=== PATIENT | female | born 1955 | race Caucasian/White ===

== ENCOUNTER 2016-09-26 11:19 | Emergency (ER) | payer OTHER ==
[~2016-09-26] VITALS: Ht 171.4 cm; Wt 61.4 kg
[2016-09-26 11:30] VITALS: BP 126/75; PULSE 86; RESP 16; O2SAT 99
--- NOTE | 2016-09-26 12:30 | ED.REPORT ---
HPI-Extremity Problem Lower Date of Service Sep 26, 2016 ED Provider: Doc,Ed MD History of Present Illness: 60yo female with L thigh swelling and bruising x 1 week. She recently took a long bus trip in [place] and flew home from [place] on 09/18/16. Her L thigh feels tight. She denies any known trauma. She reports a similar incident in Summer, 2015 while traveling abroad. [place] for DVT reportedly negative then. Nursing Notes Stated Complaint: INFLAMED LEFT LEG Chief Complaint: Extremity Trauma Nursing Notes Reviewed: Yes Allergies: Coded Allergies: No Known Allergies (Verified Allergy, Unknown, 09/26/16) General Time Seen by MD: 12:25 Chief Complaint Thigh injury left Hx Obtained From: Patient Onset Occurred: 1 week ago Symptom Duration: Since onset Quality: Aching, Pressure Severity: Current: Moderate Severity: Maximum: Moderate Associated with: Denies: Chest pain, Dyspnea, Unable to walk Pertinent Negative: Pt denies other symptoms Pertinent Negative: Exacerbated by nothing, Relieved by nothing Recent Healthcare: No recent doctor visit Similar Sx Previous: Yes Risk-Extremity Prob Lower Well's Criteria for DVT Local tend d-vein sys (1) Well's DVT Score: 1-2 pts (mod risk 33%) Past Medical History Past Medical History hx. of "slight anemia" Reports: Hypertension Smoking History Former Smoker Social History Alcohol Use: "Social" Drug Use: Denies drug use Ambulatory Status Independent Review of Systems Constitutional: Denies: Chills, Fever, Recent wt loss Skin: Reports Bruising, Reports Swelling, Reports Unexplained bruises Cardiovascular: Denies: Chest pain, Dyspnea on exertion GI: Denies: Abdominal pain, Bloody/tarry stool, Hematochezia, Rectal pain Physical Exam Physical Exam Notes: Orthostatics: Lying= 141/79, pulse 87 sitting= 145/82, pulse 91 standing= 142/94, pulse 95 Initial Vital Signs Vital Signs (First) Date Time Temp Pulse Resp B/P Pulse Ox O2 Delivery O2 Flow Rate FiO2 09/26/16 11:30 37.0 86 16 126/75 99 Room Air Initial VS: Vital signs normal General/Constitutional: Awake, Alert, No acute distress, Not toxic appearing Respiratory / Chest: Atraumatic, Breath sounds NL, Breath sounds = bilat Cardiovascular: Heart rate NL, Regular rhythm, Heart sounds NL Rash / Lesion Notes: L thigh with thigh length medial ecchymosis, no abscess/hematoma Rash / Lesion Location: Positive: Thigh L Abdomen: Soft, Non-tender, No guarding Rectum / Perineum: Atraumatic, Blood - occult heme -, No gross blood, No fissures, No hemorrhoids, Sphincter tone VANESSA Garcia RN chaperoned Interpretation & Diagnostics Interpretation & Diagnostics: marked anemia noted Lab Results Interpretation Result Diagram: 09/26/16 1255 09/26/16 1255 Test 09/26/16 12:55 White Blood Count 3.4th/mm3 (3.8-10.1) Red Blood Count 2.96mil/mm3 (3.90-5.20) Hemoglobin 7.7g/dL (12.0-15.6) Hematocrit 25.1% (35.0-46.0) Mean Corpuscular Volume 84.8fL (81-100) Mean Corpuscular Hemoglobin 26.0pg (27.0-35.0) Mean Corpuscular Hemoglobin Concent 30.7% (32.0-37.0) Red Cell Distribution Width 24.8% (12.3-15.4) Platelet Count 142bil/L (150-400) Neutrophils (%) (Auto) 47.4% (40-74) Lymphocytes (%) (Auto) 25.6% (14-46) Monocytes (%) (Auto) 22.7% (4-12) Eosinophils (%) (Auto) 1.7% (0-5) Basophils (%) (Auto) 2.3% (0-3) Prothrombin Time 13.2sec (8.1-12.5) Prothromb Time International Ratio 1.23ratio Sodium Level 141mEq/L (134-144) Potassium Level 4.1mEq/L (3.5-5.2) Chloride Level 101mEq/L (97-108) Carbon Dioxide Level 24mmol/L (18-29) Blood Urea Nitrogen 10mg/dL (6-24) Creatinine < 0.30mg/dL (0.57-1.00) Estimat Glomerular Filtration Rate 326mL/min (>59) Glucose Level 94mg/dL (60-99) Calcium Level 8.9mg/dL (8.5-10.1) Total Bilirubin 3.6mg/dL (0.0-1.2) Aspartate Amino Transf (AST/SGOT) 97U/L (0-50) Alanine Aminotransferase (ALT/SGPT) 30U/L (0-32) Alkaline Phosphatase 83U/L (25-165) Total Protein 8.0g/dL (6.4-8.4) Albumin 4.2g/dL (3.4-5.0) Hold Muhammad Top Tube Received (Received) US Soft Tissue/Musculoskeletal PROCEDURE: US VEINOUS LEG DUPLEX UNILATERAL, LEFT INDICATIONS: R/o DVT TECHNIQUE: Real-time imaging, as well as color and pulse Doppler interrogation, were performed of the lower extremity deep veins from the inguinal ligament to the popliteal fossa. COMPARISON: None. FINDINGS: The deep veins are normally compressible, and free of intraluminal thrombus. Color and pulse Doppler demonstrate normal phasic intraluminal flow. There is normal augmentation response to distal compression maneuver. IMPRESSION: No deep vein thrombosis of the left lower extremity. Dictated by: Malinda Delaney M.D. on 09/26/2016 at 14:08 Approved by: Malinda Delaney M.D. on 09/26/2016 at 14:08 Re-Eval/Medical Decision Med Decision/Clinical Course Pt. examined and labs reviewed with Dr. James whop advises f/u with PCP for possible hemotology work-up/referral. Discharge & Departure Impression: Primary Impression: Anemia Anemia type: unspecified type Qualified Code: D64.9 - Anemia, unspecified Additional Impression: Traumatic ecchymosis of left thigh Encounter type: initial encounter Qualified Code: S70.12XA - Contusion of left thigh, initial encounter Disposition: Home Patient Instructions: Iron Deficiency Anemia (DC) Additional Instructions: Sensible diet, take a multivitamin daily. You need to see your doctor tomorrow for further work-up. Return to ER if anything worsens. Referrals: Kae Hicks MD (PCP) 1 Day eval anemia EDSupervising Provider for APC: Lyle James MD Attending Statement I was personally available for consultation in the Emergency Department. I have reviewed the chart and agree with the documentation as recorded by the Midlevel Provider, including the assessment, treatment plan, and the disposition. copies to: Anna Smalls Christopher R PAC Sep 26, 2016 12:30 Lyle James MD Sep 29, 2016 18:14
[2016-09-26 13:34] LABS: INR 1.23 ratio
[2016-09-26 13:40] LABS: BASOPHILS % (AUTO) 2.3 % (0-3); EOSINOPHILS % (AUTO) 1.7 % (0-5); MONOCYTES % (AUTO) 22.7 % (4-12); Mean Corpuscular Volume 84.8 fL (81-100); NEUTROPHILS % (AUTO) 47.4 % (40-74); Platelet Count 142 bil/L (150-400)
--- NOTE | 2016-09-26 14:10 | DRSVH ---
PROCEDURE: US VEINOUS LEG DUPLEX UNILATERAL, LEFT INDICATIONS: R/o DVT TECHNIQUE: Real-time imaging, as well as color and pulse Doppler interrogation, were performed of the lower extr emity deep veins from the inguinal ligament to the popliteal fossa. COMPARISON: None. FINDINGS: The deep veins are normally compressible, and free of intraluminal thrombus. Color and pu lse Doppler demonstrate normal phasic intraluminal flow. There is normal augmentation response to di stal compression maneuver. IMPRESSION: No deep vein thrombosis of the left lower extremity. Dictated by: Malinda Delaney M.D. on 09/26/2016 at 14:08 Approved by: Malinda Delaney M.D. on 09/26/2016 at 14:08
[2016-09-26 15:06] VITALS: BP 141/77; PULSE 83
[2016-09-26 15:08] VITALS: BP 145/82; PULSE 91
[2016-09-26 15:10] VITALS: BP 142/75; PULSE 94
[2017-01-18] MEDS ORDERED: SPIR25TA3 PO (15:23)
[2017-01-18] MEDS ORDERED: FUR20 PO (15:23)
== END 2016-09-26 15:44 | disposition home or self-care (01) ==
LOC: SED 11:19
DX: D64.9 Anemia, unspecified (principal); S70.12XA Contusion of left thigh, initial encounter; X50.1XXA Overexertion from prolonged static or awkward postures, initial encounter; Y92.9 Unspecified place or not applicable; Y93.9 Activity, unspecified; Y99.9 Unspecified external cause status; I10 Essential (primary) hypertension; Z87.891 Personal history of nicotine dependence

== ENCOUNTER 2017-01-19 01:31 | Day surgery (SDC) | payer OTHER ==
[~2017-01-19 01:31] MED LIST: FUR20 PO; SPIR25TA3 PO
[2017-01-19] MEDS ORDERED: Propofol 10,000 mCg/mL 20 mL Inj ONE (01:32)
[2017-01-19] MEDS ORDERED: Lactated Ringer's 1,000 ML IV ONE (06:00)
== END 2017-01-19 23:59 | disposition home or self-care (01) ==
LOC: END 01:31
PROVIDERS: ATTEND Internal Medicine Gastroenterology
DX: I85.00 Esophageal varices without bleeding (principal); Z53.8 Procedure and treatment not carried out for other reasons

== ENCOUNTER 2017-01-21 00:22 | Day surgery (SDC) | payer OTHER ==
[~2017-01-21] VITALS: Ht 170.2 cm; Wt 61.2 kg
[2017-01-21] MEDS ORDERED: Lactated Ringer's 1,000 ML IV SCH ×2 (05:00→12:34)
[2017-01-21] MEDS ORDERED: Lactated Ringer's 1,000 ML IV ONE (06:00)
[2017-01-21 12:18] VITALS: BP 125/71; PULSE 76; RESP 14; O2SAT 96
[2017-01-21] MEDS ORDERED: Ondansetron 2 mg/mL 2 mL Inj IVPUSH PRN (12:35)
[2017-01-21] MEDS ORDERED: MetoCLOpramide 5 mg/mL 2 mL Inj IVPUSH PRN (12:35)
[2017-01-21 13:25] VITALS: BP 106/65; PULSE 84; RESP 16; O2SAT 97
[2017-01-21 13:35] VITALS: BP 121/70; PULSE 82; RESP 16; O2SAT 98
[2017-01-21 13:45] VITALS: BP 134/77; PULSE 79; RESP 16; O2SAT 96
--- NOTE | 2017-01-21 17:08 | PCM.ANEP1 ---
Post Anesthesia PACU Phase 1 Assessment Vital Signs Vital Signs Date Time Temp Pulse Resp B/P Pulse Ox O2 Delivery O2 Flow Rate FiO2 01/21/17 13:45 79 16 134/77 96 Room Air 01/21/17 13:35 82 16 121/70 98 Room Air 01/21/17 13:25 84 16 106/65 97 Room Air 01/21/17 12:18 36.6 76 14 125/71 96 Room Air Anesthetic Administered: GA Level of Alertness: Awake, talking HULL's with Equal Strength: Yes Pain: No Nausea or Vomiting: No CV Function and Hydration: Yes Airway Device: Oxygen Delivery: Room Air Lungs: Normal Air Movement Dermatome Level: Full Sensation PACU Phase 2 Assessment Complications: No Follow up Care: N/A Patient Instructions Provided: N/A Aly Flynn MD January 21, 2017 17:08
--- NOTE | 2017-01-21 17:08 | PCM.HPANE ---
Patient Data Surgeon Admitting Provider: Attending Provider:Pawel Cat MD Primary Care Physician:Kimberlyn Crabtree MD Other Provider:Kerline Church Anesthesia Reason for Visit Esophageal Varices Without Bleeding Ht/WT & BMI Height (Feet): 5 Height (Inches): 7 Weight (Kilograms): 61.24 Body Mass Index 21.00 Allergies Coded Allergies: No Known Allergies (Verified Allergy, Unknown, 09/26/16) Past Anesthesia History Anesthesia History: Denies:: Abnormal Airway, Anesthesia Reactions, Difficult Intubation, Fam Anesthesia Reaction, Fam Malignant Hypertherm, Malignant Hyperthermia Diabetes History Hx Diabetes?: No MRSA MRSA: No Medications Reported Medications Spironolactone 25 Mg [id number] Mg PO DAILY #30 TABLET Ref 0 01/18/17 Furosemide 20 Mg Tab10 Mg PO DAILY 30 Days Ref 0 01/18/17 History History of ENT Problems?: No HEENT History: Denies:: Abnormal Airway Cataracts Difficult Intubation Dysphagia Glaucoma Hearing Problem Sinus Problem TMJ Denture Type: None Teeth Condition: Within Normal Limits Hx of Heart Problems?: Yes Cardiovascular History: Positive for:: Hypertension Denies:: AICD Abdominal Aortic Aneurism Atrial Fibrillation Cardiac Surgery Chest Pain Congestive Heart Failure Coronary Artery Disease Edema Heart Murmur Irregular Heartbeat Pacemaker Peripheral Vascular Rheumatic Fever Thrombophlebitis Valvular Heart Disease Hx of Respiratory Problem?: No Respiratory History: Denies:: Asthma COPD Chest Surgery Cough Dyspnea Emphysema Hemoptysis Oxygen Administration Pneumonia Pulmonary Embolism Tuberculosis Use of C-PAP Machine Use of Inhalers / NEBS Hx Neurologic Problems?: No Neurological History: Denies:: Alzheimer's Disease CVA Dementia Dizziness Headaches Multiple Sclerosis Parkinson's Disease Peripheral Neuropathy Seizures TIA Hx of GI Problems?: Yes Gastrointestinal History: Denies:: Cirrhosis Diverticulitis Gall Bladder Disease Gastroesphageal Reflux Gastrointestinal Bleeding Heartburn Hepatitis Hiatal Hernia Liver Disease Rectal Bleeding Other GI Pertinent History: rectal bleeding at times due to hemorrhoids Hx of Problems?: No Genitourinary History: Denies:: HX of Hemodialysis Kidney Stones Urinary Tract Infection HX of Peritoneal Dialysis: No Female Hx: Denies:: Currently Endometriosis Pelvic Inflammatory Problems with Breasts? Skin History: Denies:: History Skin Disorders? Pressure Ulcers Hx Musculoskeletal Problems?: No Musculoskeletal History: Denies:: Back Injury Degenerative Joint Fibromyalgia Joint Replacement Musculoskeletal Trauma Myasthenia Gravis Osteoarthritis Rheumatoid Arthritis Systemic Lupus Hx of Psycho/Social Problems?: Yes Psycho Social History: Positive for:: Anxiety Hx Depression Denies:: Bipolar Disorder Suicide Attempt Hx Surgeries?: Yes (knee x2, hernia repair) Hx Any Other Health Problems?: Yes Hx Diabetes: No Hx Alcohol Use: Yes (quit 2 years) Smoking Status: Former Smoker Stop/Bang Treated for Sleep Apnea?: No Do You Have a CPAP Machine?: No S-Snoring: Do You Snore Loudly: Yes T-Tired: feel tired, fatigued: No O-Obsered: Observed not breath: No B- Body Mass Index > 35 kg/m2: No A- Age over 50: Yes N- Neck Large Circumference: No G- Gender Male: No Risk Assessment Category Category 1A: Patient has history of documented sleep apnea, and HAS NOT received any narcotic, sedative or anesthesia administration during this stay. Category 1B: Patient has history of documented sleep apnea, and HAS received any narcotic , sedative or anesthesia administration during this stay Category 2: Patient has SUSPECTED Obstructive Sleep Apnea, and HAS received any narcotic , sedative or anesthesia administration during this stay. Category 3: Patient has SUSPECTED Obstructive Sleep Apnea and HAS NOT received narcotic, sedative or anesthesia administration during this stay. Category 4: Outpatient in Procedural Areas with known sleep apnea or who screen positive for High Risk via the STOP/BANG questionnaire. Exam Exam Vital Signs Vital Signs Date Time Temp Pulse Resp B/P Pulse Ox O2 Delivery O2 Flow Rate FiO2 01/21/17 12:18 36.6 76 14 125/71 96 Room Air General Appearance: Alert, Oriented X3, Cooperative, No Acute Distress HEENT/AIRWAY: MP 2, Neck Movement (FROM), Mouth Opening (3 FBMO) Lungs: Normal Air Movement Heart: Regular Rate/Rhythm Plan Impression Patient chart reviewed, patient interviewed and anesthestic plan with risks, benefits, and alternatives discussed, and informed consent obtained. NPO per Anesth. Guidelines: Yes ASA Physical Status: ASA2 Mod Systemic Disease Anesthetic Plan: GA Bene/Risks/Altern/Consents: Yes HP Complete Prior to Induction: Yes Aly Flynn MD January 21, 2017 12:34
--- NOTE | 2017-01-22 07:28 | ENDO ---
[address] [address] ENDOSCOPY PROCEDURE PATIENT: AIRAM HUGHSE : 1955 MR#: [id number] ADMIT: 01/21/2017 JOB ID: [id number] DATE: 01/21/2017 PROCEDURE PERFORMED: Esophagogastroduodenoscopy. INDICATION: Variceal screening. The patient's ASA classification, Mallampati score and medications as per Dr. Aly Flynn's anesthesia report. INSTRUMENT USED: GIF H 180 J. PROCEDURE DETAILS: After informed consent was obtained, the patient was brought into the GI suite, where she was placed on oxygen via nasal cannula and monitored with continuous pulse oximeter, telemetry and blood pressure monitoring. A time-out was performed. Then, she was placed in the left lateral decubitus position and medications were administered for sedation. A bite block was placed. The standard EGD scope was then inserted through the bite block and advanced under direct visualization to the second portion of the duodenum without difficulty. FINDINGS: 1. Normal-appearing duodenal bulb, first and second portion. 2. Normal appearing pylorus. The mucosa of the antrum and body of the stomach had a mosaic appearance consistent with portal gastropathy. 3. Retroflexed views in the gastric body revealed a normal-appearing cardia and fundus. 4. Normal-appearing GE junction at 39 cm. Just above the GE junction, there were three small columns of varices that flattened out with insufflation. These extended to 20 cm proximally. There was no stigmata of recent bleeding or evidence that these were at high risk for bleeding. IMPRESSION: 1. Portal gastropathy. 2. Small esophageal varices. RECOMMENDATIONS: 1. Followup in GI clinic. 2. Repeat EGD in one year. COMPLICATIONS: None. ESTIMATED BLOOD LOSS: 0.
== END 2017-01-21 23:59 | disposition home or self-care (01) ==
LOC: END 00:22
PROVIDERS: ATTEND Internal Medicine Gastroenterology
DX: I85.00 Esophageal varices without bleeding (principal); K76.6 Portal hypertension; K31.89 Other diseases of stomach and duodenum; I10 Essential (primary) hypertension; F41.8 Other specified anxiety disorders; Z87.891 Personal history of nicotine dependence
CPT/HCPCS: 43235; J7120

== ENCOUNTER 2017-03-18 14:45 | Inpatient (IN) | payer OTHER ==
[2017-03-18] VITALS (12 sets, daily range): BP systolic 101–124; BP diastolic 63–79; PULSE 79–123; RESP 12–22; O2SAT 93–99
[~2017-03-18] VITALS: Ht 170.2 cm; Wt 61.2 kg
--- NOTE | 2017-03-18 15:49 | ED.REPORT ---
HPI-General Illness Date of Service Mar 18, 2017 ED Provider: Milagro Blancas History of Present Illness: was told to come in by doctor. Told she is low. 6.5 was number 2 weeks ago. ETOH noted, when asked, patient denies drinking. Unable to obtain hx because of etoh. Does report occasional nose bleed Nursing Notes Stated Complaint: GENERAL Chief Complaint: General Complaint Nursing Notes Reviewed: Yes Allergies: Coded Allergies: latex (Verified Allergy, Intermediate, rash, 03/18/17) Scheduled Furosemide (Furosemide) 20 Mg Tab 10 MG PO DAILY Spironolactone (Spironolactone) 25 Mg Tablet 25 MG PO DAILY General Time Seen by MD: 15:30 Chief Complaint Weakness (low h and h), Other Hx Obtained From: Patient Sudden in Onset?: No Past Medical History Past Medical History hx. of "slight anemia" Reports: Hypertension Smoking History Former Smoker Social History Alcohol Use: "Social" Drug Use: Denies drug use Ambulatory Status Independent Review of Systems Full Review of Systems Constitutional: Reports: Fatigue, Denies: Chills Ears / Nose / Throat: Denies: Ear drainage left, Ear drainage right Respiratory: Reports: Dyspnea on exertion GI: Denies: Bloody/tarry stool, Melena, Rectal pain, Vomiting Endocrine: Denies: Cold intolerance, Heat intolerance Allergy / Immune: Denies: Allergic reaction Psychiatric: Denies: Agitation, Anxiety Physical Exam Vital Signs Vital Signs Date Time Temp Pulse Resp B/P Pulse Ox O2 Delivery O2 Flow Rate FiO2 03/18/17 21:21 36.9 87 12 101/67 03/18/17 21:05 36.9 86 13 116/67 03/18/17 20:53 36.9 88 16 111/68 03/18/17 19:37 85 20 113/68 96 Room Air 03/18/17 17:47 88 21 105/63 93 Room Air 03/18/17 15:46 90 22 122/69 95 Room Air 03/18/17 15:13 36.5 92 14 123/79 97 Room Air Initial VS: Reviewed, Vital signs normal General/Constitutional: Well-developed, Well-nourished Head / Eyes: Atraumatic, Normocephalic, PERRL ENT: Mucous membranes moist, Conjunctiva normal, No scleral icterus Neck: Supple, Non-tender, Full range of motion Respiratory: Breath sounds normal, Clear to auscultation, No respiratory distress Cardiovascular: Regular rate & rhythm, Heart sounds normal, Intact distal pulses Abdomen / GI: Soft, Non-tender, No guarding, No rebound, No distention Back: No CVA tenderness Lymphatic: No lymphadenopathy Extremities: Vascular intact, Neuro intact, No swelling, No tenderness Skin: Warm, Dry, No cyanosis Neurologic: Alert, Oriented, Nonfocal Psychiatric: Mood/affect normal, Behavior normal, Normal thought content General/Constitutional: Awake, Alert, No acute distress drunk Head / Eyes: Atraumatic, Normocephalic, PERRL Neck: Atraumatic, Supple, No meningismus Respiratory / Chest: Atraumatic, Breath sounds NL, Breath sounds = bilat, No respiratory distress Cardiovascular: Heart rate NL, Regular rhythm, Heart sounds NL Abdomen: Atraumatic, Soft, Non-tender guiac negative Interpretation & Diagnostics Lab Results Interpretation Result Diagram: 03/18/17 1600 03/18/17 1600 Test 03/18/17 16:00 03/18/17 20:15 White Blood Count 2.9th/mm3 (3.8-10.1) Red Blood Count 2.76mil/mm3 (3.90-5.20) Hemoglobin 6.0g/dL (12.0-15.6) Hematocrit 21.5% (35.0-46.0) Mean Corpuscular Volume 77.9fL (81-100) Mean Corpuscular Hemoglobin 21.7pg (27.0-35.0) Mean Corpuscular Hemoglobin Concent 27.9% (32.0-37.0) Red Cell Distribution Width 23.4% (12.3-15.4) Platelet Count 42bil/L (150-400) Neutrophils (%) (Auto) 47.7% (40-74) Lymphocytes (%) (Auto) 27.4% (14-46) Monocytes (%) (Auto) 18.9% (4-12) Eosinophils (%) (Auto) 1.4% (0-5) Basophils (%) (Auto) 3.5% (0-3) Hold Purple Top Tube Received (Received) Hold Blue Top Tube Received (Received) Sodium Level 141mEq/L (134-144) Potassium Level 4.2mEq/L (3.5-5.2) Chloride Level 103mEq/L (97-108) Carbon Dioxide Level 20mmol/L (18-29) Blood Urea Nitrogen 8mg/dL (8-27) Creatinine 0.43mg/dL (0.57-1.00) Estimat Glomerular Filtration Rate 215mL/min (>59) Glucose Level 229mg/dL (60-99) Calcium Level 8.1mg/dL (8.5-10.1) Magnesium Level 1.7mg/dL (1.6-2.6) Total Bilirubin 2.4mg/dL (0.0-1.2) Aspartate Amino Transf (AST/SGOT) 132U/L (0-50) Alanine Aminotransferase (ALT/SGPT) 27U/L (0-32) Alkaline Phosphatase 106U/L (25-165) Troponin T < 0.010ug/L (0.0-0.011) Total Protein 7.3g/dL (6.4-8.4) Albumin 3.6g/dL (3.4-5.0) Hold [place] Top Tube Received (Received) Hold Muhammad Top Tube Received (Received) Alcohols 374mg/dL (0-10) Lactic Acid Level 2.8mmol/L (0.4-2.0) Re-Eval/Medical Decision Med Decision/Clinical Course 61 year old female presents after being told to come to the ER for low blood levels. Patient states she maybe was weak after shopping at [employer] yesterday. Patient is poor historian because of her alcohol on board. denies drinking. No sign of appendicitis Discharge & Departure Primary Impression: Anemia Anemia type: unspecified type Qualified Code: D64.9 - Anemia, unspecified Additional Impression: ETOH abuse Disposition: ADMITTED TO HOSPITAL Referrals: Rick Heredia DO (PCP) EDSupervising Provider for APC: Rory Mancilla DO copies to: Rick Heredia Sue ARNP Mar 18, 2017 15:49
[2017-03-18 16:44] LABS: BASOPHILS % (AUTO) 3.5 % (0-3); EOSINOPHILS % (AUTO) 1.4 % (0-5); MONOCYTES % (AUTO) 18.9 % (4-12); Mean Corpuscular Hemoglobin 21.7 pg (27.0-35.0); Mean Corpuscular Volume 77.9 fL (81-100); NEUTROPHILS % (AUTO) 47.7 % (40-74); Platelet Count 42 bil/L (150-400)
[2017-03-18 16:57] LABS: TROPONIN T < 0.010 ug/L (0.0-0.011)
[2017-03-18] MEDS ORDERED: 0.9% Sodium Chloride 1,000 ML IV ONE (17:55)
[2017-03-18] MEDS ORDERED: Ondansetron 2 mg/mL 2 mL Inj IVPUSH PRN (20:35)
[2017-03-18] MEDS ORDERED: Polyethylene Glycol (PEG) 17 Gm Powder PO PRN (20:35)
[2017-03-18] MEDS ORDERED: Alum-Mag Hydrox-Simeth 30 mL Suspension PO PRN (20:35)
--- NOTE | 2017-03-18 22:09 | PCM.HPMED ---
Subjective Date of Service Mar 18, 2017 Primary Provider: Admitting Physician: Primary Care Physician: Rick Heredia DO Attending Physician: Chief Complaint: Fatigue History of Present Illness: Jorge A Wooten is a 61 year old woman with past medical history significant for alcoholic cirrhosis with esophageal varices, recurrent epistaxis , recurrent anemia, anxiety who presented to the [facility] emergency department today at the advice of her primary care doctor due to severe anemia. The patient is a difficult historian and much of the information is obtained from chart review. Patient is supposed to be on numerous medications for her cirrhosis including spironolactone and furosemide which she has self discontinued. The patient has had multiple ER visits due to recurrent epistaxis. The patient states that she believes that her nosebleeds occur due to stressful events. She states that she has at least one significant nosebleed per month but has to sleep with tissues in her nose to prevent blood from "getting everywhere." The patient states that she was previously an alcoholic but has not been drinking since the of her children. Of note, today the patient's alcohol level is 374. The patient has been referred to hematology to evaluate her recurrent pancytopenia. Per Dr. Heredia's note from the outpatient clinic the patient smelled of alcohol during his interview with her on 03/02/2017 however the patient stated that this was due to recent use of mouthwash. Patient notes frequent and easy bruising especially of her mathis. She denies any chest pain, chest pressure, shortness of breath or palpitations. She does however state that she is sleeping all the time because she is so tired. Recent lab workup at her primary care physician's on 03/02/2017 reveals an iron saturation of 7% with a normal iron binding capacity, B12 level of 1200 , folate of 0.6 and a ferritin of 19. A blood ethanol level obtained at this visit was 180. She most recently underwent an upper endoscopy on 01/22/17 which revealed small esophageal varices and portal gastropathy. In the emergency department her vital signs were stable. Her laboratory evaluation was notable for hemoglobin of 6.0. 3 units of blood were typed and cross and began transfusing. Review of Systems: A comprehensive of the review of systems was performed and negative except as noted above in history present illness. Allergies Coded Allergies: latex (Verified Allergy, Intermediate, rash, 03/18/17) Home Medications Patient denies taking any medications. PMH Alcoholic cirrhosis with portal gastropathy and esophageal varices. Hypertension Mitral valve regurgitation Microcytic anemia Medication noncompliance Recurrent epistaxis Surgical History Hernia repair Knee arthroscopy Family History Grandmother has diabetes mellitus. Maternal grandfather had colon cancer. Mother had colon polyps. Social History Hx Alcohol Use: No (previous ETOH) Hx Substance Use: No Hx Tobacco Use: Yes (QUIT IN ) Smoking Status: Former Smoker Exam Vital Signs Vital Sign - Last Date Time Temp Pulse Resp B/P Pulse Ox O2 Delivery O2 Flow Rate FiO2 03/18/17 21:21 36.9 87 12 101/67 03/18/17 19:37 96 Room Air Exam General: No acute distress, thin woman who appears older than stated age, appropriately interactive HEENT: Normocephalic, atraumatic. External ears without defect. Pupils equal, round, and reactive to light and accommodation. Icteric sclerae, pale conjunctivae, and no lid lag. Jaundice noted under the tongue. Oropharynx free of erythema and cobble stoning with moist mucosa. No petechiae noted Neck: Supple with full range of motion. No jugular venous distension. No bruits. No lymphadenopathy or thyromegaly. Cardiovascular: Regular rate and rhythm with holosystolic murmur appreciated. Pulmonary: Clear to auscultation bilaterally with no crackles, wheezes, or rhonchi. Normal respiratory effort with no use of accessory muscles. Abdomen: Bowel tones present. Soft, nontender, nondistended. Spleen palpable. Extremities: No clubbing, cyanosis, edema, or lymphadenopathy appreciated. Skin: Normal temperature, turgor. Purpura of bilateral shins noted. Neurological: Cranial nerves grossly intact. Normal muscle strength, tone, and bulk. Reflexes, coordination, and sensory function within normal limits. No known gait impairment. Generally tremulous appearing Psychiatric: Normal mood and affect. Alert and oriented to person, place, and time. Lab and Diagnostics Result Diagram: 03/18/17 1600 03/18/17 1600 Assessment & Plan Jorge A Wooten is a 61 year old woman with past medical history significant for alcoholic cirrhosis with esophageal varices, recurrent epistaxis , recurrent anemia, anxiety who presented to the [facility] emergency department today at the advice of her primary care doctor due to severe anemia. Pancytopenia, acute on chronic, present on admission, active -Most likely etiology secondary to bone marrow suppression from alcohol ingestion. 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 -Is likely secondary to cirrhosis and a reduction thrombopoetin production. A recent abdominal ultrasound from 3 months ago reveals a normal-sized spleen. -We will rule out hemolytic anemia. LDH, haptoglobin, total and direct bilirubin will be obtained. Smear eval. -Transfuse 3 units of PRBC -Monitor H&H -Obtain stool guaiac Lactic acidosis, present on admission, improving -Likely due to tissue hypoxia from severe anemia as well as poor hepatic clearance due to cirrhosis -Improved on recheck Alcoholic hepatitis, present on admission, active -Likely patient's LFTs do not reflect a classic picture of alcoholic hepatitis with a normal ALT however given the patient's cirrhosis it is likely that much of her liver is scarred down and able to release any enzymes. -We will obtain INR Alcohol intoxication, present on admission, active -Patient denies using any alcohol despite alcohol level being 374 -Years that she has also been in denial with her primary care doctor. -Anticipate that the patient will undergo withdrawal soon. -Will hold off on initiating CIWA protocol as the patient is denying alcohol use Alcoholic cirrhosis, present on admission, active -We will obtain an INR to calculate the patient's meld score -Restart patient's spironolactone and furosemide CODE STATUS: Full code Patient is admitted under inpatient status with expected length of stay greater than 2 midnights due to severity of presenting symptoms, risk of adverse event, and complexity of treatment plan. VTE Mechanical Devices: Intermittant Pneumatic CD Resuscitation Status: CPR: Attempt Resuscitation Attending Statement Pt seen and examined by myself and agree with above plan. Xi Blankenship DO Mar 18, 2017 21:29 Petrona Salinas MD Mar 19, 2017 05:55
[2017-03-18] MEDS ORDERED: diphenhydrAMINE 25 mg Capsule PO ONE (22:40)
[2017-03-18 23:01] LABS: INR 1.47 ratio
[2017-03-18] MEDS: 0.9% Sodium Chloride 1,000 ML IV SCH (23:15)
[2017-03-19] VITALS (14 sets, daily range): BP systolic 117–140; BP diastolic 69–85; PULSE 77–92; RESP 14–20; O2SAT 93–97
[2017-03-19] MEDS ORDERED: 0.9% Sodium Chloride 250 ML IV ONE (01:00)
--- NOTE | 2017-03-19 07:43 | NUR ---
Admit/Blood Pt admitted to room 2006 around 2300, vitals stable and pt in no distress. 1st unit of blood started in ED and finished on floor. Pt denied symptoms after slight fever reported in ED and pt had no further fevers while in unit, although is observed to have some shakiness which pt says has been her norm for months now, she states it "makes eating hard." MD ordered 2 more units of PRBCs to be given on floor for a total of 3 units. Pt tolerated well, 3rd unit currently infusing, day RN aware. Pt A&Ox3, vitals stable overnight.
--- NOTE | 2017-03-19 09:30 | NUR ---
CIWA and Ativan CIWA score this am was 10. Offered IV Ativan and pt refused. Explained why it was ordered and went over reasons why she didn't want it. Pt still refused but agreed to call if her symptoms got worse. At this time she states she has a mild headache, slightly anxious, and severe tremor. MD aware and will continue to check in on her frequently.
[2017-03-19] MEDS: 0.9% Sodium Chloride 1,000 ML IV SCH ×2 (10:35→20:48)
--- NOTE | 2017-03-19 14:11 | PCM.PNMED ---
Subjective Date of Service Mar 19, 2017 Subjective pt denied alcohol drinking, but noticed severe resting tremors on arms, mildly anxious, nauseated, denied VH,AH, no formication. denied blurry vision, AAOx3, running third unit of pRBC, tolerating well, reportedly refused ativan per director of medical staff services Exam Vital Signs Vital Sign - Last Date Time Temp Pulse Resp B/P Pulse Ox O2 Delivery O2 Flow Rate FiO2 03/19/17 12:30 37.0 78 18 126/69 93 Room Air Intake and Output 03/18/17 03/18/17 03/19/17 Cumulative From/Thru 15:00 23:00 07:00 03/18/17 15:13 - 03/19/17 06:27 Intake Total 999 ml 2579 ml 3578 ml Output Total 300 ml 300 ml Balance 999 ml 2279 ml 3278 ml Intake Oral 300 ml 300 ml IV Total 999 ml 1679 ml 2678 ml Packed Cells 600 ml 600 ml Output Urine Total 300 ml 300 ml Exam tremors on extended arms, tongue fasciculation no JVD, MMM, no LAD RRR, nl s1, s2 no mrg CTAB, no w,c S,ND,NT,normoactive BS+ warm, no edema, pulses 2/2 IVs and Medications Medications Reviewed: Medications were reviewed in detail Lab and Diagnostics Result Diagram: 03/19/17 1104 03/18/17 1600 Assessment & Plan Jorge A Wooten is a 61 year old woman with past medical history significant for alcoholic cirrhosis with esophageal varices, recurrent epistaxis , recurrent anemia, anxiety who presented to the [facility] emergency department today at the advice of her primary care doctor due to severe anemia. acute, active Alcohol intoxication, present on admission, active, Patient denies using any alcohol despite alcohol level being 374. Years that she has also been in denial with her primary care doctor. -CIWA protocol initiated, close observation, neurocheck q1h -replete lytes daily, mg,K Pancytopenia likely BM suppression from chronic etoh abuse, cirrhosis, SANAZ, POA , acute on chronic, given stable vitals, relative mild sx, more suggestive of chronic process. A recent abdominal ultrasound from 3 months ago reveals a normal-sized spleen. hgb6 on admission, pt received 3units of pRBC -Monitor H&H daily -Obtain stool guaiac chronic, stable resolved Lactic acidosis, present on admission,Likely due to tissue hypoxia from severe anemia as well as poor hepatic clearance due to cirrhosis, resolved Alcoholic hepatitis, present on admission, active, mild transaminitis, mild bilirubinemia. stable Alcoholic cirrhosis, present on admission, active, mild coagulopathy. EGD showed Portal gastropathy,Small esophageal varices. Currently no signs of portal hypertension, no active bleeding. -consider restarting spironolactone and furosemide prior to d/c CODE STATUS: Full code dispo: likely 2-3more days VTE Mechanical Devices: Intermittant Pneumatic CD Resuscitation Status: CPR: Attempt Resuscitation Time spent 35min Krista Newby MD Mar 19, 2017 14:11 35min Krista Newby MD Mar 19, 2017 14:11
--- NOTE | 2017-03-19 16:44 | NUR ---
Social Work: Screen/Multidisciplinary Rounds Pt discussed in am rounds. Pt is on CIWA protocol but adamantly denying ETOH use. Pt's BAL was 374 upon admission. Pt has been refusing IV Ativan. CD order placed. BRICK CHIMNEY BUILDER acknowledges CD order however pt will likely not be seen today due to high census. ED BRICK CHIMNEY BUILDER is aware and will try to assess the patient ROSA Rowley
[2017-03-20] VITALS (11 sets, daily range): BP systolic 115–145; BP diastolic 60–78; PULSE 76–87; RESP 16–20; O2SAT 93–97
[2017-03-20] MEDS: 0.9% Sodium Chloride 1,000 ML IV SCH ×3 (02:31→22:17)
[2017-03-20 03:34] LABS: MONOCYTES % (AUTO) 18 % (4-12); Mean Corpuscular Hemoglobin 24.7 pg (27.0-35.0); Mean Corpuscular Volume 78 fL (81-100); NEUTROPHILS % (AUTO) 63 % (40-74); Platelet Count 23 bil/L (150-400)
[2017-03-20 03:35] LABS: BASOPHILS % (AUTO) 0 % (0-3); EOSINOPHILS % (AUTO) 2 % (0-5)
[2017-03-20 04:01] LABS: Magnesium 1.3 mg/dL (1.6-2.6); Phosphorus 2.7 mg/dL (2.5-4.9)
[2017-03-20] MEDS ORDERED: KCl 40 mEq/500 mL D5W(K 3 - 3.7 & Creat < 2) IV ONE (05:40)
[2017-03-20] MEDS ORDERED: Mag Sulf 4 Gm/100 mL IV Premix (Mag < 1.6 & Creat < 2) IV ONE (05:40)
--- NOTE | 2017-03-20 06:28 | NUR ---
Critical/abnormal labs/GI/CIWA Platelet count critical this morning at 23, notified. H&H trending down, ordered 1 unit of PRBCs to transfuse, pending blood bank to call when this is ready, day RN aware. K/Mag also low, ordered replacement protocol, currently infusing replacement. Labs to be rechecked when complete. Pt had 3 small watery brown BMs, guaiac sent. Pt continues w/ tremors, slept intermittently and states occasional mild headache, denies nausea. Pt A&Ox3, HULL. States "I'm just tired."
[2017-03-20] MEDS ORDERED: Potassium Chloride 20 mEq SR Tablet PO ONE (07:50)
[2017-03-20] MEDS ORDERED: Magnesium Sulf 2 Gm/50mL Water 2 GM in IV Premix 1 EACH IV ONE (07:50)
[2017-03-20] MEDS: 0.9% Sodium Chloride 250 ML IV SCH (08:48)
[2017-03-20] MEDS ORDERED: Potassium Chloride 20 mEq/15 mL 15mL Oral Soln PO ONE (09:30)
[2017-03-20 10:26] LABS: Bilirubin, Direct 2.7 mg/dL (0.0-0.3)
[2017-03-20] MEDS: FERROUS SULFATE 44 MG/ML PO SCH ×3 (10:48→22:14)
--- NOTE | 2017-03-20 12:00 | NUR ---
Valium Gave the pt 5mg IV Valium, pt a little hesitant because when she had previously taken valium it had made her so groggy she fell out of the bed. Pt has a headache, moderate tremor, nausea and diarrhea, and now starting to hear someone talk about puppy dogs. Scored a 10 on CIWA. Will continue to monitor.
--- NOTE | 2017-03-20 12:19 | PCM.PNMED ---
Subjective Date of Service Mar 20, 2017 Subjective pt was still withdrawaling from etoh, tremulous, yesterday, pt refused Valium, "making me fall out of the bed" agreed on Valium today, reportedly pt also hallucinating, talking to iv pump hgb still dropped 7.1 after 3units, one more pRBC ordered. pt had nausea, Nonbloody small emesis, nonbloody watery diarrhea, sent stool sample, guiac is negative. Exam Vital Signs Vital Sign - Last Date Time Temp Pulse Resp B/P Pulse Ox O2 Delivery O2 Flow Rate FiO2 03/20/17 11:17 36.8 78 16 145/76 03/20/17 08:48 97 Room Air Intake and Output 03/19/17 03/19/17 03/20/17 Cumulative From/Thru 15:00 23:00 07:00 03/18/17 15:13 - 03/20/17 05:20 Intake Total 740 ml 1761 ml 320 ml 6399 ml Output Total 1525 ml 750 ml 2575 ml Balance 740 ml 236 ml -430 ml 3824 ml Intake Oral 620 ml 320 ml 1240 ml IV Total 440 ml 1141 ml 4259 ml Packed Cells 300 ml 900 ml Output Urine Total 1025 ml 750 ml 2075 ml Emesis 500 ml 500 ml # Bowel Movements 2 3 5 Exam AAOx2 tremors on extended arms, tongue fasciculation no JVD, MMM, no LAD RRR, nl s1, s2 no mrg CTAB, no w,c S,ND,NT,normoactive BS+ warm, no edema, pulses 2/2 IVs and Medications Medications Reviewed: Medications were reviewed in detail Lab and Diagnostics Result Diagram: 03/20/17 0255 03/20/17 0255 Assessment & Plan Jorge A HoytQuintenSagrario is a 61 year old woman with past medical history significant for alcoholic cirrhosis with esophageal varices, recurrent epistaxis , recurrent anemia, anxiety who presented to the [facility] emergency department today at the advice of her primary care doctor due to severe anemia. acute, active Alcohol intoxication, present on admission, active, Patient denies using any alcohol despite alcohol level being 374. Years that she has also been in denial with her primary care doctor. -continue CIWA protocol, close observation, neurocheck q1h Pancytopenia, multifactorial:Labs suggestive of hemolytic process, +/- BM suppression from chronic etoh abuse, cirrhosis, SANAZ, POA, acute on chronic, given stable vitals, relative mild sx, more suggestive of chronic process. A recent abdominal ultrasound from 3 months ago reveals a normal-sized spleen. hgb6 on admission, pt received 3units of pRBC. hgb was not increased appropriately, ordered one more unit. there was no signs of GIB, FOBT negative. -Monitor H&H q12h, -target hgb>7, transfuse as needed -will get CT abd pelvis to rule out splenic sequestration, -will consider hematology consult, if h/h continues to drop -start iron sulfate 325mg tid electrolytes imbalance, POA, etoh withdrawal, GI fluid loss given vomiting, diarrhea -replete lytes daily, mg,K chronic, stable resolved Lactic acidosis, present on admission,Likely due to tissue hypoxia from severe anemia as well as poor hepatic clearance due to cirrhosis, resolved Alcoholic hepatitis, present on admission, active, mild transaminitis, mild bilirubinemia. stable Alcoholic cirrhosis, present on admission, active, mild coagulopathy. EGD showed Portal gastropathy,Small esophageal varices. Currently no signs of portal hypertension, no active bleeding. -consider restarting spironolactone and furosemide prior to d/c CODE STATUS: Full code dispo: likely 2-3more days VTE Mechanical Devices: Intermittant Pneumatic CD Resuscitation Status: CPR: Attempt Resuscitation Time spent 35min Krista Newby MD Mar 20, 2017 12:19
[2017-03-20] MEDS ORDERED: Vancomycin 125 mg Oral Capsule PO ONE (13:35)
--- NOTE | 2017-03-20 16:42 | DRSVH ---
PROCEDURE: CT ABDOMEN AND PELVIS WITH CONTRAST ([id number]) INDICATIONS: cirrhosis possible splenic sequstration TECHNIQUE: After the administration of oral and intravenous contrast, 5 mm thick sections acquired from the diap hragms to the symphysis. 5 mm thick coronal and sagittal reformats were performed. For radiation do se reduction, the following was used: automated exposure control, adjustment of mA and/or kV accordi ng to patient size. COMPARISON: [facility], CT, ABDOMEN W CONTRAST, 07/24/2013, 8:11. FINDINGS: Image quality: Excellent. ABDOMEN: Lung bases: Lung bases are clear. Heart size is normal. Solid organs: Liver is nodular with steatosis. The spleen is enlarged. Gallbladder demonstrates gall stones without wall thickening. Biliary system is non-dilated. Pancreas enhances normally. No adre nal nodules. Kidneys are normal in size and enhancement, without hydronephrosis. Peritoneum and bowel: Stomach, small bowel, and colon loops are nonobstructed. There is a mild appea queta of edema at the pancreatic head as well as adjacent duodenal C-loop with minimal surrounding fl uid. Mild fluid is noted in the presacral region. Nodes and vessels: No retroperitoneal or mesenteric adenopathy. Aorta and inferior vena cava are no rmal in caliber. Splenic varices are present. Miscellaneous: No ventral hernias. PELVIS: Genitourinary: Bladder wall thickness is normal. Miscellaneous: No inguinal hernias or adenopathy. Bones: No suspicious bony lesions. No vertebral body compression fractures. IMPRESSION: 1. Mild edema of the pancreatic head/uncinate process as well as adjacent duodenal C-loop with scatte red mild fluid. Findings could be related to pancreatitis with secondary duodenitis or vice versa. Re commend correlation to enzyme levels. 2. Cholelithiasis without imaging evidence of cholecystitis. 3. Cirrhotic appearing liver with splenomegaly and appearance of varices suggestive of portal venous hypertension. 4. Mild dependent pelvic fluid. Dictated by: Breonna Augustin M.D. on 03/20/2017 at 16:32 Approved by: Breonna Augustin M.D. on 03/20/2017 at 16:40
--- NOTE | 2017-03-20 17:16 | NUR ---
Social Work: Multidisciplinary Rounds Pt discussed in am rounds. Pt is not medically stable for discharge at this time. Sw status remains unchanged; anticipate discharge home OFFICER CAPTAIN to continue to follow to assess for needs. Pt requires CD and OFFICER CAPTAIN assessment however due to high census has not yet been seen. OFFICER CAPTAIN will attempt to see the patient tomorrow. ROSA Rowley
[2017-03-20] MEDS: Vancomycin 125 mg Oral Capsule PO SCH (22:14)
[2017-03-20] MEDS: LORazepam 1 mg Tablet PO PRN (23:22)
[2017-03-21] VITALS (11 sets, daily range): BP systolic 101–137; BP diastolic 31–86; PULSE 81–95; RESP 16–20; O2SAT 94–96
--- NOTE | 2017-03-21 00:56 | NUR ---
CIWA/Dark Stool Pt's CIWA score steadily increasing, ranging from 15-18. Pt continues to be shaky, still oriented to self/time/place, but will often say very "off" things, start speaking Albanian, and when left alone is observed to hallucinate, speaking to someone not there. Pt also increasingly restless and attempting to leave bed multiple times. PRN Valium given and increased from 5 to 10mg dose but effect was minimal to none. MD notified of symptoms, aware that nursing to try PO Ativan next and to update if symptoms worsen. Pt given Ativan PO x1 and has been sleeping for a couple hours now. Vitals stable, continuing to monitor. Personal and bed alarm on for safety. Seizure precautions in place. Pt was started on ferrous sulfate during day but as she is having very large amounts (1000mL urine/stool mix so far) of dark liquid stool, another guaiac was sent to lab. aware and put order in for guaiac.
[2017-03-21] MEDS: Vancomycin 125 mg Oral Capsule PO SCH ×4 (03:26→20:25)
[2017-03-21] MEDS: 0.9% Sodium Chloride 250 ML IV SCH (03:40)
[2017-03-21 04:32] LABS: Mean Corpuscular Hemoglobin 25.5 pg (27.0-35.0); Mean Corpuscular Volume 80 fL (81-100)
[2017-03-21 04:34] LABS: EOSINOPHILS % (AUTO) 2 % (0-5); MONOCYTES % (AUTO) 17 % (4-12); NEUTROPHILS % (AUTO) 66 % (40-74); Platelet Count 32 bil/L (150-400)
[2017-03-21 04:35] LABS: BASOPHILS % (AUTO) 1 % (0-3)
[2017-03-21 04:53] LABS: Magnesium 1.8 mg/dL (1.6-2.6); Phosphorus 2.2 mg/dL (2.5-4.9)
[2017-03-21] MEDS ORDERED: 0.9% Sodium Chloride 250 ML IV ONE (04:55)
[2017-03-21] MEDS ORDERED: KCl 40 mEq/500 mL D5W(K 3 - 3.7 & Creat < 2) IV ONE (06:25)
--- NOTE | 2017-03-21 07:55 | NUR ---
Labs Platelet lab and H&H reported to , order for one unit PRBC to infuse, blood bank to call when ready. Potassium replaced per protocol. Day RN aware.
[2017-03-21] MEDS: FERROUS SULFATE 44 MG/ML PO SCH ×3 (09:18→20:25)
[2017-03-21] MEDS ORDERED: PrednisoLONE 1 mg/mL 118 mL Solution PO SCH (10:20)
[2017-03-21] MEDS ORDERED: Pantoprazole 40 mg ER24 Tablet PO SCH (10:20)
--- NOTE | 2017-03-21 10:31 | PCM.PNMED ---
Subjective Date of Service Mar 21, 2017 Subjective pt was still in withdrawal, received 1unit pRBC well, denied SOB, h/h still low, found to have c.diff, vancomycin started, enteric precaution. reported dark stools, after iron started.no blood stools. guiac sent denied abdominal pain, Exam Vital Signs Vital Sign - Last Date Time Temp Pulse Resp B/P Pulse Ox O2 Delivery O2 Flow Rate FiO2 03/21/17 09:29 36.6 85 16 115/71 03/21/17 09:14 96 Room Air Intake and Output 03/20/17 03/20/17 03/21/17 Cumulative From/Thru 15:00 23:00 07:00 03/18/17 15:13 - 03/21/17 06:32 Intake Total 2161 ml 2650 ml 1513 ml 83897 ml Output Total 1350 ml 1700 ml 5625 ml Balance 2161 ml 1300 ml -187 ml 7098 ml Intake Oral 1440 ml 200 ml 2880 ml IV Total 1861 ml 1210 ml 1313 ml 8643 ml Packed Cells 300 ml 1200 ml Output Urine Total 750 ml 2825 ml Stool Total 600 ml 600 ml Urine/Stool Mix 1700 ml 1700 ml Emesis 500 ml # Bowel Movements 5 Exam AAOx2 tremors on extended arms, tongue fasciculation no JVD, MMM, no LAD RRR, nl s1, s2 no mrg CTAB, no w,c S,mildly distended,NT,normoactive BS+ warm, no edema, pulses 2/2 IVs and Medications Medications Reviewed: Medications were reviewed in detail Lab and Diagnostics Result Diagram: 03/21/17 03403/21/17 034 Assessment & Plan Jorge A HoytQuintenDiamond is a 61 year old woman with past medical history significant for alcoholic cirrhosis with esophageal varices, recurrent epistaxis , recurrent anemia, anxiety who presented to the [facility] emergency department today at the advice of her primary care doctor due to severe anemia. acute, active Severe alcoholic hepatitis and alcoholic cirrhosis, present on admission, active , MF40, MELD17 today, EGD showed Portal gastropathy,Small esophageal varices. CT abd showed mild pelvic fluid. -start prednisolone 40mg today for 28days course, -consulted GI appreciate further input -will consider lactulose if any signs of HE -consider restarting spironolactone and furosemide prior to d/c Alcohol intoxication, present on admission, active, Patient denies using any alcohol despite alcohol level being 374. Years that she has also been in denial with her primary care doctor. -pt remained in withdrawal from etoh, continue CIWA protocol, close observation , neurocheck q1h Pancytopenia, multifactorial:Labs suggestive of hemolytic process, +/- BM suppression from chronic etoh abuse, cirrhosis, SANAZ, POA, acute on chronic, given stable vitals, relative mild sx, more suggestive of chronic process. A recent abdominal ultrasound from 3 months ago reveals a normal-sized spleen. hgb6 on admission, pt received total 4units of pRBC so far,FOBT negative. h/h still not responding well. CT abd pelvis 03/20 showed possible pancreatitis, splenomegaly which seems new. Reportedly pt had dark stools 03/20 -Monitor H&H q12h, -target hgb>7, transfuse as needed -will consider hematology consult, if h/h continues to drop -started iron sulfate 325mg tid on 03/20 electrolytes imbalance, POA, etoh withdrawal, GI fluid loss from c.diff colitis -replete lytes daily, mg,K C.diff colitis, found 03/20, -started vancomycin 125mg q6h, -enteric precaution. chronic, stable resolved Lactic acidosis, present on admission,Likely due to tissue hypoxia from severe anemia as well as poor hepatic clearance due to cirrhosis, resolved CODE STATUS: Full code dispo:prolonged VTE Mechanical Devices: Intermittant Pneumatic CD Resuscitation Status: CPR: Attempt Resuscitation Time spent 35min Krista Newby MD Mar 21, 2017 10:31
[2017-03-21] MEDS ORDERED: PrednisoLONE 3 mg/mL 237 mL Oral Liquid PO SCH (10:52)
[2017-03-21 12:35] LABS: INR 1.71 ratio
[2017-03-21] MEDS: 0.9% Sodium Chloride 1,000 ML IV SCH ×2 (12:42→23:18)
--- NOTE | 2017-03-21 12:54 | NUR ---
Restlessness Pt stated feeling more anxiety than this morning. Moving around in bed and can't seem to get any rest. 1mg Ativan given at 1245. Will continue to monitor.
--- NOTE | 2017-03-21 14:24 | PCM.CHPMED ---
Subjective Date of Service: Mar 21, 2017 Provider requesting consult: Krista Newby MD Primary Physician: Admitting Physician: Petrona Salinas MD Primary Care Physician: Rick Heredia DO Attending Physician: Krista Newby MD Admit Status: From the Emergency Department Chief Complaint: Chief Complaint: Severe anemia, sent from primary care provider's office History of Present Illness: Gastroenterology consultation Patient is a 61-year-old female with alcoholic cirrhosis, portal gastropathy, small esophageal varices, and anemia presents upon urging from her primary care provider's office due to severe anemia. She had a hemoglobin of 6.7 on March 02 the provider's office had been attempting to contact patient to urge her to come into the emergency department since the results came in. Upon reviewing telephone records patient seems to be confused at many points in time and unwilling to come into the emergency department. Upon arrival 03/18/2017 she was found to have a blood alcohol level greater than 300, she was also found to be C. difficile positive in her stool. She is shaky but has no abdominal pain, she denies nausea, fever, and has received 5 units of packed RBCs since arrival. She had one episode of diarrhea today. Patient's impression of why her blood cell counts are so low it is because she has nutrient deficient and does not take her vitamins or eat well. She eventually reluctantly admitted to drinking vodka based on the amount of stress she is having and was not willing to quantify a specific amount. She then continued to say that she has been under a lot of stress lately. Review of Systems: A comprehensive review of systems was conducted with the patient and found to be negative except as above in the History of Present Illness. PMH Past Medical History Alcoholic cirrhosis, portal gastropathy, small esophageal varices, hypertension , mitral valve regurgitation, microcytic anemia, medication noncompliance, recurrent epistaxis Surgical History Right inguinal hernia repair Knee arthroscopy Last EGD January 2017 showing portal gastropathy and small esophageal varices Colonoscopy in February 2016 shows sigmoid colon diverticulosis, otherwise normal examination to cecum and recommends repeat colonoscopy in 10 years Home Medications Patient sporadically takes vitamin and mineral supplements Allergies: Coded Allergies: latex (Verified Allergy, Intermediate, rash, 03/18/17) Family History Family History Patient reports maternal grandfather and other relatives on mother's side with colon cancer No inflammatory bowel disease or celiac disease is known in first or second- degree relatives. 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: Yes (etoh in ed was 374)Hx Substance Use: NoHx Tobacco Use: Yes (QUIT IN 76) Smoking Status: Former Smoker Living Arrangement: with Family Exam Vital Signs Vital Sign - Last Date Time Temp Pulse Resp B/P Pulse Ox O2 Delivery O2 Flow Rate FiO2 03/21/17 12:43 36.7 83 16 120/31 95 Room Air Intake and Output 03/20/17 03/20/17 03/21/17 Cumulative From/Thru 15:00 23:00 07:00 03/18/17 15:13 - 03/21/17 06:32 Intake Total 2161 ml 2650 ml 1513 ml 96898 ml Output Total 1350 ml 1700 ml 5625 ml Balance 2161 ml 1300 ml -187 ml 7098 ml Intake Oral 1440 ml 200 ml 2880 ml IV Total 1861 ml 1210 ml 1313 ml 8643 ml Packed Cells 300 ml 1200 ml Output Urine Total 750 ml 2825 ml Stool Total 600 ml 600 ml Urine/Stool Mix 1700 ml 1700 ml Emesis 500 ml # Bowel Movements 5 General: Alert, Oriented X3, Cooperative, No Acute Distress Head: Normal Eyes: PERRLA Mouth: Mucous Membr Moist/[place]: Supple Chest & Lungs: Auscultation (clear bilaterally) Cardiovascular: Regular Rate/Rhythm, Murmur (holosystolic) Abdomen: Non-tender, Non-distended, Normoactive bowel tones, Soft, Obese Extremities: No cyanosis/clubbing/edma bilat Skin: Other (bruises present on shins bilaterally right greater than left, right arm ecchymoses on the medial elbow) Lab and Diagnostics Labs Total bilirubin 5.4, AST 73, ALT normal 18, alkaline phosphatase normal 70, lipase normal at 42 Result Diagram: 03/21/1733903/21/17339 X-Rays, CTs and MRIs CT ABDOMEN AND PELVIS WITH CONTRAST IMPRESSION: 1. Mild edema of the pancreatic head/uncinate process as well as adjacent duodenal C-loop with scattered mild fluid. Findings could be related to pancreatitis with secondary duodenitis or vice versa. Recommend correlation to enzyme levels. 2. Cholelithiasis without imaging evidence of cholecystitis. 3. Cirrhotic appearing liver with splenomegaly and appearance of varices suggestive of portal venous hypertension. 4. Mild dependent pelvic fluid. Dictated by: Breonna Augustin M.D. on 03/20/2017 at 16:32 Assessment & Plan Assessment Patient is a 61-year-old female with alcoholic cirrhosis, portal gastropathy, small esophageal varices, and anemia presents upon urging from her primary care provider's office due to severe anemia. Upon presentation she was found to have pancytopenia with a hemoglobin of 6, white blood cells of 2.9, and a platelet count of 42. Since that time she has received 5 units of packed red blood cells. Hemoglobin this morning was 7.0. Alcoholic hepatitis Patient was started on prednisolone due to a discriminative function of 40, in light of C. difficile infection we recommend discontinuation of prednisolone and using pentoxifylline 400 mg 3 times a day. Thiamine injection followed by by mouth thiamine and multivitamin ordered Social work consultation for intensive outpatient therapy substance abuse discussion, and resources Cirrhosis, portal gastropathy, esophageal varices meld score 17/discriminative function greater than 43 Monitor patient for signs of bleeding. Diet as tolerated Trend INR daily By mouth Protonix 40 mg twice a day Chronic microcytic anemia Likely due to bone marrow suppression from severe alcoholism Recommend hematology consultation Thank you for this very interesting consult, we will continue to follow Problems: Pain Evaluation: Adequate Pain Control GI Prophylaxis: Proton Pump Inhibitor VTE Mechanical Devices: Intermittant Pneumatic CD Resuscitation Status: CPR: Attempt Resuscitation Attending Statement Patient seen and examined. Agree with assessment and plan as described by Dr Rocha. Alcoholic cirrhosis. Alcoholic hepatitis with high DF. Severe pancytopenia. 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 I would recommend hematology consultation. No sign of active GI bleeding. No ab pain. Being treated for C diff based on PCR results. Based on predicted compliance with etoh abstinence and the current "infection" being treated, i would recommend we swap out the prednisolone for pentoxifylline. Continue to monitor for etoh w/ d. Needs thiamine supplementation. Will continue to follow. Needs daily CBC, CMP, PT/INR. Patient's dark stool was almost certainly a consequence of iron supplementation. Historically, patient has been followed by Dr Cat. Will touch base with him and continue to follow while inpatient. copies to: Pawel Cat MD; Rick Heredia DO; Toño Stevens MD, Erika R DO Jul 17, 2017 14:24 Toño Stevens MD Mar 21, 2017 21:37
[2017-03-21] MEDS: Pantoprazole 40 mg ER24 Tablet PO SCH (16:30)
[2017-03-21] MEDS ORDERED: Thiamine Inj 100 MG in 0.9% Sodium Chloride 100 ML IV SCH (19:00)
[2017-03-21] MEDS: Pentoxifylline 400 mg ER12 Tablet PO SCH (20:25)
[2017-03-21] MEDS: Multivit-Miner-Folic Acid-Iron Tablet PO SCH (20:26)
[2017-03-21] MEDS: LORazepam 1 mg Tablet PO PRN (23:16)
[2017-03-22] VITALS (13 sets, daily range): BP systolic 111–146; BP diastolic 64–92; PULSE 71–92; RESP 2–24; O2SAT 93–97
[2017-03-22] MEDS: Vancomycin 125 mg Oral Capsule PO SCH ×4 (01:27→20:30)
[2017-03-22 02:48] LABS: BASOPHILS % (AUTO) 0.2 % (0-3); EOSINOPHILS % (AUTO) 0 % (0-5); MONOCYTES % (AUTO) 16.7 % (4-12); Mean Corpuscular Hemoglobin 26.4 pg (27.0-35.0); Mean Corpuscular Volume 79.1 fL (81-100); NEUTROPHILS % (AUTO) 71.5 % (40-74); Platelet Count 50 bil/L (150-400)
[2017-03-22] MEDS ORDERED: 0.9% Sodium Chloride 250 ML IV ONE (03:00)
[2017-03-22 03:06] LABS: INR 1.8 ratio
[2017-03-22 03:40] LABS: Magnesium 1.6 mg/dL (1.6-2.6)
[2017-03-22] MEDS: 0.9% Sodium Chloride 250 ML IV SCH (03:40)
--- NOTE | 2017-03-22 07:06 | NUR ---
CIWA/Bruising/GI/IV/Hgb Pt started the night with a CIWA of 11 and given Valium per protocol. Pt had increased restlessness though remained A&Ox3, denying ALMAGUER/nausea. Pt given Ativan PO as this appeared more effective for pt in previous night. This was effective at helping pt rest about a couple hours but soon pt's restlessness increased and pt began to hallucinate sounds. Was medicated w/ Valium per protocol, MD notified of increased Valium needs. As night progressed pt more restless and agitated, attempting to leave bed and picking at IVs, and saying things that made no sense. Pt soon was intermittently disoriented to place, stating she was in [place] but later oriented x3 again, though still making no sense when she was speaking. notified, ordered one time Librium dose but pt was disoriented then and refused any pills. aware, stated to stick w/ Valium per protocol for the time being. Sitter here for day shift. Pt noted to have increased bruising around right medial elbow area, also felt somewhat hard. Left buttock/sacral area also with increased bruising/swelling. Messer assessed this bruising previous shift with this nurse and came back to assess this shift as well, agreed the bruising/swelling had worsened and ordered a CT of pelvis. This was not able to be done yet d/t pt restlessness. MD aware. also ordered US of right arm. Per VP [employer]ODUCT pt had only one small episode of diarrhea overnight. Right forearm IV DC'd as it became very tender. 2nd line started in left arm for blood admin. Hgb critical this am, reported to who ordered one unit PRBC.
[2017-03-22] MEDS ORDERED: Potassium Chloride 20 mEq SR Tablet PO ONE (07:30)
[2017-03-22] MEDS ORDERED: Magnesium Sulf 2 Gm/50mL Water 2 GM in IV Premix 1 EACH IV ONE (07:30)
[2017-03-22] MEDS: Pentoxifylline 400 mg ER12 Tablet PO SCH ×3 (08:46→20:30)
[2017-03-22] MEDS: Pantoprazole 40 mg ER24 Tablet PO SCH ×2 (08:46→16:30)
[2017-03-22] MEDS: Multivit-Miner-Folic Acid-Iron Tablet PO SCH (08:46)
[2017-03-22] MEDS: FERROUS SULFATE 44 MG/ML PO SCH ×3 (08:46→16:35)
[2017-03-22] MEDS: 0.9% Sodium Chloride 1,000 ML IV SCH ×3 (09:07→21:10)
[2017-03-22] MEDS: LORazepam 1 mg Tablet PO PRN ×2 (09:57→17:36)
--- NOTE | 2017-03-22 12:17 | DRSVH ---
PROCEDURE: US EXTREMITY SONOGRAM LIMITED ([id number]) INDICATIONS: right elbow AC pain, bruising, swelling TECHNIQUE: Real-time scanning was performed of the medial right elbow, with image documentation. COMPARISON: None. FINDINGS: There is a heterogeneous subcutaneous collection in the medial right elbow in the area of palpable ab normality. This measures approximately 3.9 x 2.3 x 1.8 cm. There is no internal vascularity on colo r Doppler interrogation. IMPRESSION: 1. Heterogeneous subcutaneous collection demonstrated in the area of palpable abnormality suggestive of a hematoma. The differential is a soft tissue mass. Recommend correlation with clinical history and clinical followup. If there is persistent clinical concern, further evaluation may be obtained with MRI. Dictated by: Kaden Wheeler M.D. on 03/22/2017 at 12:11 Approved by: Kaden Wheeler M.D. on 03/22/2017 at 12:15
--- NOTE | 2017-03-22 12:21 | PCM.PNMED ---
Subjective Date of Service Mar 22, 2017 Subjective pt denied abd pain, HD stable, now with sitter, still tremulus, pt is more confused today, still conversive noted further trending down h/h, was consulted this AM ordered 2unit pRBC steroid switched to Pentoxifylline per GI pt developed marked ecchymosis on left posterior thigh, reported today, ordered CT pelvis with contrast Exam Vital Signs Vital Sign - Last Date Time Temp Pulse Resp B/P Pulse Ox O2 Delivery O2 Flow Rate FiO2 03/22/17 11:51 36.4 92 20 125/72 96 Room Air Intake and Output 03/21/17 03/21/17 03/22/17 Cumulative From/Thru 15:00 23:00 07:00 03/18/17 15:13 - 03/22/17 06:52 Intake Total 689 ml 1237 ml 2117 ml 25650 ml Output Total 2350 ml 7975 ml Balance 689 ml 1237 ml -233 ml 8791 ml Intake Oral 800 ml 3680 ml IV Total 389 ml 1237 ml 1317 ml 44152 ml Packed Cells 300 ml 1500 ml Output Urine Total 2200 ml 5025 ml Stool Total 150 ml 750 ml Urine/Stool Mix 1700 ml Emesis 500 ml # Voids 8 8 # Bowel Movements 5 Exam AAOx1 tremors on extended arms, tongue fasciculation no JVD, MMM, no LAD RRR, nl s1, s2 no mrg CTAB, no w,c S,mildly distended,NT,normoactive BS+ nontender, swelling, diffuse ecchymosis on left posterior thigh and right elbow IVs and Medications Medications Reviewed: Medications were reviewed in detail Lab and Diagnostics Result Diagram: 03/22/1720903/22/17 0210 Assessment & Plan Jorge A HoytQuintenSagrario is a 61 year old woman with past medical history significant for alcoholic cirrhosis with esophageal varices, recurrent epistaxis , recurrent anemia, anxiety who presented to the [facility] emergency department today at the advice of her primary care doctor due to severe anemia. acute, active Severe alcoholic hepatitis and alcoholic cirrhosis, present on admission, active , MF40, MELD17 today, EGD showed Portal gastropathy,Small esophageal varices. CT abd showed mild pelvic fluid. -pt received one dose prednisolone 40mg 03/21, switched to Pentoxifylline per GI 03/22- -consulted GI appreciate further input, no plan for GI intervention at the moment -will consider lactulose if any signs of HE -consider restarting spironolactone and furosemide prior to d/c Alcohol intoxication, present on admission, active, Patient denies using any alcohol despite alcohol level being 374. Years that she has also been in denial with her primary care doctor. -pt remained in withdrawal from etoh, continue CIWA protocol, close observation , neurocheck q1h Pancytopenia, multifactorial:Labs suggestive of extravascular hemolytic process , +/- BM suppression from chronic etoh abuse, cirrhosis, SANAZ, POA, acute on chronic, given stable vitals, relative mild sx, more suggestive of chronic process. A recent abdominal ultrasound from 3 months ago reveals a normal-sized spleen. hgb6 on admission, pt received total 4units of pRBC. FOBT negative. CT abd pelvis 03/20 showed possible pancreatitis, splenomegaly which seems new. Reportedly pt had dark stools 03/20. pt was found possible hematoma on extremities on Rt arm and Left thigh, possible source of bleeding. -h/h still not responding appropriately, ordered 2more units of pRBC today. -Monitor H&H q12h, -target hgb>7, transfuse as needed -appreciate input today -started iron sulfate 325mg tid on 03/20 -awaits CT result electrolytes imbalance, POA, etoh withdrawal, GI fluid loss from c.diff colitis -replete lytes daily, mg,K C.diff colitis, found 03/20, -started vancomycin 125mg q6h, -enteric precaution. chronic, stable resolved Lactic acidosis, present on admission,Likely due to tissue hypoxia from severe anemia as well as poor hepatic clearance due to cirrhosis, resolved CODE STATUS: Full code dispo:I had lengthy discussion with about etoh cessation, seemed to be surprised at advanced status of her liver disease. Patient likely needs more support upon d/c. currently not ready for d/c. GI Prophylaxis: Proton Pump Inhibitor VTE Mechanical Devices: Intermittant Pneumatic CD Resuscitation Status: CPR: Attempt Resuscitation Time spent 35min Krista Newby MD Mar 22, 2017 12:21
--- NOTE | 2017-03-22 13:24 | NUR ---
NUTRITION ASSESSMENT: ASSESS: Pt is a 61yo F admitted for severe anemia, weakness and etoh withdrawal. Pt is on CIWA protocol and has been experiencing hallucinations. She is on a soft diet with fair PO intake at 25-100% of meals. PMHX: alcoholic cirrhosis, portal gastropathy, esophageal varices, HTN, anemia LABS: Reviewed. Bun 3, pet sitting <.3, glu 142, ca 7.5, phos 2.0, t. bili 5.7, AST 66, Alb 2.9 MEDS: Reviewed. Thiamine, Zofran, ferrous sulfate. GI: diarrhea overnight- C.Diff SKIN: no major issues, mild jaundice CURRENT WTS: 69.1kg, BMI 23.9kg/m2 DIET: soft EST. NEEDS: liver disease Kcals: 1730-2075kcal/day (25-30kcal/kg) Pro: 80-105g/day (1.2-1.5g/kg) NUTRITION DIAGNOSIS: 1.) Inadequate oral intake related to chronic alcohol abuse as evidence by PO variable from 25-100%, AMS and altered nutrition related lab values NUTRITION INTERVENTION: 1.) Will add Ensure on L tray. MONITOR / EVAL: PO, wt, GI, labs, POC, nutrition status. Will continue to monitor per moderate nutrition risk guidelines.
[2017-03-22] MEDS ORDERED: chlordiazePOXIDE 25 mg Capsule PO ONE (15:25)
[2017-03-22] MEDS ORDERED: chlordiazePOXIDE 25 mg Capsule PO PRN (15:25)
--- NOTE | 2017-03-22 16:09 | PCM.PNMED ---
Subjective Date of Service Mar 22, 2017 Subjective Patient awake and confused. She is not complaining of any pain. She states that she is tired, she is not having any nausea or vomiting. Patient with sitter. Exam Vital Signs Vital Sign - Last Date Time Temp Pulse Resp B/P Pulse Ox O2 Delivery O2 Flow Rate FiO2 03/22/17 02:44 36.7 91 20 128/88 93 Room Air Intake and Output 03/21/17 03/21/17 03/22/17 Cumulative From/Thru 15:00 23:00 07:00 03/18/17 15:13 - 03/22/17 02:44 Intake Total 689 ml 1237 ml 76045 ml Output Total 5625 ml Balance 689 ml 1237 ml 9024 ml Intake Oral 2880 ml IV Total 389 ml 1237 ml 05293 ml Packed Cells 300 ml 1500 ml Output Urine Total 2825 ml Stool Total 600 ml Urine/Stool Mix 1700 ml Emesis 500 ml # Bowel Movements 5 Exam General: Alert, confused, No Acute Distress Head: Normal Eyes: PERRLA Mouth: Mucous Membr Moist/[place] Neck: Supple Chest & Lungs: Auscultation (clear bilaterally) Cardiovascular: Regular Rate/Rhythm, Murmur (holosystolic) Abdomen: Non-tender, Non-distended, Normoactive bowel tones, Soft, Obese Extremities: No cyanosis/clubbing/edma bilat Neurologic: tremulous Skin: Other (bruises present on shins bilaterally right greater than left, large area of eccymosis on buttocks and thighs left greater than right. Right arm ecchymoses on the medial elbow) Lab and Diagnostics Result Diagram: 03/22/17 02103/22/17 0210 Additional Diagnostics US shows hematoma or soft tissue mass on right medial elbow Assessment & Plan Patient is a 61-year-old female with alcoholic cirrhosis, portal gastropathy, small esophageal varices, and anemia presents upon urging from her primary care provider's office due to severe anemia. Upon presentation she was found to have pancytopenia with a hemoglobin of 6, white blood cells of 2.9, and a platelet count of 42. Since that time she has received 5 units of packed red blood cells. Hemoglobin this morning was 6.8, she has received 2 additional units of PRBC today (7 total). She has become significantly more confused than yesterday. She is receiving benzodiazapines. Alcoholic hepatitis Patient was started on prednisolone due to a discriminative function of 40, in light of C. difficile infection we recommend discontinuation of prednisolone and using pentoxifylline 400 mg 3 times a day. Thiamine injection followed by PO thiamine and multivitamin ordered Social work consultation for intensive outpatient therapy substance abuse discussion, and resources Recommend decreasing RN NEW GRAD altering medications as she is likely to have a varried response from the typical treatment with CIWA protocol due to her liver disease. Cirrhosis, portal gastropathy, esophageal varices meld score 17 on admission, discriminant function 49.4 today Monitor patient for signs of bleeding. Diet as tolerated Trend INR daily By mouth Protonix 40 mg twice a day Chronic microcytic anemia Likely due to bone marrow suppression from severe alcoholism Recommend hematology consultation Patient likely bleeding into large left thigh hematoma at present GI Prophylaxis: Proton Pump Inhibitor VTE Mechanical Devices: Intermittant Pneumatic CD Resuscitation Status: CPR: Attempt Resuscitation Attending Statement Patient seen and examined. Increased somnalence is almost certainly a consequence of treatment of the etoh w/d. That said, with thrombocytopenia and incr'd INR, have low threshold to CT head. Agree with continued supportive care. Definitely has an impressive hematoma and echymosis in the left upper posterior thigh and buttocks region. I suspect the anemia is multifactorial, but again rec hematology consultation to consider the other possibilities such as hemolysis, etc. Agree with continued C diff therapy and pentoxifylline. Will continue to follow copies to: Toño Stevens MD, Erika R DO Mar 22, 2017 06:38 Toño Stevens MD Mar 23, 2017 12:14
--- NOTE | 2017-03-22 16:14 | NUR ---
Social Work Note: Multidisciplinary Rounds Pt was discussed in AM rounds, per MD pt is actively hallucinating and withdrawing. Pt transferred to CCU. SW to follow up regarding assessment and substance use resources when appropriate. ROSA Rees
--- NOTE | 2017-03-22 16:50 | NUR ---
Transfer to CCU, Transfusion, Withdrawals 819 - Spoke to Pharmacist Nomi Kay, about her Vitamin B1 and needing her IV bag. He said he could change that over to by mouth tablets since she was taking PO medication well. He did and it was administered. 944 - Discussed her care with Dr. Newby and the rest of the multidisciplinary care team during morning rounds. Notified them that due to her restless ness, despite having received a dose or two of Valium, she was unable to have her urgent CT of her pelvis completed. Dr. Newby acknowledged this information. Clarified if he wanted one or two units of Packed Red Blood Cells and he said two. Two units of blood were administered, vitals remained steady, and no adverse reactions were noted. 1219 - Her had called a couple of times requesting on update on her care. Called him back, but he did not answer. A message was left. 1223 - The CT department had called again about getting her CT completed. Informed them that she was still too restless to complete the CT and that Dr. Newby was aware of the situation. 1231 - Her called and was given an update. He said he would come by to visit her later today. 1338 - Spoke to Dr. Newby and informed him of her left hip bruising, that the CT had still not been able to be completed, that she was still very restless despite multiple doses of Valium (even when given in 5-10 minute intervals), and was having confusion. He said to keep administering the Valium frequently. 1545 - Her Valium had to be administered so frequently that she needed to be transferred to CCU. She was still very restless and was trying to climb out of bed even with a 1:1 sitter constantly reminding and assisting her back to bed. Dr. Newby and the Charge Nurse were updated and she was transferred to CCU 2011 at this time. Report given to Joyce Martin RN. Her belongings, hard chart, medications, and supplies were transferred with her as well. Her was present during the transfer. Care continues.
[2017-03-22 17:49] LABS: EOSINOPHILS % (AUTO) 0.8 % (0-5)
[2017-03-22 17:52] LABS: BASOPHILS % (AUTO) 0.6 % (0-3); Mean Corpuscular Hemoglobin 26.6 pg (27.0-35.0); Mean Corpuscular Volume 80.3 fL (81-100); NEUTROPHILS % (AUTO) 71.2 % (40-74); Platelet Count 59 bil/L (150-400)
--- NOTE | 2017-03-22 18:28 | NUR ---
admit KAUSHAL/Dr Luna pt transfered to CCU, initial CIWA 31, Repeated doses of Valium given this shift. Pt continues to have elevated CIWA greater than 20. Asked Dr Newby for precedex. No orders received. Addendum: 03/22/17 at 1830 by CARLOS A LOZA RN Dr Luna sees pt, orders received
[2017-03-22] MEDS: HYDROmorphone 1 mg/mL Inj IVPUSH PRN (18:34)
--- NOTE | 2017-03-22 19:21 | CCS CONS ---
[facility] [address], [address] [address] MEDICAL ONCOLOGY NEW PATIENT REPORT PATIENT: AIRAM HUGHES : 1955 MR#: [id number] DATE: 03/18/2017 JOB ID: [id number] DATE: 03/22/2017 REQUESTING PHYSICIAN: Dr. Newby, with the hospitalist team. REASON FOR CONSULT: Evaluation of cytopenia, particularly anemia. Rule out hemolysis. HISTORY OF PRESENT ILLNESS: This patient is a 61-year-old, unfortunate lady with severe alcoholism, admitted with weakness and alcohol intoxication and likely alcoholic hepatitis and severe pancytopenia. She has had several ED visits in the past with recurrent epistaxis. She has been somewhat confused and not a good historian. She has not been febrile, but laboratory studies have shown a number of abnormalities including significant hyperbilirubinemia with a bilirubin of 5.5, and severe anemia with a hemoglobin of 6 on presentation on March 18, microcytosis, thrombocytopenia with a platelet count of 42. There is an older platelet count available from September 2016 in [facility] which was 142. White count was also suppressed with 2.9, but absolute neutrophil count was around 1400. She has had a CT of the abdomen and pelvis with contrast on March 20, showing features of hepatic cirrhosis with a nodular surface as well as splenomegaly and some degree of esophageal varices. There was some edema in the pancreatic head, question of pancreatitis, but her lipase was negative. Her serum alcohol level was very high with 347. She is being treated for alcoholic hepatitis with Trental and thiamine. In addition, stool culture has been positive for C. diff. She has been transfused so far with 4 units of packed red cells. After the first two, the hemoglobin increased from 6 to 8.6, but then dropped within 24 hours back to 6.8, and she has been transfused earlier today again with 2 units responding coming up to 8.5. Also with the 1st transfusion she responded coming up to 8.6, but the hemoglobin dropped within 24 hours. She has had a relatively recent EGD on January [address] Cat showing small esophageal varices and portal hypertension gastropathy. Her platelet count had dropped to 23 but has spontaneously improved to now 59 without platelet transfusion in my review of the records and discussion with her nurse. She is coagulopathic with an INR of 1.8, as expected from a cirrhotic liver function and her total bilirubin of 5.5, consists of a indirect bilirubin of at least 3 g, as the direct bilirubin was around 2.7. Haptoglobin of March 18 upon presentation was reduced with 18, although still detectable. LDH slightly elevated with 237, AST and ALT slightly elevated. Albumin 2.9. She has had a blood smear showing no evidence of schistocytes on presentation. PAST MEDICAL HISTORY: Hypertension, chronic microcytic anemia, mitral valve regurgitation, and alcoholic liver cirrhosis. SOCIAL HISTORY: Patient lives in [place]. Has history of alcoholism. Former smoker. PHYSICAL EXAMINATION: She is jaundiced, confused. Is fidgety with her hands and has received quite a bit of Valium to control her agitation. She has several bruises. Abdomen is soft. Increased bowel sounds. Heart regular, no significant edema. No vasculitic rash. Oral cavity, no lesions. ASSESSMENT AND PLAN: A 61-year-old lady admitted with acute alcoholic hepatitis and high level of serum alcohol and elevated bilirubin with radiographic features of cirrhosis, including nodularity of the liver surface, splenomegaly, and known history of small esophageal varices. She also is found to have C. difficile positive stool. She has an exaggerated anemia with hemoglobin of 6. Response to blood transfusions raising the hemoglobin to 8.5 after 2 units, appropriately, but then has dropped again to 6.8, within 24 hours and another 22 units were given today. Her haptoglobin was somewhat low at presentation with 18, but still detectable. I think it is unlikely that she has a autoimmune hemolytic process, but this remains in differential diagnosis. I am ordering a thyroid Cassius test. If the direct Cassius test is positive, then empiric treatment with steroids can be considered. I do not believe that she has a meaningful hemolysis, given the fact that her LDH is only slightly elevated in the setting of liver disease and her haptoglobin was still detectable rather than being less than 10. Her thrombocytopenia was quite severe and subacute, but it seems to be improving. I suspect that there might be a DIC component and this needs to be ruled out, and for this reason, I am ordering a fibrinogen and PTT. If her fibrinogen is suppressed, then she should receive cryoprecipitate for empiric management of potential DIC associated with hepatitis and infection. TTP is unlikely given the lack of schistocytes on the smear and presence of coagulopathy with INR of 1.8 and alternative explanation. Lastly, a component of GI blood loss cannot be excluded, but at this point, we will await the above-mentioned workup. I would consider also vitamin K administration to correct her INR.
[2017-03-22 20:04] LABS: Magnesium 1.6 mg/dL (1.6-2.6); Phosphorus 2.3 mg/dL (2.5-4.9)
[2017-03-22] MEDS ORDERED: 0.9% Sodium Chloride 250 ML IV PRN (20:45)
[2017-03-22] MEDS: metroNIDAZOLE Inj 500 MG in IV Premix 1 EACH IV SCH (21:13)
[2017-03-22] MEDS ORDERED: KCl 40 mEq/500 mL D5W (Peripheral Line) IV ONE ×2 (21:15)
[2017-03-22] MEDS ORDERED: KCl 20 mEq/250 mL D5W (Peripheral Line) IV ONE ×2 (21:20)
[2017-03-22] MEDS ORDERED: Potassium Phos (mEq) Inj 20 MEQ in Dextrose 5% 250 ML IV ONE (23:30)
[2017-03-23] VITALS (13 sets, daily range): BP systolic 109–144; BP diastolic 60–90; PULSE 73–86; RESP 12–23; O2SAT 93–99
[2017-03-23] MEDS: Vancomycin 125 mg Oral Capsule PO SCH ×2 (02:30→12:10)
[2017-03-23] MEDS: metroNIDAZOLE Inj 500 MG in IV Premix 1 EACH IV SCH (04:26)
[2017-03-23 04:58] LABS: BASOPHILS % (AUTO) 0.8 % (0-3)
[2017-03-23 05:09] LABS: EOSINOPHILS % (AUTO) 2.5 % (0-5); MONOCYTES % (AUTO) 15.5 % (4-12); Mean Corpuscular Hemoglobin 26.5 pg (27.0-35.0); Mean Corpuscular Volume 81.5 fL (81-100); NEUTROPHILS % (AUTO) 68.2 % (40-74); Platelet Count 54 bil/L (150-400)
[2017-03-23] MEDS: HYDROmorphone 1 mg/mL Inj IVPUSH PRN (05:13)
[2017-03-23 05:18] LABS: INR 1.74 ratio
[2017-03-23 05:21] LABS: Magnesium 1.5 mg/dL (1.6-2.6); Phosphorus 3.5 mg/dL (2.5-4.9)
--- NOTE | 2017-03-23 06:39 | NUR ---
P) CIWA/electrolytes Pt. sedated at beginning of shift, CIWA's 8-9, however as soon as she woke she had full body tremors, moderate headache oriented x2 only, CIKOBE was 28, given another dose of valium and dilaudid and she fell asleep again but prior to sleeping she was very agitated and trying to climb out of bed. After she fell asleep this time her SPO2 dropped to mid 80's, and she was mouth breathing. Pt. given a unit of cryo last night for a fibrinogen of 58, and a [employer] rider for K of 3.1 and phos of 2.3. I) Meds per 's orders, cont. close monitoring, changed N/C to oxymask O2 increased to 7L. K and Mg. ordered per protocol. E) SPO2 92-93%, phos 3.5 but K is only 3.7 and Mg. dropped to 1.5.
[2017-03-23] MEDS ORDERED: Magnesium Sulf 4 Gm/100 mL H2O 4 GM in IV Premix 1 EACH IV ONE (06:55)
[2017-03-23] MEDS: 0.9% Sodium Chloride 1,000 ML IV SCH ×2 (07:40→18:33)
[2017-03-23] MEDS: FERROUS SULFATE 44 MG/ML PO SCH ×3 (12:10→20:08)
[2017-03-23] MEDS: Lactulose 20 Gm/30 mL 30 mL Syrup PO SCH ×4 (12:10→23:30)
[2017-03-23] MEDS: Multivit-Miner-Folic Acid-Iron Tablet PO SCH (12:11)
[2017-03-23] MEDS: cefTRIAXone Inj 1,000 MG in Dextrose 5% Minibag Plus 50 ML IV SCH (12:11)
[2017-03-23] MEDS: Pentoxifylline 400 mg ER12 Tablet PO SCH ×3 (12:12→20:08)
--- NOTE | 2017-03-23 13:36 | ABG ---
DateTimeAnalyzed 13:24:36 -_ pH ____7.429 - 7.350 7.450 pCO2 ___33.5__ -mmHg 35.0 45.0 pO2 ___56.2__ -mmHg 70.0 100 HCO3- ___22.1__ -mmol/L 22.0 26.0 ABE ___-2.0__ -mmol/L -2.0 2.0 tHb ____8.8__ -g/dL 12.0 18.0 O2Hb ___88.3__ -% 95.0 COHb ____2.3__ -% 1.5 MetHb ____0.0__ -% 0.4 1.5 sO2 ___90.3__ -% FIO2 ___21.0__ -% Drawn By RC - Date/Time Notified____ 13:36:00 -_ Spontaneous_RR 24 -b/min Liter_Flow ___14.00_ -L/min Oxygen Device 1 __oxymask - Notified By RC - Notified Whom _odonnell - K+ ____3.2__ -mmol/L tO2 ___10.9__ -Vol% David test _Positive -
--- NOTE | 2017-03-23 13:38 | CONS ---
[address] [address] CONSULTATION REPORT PATIENT: AIRAM HUGHES : 1955 MR#: [id number] ADMIT: 03/18/2017 JOB ID: [id number] DATE OF SERVICE: 03/23/2017 PULMONARY CRITICAL CARE CONSULTATION NOTE: The patient is a 61-year-old woman seen in consultation at the request of Dr. David Tran for severe anemia, encephalopathy, and alcohol withdrawal. HISTORY OF PRESENT ILLNESS: The patient was seen and evaluated with resident physician, Sachin Gruber DO. Please refer to his separate detailed note for additional information. The patient is currently encephalopathic and unable to provide history so all of the history is obtained from review of medical records. She has a longstanding history of alcohol abuse and alcoholic cirrhosis with evidence of portal hypertension and chronic anemia/pancytopenia. She presented to the hospital with severe anemia, hemoglobin of 6 on the . There did not appear to be any obvious evidence or history suggestive of a GI bleed and she was transfused a total of 7 units over the last five days. She had a hematology evaluation and they began a workup for DIC/hemolysis. Fibrinogen was low and so plan was to transfuse cryoprecipitate. In the meantime, however, she began to have symptoms of alcohol withdrawal and received numerous doses of Valium which resulted in alteration in mental status and obtundation. She was transferred to the ICU predominantly for mental status issues and withdrawal related concerns. Past medical history, social history, family history, and review of systems could not be obtained directly from the patient because of her mentation. Please refer to Dr. Gruber's note for a summary of this information from the medical record. Physical exam also per Dr. Gruber's and pertinent positives are noted below. PHYSICAL EXAMINATION: Vital signs were reviewed. She is afebrile. She is currently on 7 L OxyMask satting 93%. General: She is lying in bed, unresponsive to voice. Chest: Clear to auscultation. Skin: She has extensive bruising on one side of her body. LABORATORIES: Reviewed. Notable for hemoglobin 8.6, platelets of 54. Chemistry also reviewed. Procalcitonin is negative. INR is 1.7 today, with PT of 18.8. Fibrinogen of 58 yesterday cultures. Positive for C. difficile toxin on the stool culture. ASSESSMENT: 1. Alcohol withdrawal. 2. Acute encephalopathy-due to combination of hepatic encephalopathy and medications for alcohol withdrawal. 3. Severe anemia-? hemolysis versus bone marrow suppression versus acute blood loss. 4. Alcoholic cirrhosis with portal hypertension and small esophageal varices, as well as portal gastropathy. 5. Clostridium difficile colitis. RECOMMENDATIONS: This is a 61-year-old woman with ongoing heavy alcohol use and alcoholic cirrhosis with evidence of portal hypertension, who was admitted with severe anemia initially, now complicated by alcohol withdrawal and encephalopathy. With regards to her alcohol withdrawal, she is quite obtunded at the moment. We are going to switch her diazepam to lorazepam, which will be shorter acting. I am also considering a dose of phenobarbital if necessary if she wakes up and starts showing symptoms of alcohol withdrawal again. With regards to the anemia, although we do not have any specific history with regards to a GI bleed, I would feel more comfortable if we rule this out with an NG lavage. We will place an NG tube and lavage today with a liter of saline. I would also like to add ceftriaxone for SBP prophylaxis and bacteremia prophylaxis for the possibility of a GI bleed. We can always stop this if her lavage turns out to be negative. She is getting cryoprecipitate transfused for the fibrinogen of 58. At this point her hemoglobin is stable and we will simply watch this. She was complaining of a headache earlier before her mental status changes so we will plan on doing a head CT to make sure she did not have a head bleed with the thrombocytopenia. She is getting oral vancomycin through a feeding tube for Clostridium difficile colitis. We are also going to give her lactulose for the encephalopathy until she starts stooling and then continue for at least three soft stools or 2 L of stool a day. DVT prophylaxis would probably not be indicated with her thrombocytopenia and coagulopathy. She is on PPI IV b.i.d. for the possibility that this might be a GI bleed. She is a FULL CODE. CRITICAL CARE TIME: 60 minutes.
--- NOTE | 2017-03-23 13:45 | DRSVH ---
PROCEDURE: X-RAY CHEST ONE VIEW, PORTABLE ([id number]) INDICATIONS: Hypoxia TECHNIQUE: One view of the chest was acquired. COMPARISON: [facility], , CHEST 2VW, 08/14/2013, 12:23. FINDINGS: Surgical changes and devices: None. Lungs and pleura: The left diaphragm is obscured by left basilar density. Slight interstitial promin ence within the right infrahilar region is present. The aeration at the right lung base has improved . Mediastinum: Mediastinal contours appear normal. The heart appears to be enlarged. Bones and chest wall: No suspicious bony lesions. Overlying soft tissues appear unremarkable. IMPRESSION: 1. Left basilar density is suspicious for pneumonia versus atelectasis. Superimposed small pleural e ffusion cannot be excluded. 2. Probable cardiomegaly without overt heart failure. Dictated by: Toi Multani M.D. on 03/23/2017 at 12:41 Approved by: Toi Multani M.D. on 03/23/2017 at 12:43
[2017-03-23] MEDS ORDERED: PHYTONADIONE IV ONE (14:00)
[2017-03-23] MEDS ORDERED: SODIUM CHLORIDE 0.9% IV ONE (14:00)
--- NOTE | 2017-03-23 14:19 | PCM.HPMED ---
Subjective Date of Service Mar 23, 2017 Primary Provider: Admitting Physician: Petrona Salinas MD Primary Care Physician: Rick Heredia DO Attending Physician: David Tran MD Chief Complaint: Severe anemia, sent from primary care provider's office History of Present Illness: 61-year-old woman with alcoholic cirrhosis, esophageal varices, portal gastropathy, chronic anemia and recurrent epistaxis, presented to [facility] emergency department on 03/18/2017 under the instruction of her primary care doctor for "low blood level." She was found to have a hemoglobin of 6.0, and blood alcohol level of 374, she was admitted for severe anemia and alcohol withdrawal, she received thiamine, multivitamins, and to date 7 units of packed red blood cells. Her hemoglobin was only transiently responsive to first several transfusions, consistently dropping back to the low 7.0. Source of bleeding ultimately has not been identified, there is concern that there is a GI bleed given the history of varices, she has also developed ecchymosis over her thorax/torso, which is also suspected for blood loss. Concern for hemolytic process prompted further evaluation showing a haptoglobin 18, fibrinogen of 58. She additionally has a pancytopenia with platelets ranging from 23-59 during this hospitalization. As such, hematology consult was placed and she was seen by Dr. Luna on 03/22/17. Yesterday afternoon CIWA scores became substantially elevated and was requiring large doses of Valium and was transferred to the ICU. Her hemoglobin remained stable overnight with a.m. labs reflecting a hemoglobin of 8.6. She was complaining of a headache yesterday and received hydromorphone for pain relief, in conjunction with her Valium. This morning she states she is not in any pain, but she is hungry, mentation is decreased and aside from person place time and pain she is somnolent and is unable to answer. Review of Systems: A comprehensive review of systems was conducted with the patient and found to be negative except as above in the history of presenting illness. Allergies Coded Allergies: latex (Verified Allergy, Intermediate, rash, 03/18/17) Home Medications Denies any home medications per documentation. PMH Alcoholic cirrhosis with portal gastropathy and esophageal varices. Hypertension Mitral valve regurgitation Microcytic anemia Medication noncompliance Recurrent epistaxis Surgical History Hernia repair Knee arthroscopy Family History Grandmother has diabetes mellitus. Maternal grandfather had colon cancer. Mother had colon polyps. 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 Hx Alcohol Use: Yes (etoh in ed was 374) Hx Substance Use: No Hx Tobacco Use: Yes (QUIT IN 76) Smoking Status: Former Smoker Living Arrangement: with Family Exam Vital Signs Vital Sign - Last Date Time Temp Pulse Resp B/P Pulse Ox O2 Delivery O2 Flow Rate FiO2 03/23/17 14:12 36.4 83 21 113/90 03/23/17 12:00 Supplement Oxygen 03/23/17 12:00 93 7.00 Intake and Output 03/22/17 03/22/17 03/23/17 Cumulative From/Thru 15:00 23:00 07:00 03/18/17 15:13 - 03/23/17 06:27 Intake Total 415 ml 2403 ml 2955 ml 60876 ml Output Total 1450 ml 9425 ml Balance 415 ml 953 ml 2955 ml 16095 ml Intake Oral 700 ml 0 ml 4380 ml IV Total 115 ml 1328 ml 2955 ml 41530 ml Packed Cells 300 ml 300 ml 2100 ml Cryoprecipitate 75 ml 75 ml Output Urine Total 1450 ml 6475 ml Stool Total 750 ml Urine/Stool Mix 1700 ml Emesis 500 ml # Voids 3 11 # Bowel Movements 5 Exam General: Laying in bed, oxygen mask on face, sleeping, arouses to verbal stimuli. HEENT: Normocephalic, atraumatic, EOMI grossly, no JVD, sclera mildly icteric, mucous membranes moist, neck supple without lymphadenopathy Cardiovascular: Tachycardic with regular rhythm, 3/6 harsh systolic murmur heard best at Left sternal border. Pulmonary: Clear to auscultation bilaterally, no W/R/R. Abdominal: Abdomen is round, tympanic, liver edge less than 2 fingerbreadths below ribs, bowel sounds present 4. Nontender to palpation Extremities: No edema appreciated. No tenderness, asymmetry. Neuro: Neurologically grossly intact, strength is equal bilaterally upper and lower extremities. MSK: Decreased muscle mass Psych: Oriented to person and year, believes she is at home., Somnolent. Lab and Diagnostics Result Diagram: 03/23/17 0445 03/23/17444 Additional Diagnostics: US shows hematoma or soft tissue mass on right medial elbow Assessment & Plan 61-year-old woman with chronic alcohol abuse, alcoholic cirrhosis, small esophageal varices, portal gastropathy, chronic anemia requiring 7 units packed red blood cells to date, actively going through alcohol withdrawal requiring large amounts of benzodiazepines, and evidence of possible DIC and hemolytic anemia. Acute on chronic pancytopenia, POA, active -7 units packed red blood cells administered, hemoglobin stable this morning at 8.6. -Etiology includes myelosuppression secondary to chronic alcohol abuse, GI bleed given history of variceal bleed and low platelets with elevated INR, intracorporeal loss evidenced by ecchymosis on arms and torso. -Peripheral smear negative for schistocytes -Hematology-oncology consulted, based on recommendations patient received dose of cryoprecipitate yesterday evening after she was found to have decreased fibrinogen level. -INR 1.74 this morning, hematology oncology recommended dose of vitamin K, ordered dose per pharmacy. -Gastric lavage to be performed to evaluate for signs of bleeding the upper GI tract, NG tube to be placed. -Monitor hemoglobin and hematocrit every 12 hours, and she is with hemoglobin less than 7 -Awaiting occult fecal blood. -Gastric lavage unremarkable Acute hypoxic respiratory failure, not present on admission, active Patient has had increasing oxygen demands, now on 14 L oxygen mask to maintain saturation in the mid 90s which drops to the low 80s with any movement. Respiratory depression secondary to narcotics, brain bleed, developing pneumonia , heart failure are on the differential Stat ABG Stat chest x-ray 0.4mg Naltrexone NOW. Acute encephalopathy, present on Admission, Active. Differential includes acute intoxication with alcohol, hepatic encephalopathy, and now with complaint of headache in the preceding day with low platelets and elevated INR intracranial bleed. Patient is receiving lactulose Managing withdrawal CIWA protocol please see below. Head CT noncontrast now Avoid necrotic medications, Naloxone as above. Lactulose per NG tube Chronic alcohol abuse, active withdrawal Patient admitted to drinking copious amounts of vodka due to stress, blood alcohol level 374 on admission Continue CIWA protocol treatment with diazepam and lorazepam. Start ceftriaxone for concern of development of SBP secondary to liver cirrhosis Clostridium difficile Colitis, POA, Active. Vancomycin per NG tube Enteric Contact Precautions Based on recurrent anemia, elevated CIWA scores requiring large amounts of benzodiazepine, and now developing acute hypoxic respiratory failure, patient remains in ICU anticipate stay 3-5 days. DVT prophylaxis contraindicated secondary to elevated INR, low platelets recurrent anemia GI prophylaxis pantoprazole 40 mg IV push twice a day before meals Pain management -avoid narcotics secondary to respiratory depression and decreased mentation, NSAIDs contraindicated secondary to concern for bleed, acetaminophen contraindicated secondary to liver cirrhosis. Patient remains full code Pain Evaluation: Adequate Pain Control GI Prophylaxis: Proton Pump Inhibitor VTE Prophylaxis Indicated: Contraindicated VTE Mechanical Devices: Intermittant Pneumatic CD Resuscitation Status: CPR: Attempt Resuscitation Attending Statement I have seen and examined this patient with the resident physician. Vital signs , labs, imaging have been reviewed. I agree with the assessment and plan above. Please refer to my separately dictated progress note for any modifications to above. Sania Stanton M.D. Pulmonary and Critical Care medicine Pager [phone] Sachin Gruber DO Mar 23, 2017 14:19 Sania Stanton MD Mar 23, 2017 16:23
[2017-03-23] MEDS ORDERED: Vancomycin 100 mg/mL Oral Solution TUBE SCH (14:30)
--- NOTE | 2017-03-23 14:42 | NUR ---
NUTRITION FOLLOW-UP: ASSESS: Pt is a 61yo F admitted for severe anemia, weakness and etoh withdrawal. Pt is on CIWA protocol and has been experiencing hallucinations. She was on a soft diet with fair PO intake at 25-100% of meals. Overnight, Pt was transferred to CCU due to increased CIWA scores. Pt had to have NG placed this am for meds. Received consult for TF via NGT as pt is minimally responsive. PMHX: alcoholic cirrhosis, portal gastropathy, esophageal varices, HTN, anemia LABS: Reviewed. Bun 3, belt cutter <.3, Glu 108, Ca 7.6, Mg 1.5, T.bili 7.6, AST 65, alb 2.7 MEDS: Reviewed. Thiamine, Zofran, ferrous sulfate. GI: diarrhea overnight- C.Diff SKIN: no major issues, mild jaundice, visible fat loss in face, arms and legs CURRENT WTS: 72.1kg, BMI 24.9kg/m2, admit wt 62.5kg, no major wt changes per chart review DIET: soft, PO 25-100% EST. NEEDS: liver disease Kcals: 1730-2075kcal/day (25-30kcal/kg) Pro: 80-105g/day (1.2-1.5g/kg) Fluids: ~1800ml/day (25ml/kg) NUTRITION DIAGNOSIS: 1.) Inadequate oral intake related to chronic alcohol abuse as evidence by PO variable from 25-100%, AMS and altered nutrition related lab values 2.) Moderate pro/kcal malnutrition in the context of chronic illness related to alcoholism as evidence by mild fat loss, altered electrolytes, PO intake of <75% estimated energy requirements for >1month due to chronic alcohol use NUTRITION INTERVENTION: 1.) Recommend start TF of Vital 1.5 @ 10ml/hr. If tolerated, advance by 10ml q 12 hrs until reach goal rate of 60ml/hr to provide 1980kcal and 90g pro (100% estimated needs). Pt has history of alcoholism and likely had poor PO intake prior to admit. Will monitor labs closely for signs of re-feeding. MONITOR / EVAL: TF start, wt, GI, labs, POC, nutrition status. Will continue to monitor per high nutrition risk guidelines.
--- NOTE | 2017-03-23 15:00 | NUR ---
O2 Patient O 2 needs increasing throughout morning. Currently SPo2 in low 90s on 15L oxymask. aware. ABGs and chest xray ordered. Will continue to monitor resp status frequently. Addendum: 03/23/17 at 1712 by ORTIZ WORKMAN RN Patient oxygenation improving SpO2 mid 90s on 5L oxymask.
--- NOTE | 2017-03-23 15:33 | PCM.PNMED ---
Subjective Date of Service Mar 23, 2017 Subjective Overnight, patient showed worsening signs and symptoms of alcohol withdrawal with CIWA of 28 and possible DIC, and thus was transferred to CCU for close monitoring. Today, patient opens eyes upon commands, but remains lethargic, tremulous, and nonverbal. She is getting cryoprecipitate transfused for the fibrinogen of 58. Exam Vital Signs Vital Sign - Last Date Time Temp Pulse Resp B/P Pulse Ox O2 Delivery O2 Flow Rate FiO2 03/23/17 09:48 Supplement Oxygen 03/23/17 09:44 36.7 74 12 116/74 96 4.00 Intake and Output 03/22/17 03/22/17 03/23/17 Cumulative From/Thru 15:00 23:00 07:00 03/18/17 15:13 - 03/23/17 06:27 Intake Total 415 ml 2403 ml 2955 ml 79027 ml Output Total 1450 ml 9425 ml Balance 415 ml 953 ml 2955 ml 13088 ml Intake Oral 700 ml 0 ml 4380 ml IV Total 115 ml 1328 ml 2955 ml 57638 ml Packed Cells 300 ml 300 ml 2100 ml Cryoprecipitate 75 ml 75 ml Output Urine Total 1450 ml 6475 ml Stool Total 750 ml Urine/Stool Mix 1700 ml Emesis 500 ml # Voids 3 11 # Bowel Movements 5 Exam General: lethargic, generalized tremors while lying on the hospital bed. HEENT: Normocephalic, atraumatic, EOMI grossly, no JVD, sclera icteric, mucous membranes dry, Neck: supple with no lymphadenopathy. No JVD noted. Lungs: Clear to auscultation bilaterally, no W/R/R. Cardiovascular: Regular Rate and Rhythm, holosystolic murmur noted best at left sternal border. Abdominal: Abdomen is round, soft, bowel sounds present 4. Nontender to palpation Extremities: No edema appreciated. No tenderness, asymmetry. Bruises present on shins bilaterally right greater than left, large area of eccymosis on buttocks and thighs left greater than right. Right arm ecchymoses on the medial elbow. Neuro: generalized tremors noted. Obtunded and unable to assess neurological status. MSK: Decreased muscle mass IVs and Medications Medications Reviewed: Medications were reviewed in detail Lab and Diagnostics Result Diagram: 03/23/175 7/19/17 0445 Additional Diagnostics US shows hematoma or soft tissue mass on right medial elbow Assessment & Plan Jorge A Berryham is a 61 year old woman with past medical history significant for alcoholic cirrhosis with esophageal varices, recurrent epistaxis , recurrent anemia, anxiety who presented to the [facility] emergency department and was initially admitted for severe anemia that required 7 units PRBCs to date. There is also evidence of possible DIC and hemolytic anemia based on her labs. In addition, patient is having severe signs and symptoms of alcohol withdrawal requiring large dose of benzodizepines and ICU care. Severe alcoholic hepatitis and alcoholic cirrhosis, present on admission, active -Maddrey's discriminant function score of 40, MELD17 today, EGD showed Portal gastropathy,Small esophageal varices. CT abd showed mild pelvic fluid. -pt received one dose prednisolone 40mg 03/21, switched to Pentoxifylline per GI 03/22. -consulted GI appreciate further input, no plan for GI intervention at the moment -will consider lactulose if any signs of HE -consider restarting spironolactone and furosemide prior to d/c. - Start ceftriaxone for concern of development of SBP secondary to liver cirrhosis Alcohol intoxication, present on admission, now turns into alcohol withdrawal, active. Patient denies using any alcohol despite alcohol level being 374. Years that she has also been in denial with her primary care doctor. -pt remained in withdrawal from etoh, continue CIWA protocol, close observation , neurocheck q1h -Per ICU team, will switch her diazepam to lorazepam, which will be shorter acting. Will consider a dose of phenobarbital if necessary -Lactulose via NG tube. Monitor ammonia level. Pancytopenia, multifactorial, active. - Labs suggestive of extravascular hemolytic process and there might be a DIC component. Cryoprecipitate given for fibrinogen of 58. Will consider repeat the fibrinogen. - Likely secondary to bone marrow suppression from chronic etoh abuse, cirrhosis , GI bleed given history of variceal bleed and low platelets with elevated INR, or intracorporeal loss evidenced by ecchymosis on arms and torso. - A recent abdominal ultrasound from 3 months ago reveals a normal-sized spleen - hgb6 on admission, pt received total 7units of pRBC. FOBT negative. CT abd pelvis 03/20 showed possible pancreatitis, splenomegaly which seems new. NR 1.74 this morning, hematology oncology recommended dose of vitamin K, ordered dose per pharmacy. - Gastric lavage to be performed to evaluate for signs of bleeding the upper GI tract, NG tube to be placed. - Monitor H&H q12h, target hgb>7, transfuse as needed - appreciate input - started iron sulfate 325mg tid on 03/20 Acute hypoxic respiratory failure, not present on admission, active - Patient has had increasing oxygen demands, now on 14 L oxygen mask to maintain saturation in the mid 90s which drops to the low 80s with any movement. - Respiratory depression secondary to narcotics, brain bleed, developing pneumonia, heart failure are on the differential - Appreciate ICU team's input. Electrolytes imbalance, POA, active. - secondary to etoh withdrawal, GI fluid loss from c.diff colitis - replete lytes daily, mg, K C.diff colitis, found 03/20, active. -Continue vancomycin 125mg q6h via NG tube. -enteric precaution. Lactic acidosis, present on admission, resolved. -Likely due to tissue hypoxia from severe anemia as well as poor hepatic clearance due to cirrhosis. CODE STATUS: Full code dispo: Patient likely needs more support upon d/c. currently not ready for d/c. Pain Evaluation: Adequate Pain Control GI Prophylaxis: Proton Pump Inhibitor VTE Mechanical Devices: Intermittant Pneumatic CD Resuscitation Status: CPR: Attempt Resuscitation Fish Mazariegos DO Mar 23, 2017 10:10 prophylaxis for the possibility of a GI bleed. We can always stop this if her lavage turns out to be negative. She is getting cryoprecipitate transfused for the fibrinogen of 58. At this point her hemoglobin is stable and we will simply watch this. She was complaining of a headache earlier before her mental status changes so we will plan on doing a head CT to make sure she did not have a head bleed with the thrombocytopenia. She is getting oral vancomycin through a feeding tube for Clostridium difficile colitis. We are also going to give her lactulose for the encephalopathy until she starts stooling and then continue for at least three soft stools or 2 L of stool a day. Acute on chronic pancytopenia, POA, active -7 units packed red blood cells administered, hemoglobin stable this morning at 8.6. -Etiology includes myelosuppression secondary to chronic alcohol abuse, -Peripheral smear negative for schistocytes -Hematology-oncology consulted, based on recommendations patient received dose of cryoprecipitate yesterday evening after she was found to have decreased fibrinogen level. -I -Monitor hemoglobin and hematocrit every 12 hours, and she is with hemoglobin less than 7 -Awaiting occult fecal blood. -Gastric lavage unremarkable Acute hypoxic respiratory failure, not present on admission, active Patient has had increasing oxygen demands, now on 14 L oxygen mask to maintain saturation in the mid 90s which drops to the low 80s with any movement. Respiratory depression secondary to narcotics, brain bleed, developing pneumonia , heart failure are on the differential Stat ABG Stat chest x-ray 0.4mg Naltrexone NOW. Acute encephalopathy, present on Admission, Active. Differential includes acute intoxication with alcohol, hepatic encephalopathy, and now with complaint of headache in the preceding day with low platelets and elevated INR intracranial bleed. Patient is receiving lactulose Managing withdrawal CIWA protocol please see below. Head CT noncontrast now Avoid necrotic medications, Naloxone as above. Lactulose per NG tube Chronic alcohol abuse, active withdrawal Patient admitted to drinking copious amounts of vodka due to stress, blood alcohol level 374 on admission Continue CIWA protocol treatment with diazepam and lorazepam. Start ceftriaxone for concern of development of SBP secondary to liver cirrhosis Clostridium difficile Colitis, POA, Active. Vancomycin per NG tube Enteric Contact Precautions Pain Evaluation: Adequate Pain Control GI Prophylaxis: Proton Pump Inhibitor VTE Mechanical Devices: Intermittant Pneumatic CD Resuscitation Status: CPR: Attempt Resuscitation Fish Mazariegos DO Mar 23, 2017 10:10 VTE Mechanical Devices: Intermittant Pneumatic CD Resuscitation Status: CPR: Attempt Resuscitation Fish Mazariegos DO Mar 23, 2017 10:10
--- NOTE | 2017-03-23 15:58 | DRSVH ---
PROCEDURE: CT BRAIN WITHOUT CONTRAST ([id number]) INDICATIONS: Encephalopathy, ALMAGUER, eval bleed, INR up, Plt low. TECHNIQUE: Noncontrast 4.5 mm thick angled axial sections acquired from the foramen magnum to the vertex, with c oronal reformats. COMPARISON: None. FINDINGS: Image quality: Excellent. CSF spaces: Basal cisterns are patent. No extra-axial fluid collections. The ventricles are symmet nicolette in size and shape. Brain: No intracranial bleeds or masses. There is cerebral volume loss for age, with resultant vent ricular and sulcal prominence. There are periventricular and deep white matter chronic small vessel ischemic changes. There is intracranial internal carotid artery atherosclerosis. Skull and face: Calvarium and visualized facial bones appear intact, without suspicious lesions. Sinuses: Visualized sinuses and mastoids are clear. IMPRESSION: No acute intracranial abnormality. Dictated by: Sally Kapoor M.D. on 03/23/2017 at 15:54 Approved by: Sally Kapoor M.D. on 03/23/2017 at 15:56
--- NOTE | 2017-03-23 16:08 | DRSVH ---
PROCEDURE: CT PELVIS WITH CONTRAST ([id number]) INDICATIONS: fall, large sacral bruise, ?bleeding TECHNIQUE: After the administration of intravenous contrast, 5 mm thick sections acquired from the iliac crests to the symphysis. 5 mm coronal and sagittal reformats were acquired. For radiation dose reduction, the following was used: automated exposure control, adjustment of mA and/or kV according to patient size. COMPARISON: [facility], CT, CT ABD PELVIS W CON, 03/20/2017, 14:40. FINDINGS: Image quality: Excellent. Peritoneum and bowel: Bowel loops demonstrate normal wall thickness and caliber. No pneumoperitoneum . Increased, small amount of water density ascites. Genitourinary: Bladder wall thickness is normal. Nodes and vessels: No iliac, pelvic, or inguinal adenopathy by size criteria. Iliac vessels demonst rate normal size and enhancement. Bones: No suspicious bony lesions. Miscellaneous: No inguinal hernias. The there is an amorphous region of intermediate soft tissue de nsity within the inferior aspect of the left gluteus natasha muscle, suggestive of hematoma, given th e history of recent fall. There is moderate diffuse subcutaneous fat stranding and fluid within the p roximal left thigh, predominantly posteriorly. Within the anterior compartment of the left proximal t high, deep to the adductor longus muscle, there is a fat-and soft tissue-containing mass measuring 43 mm transverse by 27 mm anteroposterior by 68 mm craniocaudal, with prominent internal vascularity, w hich appears to drain to the profundofemoral vein. IMPRESSION: 1. No significant change in presumed intramuscular hematoma within the left gluteus natasha. No blackman e in subcutaneous edema versus cellulitis versus soft tissue injury within the proximal left thigh. N o fracture. 3. Fat containing mass within the anterior compartment of the left thigh, indicating either liposarco ma or a fat-containing arteriovenous malformation. This could be further assessed using MR angiograph y, as well as MRI with and without intravenous contrast. 3. Increased, small amount of low-density ascites. Dictated by: Sally Kapoor M.D. on 03/23/2017 at 15:57 Approved by: Sally Kapoor M.D. on 03/23/2017 at 16:06
[2017-03-23] MEDS: Pantoprazole 4 mg/mL 10 mL Inj IVPUSH SCH (16:55)
[2017-03-23] MEDS ORDERED: Phytonadione (Vitamin K) per Pharmacy XX SCH (17:00)
--- NOTE | 2017-03-23 17:10 | NUR ---
Social Work Note: Multidisciplinary Rounds Pt was discussed in AM rounds, per MD pt is still not alert and oriented due to withdrawal. Pt transferred to CCU. SW to follow up regarding assessment and substance use resources when appropriate. ROSA Rees
[2017-03-23] MEDS: Vancomycin 100 mg/mL Oral Solution PO SCH ×2 (17:26→20:09)
--- NOTE | 2017-03-23 18:24 | NUR ---
NG/Tube Feed NG tube placed in L nostril. Patient tolerated procedure well. Confirmed placement via auscultation. Vital 1.5 tube feed started at 10ml/hour with a 40 mL flush Q 4 hours per order.
--- NOTE | 2017-03-23 19:22 | CCS NOTE ---
[facility] [address] [place] [address], [address] [address] MEDICAL ONCOLOGY OFFICE NOTE PATIENT: AIRAM HUGHES : 1955 MR#: [id number] DATE: 03/18/2017 JOB ID: [id number] DATE: 03/23/2017 SUBJECTIVE: The patient seen at bedside. She is considering to being overall relatively poorly with confusion and requiring sedation for agitation. Her lab studies however seems to have stabilized after the transfusion on the night of March 21-. Her hemoglobin came up from 6.8 to 8.5, and she has been holding that so far. Also, her platelet count that was in the 20s has improved to mid 50s. From the lab studies that I ordered yesterday, it turned out that she does have some features of DIC reflected in the severely suppressed fibrinogen at 58 and she had a coagulopathy on top of that with her liver cirrhosis, with INR of 1.8. The hospitalist team had started giving her cryoprecipitate yesterday evening as I had suggested. She received 6 units. Direct Cassius test was negative. IMAGING: Additional imaging with a brain CT without contrast showed no evidence of hemorrhage. CT pelvis was done to rule out pelvic bleed due to the large hematoma and it confirmed large left gluteus hematoma and incidentally finding also a fat containing mass in the anterior left side that might need further evaluation down the road. Her chemistry shows stable creatinine and electrolytes, bilirubin 7.6 increased from 5.7. Transaminase is somewhat improved. OBJECTIVE: On exam, she remains afebrile. She has developed some low oxygen levels and is currently on 5 L with Oxymask satting 96%. The patient is jaundiced. The posterior left thigh area shows a large bruise. I was not able to palpate any mass in the anterior thigh. ASSESSMENT AND PLAN: A 61-year-old lady with liver cirrhosis and acute alcoholic hepatitis, and acute on chronic cytopenia aggravated by liver dysfunction related coagulopathy as well as disseminated intravascular coagulation. Low fibrinogen level confirms the disseminated intravascular coagulation component and the lack of positive Cassius test speaks against an autoimmune hemolytic process. I suggested to treat her with cryoprecipitate which she has received 6 units of last night and I added an additional 12 units given the low dose of the last night's level and the severity of her hypofibrinogenemia. Also vitamin K should be given which was ordered by the hospitalist team and given at 10 mg to correct her coagulopathy. She has a large hematoma in the left gluteus area. No evidence of brain hemorrhage or intra-abdominal hemorrhage. In addition, she has some left basilar lung density suggestive for early pneumonia. At this point, her hemoglobin has stabilized as well as thrombocytopenia, and fibrinogen with PT/INR should be repeated tomorrow. No indication for steroids at this point.
--- NOTE | 2017-03-23 19:37 | PROG NOTE ---
[address] [address] PROGRESS NOTE PATIENT: AIRAM HUGHES : 1955 MR#: [id number] ADMIT: 03/18/2017 JOB ID: [id number] DATE: 03/23/2017 SUBJECTIVE: The patient remains in the ICU and is battling alcohol withdrawal, creating considerable problems with hepatic encephalopathy. She remains on treatment for C. diff but has not really had a significant stool since the . There is no sign of any active GI bleeding. Her blood count is stable today. She continues to demonstrate considerable hematoma in the left upper posterior thigh and buttock region. She was having headache today and CAT scan was accomplished to exclude any intracranial bleed which was fortunately negative. She had a Dobbhoff placed so that she could receive lactulose and nutrition. She has been receiving some cryoprecipitate in that her fibrinogen level was quite low at the discretion of Dr. Luna. His note was reviewed. She was empirically started today on Rocephin. Her CAT scan at least at admission showed only mild dependent pelvic fluid. OBJECTIVE: The patient remains somnolent. She knew that she was in [place]. She knows that she is in the hospital. She is oriented to self. She is receiving CIWA protocol treatment still. Abdomen is soft. I did not appreciate any tenderness. No significant change in the severe ecchymosis in the left upper posterior thigh. LABORATORY DATA: Hemoglobin 8.4, white count 3.9, platelets 54. Fibrinogen level was low. INR is 1.74. Creatinine is 0.30. Bilirubin is 7.6. ASSESSMENT AND RECOMMENDATIONS: This is a 61-year-old female with alcohol induced cirrhosis and alcoholic hepatitis with high discriminant function. She was switched from prednisolone x1 day over to pentoxifylline. Nursing staff are battling the hepatic encephalopathy induced by the treatment of her alcohol withdrawal. She has a severe anemia that appears to be multifactorial, including DIC, hemorrhage into her left upper thigh. There is no sign of any active GI bleeding at present. I would certainly defer treatment of her DIC to Dr. Luna in the primary service. I am not convinced that the patient has a need for Rocephin at present. Certainly, if increasing ascites is present this could be identified with ultrasound and a diagnostic tap could be pursued. Additionally the Rocephin will certainly counter our efforts with respect to the C. diff (that said she is not experiencing significant diarrhea at present to say the least). I would therefore recommend she indeed receive some lactulose per NG tube. I think at least temporarily it would be quite reasonable to add in rifaximin 550 mg twice daily as well. Hopefully, as she requires less and less of the benzodiazepines, she will recover enough cognitive function to take all of her medications and nutrition by mouth. She should continue with thiamine supplementation and I agree with temporary Dobhoff tube feeding supplementation as well. Will continue to follow.
[2017-03-24] VITALS (8 sets, daily range): BP systolic 109–148; BP diastolic 58–90; PULSE 83–101; RESP 24–35; O2SAT 89–99
[2017-03-24] MEDS: Lactulose 20 Gm/30 mL 30 mL Syrup PO SCH ×12 (01:37→23:00)
[2017-03-24 02:45] LABS: BASOPHILS % (AUTO) 0.1 % (0-3); EOSINOPHILS % (AUTO) 0.8 % (0-5); MONOCYTES % (AUTO) 15.1 % (4-12); Mean Corpuscular Volume 82.1 fL (81-100); NEUTROPHILS % (AUTO) 74.6 % (40-74); Platelet Count 75 bil/L (150-400)
[2017-03-24 03:00] LABS: INR 1.48 ratio
[2017-03-24 03:28] LABS: Magnesium 1.6 mg/dL (1.6-2.6)
[2017-03-24] MEDS: Vancomycin 100 mg/mL Oral Solution PO SCH ×4 (03:58→22:12)
[2017-03-24] MEDS ORDERED: KCl 40 mEq/500 mL D5W(K 3 - 3.7 & Creat < 2) IV ONE (06:05)
[2017-03-24] MEDS: 0.9% Sodium Chloride 1,000 ML IV SCH (06:31)
--- NOTE | 2017-03-24 06:31 | NUR ---
CIWA/respiratory/Lactulose Pt CIWA 12-20 all shift, administered 20mg Ativan as well as 130mg phenobarbital and pt CIWA still 15-20 and awake and restless requiring a sitter, MD aware. Pt also required an increase in oxygen from 8L to 10 to 12L oxymask, lung sounds with a few crackles in the bases, fluids stopped, MD aware. Pt received Lactulose Q2 until BM and pt has had 3 BM's this shift. VSS and Tele SR.
[2017-03-24] MEDS: cefTRIAXone Inj 1,000 MG in Dextrose 5% Minibag Plus 50 ML IV SCH (08:30)
[2017-03-24] MEDS: FERROUS SULFATE 44 MG/ML PO SCH ×3 (09:40→22:11)
[2017-03-24] MEDS: Pentoxifylline 400 mg ER12 Tablet PO SCH ×3 (09:40→22:11)
[2017-03-24] MEDS: Pantoprazole 4 mg/mL 10 mL Inj IVPUSH SCH ×2 (09:42→17:40)
[2017-03-24] MEDS: Multivit-Miner-Folic Acid-Iron Tablet PO SCH (09:43)
--- NOTE | 2017-03-24 10:03 | NUR ---
NUTRITION FOLLOW-UP: ASSESS: Pt is a 61yo F admitted for severe anemia, weakness and etoh withdrawal. Pt is on CIWA protocol and has been experiencing hallucinations. She was on a soft diet with fair PO intake at 25-100% of meals. Pt was transferred to CCU on 03/23 due to increased CIWA scores. Pt had to have NG placed this am for meds and trophic TF was started 03/23. Per CCU rounds 03/24, MD requesting to keep pt on trophic rate due to high aspiration risk. RN aware. Pt has history of alcoholism and likely had poor PO intake prior to admit. Will monitor labs closely for signs of re-feeding. PMHX: alcoholic cirrhosis, portal gastropathy, esophageal varices, HTN, anemia LABS: Reviewed. 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 Thiamine, Zofran, ferrous sulfate, lactulose GI: C.Diff +, BMx8 03/24 r/t lactulose SKIN: no major issues, mild jaundice, visible fat loss in face, arms and legs NUTRITION SUPPORT: Vital 1.5 @ 10ml/hr CURRENT WTS: 72.1kg, BMI 24.9kg/m2, admit wt 62.5kg, no major wt changes per chart review DIET: NPO EST. NEEDS: liver disease Kcals: 1730-2075kcal/day (25-30kcal/kg) Pro: 80-105g/day (1.2-1.5g/kg) Fluids: ~1800ml/day (25ml/kg) NUTRITION DIAGNOSIS: 1.) Inadequate oral intake related to chronic alcohol abuse as evidence by PO variable from 25-100%, AMS and altered nutrition related lab values--PERSISTS 2.) Moderate pro/kcal malnutrition in the context of chronic illness related to alcoholism as evidence by mild fat loss, altered electrolytes, PO intake of <75% estimated energy requirements for >1month due to chronic alcohol use--PERSISTS NUTRITION INTERVENTION: 1.) Recommend continue TF of Vital 1.5 @ 10ml/hr per CCU rounds due to high aspiration risk. 2.) If tolerated and ok per MD, advance TF by 10ml q 12 hrs until reach goal rate of 60ml/hr to provide 1980kcal and 90g pro (100% estimated needs). MONITOR / EVAL: TF bigg, advance?, wt, GI, labs, POC, nutrition status. Will continue to monitor per high nutrition risk guidelines.
--- NOTE | 2017-03-24 10:28 | DRSVH ---
PROCEDURE: X-RAY CHEST ONE VIEW, PORTABLE ([id number]) INDICATIONS: dyspnea TECHNIQUE: One view of the chest was acquired. COMPARISON: [facility], CR, XR CHEST 1VW (PORTABLE), 03/23/2017, 13:20. FINDINGS: Surgical changes and devices: ET tube with tip below the diaphragm. Lungs and pleura: Bilateral pleural effusions left greater than right with associated bibasilar atele ctasis or infiltrates. Lesser perihilar and left apical pulmonary opacities. Mediastinum: Enlarged cardiac mediastinal silhouette. Bones and chest wall: No suspicious bony lesions. Overlying soft tissues appear unremarkable. IMPRESSION: 1. Interval progression of pleural effusions with associated atelectasis or infiltrate left greater t cardona right. 2. Recommend PA and lateral chest radiograph when the patient is able. Dictated by: Eduar Corbett M.D. on 03/24/2017 at 10:22 Approved by: Eduar Corbett M.D. on 03/24/2017 at 10:26
[2017-03-24] MEDS ORDERED: Magnesium Sulf 4 Gm/100 mL H2O 4 GM in IV Premix 1 EACH IV ONE (10:45)
[2017-03-24] MEDS ORDERED: Furosemide 10 mg/mL 2 mL Inj IVPUSH ONE (11:20)
--- NOTE | 2017-03-24 11:33 | PCM.PNMED ---
Subjective Date of Service Mar 24, 2017 Subjective Overnight continued withdrawal, CIWA scores between 12 and 20, 20 mg of Ativan with an additional 130 mg phenobarbital given in total. She required a sitter through most of the night for attempting to get out of bed, episodes of tachypnea up to 40 breaths per minute with associated decrease in oxygen saturation, remained on oxygen mask with titration up to 12 L per minute. Numerous bowel movements overnight, concern for pulmonary edema and patient's fluids were discontinued by the night team. Exam Vital Signs Vital Sign - Last Date Time Temp Pulse Resp B/P Pulse Ox O2 Delivery O2 Flow Rate FiO2 03/24/17 10:00 100 28 109/58 97 OxyMask 11.00 03/24/17 07:00 36.7 Intake and Output 03/23/17 03/23/17 03/24/17 Cumulative From/Thru 15:00 23:00 07:00 03/18/17 15:13 - 03/23/17 20:34 Intake Total 140 ml 1900 ml 36861 ml Output Total 250 ml 9675 ml Balance 140 ml 1650 ml 25240 ml Intake Oral 4380 ml IV Total 0 ml 1300 ml 09661 ml Packed Cells 2100 ml Cryoprecipitate 140 ml 215 ml Tube Irrigant 600 ml 600 ml Output Urine Total 250 ml 6725 ml Stool Total 750 ml Urine/Stool Mix 1700 ml Emesis 500 ml # Voids 3 14 # Bowel Movements 5 Exam General: Laying in bed, oxygen mask on face, sleeping, arouses to verbal stimuli. HEENT: Normocephalic, atraumatic, EOMI grossly, no JVD, sclera mildly icteric, mucous membranes moist, neck supple without lymphadenopathy Cardiovascular: Tachycardic with regular rhythm, 3/6 harsh systolic murmur heard best at Left sternal border. Pulmonary: Breaths shallow and briefunable to appreciate any rales, tachypneic Abdominal: Abdomen is round, tympanic, liver edge less than 2 fingerbreadths below ribs, bowel sounds present 4. Nontender to palpation Extremities: No edema appreciated. No tenderness, asymmetry. Neuro: Neurologically grossly intact, strength is equal bilaterally upper and lower extremities. MSK: Decreased muscle mass Derm: Ecchymosis torso, thorax, left extremities, buttocks Psych: Oriented to person and year, believes she is at home., Somnolent. IVs and Medications IV Fluids Discontinued Medications Reviewed: Medications were reviewed in detail Lab and Diagnostics Arterial blood gas DateTimeAnalyzed 13:24:36 -_ pH ____7.429 - 7.350 7.450 pCO2 ___33.5__ -mmHg 35.0 45.0 pO2 ___56.2__ -mmHg 70.0 100 HCO3- ___22.1__ -mmol/L 22.0 26.0 Result Diagram: 03/24/17 0230 03/24/17 0230 X-Rays, CTs and MRIs CT abdomen pelvis with contrast performed 03/20/2017 IMPRESSION: 1. Mild edema of the pancreatic head/uncinate process as well as adjacent duodenal C-loop with scattered mild fluid. Findings could be related to pancreatitis with secondary duodenitis or vice versa. Recommend correlation to enzyme levels. 2. Cholelithiasis without imaging evidence of cholecystitis. 3. Cirrhotic appearing liver with splenomegaly and appearance of varices suggestive of portal venous hypertension. 4. Mild dependent pelvic fluid. Dictated by: Breonna Augustin M.D. on 03/20/2017 at 16:32 CT pelvis with contrast performed 03/22/2017 IMPRESSION: 1. No significant change in presumed intramuscular hematoma within the left gluteus natasha. No change in subcutaneous edema versus cellulitis versus soft tissue injury within the proximal left thigh. No fracture. 3. 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 This could be further assessed using MR angiography, as well as MRI with and without intravenous contrast. 3. Increased, small amount of low-density ascites. Dictated by: aSlly Kapoor M.D. on 03/23/2017 at 15:57 Right upper extremity sonogram performed 03/22/2017 IMPRESSION: 1. Heterogeneous subcutaneous collection demonstrated in the area of palpable abnormality suggestive of a hematoma. The differential is a soft tissue mass. Recommend correlation with clinical history and clinical followup. If there is persistent clinical concern, further evaluation may be obtained with MRI. Dictated by: Kaden Wheeler M.D. on 03/22/2017 at 12:11 CT brain without contrast performed 03/23/2017 IMPRESSION: No acute intracranial abnormality. Dictated by: Sally Kapoor M.D. on 03/23/2017 at 15:54 Chest x-ray performed 03/23/2017 IMPRESSION: 1. Left basilar density is suspicious for pneumonia versus atelectasis. Superimposed small pleural effusion cannot be excluded. 2. Probable cardiomegaly without overt heart failure. Dictated by: Toi Multani M.D. on 03/23/2017 at 12:41 Chest x-ray performed 03/24/2017 IMPRESSION: 1. Interval progression of pleural effusions with associated atelectasis or infiltrate left greater than right. 2. Recommend PA and lateral chest radiograph when the patient is able. Dictated by: Eduar Corbett M.D. on 03/24/2017 at 10:22 Additional Diagnostics US shows hematoma or soft tissue mass on right medial elbow Assessment & Plan 61-year-old woman with chronic alcohol abuse, alcoholic cirrhosis, small esophageal varices, portal gastropathy, chronic anemia requiring 7 units packed red blood cells to date, actively going through alcohol withdrawal requiring large amounts of benzodiazepines, and evidence of DIC. Hospital Day 7 ICU Day 3 Acute on chronic cytopenia, anemia and thrombocytopenia, POA, active -7 units packed red blood cells administered, hemoglobin stable last 24hrs -Etiology includes myelosuppression secondary to chronic alcohol abuse, GI bleed given history of variceal bleed and low platelets with elevated INR, intracorporeal loss evidenced by ecchymosis on arms and torso. -Peripheral smear negative for schistocytes -Hematology-oncology consulted, Decreased Fibrinogen level has prompted total 18 units cryoprecipitate to be transfused. -INR 1.48 this morning, Vitamin K given yesterday. -Gastric lavage performed by nursing staff reported as negative. -Monitor hemoglobin and hematocrit every 12 hours, and she is with hemoglobin less than 7 -Occult fecal blood negative. Acute hypoxemic respiratory failure, not present on admission, active Patient has had increasing oxygen demands, up to 14 L oxygen mask to maintain saturation in the mid 90s which drops to the low 80s with any movement. Chest x-ray 03/23/17 showed atelectasis versus effusion left lung field, repeat x -ray 03/24/17 showed increase in interstitial fluid suggesting pulmonary edema and atelectasis ABG showed hypoxemia with hypocarbia. Naloxone administered 03/23/2017, patient mental status and alertness improved , was able to decrease oxymask to 5L/min. Overnight again had tachypnea with decrease in O2 saturation, x-ray as above. 20 mg Lasix IV now. Thorax physiotherapy Pulmonary toilet Acute encephalopathy, present on Admission, Active. Differential includes acute intoxication with alcohol, hepatic encephalopathy, and now with complaint of headache in the preceding day with low platelets and elevated INR intracranial bleed. Patient is receiving lactulose per NG tube Managing withdrawal CIWA protocol please see below. Head CT noncontrast negative for acute intracranial pathology, no bleed Avoid necrotic medications, Naloxone as above. Chronic alcohol abuse, active withdrawal Patient admitted to drinking copious amounts of vodka due to stress, blood alcohol level 374 on admission Continue CIWA protocol treatment with lorazepam, avoiding diazepam secondary to decreased hepatic clearance and presence of liver failure. Supplement with phenobarbital as needed. Gastric lavage showed only clear return, ceftriaxone discontinued. request to speak with SUBSTATION TECHNICIAN regarding treatment facilities for chronic alcoholism. said he would attempt to be here between 2-3 PM today, I have informed SUBSTATION TECHNICIAN. Severe alcoholic hepatitis and alcoholic cirrhosis, POA, active Discriminate score 38 today, no score 20 Patient receiving pentoxifylline per GI recommendations Rifaximin 550 mg twice a day has been added by gastroenterology, we appreciate the recommendations and expertise Clostridium difficile Colitis, POA, Active. Vancomycin per NG tube Enteric Contact Precautions Acute hypokalemia, not present on admission, active Supplement via peripheral IV, nurseing punishment protocol Recheck this afternoon following IV Lasix administration. Acute hypomagnesemia, not present on admission, active Supplement via peripheral IV, nursing replenishment protocol Based on recurrent anemia, elevated CIWA scores requiring large amounts of benzodiazepine, and now developing acute hypoxic respiratory failure, patient remains in ICU anticipate stay 3-5 days. DVT prophylaxis contraindicated secondary to elevated INR, low platelets recurrent anemia GI prophylaxis pantoprazole 40 mg IV push twice a day before meals Pain management -avoid narcotics secondary to respiratory depression and decreased mentation, NSAIDs contraindicated secondary to concern for bleed, acetaminophen contraindicated secondary to liver cirrhosis. Patient remains full code GI Prophylaxis: Proton Pump Inhibitor VTE Mechanical Devices: Intermittant Pneumatic CD Resuscitation Status: CPR: Attempt Resuscitation Attending Statement I have seen and examined this patient with the resident physician. Vital signs , labs, imaging have been reviewed. I agree with the assessment and plan above. Please refer to my separately dictated progress note for any modifications to above. Sania Stanton M.D. Pulmonary and Critical Care medicine Pager [phone] Sachin Gruber DO Mar 24, 2017 11:33 Sania Stanton MD Mar 25, 2017 16:09
--- NOTE | 2017-03-24 12:13 | PROG NOTE ---
[address] [address] PROGRESS NOTE PATIENT: AIRAM HUGHES : 1955 MR#: [id number] ADMIT: 03/18/2017 JOB ID: [id number] DATE: 03/24/2017 PULMONARY CRITICAL CARE PROGRESS NOTE: The patient is a 61-year-old woman with alcoholic cirrhosis and ongoing alcohol use. Admitted to the hospital with severe anemia, encephalopathy and alcohol withdrawal. The patient was seen and evaluated with resident physician, Sachin Gruber DO. Please refer to his separate detailed note for additional information. INTERVAL HISTORY: Mental status continues to be a problem and she varies between agitated with high fever scores and obtunded. Also, hypoxemia is becoming a problem now, and she is on anywhere from 8-12 L Oxymizer, although this is well improved when she is more alert. REVIEW OF SYSTEMS: Unable to obtain. PHYSICAL EXAMINATION: Vital signs reviewed. She is afebrile. She is on 12 L OxyMask currently. Does not open eyes or follow commands for me. Chest is clear anteriorly. Abdomen nontender. LABORATORIES: Reviewed. Chest x-ray reviewed and shows dense retrocardiac atelectasis, as well as bilateral pulmonary edema. ASSESSMENT AND RECOMMENDATIONS: 1. Alcohol withdrawal. 2. Acute encephalopathy due to hepatic encephalopathy and medications for alcohol withdrawal. 3. Severe anemia -- being evaluated by Hematology. No evidence of ongoing bleeding. 4. Alcoholic cirrhosis with portal hypertension and small esophageal varices. 5. Clostridium difficile colitis. She is once again more encephalopathic this morning after receiving multiple doses of IV lorazepam overnight. She has also finally gotten a dose of IV phenobarbital, which eventually calmed her down. With regards to the anemia, she is currently stable, and Dr. Luna with hematology is following her. She has received multiple units of blood transfusion, as well as cryoprecipitate, for a low fibrinogen. We did an nasogastric lavage yesterday which did not have any bloody output. She also has no evidence of melena or hematemesis, etc. I stopped the ceftriaxone today because she is not having any bleeding. She is on p.o. vancomycin through the feeding tube for Clostridium difficile. She is getting scheduled lactulose, as well as rifaximin, for hepatic encephalopathy. Thrombocytopenia continues to improve, and she is getting no pharmaceutical deep venous thrombosis prophylaxis at this time. She is getting a proton pump inhibitor b.i.d. She is also on pentoxifylline t.i.d. She is a FULL CODE. CRITICAL CARE TIME: 45 minutes.
--- NOTE | 2017-03-24 14:52 | PCM.PNMED ---
Subjective Date of Service Mar 24, 2017 Subjective Patient is more awake today, but mumbling. Not able to answer any questions. She does appear comfortable. She appears chronically ill. Overnight events reviewed. Exam Vital Signs Vital Sign - Last Date Time Temp Pulse Resp B/P Pulse Ox O2 Delivery O2 Flow Rate FiO2 03/24/17 12:30 Supplement Oxygen 03/24/17 10:00 100 28 109/58 97 11.00 03/24/17 07:00 36.7 Intake and Output 03/23/17 03/23/17 03/24/17 Cumulative From/Thru 15:00 23:00 07:00 03/18/17 15:13 - 03/23/17 20:34 Intake Total 140 ml 1900 ml 97640 ml Output Total 250 ml 9675 ml Balance 140 ml 1650 ml 26628 ml Intake Oral 4380 ml IV Total 0 ml 1300 ml 52880 ml Packed Cells 2100 ml Cryoprecipitate 140 ml 215 ml Tube Irrigant 600 ml 600 ml Output Urine Total 250 ml 6725 ml Stool Total 750 ml Urine/Stool Mix 1700 ml Emesis 500 ml # Voids 3 14 # Bowel Movements 5 Exam Awake, lethargic and in no distress. Monitoring Icteric sclera. Lungs are clear with normal rate and effort Heart is regular without murmur gallop or rub Abdomen soft nontender, flat Extremities are free of edema. Skin is free of rash or lesions. She is jaundiced. She has multiple areas of ecchymosis including large area of ecchymosis of the left aspect of her torso. She is moving all extremities spontaneously. She really cannot follow commands. NG tube IVs and Medications Medications Reviewed: Medications were reviewed in detail Lab and Diagnostics Result Diagram: 03/24/17 0230 03/24/17 0230 X-Rays, CTs and MRIs CT abdomen pelvis with contrast performed 03/20/2017 IMPRESSION: 1. Mild edema of the pancreatic head/uncinate process as well as adjacent duodenal C-loop with scattered mild fluid. Findings could be related to pancreatitis with secondary duodenitis or vice versa. Recommend correlation to enzyme levels. 2. Cholelithiasis without imaging evidence of cholecystitis. 3. Cirrhotic appearing liver with splenomegaly and appearance of varices suggestive of portal venous hypertension. 4. Mild dependent pelvic fluid. Dictated by: Breonna Augustin M.D. on 03/20/2017 at 16:32 CT pelvis with contrast performed 03/22/2017 IMPRESSION: 1. No significant change in presumed intramuscular hematoma within the left gluteus natasha. No change in subcutaneous edema versus cellulitis versus soft tissue injury within the proximal left thigh. No fracture. 3. 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 This could be further assessed using MR angiography, as well as MRI with and without intravenous contrast. 3. Increased, small amount of low-density ascites. Dictated by: Sally Kapoor M.D. on 03/23/2017 at 15:57 Right upper extremity sonogram performed 03/22/2017 IMPRESSION: 1. Heterogeneous subcutaneous collection demonstrated in the area of palpable abnormality suggestive of a hematoma. The differential is a soft tissue mass. Recommend correlation with clinical history and clinical followup. If there is persistent clinical concern, further evaluation may be obtained with MRI. Dictated by: Kaden Wheeler M.D. on 03/22/2017 at 12:11 CT brain without contrast performed 03/23/2017 IMPRESSION: No acute intracranial abnormality. Dictated by: Sally Kapoor M.D. on 03/23/2017 at 15:54 Chest x-ray performed 03/23/2017 IMPRESSION: 1. Left basilar density is suspicious for pneumonia versus atelectasis. Superimposed small pleural effusion cannot be excluded. 2. Probable cardiomegaly without overt heart failure. Dictated by: Toi Multani M.D. on 03/23/2017 at 12:41 Chest x-ray performed 03/24/2017 IMPRESSION: 1. Interval progression of pleural effusions with associated atelectasis or infiltrate left greater than right. 2. Recommend PA and lateral chest radiograph when the patient is able. Dictated by: Eduar Corbett M.D. on 03/24/2017 at 10:22 Additional Diagnostics US shows hematoma or soft tissue mass on right medial elbow Assessment & Plan 61-year-old woman with chronic alcohol abuse, alcoholic cirrhosis, small esophageal varices, portal gastropathy, chronic anemia requiring 7 units packed red blood cells to date, actively going through alcohol withdrawal requiring large amounts of benzodiazepines, and evidence of DIC. Hospital Day 7 ICU Day 3 Acute on chronic anemia and thrombocytopenia, POA, active and stable -7 units packed red blood cells administered, hemoglobin stable last 24hrs -Etiology includes myelosuppression secondary to chronic alcohol abuse, GI bleed given history of variceal bleed and low platelets with elevated INR, intracorporeal loss evidenced by ecchymosis on arms and torso. -Peripheral smear negative for schistocytes -Hematology-oncology consulted, Decreased Fibrinogen level has prompted total 18 units cryoprecipitate to be transfused. -INR 1.48 this morning, Vitamin K given yesterday. -Gastric lavage performed by nursing staff reported as negative. -Monitor hemoglobin and hematocrit every 12 hours, and she is with hemoglobin less than 7 -Occult fecal blood negative. Acute hypoxemic respiratory failure, not present on admission, active and stable. Patient has had increasing oxygen demands, up to 14 L oxygen mask to maintain saturation in the mid 90s which drops to the low 80s with any movement. Chest x-ray 03/23/17 showed atelectasis versus effusion left lung field, repeat x -ray 03/24/17 showed increase in interstitial fluid suggesting pulmonary edema and atelectasis ABG showed hypoxemia with hypocarbia. Naloxone administered 03/23/2017, patient mental status and alertness improved , was able to decrease oxymask to 5L/min. Overnight again had tachypnea with decrease in O2 saturation, x-ray as above. 20 mg Lasix IV now. Thorax physiotherapy Pulmonary toilet Acute hepatic encephalopathy, present on Admission, Active and stable.. Differential includes acute intoxication with alcohol, hepatic encephalopathy, and now with complaint of headache in the preceding day with low platelets and elevated INR intracranial bleed. Patient is receiving lactulose per NG tube Managing withdrawal CIWA protocol please see below. Head CT noncontrast negative for acute intracranial pathology, no bleed We will continue current lactulose scheduled via NG tube. Chronic alcohol abuse, active withdrawal, continues to be a significant problem. Patient admitted to drinking copious amounts of vodka due to stress, blood alcohol level 374 on admission Continue CIWA protocol treatment with lorazepam, avoiding diazepam secondary to decreased hepatic clearance and presence of liver failure. Supplement with phenobarbital as needed. Gastric lavage showed only clear return, ceftriaxone discontinued. request to speak with IMPLANT POLISHER regarding treatment facilities for chronic alcoholism. said he would attempt to be here between 2-3 PM today, I have informed IMPLANT POLISHER. Continue CIWA protocol with Ativan. Severe alcoholic hepatitis and alcoholic cirrhosis, POA, active and stable. No change in current management plan. Clostridium difficile Colitis, POA, Active and stable.. Vancomycin per NG tube Enteric Contact Precautions No change to medical plan. Acute hypokalemia, not present on admission, remains active. Supplement via peripheral IV, nurseing punishment protocol We will replete. Follow daily. Acute hypomagnesemia, not present on admission, resolved Supplement via peripheral IV, nursing replenishment protocol Inpatient status, over 2 night stay. DVT prophylaxis contraindicated secondary to elevated INR, low platelets recurrent anemia GI prophylaxis pantoprazole 40 mg IV push twice a day before meals Pain management -avoid narcotics secondary to respiratory depression and decreased mentation, NSAIDs contraindicated secondary to concern for bleed, acetaminophen contraindicated secondary to liver cirrhosis. Patient remains full code GI Prophylaxis: Proton Pump Inhibitor VTE Mechanical Devices: Intermittant Pneumatic CD Resuscitation Status: CPR: Attempt Resuscitation David Tran MD Mar 24, 2017 14:52
--- NOTE | 2017-03-24 16:25 | NUR ---
Shift: VSS, afebrile, tele SR/ST 80s-100s, O2 sats 88-99% on 11L, O2 decreased to 5L by MD and sats consistenty down to 89%, O2 at 9L with sats 93%. IV lasix given, [place] cath placed, 1600mL UOP so far this shift. Lactulose held all shift, pt has had multiple incontinent liquid stools, FMS placed with good output, MD aware. CIWA scores 15-20, pt in restraints to protect NG tube and lines, pt is very mobile in bed, pt manager research development at bedside. Care ongoing.
--- NOTE | 2017-03-24 16:32 | PCM.PNMED ---
Subjective Date of Service Mar 23, 2017 Subjective Patient is very confused and minimally arousable. She is not able to communicate in any meaningful way. No overnight events noted other than her continued high CIWA scores. Exam Vital Signs Vital Sign - Last Date Time Temp Pulse Resp B/P Pulse Ox O2 Delivery O2 Flow Rate FiO2 03/24/17 16:16 36.6 96 31 123/75 93 OxyMask 9.00 Intake and Output 03/23/17 03/23/17 03/24/17 Cumulative From/Thru 15:00 23:00 07:00 03/18/17 15:13 - 03/23/17 20:34 Intake Total 140 ml 1900 ml 91574 ml Output Total 250 ml 9675 ml Balance 140 ml 1650 ml 71007 ml Intake Oral 4380 ml IV Total 0 ml 1300 ml 30954 ml Packed Cells 2100 ml Cryoprecipitate 140 ml 215 ml Tube Irrigant 600 ml 600 ml Output Urine Total 250 ml 6725 ml Stool Total 750 ml Urine/Stool Mix 1700 ml Emesis 500 ml # Voids 3 14 # Bowel Movements 5 Exam Only arousable but in no distress. Not speaking. Icteric sclera. Lungs are clear with normal rate and effort Heart is regular without murmur gallop or rub Abdomen soft nontender, distended. Extremities are free of edema. Skin notable for multiple areas of ecchymosis with large ecchymosis over the left aspect of the torso. IVs and Medications Medications Reviewed: Medications were reviewed in detail Lab and Diagnostics Result Diagram: 03/24/17 0230 03/24/17 0230 X-Rays, CTs and MRIs CT abdomen pelvis with contrast performed 03/20/2017 IMPRESSION: 1. Mild edema of the pancreatic head/uncinate process as well as adjacent duodenal C-loop with scattered mild fluid. Findings could be related to pancreatitis with secondary duodenitis or vice versa. Recommend correlation to enzyme levels. 2. Cholelithiasis without imaging evidence of cholecystitis. 3. Cirrhotic appearing liver with splenomegaly and appearance of varices suggestive of portal venous hypertension. 4. Mild dependent pelvic fluid. Dictated by: Breonna Augustin M.D. on 03/20/2017 at 16:32 CT pelvis with contrast performed 03/22/2017 IMPRESSION: 1. No significant change in presumed intramuscular hematoma within the left gluteus natasha. No change in subcutaneous edema versus cellulitis versus soft tissue injury within the proximal left thigh. No fracture. 3. 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 This could be further assessed using MR angiography, as well as MRI with and without intravenous contrast. 3. Increased, small amount of low-density ascites. Dictated by: Sally Kapoor M.D. on 03/23/2017 at 15:57 Right upper extremity sonogram performed 03/22/2017 IMPRESSION: 1. Heterogeneous subcutaneous collection demonstrated in the area of palpable abnormality suggestive of a hematoma. The differential is a soft tissue mass. Recommend correlation with clinical history and clinical followup. If there is persistent clinical concern, further evaluation may be obtained with MRI. Dictated by: Kaden Wheeler M.D. on 03/22/2017 at 12:11 CT brain without contrast performed 03/23/2017 IMPRESSION: No acute intracranial abnormality. Dictated by: Sally Kapoor M.D. on 03/23/2017 at 15:54 Chest x-ray performed 03/23/2017 IMPRESSION: 1. Left basilar density is suspicious for pneumonia versus atelectasis. Superimposed small pleural effusion cannot be excluded. 2. Probable cardiomegaly without overt heart failure. Dictated by: Toi Multani M.D. on 03/23/2017 at 12:41 Chest x-ray performed 03/24/2017 IMPRESSION: 1. Interval progression of pleural effusions with associated atelectasis or infiltrate left greater than right. 2. Recommend PA and lateral chest radiograph when the patient is able. Dictated by: Eduar Corbett M.D. on 03/24/2017 at 10:22 Additional Diagnostics US shows hematoma or soft tissue mass on right medial elbow Assessment & Plan Acute blood loss anemia, POA. This is improved. The patient has multiple hematomas that may contribute to her anemia. She also does have a chronic anemia. She did receive multiple units of blood. At this point we will be following her closely. Pathology is really not hemolyzed this at this point and is checking a direct Cassius test as well. There is a concern about a component DIC and she was given cryo-precipitated today based on a relatively low fibrinogen. She also likely has a degree of chronic bone marrow suppression secondary to her alcohol dependence. Acute hypoxemic respiratory failure, not present on admission, active and stable. Patient has had increasing oxygen demands, up to 14 L oxygen mask to maintain saturation in the mid 90s which drops to the low 80s with any movement. Chest x-ray 03/23/17 showed atelectasis versus effusion left lung field, repeat x -ray 03/24/17 showed increase in interstitial fluid suggesting pulmonary edema and atelectasis ABG showed hypoxemia with hypocarbia. Naloxone administered 03/23/2017, patient mental status and alertness improved , was able to decrease oxymask to 5L/min. Overnight again had tachypnea with decrease in O2 saturation, x-ray as above. 20 mg Lasix IV now. Thorax physiotherapy Pulmonary toilet We will titrate oxygen as needed. The patient remains somewhat precarious. Acute hepatic encephalopathy, present on Admission, Active . Differential includes acute intoxication with alcohol, hepatic encephalopathy, and now with complaint of headache in the preceding day with low platelets and elevated INR intracranial bleed. Patient is receiving lactulose per NG tube Managing withdrawal CIWA protocol please see below. Head CT noncontrast negative for acute intracranial pathology, no bleed We will continue current lactulose scheduled via NG tube. Chronic alcohol abuse, active withdrawal, continues to be a significant problem. Patient admitted to drinking copious amounts of vodka due to stress, blood alcohol level 374 on admission Continue CIWA protocol treatment with lorazepam, avoiding diazepam secondary to decreased hepatic clearance and presence of liver failure. Supplement with phenobarbital as needed. Gastric lavage showed only clear return, ceftriaxone discontinued. request to speak with MANAGER GALLERY regarding treatment facilities for chronic alcoholism. said he would attempt to be here between 2-3 PM today, I have informed MANAGER GALLERY. Continue CIWA protocol with Ativan. This patient is oriented significant load of diazepam. Severe alcoholic hepatitis and alcoholic cirrhosis, POA, active and stable. No change in current management plan. Clostridium difficile Colitis, POA, Active and stable.. Vancomycin per NG tube Enteric Contact Precautions No change to medical plan. Acute hypokalemia, not present on admission, remains active. Supplement via peripheral IV, nurseing punishment protocol We will replete. Follow daily. Replete as needed. Acute hypomagnesemia, not present on admission, resolved Supplement via peripheral IV, nursing replenishment protocol Inpatient status, over 2 night stay. DVT prophylaxis contraindicated secondary to elevated INR, low platelets recurrent anemia GI prophylaxis pantoprazole 40 mg IV push twice a day before meals Pain management -avoid narcotics secondary to respiratory depression and decreased mentation, NSAIDs contraindicated secondary to concern for bleed, acetaminophen contraindicated secondary to liver cirrhosis. Patient remains full code GI Prophylaxis: Proton Pump Inhibitor VTE Mechanical Devices: Intermittant Pneumatic CD Resuscitation Status: CPR: Attempt Resuscitation David Tran MD Mar 24, 2017 16:32
--- NOTE | 2017-03-24 18:16 | CCS NOTE ---
[facility] [address] [place] [address], [address] [address] MEDICAL ONCOLOGY OFFICE NOTE PATIENT: AIRAM HUGHES : 1955 MR#: [id number] DATE: 03/18/2017 JOB ID: [id number] DATE: 03/24/2017 HISTORY OF PRESENT ILLNESS: The patient is a 61-year-old lady admitted with alcoholic hepatitis. She was seen today at bedside. Her and son were present. She appeared slightly less confused and restless compared to yesterday. She still remains afebrile and has two-point restraints. LABORATORY: Lab studies show a further rise of bilirubin to 10. Renal function remains normal. Her platelets have been steadily improving without transfusion, now to 75. Hemoglobin has remained stable at 8.5 without further drop. Fibrinogen has improved from very low levels of 58 to now 114 after a total dose of 18 units of cryoprecipitate administered over the previous 24 hours. Her INR is still elevated but improved to 1.48 after the 10 mg of vitamin K. The patient remains severely jaundiced. ASSESSMENT AND PLAN: A 61-year-old lady with alcoholic hepatitis and liver cirrhosis presenting with confusion and worsening liver function tests and pancytopenia. Lab evaluation of two days ago supported a component of DIC along with this multifactorial situation and she has been given per my suggestion a total of 18 units of cryoprecipitate improving the low fibrinogen from 58 to now 114 which is still not normal but at least above 100. Also her coagulopathy from liver disease has partially improved with the vitamin K. This has resulted in a gradual improvement of platelet count and stabilization of hemoglobin without further transfusions. I would consider an additional 6 units of cryoprecipitate today with the rechecking of fibrinogen level tomorrow, trying to maintain the level above 100. Her bilirubin is, however, deteriorating, which have probably has hepatic etiology.
--- NOTE | 2017-03-24 19:44 | PCM.PNMED ---
Subjective Date of Service Mar 24, 2017 Subjective Patient continues to have some agitation, she is currently in restraints. She is having frequent loose bowel movements. She is difficult to understand, she reports no pain. She knows she is in [place] and that it is March 2017. Exam Vital Signs Vital Sign - Last Date Time Temp Pulse Resp B/P Pulse Ox O2 Delivery O2 Flow Rate FiO2 03/24/17 16:16 36.6 96 31 123/75 93 OxyMask 9.00 Intake and Output 03/23/17 03/23/17 03/24/17 Cumulative From/Thru 15:00 23:00 07:00 03/18/17 15:13 - 03/23/17 20:34 Intake Total 140 ml 1900 ml 75309 ml Output Total 250 ml 9675 ml Balance 140 ml 1650 ml 12233 ml Intake Oral 4380 ml IV Total 0 ml 1300 ml 89307 ml Packed Cells 2100 ml Cryoprecipitate 140 ml 215 ml Tube Irrigant 600 ml 600 ml Output Urine Total 250 ml 6725 ml Stool Total 750 ml Urine/Stool Mix 1700 ml Emesis 500 ml # Voids 3 14 # Bowel Movements 5 Exam General: Alert, confused, oriented 3 Head: Normal Eyes: Jaundiced sclera Mouth: Mucous Membr Moist/Nina Neck: Supple Chest & Lungs: Auscultation (clear bilaterally) Cardiovascular: Regular Rate/Rhythm, Murmur (holosystolic) Abdomen: Non-tender, Non-distended, Normoactive bowel tones, Soft, Obese Extremities: No cyanosis/clubbing/edema bilaterally, in restraints Neurologic: tremulous Skin: Other (bruises present on shins bilaterally right greater than left, large area of eccymosis on buttocks and thighs left greater than right, expanding to anterior her anterior thigh hip area. Right arm ecchymoses on the medial elbow) Lab and Diagnostics Result Diagram: 03/24/17 1800 03/24/17 1800 X-Rays, CTs and MRIs CT abdomen pelvis with contrast performed 03/20/2017 IMPRESSION: 1. Mild edema of the pancreatic head/uncinate process as well as adjacent duodenal C-loop with scattered mild fluid. Findings could be related to pancreatitis with secondary duodenitis or vice versa. Recommend correlation to enzyme levels. 2. Cholelithiasis without imaging evidence of cholecystitis. 3. Cirrhotic appearing liver with splenomegaly and appearance of varices suggestive of portal venous hypertension. 4. Mild dependent pelvic fluid. Dictated by: Breonna Augustin M.D. on 03/20/2017 at 16:32 CT pelvis with contrast performed 03/22/2017 IMPRESSION: 1. No significant change in presumed intramuscular hematoma within the left gluteus natasha. No change in subcutaneous edema versus cellulitis versus soft tissue injury within the proximal left thigh. No fracture. 3. 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 This could be further assessed using MR angiography, as well as MRI with and without intravenous contrast. 3. Increased, small amount of low-density ascites. Dictated by: Sally Kapoor M.D. on 03/23/2017 at 15:57 Right upper extremity sonogram performed 03/22/2017 IMPRESSION: 1. Heterogeneous subcutaneous collection demonstrated in the area of palpable abnormality suggestive of a hematoma. The differential is a soft tissue mass. Recommend correlation with clinical history and clinical followup. If there is persistent clinical concern, further evaluation may be obtained with MRI. Dictated by: Kaden Wheeler M.D. on 03/22/2017 at 12:11 CT brain without contrast performed 03/23/2017 IMPRESSION: No acute intracranial abnormality. Dictated by: Sally Kapoor M.D. on 03/23/2017 at 15:54 Chest x-ray performed 03/23/2017 IMPRESSION: 1. Left basilar density is suspicious for pneumonia versus atelectasis. Superimposed small pleural effusion cannot be excluded. 2. Probable cardiomegaly without overt heart failure. Dictated by: Toi Multani M.D. on 03/23/2017 at 12:41 Chest x-ray performed 03/24/2017 IMPRESSION: 1. Interval progression of pleural effusions with associated atelectasis or infiltrate left greater than right. 2. Recommend PA and lateral chest radiograph when the patient is able. Dictated by: Eduar Corbett M.D. on 03/24/2017 at 10:22 Additional Diagnostics US shows hematoma or soft tissue mass on right medial elbow Assessment & Plan Patient is a 61-year-old female with alcoholic cirrhosis, portal gastropathy, small esophageal varices, and anemia presents upon urging from her primary care provider's office due to severe anemia. Upon presentation she was found to have pancytopenia with a hemoglobin of 6, white blood cells of 2.9, and a platelet count of 42. Since that time she has received 7 units of packed red blood cells. Hemoglobin this morning was 8.6. She continued to seem confused this morning. However this afternoon which was more calm, could answer questions with limitations, and was oriented 3. Dobbhoff nasogastric tube has been placed, and patient is receiving nutrition and medication through this. Alcoholic hepatitis Patient on pentoxifylline 400 mg 3 times a day since she has an active C. difficile infection. Thiamine and multivitamin ordered Social work consultation for intensive outpatient therapy substance abuse discussion, and resources Recommend decreasing REFRIGERATION OPERATOR altering medications as she is likely to have a varied response from the typical treatment with CIWA protocol due to her liver disease. Cirrhosis, portal gastropathy, esophageal varices meld score 17 on admission, discriminant function 49.4 today Monitor patient for signs of bleeding. Diet as tolerated Trend INR daily By mouth Protonix 40 mg twice a day Lactulose and rifaximin Chronic microcytic anemia Likely multifactorial, including DIC, hemorrhage into her left upper thigh, and bone marrow suppression from severe alcoholism There is no sign of any active GI bleeding at present Hematology consulting with recommendation of cryoprecipitate treatment Pain Evaluation: Adequate Pain Control GI Prophylaxis: Proton Pump Inhibitor VTE Mechanical Devices: Intermittant Pneumatic CD Resuscitation Status: CPR: Attempt Resuscitation Attending Statement Patient seen and examined. Agree with assessment and plan as described by Dr Rocha. Hopefully, the etoh w/d sx's will elizabeth so that all benzo administration can cease. I suspect that she'll then be more responsive to the lactulose and rifaximin. No sign of any active GI hemorrhage at present. Will continue to follow. copies to: Toño Stevens MD, Erika R DO Mar 24, 2017 19:44 Toño Stevens MD Mar 24, 2017 21:13
[2017-03-24] MEDS ORDERED: Potassium Chloride 20 mEq/15 mL 15mL Oral Soln PO ONE (21:40)
[2017-03-25] MEDS: Lactulose 20 Gm/30 mL 30 mL Syrup PO SCH ×6 (01:00→20:50)
[2017-03-25] MEDS: Vancomycin 100 mg/mL Oral Solution PO SCH ×4 (02:57→20:51)
[2017-03-25 03:04] LABS: BASOPHILS % (AUTO) 0.4 % (0-3); EOSINOPHILS % (AUTO) 0.7 % (0-5); MONOCYTES % (AUTO) 22.1 % (4-12); Mean Corpuscular Hemoglobin 27.1 pg (27.0-35.0); Mean Corpuscular Volume 82.6 fL (81-100); NEUTROPHILS % (AUTO) 66.3 % (40-74); Platelet Count 79 bil/L (150-400)
[2017-03-25 03:17] VITALS: BP 129/77; PULSE 90; RESP 23; O2SAT 99
[2017-03-25 03:24] LABS: Magnesium 1.6 mg/dL (1.6-2.6)
[2017-03-25 03:28] LABS: INR 1.57 ratio
[2017-03-25] MEDS ORDERED: Potassium Chloride 20 mEq/15 mL Oral Soln(K 3 - 3.7 & Creat < 2) TUBE ONE (04:55)
--- NOTE | 2017-03-25 06:29 | NUR ---
CIWA Pt extremely restless at points during shift. Is only oriented to self and reports seeing "white boxes on the wall". Not cooperative with most commands. Industrial Twisting Machine Operator at bedside as well as restraints to protect NG tube and other lines. PRN Ativan worked well for restlessness. Care ongoing
[2017-03-25 08:00] VITALS: BP 136/77; PULSE 90; RESP 33; O2SAT 92
--- NOTE | 2017-03-25 08:15 | DRSVH ---
PROCEDURE: X-RAY CHEST ONE VIEW, PORTABLE ([id number]) INDICATIONS: Hypoxia TECHNIQUE: One view of the chest was acquired. COMPARISON: 03/24/2017 FINDINGS: Surgical changes and devices: None. Lungs and pleura: No pleural effusions or pneumothorax. Considerable improvement in pulmonary edema from prior day. Bibasilar consolidation left greater than right is persistent, compatible with pneumo lenard. Mediastinum: Mediastinal contours appear normal. Heart size is normal. Bones and chest wall: No suspicious bony lesions. Overlying soft tissues appear unremarkable. IMPRESSION: Interval improvement but persistent bibasilar consolidations, left greater than right, wi th air bronchograms, consistent with pneumonia/aspiration. Dictated by: En Gibbs M.D. on 03/25/2017 at 8:11 Approved by: En Gibbs M.D. on 03/25/2017 at 8:13
[2017-03-25] MEDS: Pantoprazole 4 mg/mL 10 mL Inj IVPUSH SCH ×2 (09:32→17:13)
[2017-03-25] MEDS: Multivit-Miner-Folic Acid-Iron Tablet PO SCH (09:32)
[2017-03-25] MEDS: Furosemide 10 mg/mL 2 mL Inj IVPUSH SCH ×2 (09:32→20:51)
[2017-03-25] MEDS: FERROUS SULFATE 44 MG/ML PO SCH ×3 (09:33→20:51)
[2017-03-25] MEDS: Pentoxifylline 400 mg ER12 Tablet PO SCH ×3 (09:33→20:51)
--- NOTE | 2017-03-25 10:24 | PCM.PNMED ---
Subjective Date of Service Mar 25, 2017 Subjective Overnight, nursing staff reports extreme restlessness at times but improved with Ativan. Patient also reported hallucinations. CIWA score continues to be in the 20s. Today, patient is somnolent and minimally arousable. She is mumbling a little bit, but difficult to understand. No tremors noted. Exam Vital Signs Vital Sign - Last Date Time Temp Pulse Resp B/P Pulse Ox O2 Delivery O2 Flow Rate FiO2 03/25/17 08:00 Supplement Oxygen 03/25/17 08:00 90 03/25/17 08:00 37.0 33 136/77 92 9.00 Intake and Output 03/24/17 03/24/17 03/25/17 Cumulative From/Thru 15:00 23:00 07:00 03/18/17 15:13 - 03/25/17 06:19 Intake Total 700 ml 777 ml 853 ml 14178 ml Output Total 350 ml 2300 ml 1100 ml 34174 ml Balance 350 ml -1523 ml -247 ml 77911 ml Intake Oral 0 ml 60 ml 4440 ml IV Total 700 ml 647 ml 119 ml 43915 ml Tube Feeding 130 ml 353 ml 483 ml Packed Cells 2100 ml Cryoprecipitate 215 ml Tube Irrigant 321 ml 921 ml Output Urine Total 350 ml 2300 ml 1000 ml 17498 ml Stool Total 100 ml 850 ml Urine/Stool Mix 1700 ml Emesis 500 ml # Voids 3 17 # Bowel Movements 3 8 Exam General: Somnolent, minimally interactive, no meaningful communication, no acute distress or agitation noted. Jaundice. HEENT: Normocephalic, atraumatic, EOMI grossly, no JVD, sclera icteric, mucous membranes dry, Neck: supple with no lymphadenopathy. No JVD noted. Lungs: Clear to auscultation bilaterally, no W/R/R. Cardiovascular: Regular Rate and Rhythm, holosystolic murmur noted best at left sternal border. Abdominal: Abdomen is round, soft, bowel sounds present 4. Nontender to palpation. No ascites noted. Extremities: No edema appreciated. No tenderness. Left thigh larger than the right due to hematoma. Skin: multiple areas of ecchymosis with large ecchymosis over the left torso and thigh. Right arm ecchymoses on the medial elbow. Neuro: unable to assess due to altered mental status. MSK: Decreased muscle mass IVs and Medications Medications Reviewed: Medications were reviewed in detail Lab and Diagnostics Result Diagram: 03/25/17 0245 03/25/17 0245 X-Rays, CTs and MRIs CT abdomen pelvis with contrast performed 03/20/2017 IMPRESSION: 1. Mild edema of the pancreatic head/uncinate process as well as adjacent duodenal C-loop with scattered mild fluid. Findings could be related to pancreatitis with secondary duodenitis or vice versa. Recommend correlation to enzyme levels. 2. Cholelithiasis without imaging evidence of cholecystitis. 3. Cirrhotic appearing liver with splenomegaly and appearance of varices suggestive of portal venous hypertension. 4. Mild dependent pelvic fluid. Dictated by: Breonna Augsutin M.D. on 03/20/2017 at 16:32 CT pelvis with contrast performed 03/22/2017 IMPRESSION: 1. No significant change in presumed intramuscular hematoma within the left gluteus natasha. No change in subcutaneous edema versus cellulitis versus soft tissue injury within the proximal left thigh. No fracture. 3. 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 This could be further assessed using MR angiography, as well as MRI with and without intravenous contrast. 3. Increased, small amount of low-density ascites. Dictated by: Sally Kapoor M.D. on 03/23/2017 at 15:57 Right upper extremity sonogram performed 03/22/2017 IMPRESSION: 1. Heterogeneous subcutaneous collection demonstrated in the area of palpable abnormality suggestive of a hematoma. The differential is a soft tissue mass. Recommend correlation with clinical history and clinical followup. If there is persistent clinical concern, further evaluation may be obtained with MRI. Dictated by: Kaden Wheeler M.D. on 03/22/2017 at 12:11 CT brain without contrast performed 03/23/2017 IMPRESSION: No acute intracranial abnormality. Dictated by: Sally Kapoor M.D. on 03/23/2017 at 15:54 Chest x-ray performed 03/23/2017 IMPRESSION: 1. Left basilar density is suspicious for pneumonia versus atelectasis. Superimposed small pleural effusion cannot be excluded. 2. Probable cardiomegaly without overt heart failure. Dictated by: Toi Multani M.D. on 03/23/2017 at 12:41 Chest x-ray performed 03/24/2017 IMPRESSION: 1. Interval progression of pleural effusions with associated atelectasis or infiltrate left greater than right. 2. Recommend PA and lateral chest radiograph when the patient is able. Dictated by: Eduar Corbett M.D. on 03/24/2017 at 10:22 Additional Diagnostics US shows hematoma or soft tissue mass on right medial elbow Assessment & Plan Jorge A Wooten is a 61 year old woman with past medical history significant for alcoholic cirrhosis with esophageal varices, recurrent epistaxis , recurrent anemia, anxiety who presented to the [facility] emergency department and was initially admitted for severe anemia that required 7 units PRBCs to date. There is also evidence of possible DIC and hemolytic anemia based on her labs. In addition, patient is having severe signs and symptoms of alcohol withdrawal requiring large dose of benzodizepines and ICU care. # Acute hepatic encephalopathy, present on Admission, Active . - Differential includes acute intoxication with alcohol, hepatic encephalopathy , and now with complaint of headache in the preceding day with low platelets and elevated INR intracranial bleed. - Managing withdrawal CIWA protocol please see below. - Head CT noncontrast negative for acute intracranial pathology, no bleed - We will continue current lactulose scheduled via NG tube, as well as rifaximin. # Chronic alcohol abuse, active withdrawal, continues to be a significant problem. -Patient admitted to drinking copious amounts of vodka due to stress, blood alcohol level 374 on admission -Continue CIWA protocol treatment with lorazepam, avoiding diazepam secondary to decreased hepatic clearance and presence of liver failure. Supplement with phenobarbital as needed. -Gastric lavage showed only clear return, ceftriaxone discontinued. # Severe alcoholic hepatitis and alcoholic cirrhosis, present on admission, stable. -Maddrey's discriminant function score of 40, MELD17 today, EGD showed Portal gastropathy,Small esophageal varices. CT abd showed mild pelvic fluid. -pt received one dose prednisolone 40mg 03/21, switched to Pentoxifylline per GI 03/22. -consulted GI appreciate further input, no plan for GI intervention at the moment # Acute blood loss anemia, POA, stable. - The patient has multiple hematomas that may contribute to her anemia. She also does have a chronic anemia. She did receive multiple units of blood. At this point we will be following her closely. - Pathology is really not hemolyzed this at this point and direct Cassius test is negative. Schistocytes negative on blood smear. - There is a concern about a component DIC and she has been given several units of cryo-precipitates based on relatively low fibrinogen, which is slowly improving. - Patient also likely has a degree of chronic bone marrow suppression secondary to her alcohol dependence. # Pancytopenia, multifactorial, active. - Likely secondary to bone marrow suppression from chronic etoh abuse, cirrhosis , GI bleed given history of variceal bleed and low platelets with elevated INR, or intracorporeal loss evidenced by ecchymosis on arms and torso. - There might be a DIC component. Several units of Cryoprecipitate has been given for low fibrinogen. Continue to trend Fibrinogen. - A recent abdominal ultrasound from 3 months ago reveals a normal-sized spleen - hgb6 on admission, pt received several units of pRBC. FOBT negative. CT abd pelvis 03/20 showed possible pancreatitis, splenomegaly which seems new. - INR 1.57 this morning, will consider additional doses of vitamin K if ok with hematology. - Monitor H&H q12h, target hgb>7, transfuse as needed - appreciate input - started iron sulfate 325mg tid on 03/20 # Acute hypoxic respiratory failure, not present on admission, active and stable. - Patient now on 9 L oxygen mask to maintain saturation in the mid 90s which drops to the low 80s with any movement. - Respiratory depression secondary to narcotics, brain bleed, developing pneumonia, heart failure are on the differential - Appreciate ICU team's input. - Chest x-ray 03/23/17 showed atelectasis versus effusion left lung field, repeat x-ray 03/24/17 showed increase in interstitial fluid suggesting pulmonary edema and atelectasis - ABG showed hypoxemia with hypocarbia. - Naloxone administered 03/23/2017, patient mental status and alertness improved, was able to decrease oxymask to 5L/min. - Schedule 20 mg Lasix IV BID - Thorax physiotherapy and Pulmonary toilet - We will titrate oxygen as needed. The patient remains somewhat precarious. # Electrolytes imbalance, POA, active. - secondary to etoh withdrawal, GI fluid loss from c.diff colitis - replete lytes daily, mg, K # C.diff colitis, found 03/20, active. -Continue vancomycin 125mg q6h via NG tube. -enteric precaution. # Lactic acidosis, present on admission, resolved. -Likely due to tissue hypoxia from severe anemia as well as poor hepatic clearance due to cirrhosis. CODE STATUS: Full code dispo: Patient likely needs more support upon d/c. currently not ready for d/c. Pain Evaluation: Adequate Pain Control GI Prophylaxis: Proton Pump Inhibitor VTE Mechanical Devices: Intermittant Pneumatic CD Resuscitation Status: CPR: Attempt Resuscitation Attending Statement Patient seen and examined with house staff. Agree with all attached documentation. Fish Mazariegos DO Mar 25, 2017 09:59 David Tran MD Mar 25, 2017 14:09
--- NOTE | 2017-03-25 11:09 | NUR ---
Social Work: Initial Assessment/Multidisciplinary Rounds D: Per EMR review, pt is a 61 year old female admitted for Severe anemia, weakness. Pt is [facility]; per spouse pt has no LTC or VA benefits. PCP is Rick Heredia MD. NOK is Breezy Zabala, , . Spouse states pt has not completed AD. Readmit score is low, 0/8. Pt discussed in am rounds. Pt remains in CCU, non responsive with 10L 02. Pt showing very minimal signs of improvement. DEEP FRYER ASSEMBLER met with the patient's spouse and son at bedside to complete IA. Sw role explained, contact information and dcp checklist provided. Pt lives at home with her and son. Pt uses no DME at baseline, has never had HH or skilled rehab. Pt's family reports that the patient is very secretive about her drinking. They state that up until 6 months ago, they believed that the patient was sober. They began to notice increased weakness, secretive behaviors and finding hidden stashes of alcohol. They still do not know how much alcohol the patient consumes on a daily basis. They state that the patient has never engaged in any form of treatment but was able to quit ETOH three years ago after learning about the impact her drinking was having on her health. Family states that they do not know exactly when the patient began drinking again. They report that the patient has been drinking heavily for 20+ years. They would like for her to engage in CD treatment for her alcohol. DEEP FRYER ASSEMBLER explained the bedside assessment process to them along with the need for the patient to be a/o and able to sign PRIYANKA before this process can start. DEEP FRYER ASSEMBLER also informed them that due to pt's extended length of stay with the majority of it pt being limitedly responsive and bedridden, the pt has a high possibility of require skilled rehab for continued strengthening and mobility training before she could begin ETOH therapy. SNF CHOICE LIST PROVIDED- family is reviewing this and DEEP FRYER ASSEMBLER will follow up with them about preference when the pt's discharge needs and condition improves. A: Pt who lives at home with her spouse and son. P: Evolving; DEEP FRYER ASSEMBLER to follow up with discharge planning and CD assessment when the pt is a/ox4. ROSA Rowley Addendum: 03/25/17 at 1120 by HELEN GARCIA SS Amended: Links added.
[2017-03-25 12:30] VITALS: BP 96/55; PULSE 88; RESP 28; O2SAT 99
--- NOTE | 2017-03-25 12:56 | PROG NOTE ---
[address] [address] PROGRESS NOTE PATIENT: AIRAM HUGHES : 1955 MR#: [id number] ADMIT: 03/18/2017 JOB ID: [id number] DATE: 03/25/2017 PULMONARY CRITICAL CARE PROGRESS NOTE: The patient is a 61-year-old woman with alcoholic cirrhosis and alcohol abuse presenting with severe anemia and alcohol withdrawal. INTERVAL HISTORY: She continues to get lorazepam 2 mg every 4 hours for CIWA protocol. She continues to have issues with hypoxia and is currently on 11 L OxyMask. REVIEW OF SYSTEMS: Could not be obtained since patient is too somnolent to respond. PHYSICAL EXAMINATION: Vital signs reviewed. Afebrile. Pulse 90, respirations 23, BP 136/77, sats 95% on 11 L Oxy Mask. General: Thin woman lying in bed. Opens eyes to voice but is not really able to verbalize anything. She does try to follow commands. Chest clear anteriorly. LABORATORY: Labs reviewed. Hemoglobin remains stable. IMAGING: Reviewed. Still notable for retrocardiac atelectasis and pulmonary edema bilaterally. ASSESSMENT: 1. Alcohol withdrawal. 2. Acute encephalopathy due to hepatic encephalopathy and medications for alcohol withdrawal. 3. Severe anemia with no evidence of ongoing bleeding-stable post transfusion. 4. Alcoholic cirrhosis with portal hypertension. 5. Clostridium difficile colitis. RECOMMENDATIONS: Her lorazepam requirement has decreased significantly and she is getting about 2 mg every 4 hours around the clock. Hopefully this will continue to go down. She is also getting lactulose q.6 hours scheduled for hepatic encephalopathy. With her respiratory status I think her hypoxia is due to a combination of atelectasis of the left lower lobe with pulmonary edema. I am going to continue Lasix 20 mg IV b.i.d. today to see if this helps. Anemia has been stable for a couple of days with no evidence of ongoing bleed or drop. Will simply monitor this at this point, although I still feel like we do not have a good explanation for the etiology. Certainly she has extensive bruising on her side and it could be all hematoma related. She is getting pentoxifylline for alcoholic hepatitis. She is getting lactulose and rifaximin for hepatic encephalopathy. Vancomycin p.o. is going through her feeding tube for Clostridium difficile colitis and she is on no other antibiotics. She is not getting any subcu heparin at this point. for DVT prophylaxis and since her hemoglobin has been stable, platelets stable at 79 today, I wonder if we can start this. She is still getting PPI b.i.d. She is a FULL CODE. TIME: Critical care time is 45 minutes.
[2017-03-25 16:00] VITALS: BP 122/68; PULSE 88; RESP 31; O2SAT 95
--- NOTE | 2017-03-25 18:07 | PCM.PNMED ---
Subjective Date of Service Mar 25, 2017 Subjective Patient is sleepy today, likely secondary to morning ativan. She is out of restraints for the time being with NG tube in place. She is afebrile and currently has an O2 sat of 100% on 6 L. Exam Vital Signs Vital Sign - Last Date Time Temp Pulse Resp B/P Pulse Ox O2 Delivery O2 Flow Rate FiO2 03/25/17 03:17 36.5 90 23 129/77 99 OxyMask 9.00 Intake and Output 03/24/17 03/24/17 03/25/17 Cumulative From/Thru 15:00 23:00 07:00 03/18/17 15:13 - 03/25/17 06:19 Intake Total 700 ml 777 ml 853 ml 70486 ml Output Total 350 ml 2300 ml 1100 ml 02113 ml Balance 350 ml -1523 ml -247 ml 95248 ml Intake Oral 0 ml 60 ml 4440 ml IV Total 700 ml 647 ml 119 ml 95951 ml Tube Feeding 130 ml 353 ml 483 ml Packed Cells 2100 ml Cryoprecipitate 215 ml Tube Irrigant 321 ml 921 ml Output Urine Total 350 ml 2300 ml 1000 ml 69776 ml Stool Total 100 ml 850 ml Urine/Stool Mix 1700 ml Emesis 500 ml # Voids 3 17 # Bowel Movements 3 8 Exam General: Alert, confused, oriented 3 Head: Normal Eyes: Jaundiced sclera Neck: Supple Chest & Lungs: decreased air movement with tachypnea Cardiovascular: Regular Rate/Rhythm, Murmur (holosystolic) Abdomen: Non-tender, Non-distended, Normoactive bowel tones, Soft, Obese Rectum: Fecal management system in place Extremities: No cyanosis/clubbing/edema bilaterally, in restraints Neurologic: tremulous Skin: Other (bruises present on shins bilaterally right greater than left, large area of eccymosis on buttocks and thighs left greater than right, expanding to anterior her anterior thigh hip area. Right arm ecchymoses on the medial elbow) Lab and Diagnostics Result Diagram: 03/25/17 0245 03/25/17 0245 X-Rays, CTs and MRIs CT abdomen pelvis with contrast performed 03/20/2017 IMPRESSION: 1. Mild edema of the pancreatic head/uncinate process as well as adjacent duodenal C-loop with scattered mild fluid. Findings could be related to pancreatitis with secondary duodenitis or vice versa. Recommend correlation to enzyme levels. 2. Cholelithiasis without imaging evidence of cholecystitis. 3. Cirrhotic appearing liver with splenomegaly and appearance of varices suggestive of portal venous hypertension. 4. Mild dependent pelvic fluid. Dictated by: Breonna Augustin M.D. on 03/20/2017 at 16:32 CT pelvis with contrast performed 03/22/2017 IMPRESSION: 1. No significant change in presumed intramuscular hematoma within the left gluteus natasha. No change in subcutaneous edema versus cellulitis versus soft tissue injury within the proximal left thigh. No fracture. 3. 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 This could be further assessed using MR angiography, as well as MRI with and without intravenous contrast. 3. Increased, small amount of low-density ascites. Dictated by: Sally Kapoor M.D. on 03/23/2017 at 15:57 Right upper extremity sonogram performed 03/22/2017 IMPRESSION: 1. Heterogeneous subcutaneous collection demonstrated in the area of palpable abnormality suggestive of a hematoma. The differential is a soft tissue mass. Recommend correlation with clinical history and clinical followup. If there is persistent clinical concern, further evaluation may be obtained with MRI. Dictated by: Kaden Wheeler M.D. on 03/22/2017 at 12:11 CT brain without contrast performed 03/23/2017 IMPRESSION: No acute intracranial abnormality. Dictated by: Sally Kapoor M.D. on 03/23/2017 at 15:54 Chest x-ray performed 03/23/2017 IMPRESSION: 1. Left basilar density is suspicious for pneumonia versus atelectasis. Superimposed small pleural effusion cannot be excluded. 2. Probable cardiomegaly without overt heart failure. Dictated by: Toi Multani M.D. on 03/23/2017 at 12:41 Chest x-ray performed 03/24/2017 IMPRESSION: 1. Interval progression of pleural effusions with associated atelectasis or infiltrate left greater than right. 2. Recommend PA and lateral chest radiograph when the patient is able. Dictated by: Eduar Corbett M.D. on 03/24/2017 at 10:22 Additional Diagnostics US shows hematoma or soft tissue mass on right medial elbow Assessment & Plan Patient is a 61-year-old female with alcoholic cirrhosis, portal gastropathy, small esophageal varices, and anemia presents upon urging from her primary care provider's office due to severe anemia. Upon presentation she was found to have pancytopenia with a hemoglobin of 6, white blood cells of 2.9, and a platelet count of 42. Since that time she has received 7 units of packed red blood cells. Hemoglobin this morning was 8.6. She continued to seem confused this morning. However this afternoon which was more calm, could answer questions with limitations, and was oriented 3. Dobbhoff nasogastric tube is in place, and patient is receiving nutrition and medication through this. Alcoholic hepatitis Patient on pentoxifylline 400 mg 3 times a day since she has an active C. difficile infection. Thiamine and multivitamin ordered Social work consultation for intensive outpatient therapy substance abuse discussion, and resources Recommend decreasing PASSENGER SERVICE MANAGER altering medications as she is likely to have a varied response from the typical treatment with CIWA protocol due to her liver disease. Cirrhosis, portal gastropathy, esophageal varices meld score 17 on admission, discriminant function 49.4 today Monitor patient for signs of bleeding. Diet as tolerated Trend INR daily By mouth Protonix 40 mg twice a day Lactulose and rifaximin Chronic microcytic anemia Likely multifactorial, including DIC, hemorrhage into her left upper thigh, and bone marrow suppression from severe alcoholism There is no sign of any active GI bleeding at present Hematology consulting with recommendation of cryoprecipitate treatment Active signs of GI hemorrhage at this time. GI Prophylaxis: Proton Pump Inhibitor VTE Mechanical Devices: Intermittant Pneumatic CD Resuscitation Status: CPR: Attempt Resuscitation Attending Statement Patient seen and examined. Agree with assessment and plan as described by Dr Rocha. Continues to have loose stool. Difficult to determine if this is related to the C diff or the lactulose per dobhoff. Will continue follow. Tiffany Rocha DO Mar 25, 2017 06:34 Toño Stevens MD Mar 25, 2017 19:35
--- NOTE | 2017-03-25 18:25 | NUR ---
Mentation/CIWA/Tele/Resp/Output/Activity Patient continues with confusion, not answering questions, mumbles. Sleeping mostly this shift. Gave 1 dose of Ativan for CIWA of 19. Patient very restless when awake. Sitter at bedside today to keep safe and keep from pulling out NGT. Tele has tam SR except when agitated and then up to the 140, sinus tach. Once settled, HR in the 80s, SR. Titrated O2 down to 2 L oxymask. Sats on that, 95%. Patient in moving independently in bed, but prefers to lie on left side. Skin as noted, significant bruising on lower body. FMS in place for diarrhea. 400 ml liquid stool out today. UOP, 2500 mls. Continuing with POC.
--- NOTE | 2017-03-25 19:06 | CCS NOTE ---
[facility] [address], [address] [address] MEDICAL ONCOLOGY OFFICE NOTE PATIENT: AIRAM HUGHES : 1955 MR#: [id number] DATE: 03/18/2017 JOB ID: [id number] DATE: 03/25/2017 SUBJECTIVE: Patient more sedated again today, possibly due to medication. She has a Dobhoff tube as well as a rectal tube and is severely jaundiced. She has not had any fevers. The nursing staff is trying to wean her down from the Oxymask and her O2 sat was holding. Lab studies show further deterioration of bilirubin to 11. Her CBC however showed stability with further slight improvement of platelets and hemoglobin stable around 8.5. Fibrinogen came back 140 this morning. INR around 1.4-1.5. OBJECTIVE: On exam, her abdomen is soft. Extremities shows hematoma in the left posterior thigh. No new bruises. 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 After the administration of the two doses of cryoprecipitate, her levels have improved. Fibrinogen is now up to 140 and therefore, I do not believe that further administration of cryoprecipitate is necessary. Her INR coagulopathy has improved partially from the vitamin K administration. The residual abnormality is due to liver cirrhosis and will likely not improve with further vitamin K administration. Her prognosis remains guarded. I would consider obtaining another imaging in form of liver ultrasound given the continuous rise in trend of bilirubin.
[2017-03-25] MEDS: Heparin 5,000 Unit/mL Inj SUBQ SCH (20:51)
[2017-03-25 20:59] VITALS: BP 116/62; PULSE 83; RESP 25; O2SAT 97
[2017-03-26] VITALS (9 sets, daily range): BP systolic 99–144; BP diastolic 55–77; PULSE 77–99; RESP 20–29; O2SAT 92–97
[2017-03-26] MEDS: Lactulose 20 Gm/30 mL 30 mL Syrup PO SCH ×4 (01:54→21:36)
[2017-03-26] MEDS: Vancomycin 100 mg/mL Oral Solution PO SCH ×4 (01:59→21:38)
[2017-03-26 02:59] LABS: BASOPHILS % (AUTO) 0.6 % (0-3); EOSINOPHILS % (AUTO) 2.5 % (0-5); Mean Corpuscular Hemoglobin 27.1 pg (27.0-35.0); Mean Corpuscular Volume 86.1 fL (81-100); NEUTROPHILS % (AUTO) 57.5 % (40-74); Platelet Count 95 bil/L (150-400)
[2017-03-26 03:12] LABS: INR 1.57 ratio
[2017-03-26 03:19] LABS: Magnesium 1.5 mg/dL (1.6-2.6)
--- NOTE | 2017-03-26 04:58 | NUR ---
CIWA/Somnolence Pt CIWA when awake 15-21. Rested throughout most of night without stirring much. Sitter at bedside because pt out of restraints and picks at NG tube and Oxymask when awake. Will continue ot monitor. Care ongoing
[2017-03-26] MEDS ORDERED: Potassium Chloride 20 mEq/15 mL Oral Soln(K 3 - 3.7 & Creat < 2) TUBE ONE ×2 (05:50→11:15)
[2017-03-26] MEDS ORDERED: Mag Sulf 4 Gm/100 mL IV Premix (Mag < 1.6 & Creat < 2) IV ONE (05:50)
[2017-03-26] MEDS: Pantoprazole 4 mg/mL 10 mL Inj IVPUSH SCH ×2 (07:34→17:24)
--- NOTE | 2017-03-26 07:53 | PCM.PNMED ---
Subjective Date of Service Mar 26, 2017 Subjective Patient is somnolent, sleeping comfortably. No overnight events. She is still stooling a fair amount. Her lactulose as a every 6 hours. She was able to talk a little bit with the nurses snoring which is an improvement. Otherwise review of systems and subjective are not obtainable No overnight events Exam Vital Signs Vital Sign - Last Date Time Temp Pulse Resp B/P Pulse Ox O2 Delivery O2 Flow Rate FiO2 03/26/17 06:15 77 03/26/17 03:20 36.4 22 127/70 97 Nasal Cannula 2.00 Intake and Output 03/25/17 03/25/17 03/26/17 Cumulative From/Thru 15:00 23:00 07:00 03/18/17 15:13 - 03/26/17 06:14 Intake Total 356 ml 375 ml 98473 ml Output Total 2500 ml 2000 ml 09119 ml Balance -2144 ml -1625 ml 9715 ml Intake Oral 4440 ml IV Total 118 ml 127 ml 03030 ml Tube Feeding 118 ml 128 ml 729 ml Packed Cells 2100 ml Cryoprecipitate 215 ml Tube Irrigant 120 ml 120 ml 1161 ml Output Urine Total 2500 ml 1500 ml 15050 ml Stool Total 500 ml 1350 ml Urine/Stool Mix 1700 ml Emesis 500 ml # Voids 17 # Bowel Movements 8 Exam Sleeping, minimally interactive. Appears comfortable. Jaundice Lungs are clear with normal rate and effort Heart is regular without murmur gallop or rub Abdomen soft and distended. Extremities are with 1+ edema. Skin is free of rash or lesions. Multiple ecchymosis including a large area of ecchymosis over the left torso flank. IVs and Medications Medications Reviewed: Medications were reviewed in detail Lab and Diagnostics Result Diagram: 03/26/17 0240 03/26/17 0240 X-Rays, CTs and MRIs CT abdomen pelvis with contrast performed 03/20/2017 IMPRESSION: 1. Mild edema of the pancreatic head/uncinate process as well as adjacent duodenal C-loop with scattered mild fluid. Findings could be related to pancreatitis with secondary duodenitis or vice versa. Recommend correlation to enzyme levels. 2. Cholelithiasis without imaging evidence of cholecystitis. 3. Cirrhotic appearing liver with splenomegaly and appearance of varices suggestive of portal venous hypertension. 4. Mild dependent pelvic fluid. Dictated by: Breonna Augustin M.D. on 03/20/2017 at 16:32 CT pelvis with contrast performed 03/22/2017 IMPRESSION: 1. No significant change in presumed intramuscular hematoma within the left gluteus natasha. No change in subcutaneous edema versus cellulitis versus soft tissue injury within the proximal left thigh. No fracture. 3. 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 This could be further assessed using MR angiography, as well as MRI with and without intravenous contrast. 3. Increased, small amount of low-density ascites. Dictated by: Sally Kapoor M.D. on 03/23/2017 at 15:57 Right upper extremity sonogram performed 03/22/2017 IMPRESSION: 1. Heterogeneous subcutaneous collection demonstrated in the area of palpable abnormality suggestive of a hematoma. The differential is a soft tissue mass. Recommend correlation with clinical history and clinical followup. If there is persistent clinical concern, further evaluation may be obtained with MRI. Dictated by: Kaden Wheeler M.D. on 03/22/2017 at 12:11 CT brain without contrast performed 03/23/2017 IMPRESSION: No acute intracranial abnormality. Dictated by: Sally Kapoor M.D. on 03/23/2017 at 15:54 Chest x-ray performed 03/23/2017 IMPRESSION: 1. Left basilar density is suspicious for pneumonia versus atelectasis. Superimposed small pleural effusion cannot be excluded. 2. Probable cardiomegaly without overt heart failure. Dictated by: Toi Multani M.D. on 03/23/2017 at 12:41 Chest x-ray performed 03/24/2017 IMPRESSION: 1. Interval progression of pleural effusions with associated atelectasis or infiltrate left greater than right. 2. Recommend PA and lateral chest radiograph when the patient is able. Dictated by: Eduar Corbett M.D. on 03/24/2017 at 10:22 Additional Diagnostics US shows hematoma or soft tissue mass on right medial elbow Assessment & Plan Jorge A Wooten is a 61 year old woman with past medical history significant for alcoholic cirrhosis with esophageal varices, recurrent epistaxis , recurrent anemia, anxiety who presented to the [facility] emergency department and was initially admitted for severe anemia that required 7 units PRBCs to date. There is also evidence of possible DIC and hemolytic anemia based on her labs. In addition, patient is having severe signs and symptoms of alcohol withdrawal requiring large dose of benzodizepines and ICU care. # Acute hepatic encephalopathy, present on Admission, Active and slowly improving. . - Continue lactulose at every 6 hours and rifaximin. # Acute alcohol withdrawal, improving. -Continue CIWA protocol treatment with lorazepam, avoiding diazepam secondary to decreased hepatic clearance and presence of liver failure. Supplement with phenobarbital as needed. # Severe alcoholic hepatitis and alcoholic cirrhosis, present on admission, stable. -Maddrey's discriminant function score of 40, MELD17 today, EGD showed Portal gastropathy,Small esophageal varices. CT abd showed mild pelvic fluid. -pt received one dose prednisolone 40mg 03/21, switched to Pentoxifylline per GI 03/22. -consulted GI appreciate further input, no plan for GI intervention at the moment # Acute blood loss anemia, POA, stable and improving.. - The patient has multiple hematomas that may contribute to her anemia. She also does have a chronic anemia. She did receive multiple units of blood. At this point we will be following her closely. - Pathology is really not hemolyzed this at this point and direct Cassius test is negative. Schistocytes negative on blood smear. - There is a concern about a component DIC and she has been given several units of cryo-precipitates based on relatively low fibrinogen, which is slowly improving. - Patient also likely has a degree of chronic bone marrow suppression secondary to her alcohol dependence. # Pancytopenia, multifactorial, active and stable. - Likely secondary to bone marrow suppression from chronic etoh abuse, cirrhosis , GI bleed given history of variceal bleed and low platelets with elevated INR, or intracorporeal loss evidenced by ecchymosis on arms and torso. - There might be a DIC component. Several units of Cryoprecipitate has been given for low fibrinogen. Continue to trend Fibrinogen. - A recent abdominal ultrasound from 3 months ago reveals a normal-sized spleen - hgb6 on admission, pt received several units of pRBC. FOBT negative. CT abd pelvis 03/20 showed possible pancreatitis, splenomegaly which seems new. - INR 1.57 this morning, will consider additional doses of vitamin K if ok with hematology. - Monitor H&H q12h, target hgb>7, transfuse as needed - appreciate input - started iron sulfate 325mg tid on 03/20 # Acute hypoxic respiratory failure, not present on admission, active and improving.. - Patient now on 9 L oxygen mask to maintain saturation in the mid 90s which drops to the low 80s with any movement. - Respiratory depression secondary to narcotics, brain bleed, developing pneumonia, heart failure are on the differential - Appreciate ICU team's input. - Chest x-ray 03/23/17 showed atelectasis versus effusion left lung field, repeat x-ray 03/24/17 showed increase in interstitial fluid suggesting pulmonary edema and atelectasis - ABG showed hypoxemia with hypocarbia. - Naloxone administered 03/23/2017, patient mental status and alertness improved, was able to decrease oxymask to 5L/min. - Schedule 20 mg Lasix IV BID - Thorax physiotherapy and Pulmonary toilet - We will titrate oxygen as needed. The patient remains somewhat precarious. # Electrolytes imbalance, including hypokalemia and hypomagnesemia today POA, active. - secondary to etoh withdrawal, GI fluid loss from c.diff colitis - Replete potassium and magnesium. This will continue to be an issue while on lactulose. # C.diff colitis, found 03/20, active and improving. -Continue vancomycin 125mg q6h via NG tube. -enteric precaution. # Lactic acidosis, present on admission, resolved. -Likely due to tissue hypoxia from severe anemia as well as poor hepatic clearance due to cirrhosis. CODE STATUS: Full code dispo: Patient likely needs more support upon d/c. currently not ready for d/c. Pain Evaluation: Adequate Pain Control GI Prophylaxis: Proton Pump Inhibitor VTE Mechanical Devices: Intermittant Pneumatic CD Resuscitation Status: CPR: Attempt Resuscitation GI Prophylaxis: Proton Pump Inhibitor VTE Mechanical Devices: Intermittant Pneumatic CD Resuscitation Status: CPR: Attempt Resuscitation David Tran MD Mar 26, 2017 07:53
[2017-03-26] MEDS: Pentoxifylline 400 mg ER12 Tablet PO SCH ×3 (07:59→21:36)
[2017-03-26] MEDS: Furosemide 10 mg/mL 2 mL Inj IVPUSH SCH ×2 (07:59→21:35)
[2017-03-26] MEDS: Heparin 5,000 Unit/mL Inj SUBQ SCH ×2 (07:59→21:35)
[2017-03-26] MEDS: FERROUS SULFATE 44 MG/ML PO SCH ×3 (07:59→21:36)
[2017-03-26] MEDS: Multivit-Miner-Folic Acid-Iron Tablet PO SCH (07:59)
[2017-03-26 10:04] LABS: Magnesium 2.5 mg/dL (1.6-2.6)
--- NOTE | 2017-03-26 10:13 | PROG NOTE ---
[address] [address] PROGRESS NOTE PATIENT: AIRAM HUGHES : 1955 MR#: [id number] ADMIT: 03/18/2017 JOB ID: [id number] DATE: 03/26/2017 PULMONARY PROGRESS NOTE: The patient is a 61-year-old woman with alcoholic cirrhosis and alcohol abuse presenting with severe anemia and alcohol withdrawal. INTERVAL HISTORY: Overnight she has only received a couple of doses of IV lorazepam, the last dose was at 10 p.m. She is still somewhat sleepy and opens her eyes and tries to follow commands, however, but is not verbal for me. REVIEW OF SYSTEMS: Could not be obtained because of mentation. PHYSICAL EXAMINATION: Vital signs reviewed. Afebrile. Pulse 81, respirations 22, BP 102/55, sats 92% on 2 L nasal cannula. General: Thin woman lying in bed, somnolent, opens her eyes to voice and tries to follow commands but is nonverbal at the moment. Chest clear to auscultation. LABORATORIES: Reviewed. Hemoglobin stable 8.6. Chemistries reviewed. Potassium is low at 3.1. Mag is also low at 1.5. ASSESSMENT AND RECOMMENDATIONS: 1. Acute alcohol withdrawal/delirium tremens. 2. Hepatic encephalopathy. 3. Severe anemia-stable, no evidence of bleeding. 4. Clostridium difficile colitis. 5. Alcoholic cirrhosis with portal hypertension. With regards to her withdrawal, she seems to be stabilizing and has required less and less lorazepam over the last 24 hours. Last dose was almost 12 hours ago and she is still somewhat sleepy and comfortable. Hemoglobin has been stable now for many days with no signs of ongoing bleeding or any drop. I still do not have a good explanation for this at the moment. She is on pentoxifylline for her alcoholic hepatitis as well as lactulose and rifaximin for hepatic encephalopathy. Vancomycin p.o. is being given for Clostridium difficile colitis. She is on appropriate DVT prophylaxis with heparin and she is getting a PPI b.i.d. She is a FULL CODE. From a respiratory standpoint, her oxygenation has significantly improved and she is down to 2 L nasal cannula with diuresis and with some pulmonary toilet. The pulmonary service will probably sign off at this point since she is moving out of the ICU and does not have any acute pulmonary issues.
--- NOTE | 2017-03-26 11:55 | NUR ---
Patient PCC now and patient passed on to Gila Arias RN, report given. Phoned Dr Tran about bradycardia. No call received back. New RN aware.
--- NOTE | 2017-03-26 12:39 | PROG NOTE ---
[address] [address] PROGRESS NOTE PATIENT: AIRAM HUGHES : 1955 MR#: [id number] ADMIT: 03/18/2017 JOB ID: [id number] DATE: 03/26/2017 SUBJECTIVE: No acute events overnight. The patient did receive another dose of Ativan per [facility] protocol around 10:00 last night. She remains moderately somnolent but does follow commands. She continues to stool. She is on tube feeds, in essence at trickle rate. She is receiving rifaximin and lactulose. OBJECTIVE: The patient opens eyes on command, She attempts to follow my finger appropriately. She was somnolent but oriented to location and time. Abdomen is soft. No guarding. No tenderness perceived. LABORATORY: H and H stable. Platelets dropped to 95. White count 6.4. INR 1.57. Bilirubin is 11.6. Creatinine 0.30. ASSESSMENT AND RECOMMENDATIONS: This is a 61-year-old female with alcohol withdrawal, alcohol induced cirrhosis, alcoholic hepatitis with high discriminant function, C. difficile infection. She demonstrated disseminated intravascular coagulation but has improved quite considerably on that front. I would recommend we continue with the vancomycin, pentoxifylline, rifaximin, lactulose, thiamine. Her last drink of alcohol was more than one week ago so she really should be starting to be outside the window with which we are concerned about the development of delirium tremens. I would be a little more hesitant to continue to dose with benzodiazepines to allow her to regain an appropriate degree of alertness so that she can take oral nutrition in normal fashion. It is difficult to determine whether her loose stools are a product of the ongoing C. diff or the lactulose, but at present I would recommend we continue both the lactulose and the vancomycin. Her bilirubin is up quite a bit higher than I think will ultimately be her baseline as a consequence of the resorption of the left upper thigh and buttocks hematoma. COMMENT: This is a no-charge physician visit. Today is the Sabbath. Please do not submit a physician charge for this particular note.
--- NOTE | 2017-03-26 13:43 | NUR ---
NUTRITION FOLLOW-UP: ASSESS: Pt is a 61 YO female admitted with severe anemia, weakness and ETOH withdrawal. Pt is on CIWA protocol and has been experiencing hallucinations. She was on a soft diet with fair PO intake at 25-100% of meals. Pt was transferred to CCU on 03/23 due to increased CIWA scores. Pt had to have NG placed this am for meds and trophic TF was started 03/23. Per CCU rounds 03/24 and per Case Management rounds today, requesting to keep pt on trophic rate due to high aspiration risk. Pt has history of alcoholism and likely had poor PO intake prior to admit. Will monitor labs closely for signs of refeeding. She was transferred out of CCU today, somnolent, stooling well d/t lactulose vs. C. diff. PMHX: Alcoholic cirrhosis, portal gastropathy, esophageal varices, HTN, anemia. LABS: Reviewed. K+ 3.1, Cr 0.30, Glu 112, Total Bili 11.6, AST 51, Alb 2.9. MEDS:Reviewed. Thiamine, MVI, ferrous sulfate, lactulose, rifaximin, ativan. GI: Stool output 500 mL today. SKIN: No major issues, mild jaundice, visible fat loss in face, arms and legs. NUTRITION SUPPORT: Vital 1.5 @ 10ml/hr WT: 63.1 kg, BMI 21.0 kg/m2, admit wt 62.5kg, no major wt changes per chart review. DIET: NPO EST. NEEDS: liver disease Kcals: 1730-2075kcal/day (25-30kcal/kg) Pro: 80-105g/day (1.2-1.5g/kg) Fluids: ~1800ml/day (25ml/kg) NUTRITION DIAGNOSIS: 1) Inadequate oral intake related to chronic alcohol abuse as evidenced by NPO status, enteral feeding remaining at trophic rate 10 mL/hr x 3 D - PERSISTS. 2) Moderate pro/kcal malnutrition in the context of chronic illness related to alcoholism as evidence by mild fat loss, altered electrolytes, PO intake of <75% estimated energy requirements for >1month due to chronic alcohol use - PERSISTS. NUTRITION INTERVENTION: 1) Recommend continue TF of Vital 1.5 @ 10ml/hr per CCU rounds due to high aspiration risk. 2) Once aspiration risk resolved, recommend advance enteral feeding 10ml q 12 hrs to goal rate of 60ml/hr to provide 1980kcal and 90g pro (100% estimated needs). MONITOR / EVAL: Enteral feeding advance / tolerance, wt, GI, labs, POC, nutrition status. Will continue to monitor per high nutrition risk guidelines.
--- NOTE | 2017-03-26 19:36 | NUR ---
CIWA/Activity Patient a/o to self, turning self in bed attempts to get oob, but remains weak. [place] cath patent cristobal uop and FMS putting out moderate amts liq brown stool. Skin intact with significant bruising. Small amount stool leakage around FMS tube this evening, tubing assessed frequently for kinking. Meds given per Dub Bonilla tube. VSS, tele SR with occassional runs of Md Marylin notified and tele continued. CIWA 7-10, no Ativan given this shift and patient resting comfortably most of the shift.
[2017-03-27] VITALS (7 sets, daily range): BP systolic 98–116; BP diastolic 54–66; PULSE 79–90; RESP 22–24; O2SAT 92–98
[2017-03-27 02:49] LABS: Mean Corpuscular Hemoglobin 27.3 pg (27.0-35.0); Mean Corpuscular Volume 87.4 fL (81-100)
[2017-03-27] MEDS: Lactulose 20 Gm/30 mL 30 mL Syrup PO SCH ×4 (04:24→20:53)
[2017-03-27] MEDS: Vancomycin 100 mg/mL Oral Solution PO SCH ×4 (04:25→20:53)
[2017-03-27] MEDS ORDERED: Potassium Chloride 20 mEq/15 mL Oral Soln(K 3 - 3.7 & Creat < 2) TUBE ONE (06:40)
--- NOTE | 2017-03-27 07:19 | NUR ---
Mentation Pt sleeping all shift. Grimacing during care. CIWA = 0. VSS. No overt complications noted.
[2017-03-27] MEDS: Pantoprazole 4 mg/mL 10 mL Inj IVPUSH SCH ×2 (07:46→17:54)
[2017-03-27] MEDS: Pentoxifylline 400 mg ER12 Tablet PO SCH ×3 (07:46→20:53)
[2017-03-27] MEDS: Multivit-Miner-Folic Acid-Iron Tablet PO SCH (07:47)
[2017-03-27] MEDS: FERROUS SULFATE 44 MG/ML PO SCH ×3 (07:47→20:53)
[2017-03-27] MEDS: Heparin 5,000 Unit/mL Inj SUBQ SCH ×2 (07:48→20:52)
[2017-03-27] MEDS: Furosemide 10 mg/mL 2 mL Inj IVPUSH SCH ×2 (07:48→20:53)
--- NOTE | 2017-03-27 10:13 | PCM.PNMED ---
Subjective Date of Service Mar 27, 2017 Subjective Uneventful night. CIWA = 0. She is still stooling a fair amount. Her lactulose as a every 6 hours. She was able to talk a little bit with the nursing staff, which is an improvement. This morning, patient remains minimally interactive with closed eyes. However, she asks for ice chips and 7-up. She denies any discomfort. Otherwise, review of systems and subjective are not obtainable. Exam Vital Signs Vital Sign - Last Date Time Temp Pulse Resp B/P Pulse Ox O2 Delivery O2 Flow Rate FiO2 03/27/17 05:47 84 03/27/17 03:36 36.7 24 98/54 92 OxyMask 2.00 Intake and Output 03/26/17 03/26/17 03/27/17 Cumulative From/Thru 15:00 23:00 07:00 03/18/17 15:13 - 03/27/17 06:34 Intake Total 441 ml 373 ml 82020 ml Output Total 1600 ml 1400 ml 28389 ml Balance -1159 ml -1027 ml 7529 ml Intake Oral 0 ml 0 ml 4440 ml IV Total 201 ml 107 ml 28805 ml Tube Feeding 120 ml 105 ml 954 ml Packed Cells 2100 ml Cryoprecipitate 215 ml Tube Irrigant 120 ml 161 ml 1442 ml Output Urine Total 1200 ml 1100 ml 84788 ml Stool Total 400 ml 300 ml 2050 ml Urine/Stool Mix 1700 ml Emesis 500 ml # Voids 17 # Bowel Movements 8 Exam General: Somnolent, minimally interactive, no acute distress or agitation noted. Jaundice. HEENT: Normocephalic, atraumatic, EOMI grossly, no JVD, sclera icteric, mucous membranes dry, Neck: supple with no lymphadenopathy. No JVD noted. Lungs: Clear to auscultation bilaterally, no W/R/R. Cardiovascular: Regular Rate and Rhythm, holosystolic murmur noted best at left sternal border. Abdominal: Abdomen is round, soft, bowel sounds present 4. Nontender to palpation. No ascites noted. Extremities: No edema appreciated. No tenderness. Left thigh hematoma decreases in size. Skin: jaundice, multiple areas of ecchymosis with large ecchymosis over the left torso and thigh. Right arm ecchymoses on the medial elbow. Neuro: unable to assess due to altered mental status. MSK: Decreased muscle mass IVs and Medications Medications Reviewed: Medications were reviewed in detail Lab and Diagnostics Result Diagram: 03/27/1722403/27/17224 X-Rays, CTs and MRIs CT abdomen pelvis with contrast performed 03/20/2017 IMPRESSION: 1. Mild edema of the pancreatic head/uncinate process as well as adjacent duodenal C-loop with scattered mild fluid. Findings could be related to pancreatitis with secondary duodenitis or vice versa. Recommend correlation to enzyme levels. 2. Cholelithiasis without imaging evidence of cholecystitis. 3. Cirrhotic appearing liver with splenomegaly and appearance of varices suggestive of portal venous hypertension. 4. Mild dependent pelvic fluid. Dictated by: Breonna Augustin M.D. on 03/20/2017 at 16:32 CT pelvis with contrast performed 03/22/2017 IMPRESSION: 1. No significant change in presumed intramuscular hematoma within the left gluteus natasha. No change in subcutaneous edema versus cellulitis versus soft tissue injury within the proximal left thigh. No fracture. 3. 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 This could be further assessed using MR angiography, as well as MRI with and without intravenous contrast. 3. Increased, small amount of low-density ascites. Dictated by: Sally Kapoor M.D. on 03/23/2017 at 15:57 Right upper extremity sonogram performed 03/22/2017 IMPRESSION: 1. Heterogeneous subcutaneous collection demonstrated in the area of palpable abnormality suggestive of a hematoma. The differential is a soft tissue mass. Recommend correlation with clinical history and clinical followup. If there is persistent clinical concern, further evaluation may be obtained with MRI. Dictated by: Kaden Wheeler M.D. on 03/22/2017 at 12:11 CT brain without contrast performed 03/23/2017 IMPRESSION: No acute intracranial abnormality. Dictated by: Sally Kapoor M.D. on 03/23/2017 at 15:54 Chest x-ray performed 03/23/2017 IMPRESSION: 1. Left basilar density is suspicious for pneumonia versus atelectasis. Superimposed small pleural effusion cannot be excluded. 2. Probable cardiomegaly without overt heart failure. Dictated by: Toi Multani M.D. on 03/23/2017 at 12:41 Chest x-ray performed 03/24/2017 IMPRESSION: 1. Interval progression of pleural effusions with associated atelectasis or infiltrate left greater than right. 2. Recommend PA and lateral chest radiograph when the patient is able. Dictated by: Eduar Corbett M.D. on 03/24/2017 at 10:22 Additional Diagnostics US shows hematoma or soft tissue mass on right medial elbow Assessment & Plan Jorge A Wooten is a 61 year old woman with past medical history significant for alcoholic cirrhosis with esophageal varices, recurrent epistaxis , recurrent anemia, anxiety who presented to the [facility] emergency department and was initially admitted for severe anemia that required 7 units PRBCs to date. There is also evidence of possible DIC and hemolytic anemia based on her labs. In addition, patient is having severe signs and symptoms of alcohol withdrawal requiring large dose of benzodizepines and ICU care. # Acute hepatic encephalopathy, present on Admission, Active and slowly improving. . - Continue lactulose at every 6 hours and rifaximin. # Acute alcohol withdrawal, improving. -Continue CIWA protocol treatment with lorazepam, avoiding diazepam secondary to decreased hepatic clearance and presence of liver failure. -Patient is out of the time window of delirium tremens. # Severe alcoholic hepatitis and alcoholic cirrhosis, present on admission, stable. -Maddrey's discriminant function score of 40, MELD17 today, EGD showed Portal gastropathy,Small esophageal varices. CT abd showed mild pelvic fluid. -pt received one dose prednisolone 40mg 03/21, switched to Pentoxifylline per GI 03/22. -consulted GI , appreciate further input, no plan for GI intervention at the moment. -Bilirubin continues to trend up, 12.0 today, but this could be consequence of the resorption of the left upper thigh and buttocks hematoma. -Follow clinically and consider abdominal U/S if bilirubin level is not improved in the next couple days. # Acute blood loss anemia, POA, stable and improving.. - The patient has multiple hematomas that may contribute to her anemia. She also does have a chronic anemia. She did receive multiple units of blood. At this point we will be following her closely. - Pathology is really not hemolyzed this at this point and direct Cassius test is negative. Schistocytes negative on blood smear. - There is a concern about a component DIC. - Patient also likely has a degree of chronic bone marrow suppression secondary to her alcohol dependence. # Pancytopenia, multifactorial, active and stable. - Likely secondary to bone marrow suppression from chronic etoh abuse, cirrhosis , GI bleed given history of variceal bleed and low platelets with elevated INR, or intracorporeal loss evidenced by ecchymosis on arms and torso. - There might be a DIC component. Several units of Cryoprecipitate has been given for low fibrinogen. Last Fibrinogen level is 140 and thus no further indication for Cryoprecipitate transfusion. - A recent abdominal ultrasound from 3 months ago reveals a normal-sized spleen - hgb6 on admission, pt received several units of pRBC. FOBT negative. - Monitor H&H q12h, target hgb>7, transfuse as needed - appreciate input - started iron sulfate 325mg tid on 03/20 # Acute hypoxic respiratory failure, not present on admission, active and improving. - Patient now on 9 L oxygen mask to maintain saturation in the mid 90s which drops to the low 80s with any movement. - Respiratory depression secondary to narcotics, brain bleed, developing pneumonia, heart failure are on the differential - ABG showed hypoxemia with hypocarbia. - Naloxone administered 03/23/2017, patient mental status and alertness improved, was able to decrease oxymask to 2L. - Scheduled 20 mg Lasix IV BID - We will titrate oxygen as needed. # Electrolytes imbalance, including hypokalemia and hypomagnesemia today POA, active. - secondary to etoh withdrawal, GI fluid loss from c.diff colitis - Replete potassium and magnesium. This will continue to be an issue while on lactulose. # C.diff colitis, found 03/20, active and improving. -Continue vancomycin 125mg q6h via NG tube. -enteric precaution. # Lactic acidosis, present on admission, resolved. -Likely due to tissue hypoxia from severe anemia as well as poor hepatic clearance due to cirrhosis. CODE STATUS: Full code dispo: Patient likely needs more support upon d/c. currently not ready for d/c. Pain Evaluation: Adequate Pain Control GI Prophylaxis: Proton Pump Inhibitor VTE Prophylaxis: Sub-Q Heparin (Unfractionated) VTE Mechanical Devices: Intermittant Pneumatic CD Resuscitation Status: CPR: Attempt Resuscitation Attending Statement Mrs Wooten was seen and examined with Dr. Mazariegos on March 27. I participated in all aspects of this service. I agree with her assessment and plan and documentation. Fish Mazariegos DO Mar 27, 2017 07:45 David Tran MD Mar 27, 2017 15:39
--- NOTE | 2017-03-27 13:41 | NUR ---
Evaluation completed. Please go to "Notes" then click on "Assessments and Notes" (bottom left corner of screen). Then select appropriate discipline tab on top of screen.
--- NOTE | 2017-03-27 13:44 | NUR ---
Evaluation completed. Please go to "Notes" then click on "Assessments and Notes" (bottom left corner of screen). Then select appropriate discipline tab on top of screen.
--- NOTE | 2017-03-27 16:43 | NUR ---
Social Work- Multidisciplinary Rounds Pt discussed in rounds. Pt may require SNF at discharge, no SNF orders have been placed at this time. Pt to discharge in 2-3 more days. SW unable to see pt today due to high census. SW will continue to follow pt for CD needs and SNF placement. Georgette Grimaldo MSW
--- NOTE | 2017-03-27 17:41 | PROG NOTE ---
[address] [address] PROGRESS NOTE PATIENT: AIRAM HUGHES : 1955 MR#: [id number] ADMIT: 03/18/2017 JOB ID: [id number] DATE: 03/27/2017 SUBJECTIVE: The patient continues to have stools. She remains on lactulose. No Ativan given in more than 24 hours, and she has had improvement in her mental status. She is still somnolent but able to ask more appropriate questions. OBJECTIVE: Vital signs are stable. Patient opens her eyes on command, She did not follow my command to follow a finger. Abdomen is soft, nontender. She is clearly jaundiced. LABS: Hemoglobin is 8.9, white count 6.0, platelets 110, bilirubin is 12.0, creatinine 0.3. No INR today. Yesterday was 1.57. ASSESSMENT AND PLAN: A 61-year-old female with alcohol-induced cirrhosis, alcoholic hepatitis, alcohol withdrawal, high discriminant function and C. diff infection, all of this complicated by DIC and hepatic encephalopathy. She is slowly improving. Ideally, we can avoid any benzodiazepine and/or narcotic medication. Continue her C. diff. Continue pentoxifylline. Advance diet as causative capacity improves in that scenario. Her Dobbhoff can certainly be removed.
--- NOTE | 2017-03-27 18:23 | NUR ---
Stools/FMS/Mentation Patient sleeping intermittently throughout the shift, but arouses easily and answers questions appropriately. Patient denies pain, nausea or sob. FMS fell out this a.m. patient using bedpan with assist. [place] patent orange-cristobal uop. PT/Speech eval done this a.m. Patient bigg ice chips without problem. Tube feeding cont @ 10 ml/hr. CIWA 0. VSS, tele SR.
[2017-03-28] VITALS (7 sets, daily range): BP systolic 106–136; BP diastolic 65–74; PULSE 81–88; RESP 19–26; O2SAT 95–98
[2017-03-28 02:42] LABS: Mean Corpuscular Hemoglobin 28.1 pg (27.0-35.0)
[2017-03-28 03:02] LABS: Magnesium 1.5 mg/dL (1.6-2.6)
[2017-03-28] MEDS: Lactulose 20 Gm/30 mL 30 mL Syrup PO SCH ×4 (03:54→21:00)
[2017-03-28] MEDS: Vancomycin 100 mg/mL Oral Solution PO SCH ×4 (03:54→21:46)
[2017-03-28] MEDS ORDERED: Potassium Chloride 20 mEq/15 mL Oral Soln(K 3 - 3.7 & Creat < 2) TUBE ONE (04:15)
--- NOTE | 2017-03-28 07:28 | NUR ---
Mentation Pt is more alert. She follows simple commands. She remains confused and attempting to get OOB without assistance. VSS. Sitter at the bedside for safety. No overt complications noted.
[2017-03-28] MEDS ORDERED: Magnesium Sulf 2 Gm/50mL Water 2 GM in IV Premix 1 EACH IV ONE (09:45)
[2017-03-28] MEDS ORDERED: Potassium Chloride 20 mEq SR Tablet PO ONE (09:45)
[2017-03-28] MEDS: Pentoxifylline 400 mg ER12 Tablet PO SCH ×3 (10:42→21:11)
[2017-03-28] MEDS: Pantoprazole 4 mg/mL 10 mL Inj IVPUSH SCH ×2 (10:42→16:00)
[2017-03-28] MEDS: Multivit-Miner-Folic Acid-Iron Tablet PO SCH (10:42)
[2017-03-28] MEDS: FERROUS SULFATE 44 MG/ML PO SCH ×3 (10:43→21:11)
[2017-03-28] MEDS: Heparin 5,000 Unit/mL Inj SUBQ SCH ×2 (10:43→21:11)
[2017-03-28] MEDS: Furosemide 10 mg/mL 2 mL Inj IVPUSH SCH ×2 (10:44→21:11)
--- NOTE | 2017-03-28 10:53 | NUR ---
Social Work Note: Multidisciplinary Rounds Pt was discussed in AM rounds today, per MD pt is not medically ready for discharge at this time. Pt more alert today, but is still very sleepy and not appropriate for Substance use assessment at this time. PT is recommending SNF, but pt has not been able to participate in therapies very much yet. SW to continue to follow for when pt is more appropriate to follow up with pt regarding Substance use assessment and discharge planning. Anticipated discharge to SNF pending MD order, pt agreement, SNF acceptance and insurance authorization. ROSA Rees
--- NOTE | 2017-03-28 14:39 | NUR ---
NUTRITION FOLLOW-UP: ASSESS: 61 YO F admitted with severe anemia, weakness and ETOH withdrawal. Pt on CIWA protocol. Pt receiving trophic tube feeding at 10 ml/hr with no other source of nutrition. Per CCU rounds 03/24 and per Case Management rounds (03/26), requesting to keep pt on trophic rate due to high aspiration risk. Pt has history of alcoholism and likely had poor PO intake prior to admit. Will monitor labs closely for signs of refeeding. Possible diet advance and removal of Dobbhoff per notes. PMHX: Alcoholic cirrhosis, portal gastropathy, esophageal varices, HTN, anemia. LABS: Reviewed. Cr 0.30, Glu 125, Mg 1.5, T.bili 128, AST 52, Alb 3.4 MEDS:Reviewed. Thiamine, MVI, Lactulose, Lasix. GI: 2 BM 03/24. SKIN: No major issues, mild jaundice, visible fat loss in face, arms and legs. NUTRITION SUPPORT: Vital 1.5 @ 10ml/hr WT: 59.5 kg, BMI 20.5 kg/m2, Admit wt 62.5 kg. DIET: NPO ESTIMATED NEEDS: liver disease Calories: 8676-0126 kcal/day (25-30 kcal/kg BW) Protein: 80-105 g/day (1.2-1.5 g/kg BW) Fluids: ~1800 ml/day (25 ml/kg) NUTRITION DIAGNOSIS: 1) Inadequate oral intake related to chronic alcohol abuse as evidenced by NPO status, enteral feeding remaining at trophic rate 10 mL/hr x 6 D - PERSISTS. 2) Moderate pro/kcal malnutrition in the context of chronic illness related to alcoholism as evidence by mild fat loss, altered electrolytes, PO intake of <75% estimated energy requirements for >1month due to chronic alcohol use - PERSISTS. NUTRITION INTERVENTION: 1) Recommend diet advance as tolerated. 2) If diet unable to advance, recommend continuing TF of Vital 1.5 @ 10 ml/hr due to high aspiration risk. 2) Once aspiration risk resolved, recommend advance enteral feeding 10ml q 12 hrs to goal rate of 60 ml/hr to provide 1980 kcal and 90 g protein (100% estimated needs). MONITOR/EVALUATE: TF advance/tolerance, diet advance, wt, labs, POC, GI/nutrition status. Follow per high nutrition risk guidelines.
--- NOTE | 2017-03-28 16:22 | PCM.PNMED ---
Subjective Date of Service Mar 28, 2017 Subjective Patient remains somnolent, alert and oriented x1. No overnight events. She continues to make stools with scheduled lactulose every 6 hours. Otherwise review of systems and subjective are not obtainable. No overnight events. Exam Vital Signs Vital Sign - Last Date Time Temp Pulse Resp B/P Pulse Ox O2 Delivery O2 Flow Rate FiO2 03/28/17 06:26 37.1 85 24 136/74 96 OxyMask 2.00 Intake and Output 03/27/17 03/27/17 03/28/17 Cumulative From/Thru 15:00 23:00 07:00 03/18/17 15:13 - 03/28/17 06:31 Intake Total 436 ml 479 ml 20181 ml Output Total 2050 ml 1300 ml 53192 ml Balance -1614 ml -821 ml 2494 ml Intake Oral 0 ml 4440 ml IV Total 126 ml 119 ml 00587 ml Tube Feeding 124 ml 160 ml 1238 ml Packed Cells 2100 ml Cryoprecipitate 215 ml Tube Irrigant 186 ml 200 ml 1828 ml Output Urine Total 1150 ml 1100 ml 44428 ml Stool Total 900 ml 200 ml 4150 ml Urine/Stool Mix 1700 ml Emesis 500 ml # Voids 17 # Bowel Movements 8 Exam General: Somnolent, minimally interactive, no acute distress or agitation noted. Jaundice. HEENT: Normocephalic, atraumatic, EOMI grossly, no JVD, sclera icteric, mucous membranes dry, Neck: supple with no lymphadenopathy. No JVD noted. Lungs: Clear to auscultation bilaterally, no W/R/R. Cardiovascular: Regular Rate and Rhythm, holosystolic murmur noted best at left sternal border. Abdominal: Abdomen is round, soft, bowel sounds present 4. Nontender to palpation. No ascites noted. Extremities: No edema appreciated. No tenderness. Left thigh hematoma decreases in size. Skin: jaundice, multiple areas of ecchymosis with large ecchymosis over the left torso and thigh. Right arm ecchymoses on the medial elbow. Neuro: unable to assess due to altered mental status. MSK: Decreased muscle mass IVs and Medications Medications Reviewed: Medications were reviewed in detail Lab and Diagnostics Result Diagram: 03/28/17 0220 03/28/17 0220 X-Rays, CTs and MRIs CT abdomen pelvis with contrast performed 03/20/2017 IMPRESSION: 1. Mild edema of the pancreatic head/uncinate process as well as adjacent duodenal C-loop with scattered mild fluid. Findings could be related to pancreatitis with secondary duodenitis or vice versa. Recommend correlation to enzyme levels. 2. Cholelithiasis without imaging evidence of cholecystitis. 3. Cirrhotic appearing liver with splenomegaly and appearance of varices suggestive of portal venous hypertension. 4. Mild dependent pelvic fluid. Dictated by: Breonna Augustin M.D. on 03/20/2017 at 16:32 CT pelvis with contrast performed 03/22/2017 IMPRESSION: 1. No significant change in presumed intramuscular hematoma within the left gluteus natasha. No change in subcutaneous edema versus cellulitis versus soft tissue injury within the proximal left thigh. No fracture. 3. 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 This could be further assessed using MR angiography, as well as MRI with and without intravenous contrast. 3. Increased, small amount of low-density ascites. Dictated by: Sally Kapoor M.D. on 03/23/2017 at 15:57 Right upper extremity sonogram performed 03/22/2017 IMPRESSION: 1. Heterogeneous subcutaneous collection demonstrated in the area of palpable abnormality suggestive of a hematoma. The differential is a soft tissue mass. Recommend correlation with clinical history and clinical followup. If there is persistent clinical concern, further evaluation may be obtained with MRI. Dictated by: Kaden Wheeler M.D. on 03/22/2017 at 12:11 CT brain without contrast performed 03/23/2017 IMPRESSION: No acute intracranial abnormality. Dictated by: Sally Kapoor M.D. on 03/23/2017 at 15:54 Chest x-ray performed 03/23/2017 IMPRESSION: 1. Left basilar density is suspicious for pneumonia versus atelectasis. Superimposed small pleural effusion cannot be excluded. 2. Probable cardiomegaly without overt heart failure. Dictated by: Toi Multani M.D. on 03/23/2017 at 12:41 Chest x-ray performed 03/24/2017 IMPRESSION: 1. Interval progression of pleural effusions with associated atelectasis or infiltrate left greater than right. 2. Recommend PA and lateral chest radiograph when the patient is able. Dictated by: Eduar Corbett M.D. on 03/24/2017 at 10:22 Additional Diagnostics US shows hematoma or soft tissue mass on right medial elbow Assessment & Plan Jorge A Wooten is a 61 year old woman with past medical history significant for alcoholic cirrhosis with esophageal varices, recurrent epistaxis , recurrent anemia, anxiety who presented to the [facility] emergency department and was initially admitted for severe anemia that required 7 units PRBCs to date. There is also evidence of possible DIC and hemolytic anemia based on her labs. In addition, patient is having severe signs and symptoms of alcohol withdrawal requiring large dose of benzodizepines and ICU care. Acute hepatic encephalopathy, present on Admission, Active and slowly improving. - Continue lactulose at every 6 hours and rifaximin. Acute alcohol withdrawal, improving. - Continue CIWA protocol treatment with lorazepam, avoiding diazepam secondary to decreased hepatic clearance and presence of liver failure. - Patient is out of the time window of delirium tremens. Severe alcoholic hepatitis and alcoholic cirrhosis, present on admission, stable. - Maddrey's discriminant function score of 39, MELD 21 today, EGD showed Portal gastropathy,Small esophageal varices. CT abd showed mild pelvic fluid. - Pt received one dose prednisolone 40mg 03/21, switched to Pentoxifylline TID per GI 03/22. - Consulted GI , appreciate further input, no plan for GI intervention at the moment. - Bilirubin continues to trend up - Follow clinically and consider abdominal U/S if bilirubin level is not improved in the next couple days. Acute blood loss anemia, POA, stable and improving.. - The patient has multiple hematomas that may contribute to her anemia. She also does have a chronic anemia. She did receive multiple units of blood. At this point we will be following her closely. - Pathology is really not hemolyzed this at this point and direct Cassius test is negative. Schistocytes negative on blood smear. - There is a concern about a component DIC. - Patient also likely has a degree of chronic bone marrow suppression secondary to her alcohol dependence. Pancytopenia, multifactorial, active and stable. - Likely secondary to bone marrow suppression from chronic etoh abuse, cirrhosis , GI bleed given history of variceal bleed and low platelets with elevated INR, or intracorporeal loss evidenced by ecchymosis on arms and torso. - There might be a DIC component. Several units of Cryoprecipitate has been given for low fibrinogen. Last Fibrinogen level is 140 and thus no further indication for Cryoprecipitate transfusion. - A recent abdominal ultrasound from 3 months ago reveals a normal-sized spleen - Hgb6 on admission, pt received several units of pRBC. FOBT negative. - Monitor H&H q12h, target hgb>7, transfuse as needed - Appreciate input - Started iron sulfate 325mg tid on 03/20 Acute hypoxic respiratory failure, not present on admission, active and improving. - Respiratory depression secondary to narcotics, brain bleed, developing pneumonia, heart failure are on the differential - ABG showed hypoxemia with hypocarbia on admission. - Naloxone administered 03/23/2017, patient mental status and alertness improved, was able to decrease oxymask to 2L. - Scheduled 20 mg Lasix IV BID - We will titrate oxygen as needed. Electrolytes imbalance, including hypokalemia and hypomagnesemia today POA, active. - Secondary to etoh withdrawal, GI fluid loss from c.diff colitis - Replete potassium and magnesium. This will continue to be an issue while on lactulose. C.diff colitis, found 03/20, active and improving. - Continue vancomycin 125mg q6h via NG tube. - Enteric precaution. Lactic acidosis, present on admission, resolved. -Likely due to tissue hypoxia from severe anemia as well as poor hepatic clearance due to cirrhosis. Acetaminophen for mild pain when necessary. Bowel regimen Senna and MiraLAX scheduled and PRN. Zofran when necessary for nausea and vomiting. SubQ heparin for now. SCDs in place. High-risk medications:NONE CODE STATUS: Full code dispo: Patient likely needs more support upon d/c. currently not ready for d/c. The patient was seen and examined together with on 03/28/17 and I agree with the history, exam findings, and plan as outlined in the note above. I did participate in all aspects of the services provided today, including documentation and the plan of care. The patient will continue to be treated for C. difficile toxin colitis with vancomycin via NG tube. I will call call appears to be resolving. Fan Tran M.D. Pain Evaluation: Adequate Pain Control GI Prophylaxis: Proton Pump Inhibitor VTE Prophylaxis: Sub-Q Heparin (Unfractionated) VTE Mechanical Devices: Intermittant Pneumatic CD Resuscitation Status: CPR: Attempt Resuscitation JUANITA HALL DO Mar 28, 2017 08:47 David Tran MD Mar 29, 2017 09:23
--- NOTE | 2017-03-28 18:50 | NUR ---
Output/Mentation Denies chest pain/pressure/discomfort. Tele SR 80s. Distal pulses palpable. Denies SOB, RR within normal limits. SPO2 on 2L Oxymask 97%. Tachypneic with movement. Denies nausea, no emesis, denies abdominal pain. [place] patent draining dark cristobal/brown with pink tinge urine to gravity this AM, lightened to cristobal with pink tinge this afternoon. Receiving lactulose, FMS in place draining dark brown pure liquid. Vital NG tube feed at 10mls per hour per MD orders with Q4 flush. Alert and oriented x2 (self and date), did not know location. Reports full sensation, severe decrease in strength. Intermittent restlessness and trying to get OOB. Very drowsy, falls asleep during conversation. As shift progressed, patient became increasingly confused and agitated, trying to get OOB wanting to [facility] with her .
--- NOTE | 2017-03-28 22:05 | PROG NOTE ---
[address] [address] PROGRESS NOTE PATIENT: AIRAM HUGHES : 1955 MR#: [id number] ADMIT: 03/18/2017 JOB ID: [id number] DATE: 03/28/2017 SUBJECTIVE: The patient has become a little more conversational. She is still quite somnolent. She continues with moderate stool output, but is receiving lactulose. She is additionally on rifaximin plus the Vanco for her underlying C. diff. OBJECTIVE: Vital signs stable. The patient opens her eyes much better to command. She follows my finger. Was a little more appropriate and conversational in her answers to questions. Her is at the bedside. when I asked her if she had any pain, she actually laughed a little at the question and, in essence, was referring to the big bruise on her left leg/left outer thigh area. No abdominal pain. LABORATORY DATA: White count 7.2, hemoglobin 9.4, platelets are up to . INR is 1.57 two days ago. Bilirubin is 12.8, creatinine 0.30, sodium 139, potassium corrected to 3.8. ASSESSMENT AND RECOMMENDATIONS: A 61-year-old female with alcohol-induced cirrhosis, alcoholic hepatitis, alcohol withdrawal, high discriminant function on pentoxifylline and Clostridium difficile infection. This was complicated by DIC and hepatic encephalopathy. She continues to slowly improve. Continue to avoid benzos and narcotics. Hopefully, mental status continues to improve so that the Dobbhoff can be removed and the patient take oral nutrition/hydration.
[2017-03-29] VITALS (7 sets, daily range): BP systolic 110–137; BP diastolic 62–81; PULSE 80–99; RESP 17–24; O2SAT 92–98
[2017-03-29] MEDS: Lactulose 20 Gm/30 mL 30 mL Syrup PO SCH ×4 (03:00→20:07)
[2017-03-29] MEDS: Vancomycin 100 mg/mL Oral Solution PO SCH ×4 (03:06→20:07)
--- NOTE | 2017-03-29 06:19 | NUR ---
Activity/ Orientation 1929 Assumed care. A&O to self and location only. Intermittent restlessness, alternated with inability to stay awake. As shift progressed, noted increase in confusion and climbing out of bed. 2mg Ativan given, with moderate response. Safety alarms in place and encouraged to remain in bed cooperative with redirection. Pt. dislodged FMS tube, no visible injury noted and reinserted without difficulty; draining dark brown liquid. Tube feeding 10mL/hr, meds given fully dissolved via NG tube. VSS. Tele: SR 70s. Report given to on coming RN
[2017-03-29] MEDS: Multivit-Miner-Folic Acid-Iron Tablet PO SCH (09:52)
[2017-03-29] MEDS: Furosemide 10 mg/mL 2 mL Inj IVPUSH SCH ×2 (09:52→20:05)
[2017-03-29] MEDS: Heparin 5,000 Unit/mL Inj SUBQ SCH ×2 (09:53→20:07)
[2017-03-29] MEDS: Pentoxifylline 400 mg ER12 Tablet PO SCH ×3 (09:56→20:07)
[2017-03-29] MEDS: FERROUS SULFATE 44 MG/ML PO SCH ×3 (09:57→20:06)
[2017-03-29] MEDS: Pantoprazole 4 mg/mL 10 mL Inj IVPUSH SCH ×2 (09:57→16:57)
--- NOTE | 2017-03-29 15:27 | NUR ---
NUTRITION FOLLOW-UP: ASSESS: 61 YO F admitted with severe anemia, weakness and ETOH withdrawal. Pt on CIWA protocol. Pt receiving trophic tube feeding at 10 ml/hr with no other source of nutrition. Pt was on trophic rate due to high aspiration risk. Per RN, mentation is slowly improving. Pt has history of alcoholism and likely had poor PO intake prior to admit. Pt is to have ST eval today. Placed unsigned TF orders to advance TF in chart in case pt is not able to pass ST eval. RN is aware. PMHX: Alcoholic cirrhosis, portal gastropathy, esophageal varices, HTN, anemia. LABS: Reviewed. Cr 0.30, Glu 125, Mg 1.5, T.bili 128, AST 52, Alb 3.4 MEDS: Reviewed. Thiamine, MVI, Lactulose, Lasix. GI: 2 BM 03/24. SKIN: No major issues, mild jaundice, visible fat loss in face, arms and legs. NUTRITION SUPPORT: Vital 1.5 @ 10ml/hr WT: 55.8 kg, BMI 19.3 kg/m2, Admit wt 62.5 kg. DIET: NPO ESTIMATED NEEDS: liver disease Calories: 9405-8323 kcal/day (25-30 kcal/kg BW) Protein: 80-105 g/day (1.2-1.5 g/kg BW) Fluids: ~1800 ml/day (25 ml/kg) NUTRITION DIAGNOSIS: 1) Inadequate oral intake related to chronic alcohol abuse as evidenced by NPO status, enteral feeding remaining at trophic rate 10 mL/hr x 6 D - PERSISTS. 2) Moderate pro/kcal malnutrition in the context of chronic illness related to alcoholism as evidence by mild fat loss, altered electrolytes, PO intake of <75% estimated energy requirements for >1month due to chronic alcohol use - PERSISTS. NUTRITION INTERVENTION: 1) Recommend diet advance as tolerated per ST 2) If diet unable to advance, recommend advance enteral feeding 10ml q 6 hrs to goal rate of 60 ml/hr to provide 1980 kcal and 90 g protein (100% estimated needs). MONITOR/EVALUATE: TF advance/tolerance, diet advance, wt, labs, POC, GI/nutrition status. Follow per high nutrition risk guidelines.
--- NOTE | 2017-03-29 17:41 | NUR ---
LOC Pt continues with CIWA of 5 throughout shift. Tremor decreasing as day went on but still present. lethargic but easily arrousable. She was climbing out of bed this AM and attempting to pull NGT out however by afternoon she was more calm. Family visited in the afternoon. Pt kept asking for food. As she was more alert, swallow eval ordered by MD, she is on a stim diet, will start with small amts of pudding/yogurt as alertness allows.
--- NOTE | 2017-03-29 17:50 | NUR ---
Evaluation completed. Please go to "Notes" then click on "Assessments and Notes" (bottom left corner of screen). Then select appropriate discipline tab on top of screen.
--- NOTE | 2017-03-29 19:02 | PCM.PNMED ---
Subjective Date of Service Mar 29, 2017 Subjective Patient remains somnolent yet improved from yesterday, alert and oriented x2. She continues to make stools with scheduled lactulose every 6 hours. She remains without nausea and vomiting. Otherwise review of systems and subjective are not obtainable. No overnight events. Exam Vital Signs Vital Sign - Last Date Time Temp Pulse Resp B/P Pulse Ox O2 Delivery O2 Flow Rate FiO2 03/29/17 16:34 36.5 82 18 116/81 98 Room Air 03/29/17 03:26 1.50 Intake and Output 03/28/17 03/28/17 03/29/17 Cumulative From/Thru 15:00 23:00 07:00 03/18/17 15:13 - 03/29/17 06:55 Intake Total 518 ml 70154 ml Output Total 850 ml 1200 ml 950 ml 93269 ml Balance -850 ml -682 ml -950 ml 12 ml Intake Oral 4440 ml IV Total 141 ml 57429 ml Tube Feeding 105 ml 1343 ml Packed Cells 2100 ml Cryoprecipitate 215 ml Tube Irrigant 272 ml 2100 ml Output Urine Total 850 ml 500 ml 700 ml 86368 ml Stool Total 700 ml 250 ml 5100 ml Urine/Stool Mix 1700 ml Emesis 500 ml # Voids 17 # Bowel Movements 8 Exam General: Somnolent, improved interaction, no acute distress or agitation noted. Jaundice. HEENT: Normocephalic, atraumatic, EOMI grossly, no JVD, sclera icteric, mucous membranes dry, Neck: supple with no lymphadenopathy. No JVD noted. Lungs: Clear to auscultation bilaterally, no W/R/R. Cardiovascular: Regular Rate and Rhythm, holosystolic murmur noted best at left sternal border. Abdominal: Abdomen is round, soft, bowel sounds present 4. Nontender to palpation. No ascites noted. Extremities: No edema appreciated. No tenderness. Left thigh hematoma decreases in size. Skin: jaundice, multiple areas of ecchymosis with large ecchymosis over the left torso and thigh. Right arm ecchymoses on the medial elbow. Neuro: unable to assess due to altered mental status. MSK: Decreased muscle mass IVs and Medications Medications Reviewed: Medications were reviewed in detail Lab and Diagnostics Result Diagram: 03/28/17 0220 03/28/17 0952 X-Rays, CTs and MRIs CT abdomen pelvis with contrast performed 03/20/2017 IMPRESSION: 1. Mild edema of the pancreatic head/uncinate process as well as adjacent duodenal C-loop with scattered mild fluid. Findings could be related to pancreatitis with secondary duodenitis or vice versa. Recommend correlation to enzyme levels. 2. Cholelithiasis without imaging evidence of cholecystitis. 3. Cirrhotic appearing liver with splenomegaly and appearance of varices suggestive of portal venous hypertension. 4. Mild dependent pelvic fluid. Dictated by: Breonna Augustin M.D. on 03/20/2017 at 16:32 CT pelvis with contrast performed 03/22/2017 IMPRESSION: 1. No significant change in presumed intramuscular hematoma within the left gluteus natasha. No change in subcutaneous edema versus cellulitis versus soft tissue injury within the proximal left thigh. No fracture. 3. 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 This could be further assessed using MR angiography, as well as MRI with and without intravenous contrast. 3. Increased, small amount of low-density ascites. Dictated by: Sally Kapoor M.D. on 03/23/2017 at 15:57 Right upper extremity sonogram performed 03/22/2017 IMPRESSION: 1. Heterogeneous subcutaneous collection demonstrated in the area of palpable abnormality suggestive of a hematoma. The differential is a soft tissue mass. Recommend correlation with clinical history and clinical followup. If there is persistent clinical concern, further evaluation may be obtained with MRI. Dictated by: Kaden Wheeler M.D. on 03/22/2017 at 12:11 CT brain without contrast performed 03/23/2017 IMPRESSION: No acute intracranial abnormality. Dictated by: Sally Kapoor M.D. on 03/23/2017 at 15:54 Chest x-ray performed 03/23/2017 IMPRESSION: 1. Left basilar density is suspicious for pneumonia versus atelectasis. Superimposed small pleural effusion cannot be excluded. 2. Probable cardiomegaly without overt heart failure. Dictated by: Toi Multani M.D. on 03/23/2017 at 12:41 Chest x-ray performed 03/24/2017 IMPRESSION: 1. Interval progression of pleural effusions with associated atelectasis or infiltrate left greater than right. 2. Recommend PA and lateral chest radiograph when the patient is able. Dictated by: Eduar Corbett M.D. on 03/24/2017 at 10:22 Additional Diagnostics US shows hematoma or soft tissue mass on right medial elbow Assessment & Plan Jorge A Wooten is a 61 year old woman with past medical history significant for alcoholic cirrhosis with esophageal varices, recurrent epistaxis , recurrent anemia, anxiety who presented to the [facility] emergency department and was initially admitted for severe anemia that required 7 units PRBCs to date. There is also evidence of possible DIC and hemolytic anemia based on her labs. In addition, patient is having severe signs and symptoms of alcohol withdrawal requiring large dose of benzodizepines and ICU care. Acute hepatic encephalopathy, present on Admission, Active and slowly improving. - Continue lactulose at every 6 hours and rifaximin. - Patient's swallow is near baseline according to speech. - Removed Dobhoff tube today. Acute alcohol withdrawal, improving. - Continue CIWA protocol treatment with lorazepam, avoiding diazepam secondary to decreased hepatic clearance and presence of liver failure. - Patient is out of the time window of delirium tremens. Severe alcoholic hepatitis and alcoholic cirrhosis, present on admission, stable. - Maddrey's discriminant function score of 39, MELD 21 today, EGD showed Portal gastropathy,Small esophageal varices. CT abd showed mild pelvic fluid. - Pt received one dose prednisolone 40mg 03/21, switched to Pentoxifylline TID per GI 03/22. - Consulted GI , appreciate further input, no plan for GI intervention at the moment. - Bilirubin continues to trend up - Follow clinically and consider abdominal U/S if bilirubin level is not improved in the next couple days. Acute blood loss anemia, POA, stable. - The patient has multiple hematomas that may contribute to her anemia. She also does have a chronic anemia. She did receive multiple units of blood. At this point we will be following her closely. - Pathology is really not hemolyzed this at this point and direct Cassius test is negative. Schistocytes negative on blood smear. - There is a concern about a component DIC. - Patient also likely has a degree of chronic bone marrow suppression secondary to her alcohol dependence. Pancytopenia, multifactorial, active and stable. - Likely secondary to bone marrow suppression from chronic etoh abuse, cirrhosis , GI bleed given history of variceal bleed and low platelets with elevated INR, or intracorporeal loss evidenced by ecchymosis on arms and torso. - There might be a DIC component. Several units of Cryoprecipitate has been given for low fibrinogen. Last Fibrinogen level is 140 and thus no further indication for Cryoprecipitate transfusion. - A recent abdominal ultrasound from 3 months ago reveals a normal-sized spleen - Hgb6 on admission, pt received several units of pRBC. FOBT negative. - Monitor H&H q12h, target hgb>7, transfuse as needed - Appreciate input - Started iron sulfate 325mg tid on 03/20 Acute hypoxic respiratory failure, not present on admission, active and improving. - Respiratory depression secondary to narcotics, brain bleed, developing pneumonia, heart failure are on the differential - ABG showed hypoxemia with hypocarbia on admission. - Naloxone administered 03/23/2017, patient mental status and alertness improved, was able to decrease oxymask to 2L. - Scheduled 20 mg Lasix IV BID - We will titrate oxygen as needed. Electrolytes imbalance, including hypokalemia and hypomagnesemia today POA, active. - Secondary to etoh withdrawal, GI fluid loss from c.diff colitis - Replete potassium and magnesium. This will continue to be an issue while on lactulose. C.diff colitis, found 03/20, active and improving. - Continue vancomycin 125mg q6h via NG tube. - Enteric precaution. Lactic acidosis, present on admission, resolved. -Likely due to tissue hypoxia from severe anemia as well as poor hepatic clearance due to cirrhosis. Acetaminophen for mild pain when necessary. Bowel regimen Senna and MiraLAX scheduled and PRN. Zofran when necessary for nausea and vomiting. SubQ heparin for now. SCDs in place. High-risk medications:NONE CODE STATUS: Full code dispo: Patient likely needs more support upon d/c. currently not ready for d/c. Pain Evaluation: Adequate Pain Control GI Prophylaxis: Proton Pump Inhibitor VTE Prophylaxis: Sub-Q Heparin (Unfractionated) VTE Mechanical Devices: Intermittant Pneumatic CD Resuscitation Status: CPR: Attempt Resuscitation Attending Statement The patient was seen and examined together with Dr. Hall on 2016 and I agree with the history, exam findings, and plan as outlined in the note above. I did participate in all aspects of the services provided today, including documentation and the plan of care. We will continue lactulose for hepatic encephalopathy. I believe her withdrawal syndrome has resolved. The patient remains very debilitated and continues treatment for C. difficile toxin colitis. Hospital discharge in several days to a [facility] facility for prolonged transition stay. JUANITA HALL DO Mar 29, 2017 19:02 David Tran MD Mar 30, 2017 09:05
--- NOTE | 2017-03-29 20:40 | PROG NOTE ---
[address] [address] PROGRESS NOTE PATIENT: AIRAM HUGHES : 1955 MR#: [id number] ADMIT: 03/18/2017 JOB ID: [id number] DATE: I reviewed the patient's recent days with the family and reviewed the clinical data in the [facility]. She has been followed by Dr. Stanton of critical care, and Dr. Stevens of gastroenterology. Her mental status seemed to have somewhat improved after reduction of the sedation and some degree of improvement from delirium. Labs show stabilization of her hemoglobin after initial recurrent need of blood transfusion with hemoglobin around 6, that was aggravated with DIC. After administration of two doses of fibrinogen, she has been holding her hemoglobin around 8.5. In fact, today it is 9.4. Also, the thrombocytopenia has improved from 20s to now 115. She is still severely jaundiced with a hemoglobin of 12.8. I suspect that she will maintain a certain degree of cytopenias associated with liver disease and splenomegaly. At this point, her blood count seems to have stabilized, and I will be signing off from the hematology standpoint and our colleagues continue managing her hepatic encephalopathy and alcoholic hepatitis.
--- NOTE | 2017-03-29 22:58 | PROG NOTE ---
[address] [address] PROGRESS NOTE PATIENT: AIRAM HUGHES : 1955 MR#: [id number] ADMIT: 03/18/2017 JOB ID: [id number] DATE: 03/29/2017 SUBJECTIVE: Overall, there has been improvement. Stooling continues. Mental status has improved somewhat. OBJECTIVE: Vitals this evening demonstrated a temperature 36.5, pulse 82, breathing 18, blood pressure 116/81, 98% on room air. The patient was jaundiced. Dobbhoff tube was still in place. She was much more responsive to voice commands and conversational. Abdomen: Remains soft with no tenderness. Liquid stool present in the FMS with no obvious blood. LABORATORIES: CBC is stable. Comprehensive metabolic panel is stable. Bilirubin is 12.8. Creatinine 0.3. ASSESSMENT AND RECOMMENDATIONS: 1. A 61-year-old female with: 2. Alcohol-induced cirrhosis. 3. Hepatitis withdrawal. 4. High discriminant function. 5. Clostridium difficile infection. 6. Disseminated intravascular coagulation. 7. Hepatic encephalopathy. 8. Malnutrition. The patient appears to be much more ready to take p.o. As I understand it, we are awaiting Speech Pathology's assessment to clear her for dietary advancement. In the interim, I would recommend we titrate up her tube feeds if there is going to be much more of a delay. Continue lactulose and C. diff therapy. No benzos, no opiates.
[2017-03-30] VITALS (7 sets, daily range): BP systolic 90–107; BP diastolic 54–69; PULSE 81–102; RESP 16–23; O2SAT 90–96
[2017-03-30] MEDS: Lactulose 20 Gm/30 mL 30 mL Syrup PO SCH ×4 (03:00→22:09)
[2017-03-30] MEDS: Vancomycin 100 mg/mL Oral Solution PO SCH ×4 (04:24→22:08)
--- NOTE | 2017-03-30 06:39 | NUR ---
Activity/Orientation/Transfer Pt. less restless this shift, however has intermittent episodes of climbing oob. Alert to self, HULL. Cooperative with redirection and need to remain in bed for her safety. NG d/c per MD order. Taking small amounts of oral fluids well. [place] draining to gravity, with pinkish drainage. FMS draining dark liquid stool, with some visible leakage at site of insertion. VSS. Tele: SR 80-90s occ PVC. 0300 dose of Lactulose not given, per pharmacy ([facility] house shortage and out of stock. Pt. transferred from 2011 to 2006 @ 0500 Isolation precautions. Report given to on coming RN.
[2017-03-30 08:25] LABS: Mean Corpuscular Hemoglobin 28.8 pg (27.0-35.0); Mean Corpuscular Volume 92.4 fL (81-100)
[2017-03-30] MEDS: Multivit-Miner-Folic Acid-Iron Tablet PO SCH (08:49)
[2017-03-30] MEDS: Pentoxifylline 400 mg ER12 Tablet PO SCH ×3 (08:51→22:08)
[2017-03-30] MEDS: FERROUS SULFATE 44 MG/ML PO SCH ×3 (09:02→22:08)
[2017-03-30] MEDS: Heparin 5,000 Unit/mL Inj SUBQ SCH ×2 (09:07→22:09)
[2017-03-30] MEDS: Pantoprazole 4 mg/mL 10 mL Inj IVPUSH SCH ×2 (09:10→17:27)
[2017-03-30] MEDS: Furosemide 10 mg/mL 2 mL Inj IVPUSH SCH ×2 (09:11→22:07)
--- NOTE | 2017-03-30 13:29 | NUR ---
Pt not seen for dysphagia therapy this date. Pt refusing PO trials. However, nursing indicates that pt consumed 8 oz of supplement shake without s/s of aspiration. Pt is lethargic, and requires max cues to follow directions. CITRIX ADMINISTRATOR to f/u and monitor progress.
--- NOTE | 2017-03-30 14:33 | NUR ---
NUTRITION FOLLOW-UP: ASSESS: 61 YO F admitted with severe anemia, weakness and ETOH withdrawal. Pt has history of alcoholism and likely had poor PO intake prior to admit. She is currently on CIWA protocol. Mentation seems to slowly be improving. She passed a ST eval 03/29 for stimulation diet and her NGT was removed. PMHX: Alcoholic cirrhosis, portal gastropathy, esophageal varices, HTN, anemia. LABS: Reviewed. K 3.1, Artificial Snow Making Machine Operator <.3, Glu 113, T.bili 10.4, AST 53 MEDS: Reviewed. Thiamine, MVI, Lactulose, Lasix. GI: FMS, 450ml output 03/29 SKIN: visible fat loss in face, arms and legs. WT: 60 kg, BMI 19.8 kg/m2, Admit wt 62.5 kg. DIET: stimulation ESTIMATED NEEDS: liver disease Calories: 0256-2339 kcal/day (25-30 kcal/kg BW) Protein: 80-105 g/day (1.2-1.5 g/kg BW) Fluids: ~1800 ml/day (25 ml/kg) NUTRITION DIAGNOSIS: 1) Inadequate oral intake related to chronic alcohol abuse as evidenced by NPO status, enteral feeding remaining at trophic rate 10 mL/hr x 6 D - PERSISTS. 2) Moderate pro/kcal malnutrition in the context of chronic illness related to alcoholism as evidence by mild fat loss, altered electrolytes, PO intake of <75% estimated energy requirements for >1month due to chronic alcohol use - PERSISTS. NUTRITION INTERVENTION: 1) Recommend diet advance as tolerated per ST. Will monitor for PO intake/ diet advance. Will add magic cups on trays as one of pureed food items to help increase kcal/pro intake while on stimulation diet. MONITOR/EVALUATE: diet advance, wt, labs, POC, GI/nutrition status. Follow per high nutrition risk guidelines.
[2017-03-30 14:34] LABS: APPEARANCE,URINE CLEAR (CLEAR,HAZY); COLOR,URINE DARK YELLOW (YELLOW); PH,URINE 5.5 (5.0-8.0)
[2017-03-30 14:35] LABS: OCCULT BLOOD,URINE NEGATIVE (NEGATIVE); UROBILINOGEN,URINE NORMAL (NORMAL)
[2017-03-30 14:36] LABS: ICTOTEST,URINE POSITIVE (Negative)
--- NOTE | 2017-03-30 15:35 | DRSVH ---
PROCEDURE: X-RAY CHEST ONE VIEW, PORTABLE ([id number]) INDICATIONS: fevers overnight TECHNIQUE: One view of the chest was acquired. COMPARISON: [facility], CT, CT ABD PELVIS W CON, 03/20/2017, 14:40. [facility], CR, XR CHEST 1VW (PORTABLE), 03/24/2017, 9:43. [facility], CR, XR CHEST 1VW (PORTABLE ), 03/25/2017, 4:58. FINDINGS: Surgical changes and devices: None. Lungs and pleura: No pleural effusions or pneumothorax. Lungs are clear. Mediastinum: Mediastinal contours appear normal. Heart size is normal. Bones and chest wall: No suspicious bony lesions. Overlying soft tissues appear unremarkable. IMPRESSION: Resolved pneumonia. Dictated by: Edilson Moncada [facility] Interpreted: Nomi Stiles MD on 03/30/2017 at 13:26 Approved by: Nomi Stiles M.D. on 03/30/2017 at 15:33
[2017-03-30] MEDS ORDERED: Potassium Chloride 20 mEq SR Tablet PO ONE (16:05)
[2017-03-30] MEDS ORDERED: Potassium Chloride 20 mEq/15 mL 15mL Oral Soln PO SCH ×2 (16:05→20:30)
--- NOTE | 2017-03-30 16:56 | PROG NOTE ---
[address] [address] PROGRESS NOTE PATIENT: AIRAM HUGHES : 1955 MR#: [id number] ADMIT: 03/18/2017 JOB ID: [id number] DATE: 03/30/2017 SUBJECTIVE: The patient has had the Dobbhoff tube removed. She is much more alert. Stooling continues. OBJECTIVE: Much more conversational, in no acute distress. Abdomen is soft. LABORATORY DATA: Creatinine 0.3, sodium 142, bilirubin 10.4, platelets 128, hemoglobin 9.8, white count 10.8. Urinalysis unremarkable 0-5 WBCs. IMAGING: Chest x-ray today showed resolved pneumonia. ASSESSMENT AND RECOMMENDATIONS: A 61-year-old female with alcohol-induced liver disease. She appears to be through the alcohol withdrawal. She has a high discriminant function and pentoxifylline should certainly continue. Disseminated intravascular coagulation has resolved. Hepatic encephalopathy is improving. I would recommend discontinuation of the fecal management system. Continue treatment for the Clostridium difficile, titrating lactulose to 2 or 3 bowel movements per day. I recommended advancement of her diet within the recommendations of Speech. CBC, CMP, and a PT/INR should ideally be followed daily.
--- NOTE | 2017-03-30 17:50 | PCM.PNMED ---
Subjective Date of Service Mar 30, 2017 Subjective Patient remains somnolent yet improved from yesterday, alert and oriented x1. She continues to make stools with scheduled lactulose every 6 hours. She remains without nausea and vomiting and is eating with less complications. Otherwise review of systems and subjective are not obtainable. No overnight events. Exam Vital Signs Vital Sign - Last Date Time Temp Pulse Resp B/P Pulse Ox O2 Delivery O2 Flow Rate FiO2 03/30/17 05:59 90 03/30/17 05:43 Supplement Oxygen 03/30/17 03:28 39.4 23 90/54 90 03/29/17 03:26 1.50 Intake and Output 03/29/17 03/29/17 03/30/17 Cumulative From/Thru 15:00 23:00 07:00 03/18/17 15:13 - 03/30/17 05:55 Intake Total 0 ml 0 ml 15999 ml Output Total 1050 ml 1000 ml 75627 ml Balance -1050 ml -1000 ml -2038 ml Intake Oral 0 ml 0 ml 4440 ml IV Total 16191 ml Tube Feeding 1343 ml Packed Cells 2100 ml Cryoprecipitate 215 ml Tube Irrigant 2100 ml Output Urine Total 850 ml 500 ml 37699 ml Stool Total 200 ml 500 ml 5800 ml Urine/Stool Mix 1700 ml Emesis 500 ml # Voids 17 # Bowel Movements 8 Exam General: Somnolent, improved interaction, no acute distress or agitation noted. Jaundice. HEENT: Normocephalic, atraumatic, EOMI grossly, no JVD, sclera icteric, mucous membranes dry, Neck: supple with no lymphadenopathy. No JVD noted. Lungs: Clear to auscultation bilaterally, no W/R/R. Cardiovascular: Regular Rate and Rhythm, holosystolic murmur noted best at left sternal border. Abdominal: Abdomen is round, soft, bowel sounds present 4. Nontender to palpation. No ascites noted. Extremities: No edema appreciated. No tenderness. Left thigh hematoma decreases in size. Skin: jaundice, multiple areas of ecchymosis with large ecchymosis over the left torso and thigh. Right arm ecchymoses on the medial elbow. Neuro: unable to assess due to altered mental status. MSK: Decreased muscle mass IVs and Medications Medications Reviewed: Medications were reviewed in detail Lab and Diagnostics Result Diagram: 03/28/17 0220 03/28/17 0952 X-Rays, CTs and MRIs CT abdomen pelvis with contrast performed 03/20/2017 IMPRESSION: 1. Mild edema of the pancreatic head/uncinate process as well as adjacent duodenal C-loop with scattered mild fluid. Findings could be related to pancreatitis with secondary duodenitis or vice versa. Recommend correlation to enzyme levels. 2. Cholelithiasis without imaging evidence of cholecystitis. 3. Cirrhotic appearing liver with splenomegaly and appearance of varices suggestive of portal venous hypertension. 4. Mild dependent pelvic fluid. Dictated by: Breonna Augustin M.D. on 03/20/2017 at 16:32 CT pelvis with contrast performed 03/22/2017 IMPRESSION: 1. No significant change in presumed intramuscular hematoma within the left gluteus natasha. No change in subcutaneous edema versus cellulitis versus soft tissue injury within the proximal left thigh. No fracture. 3. 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 This could be further assessed using MR angiography, as well as MRI with and without intravenous contrast. 3. Increased, small amount of low-density ascites. Dictated by: Sally Kapoor M.D. on 03/23/2017 at 15:57 Right upper extremity sonogram performed 03/22/2017 IMPRESSION: 1. Heterogeneous subcutaneous collection demonstrated in the area of palpable abnormality suggestive of a hematoma. The differential is a soft tissue mass. Recommend correlation with clinical history and clinical followup. If there is persistent clinical concern, further evaluation may be obtained with MRI. Dictated by: Kaden Wheeler M.D. on 03/22/2017 at 12:11 CT brain without contrast performed 03/23/2017 IMPRESSION: No acute intracranial abnormality. Dictated by: Sally Kapoor M.D. on 03/23/2017 at 15:54 Chest x-ray performed 03/23/2017 IMPRESSION: 1. Left basilar density is suspicious for pneumonia versus atelectasis. Superimposed small pleural effusion cannot be excluded. 2. Probable cardiomegaly without overt heart failure. Dictated by: Toi Multani M.D. on 03/23/2017 at 12:41 Chest x-ray performed 03/24/2017 IMPRESSION: 1. Interval progression of pleural effusions with associated atelectasis or infiltrate left greater than right. 2. Recommend PA and lateral chest radiograph when the patient is able. Dictated by: Eduar Corbett M.D. on 03/24/2017 at 10:22 Additional Diagnostics US shows hematoma or soft tissue mass on right medial elbow Assessment & Plan Jorge A Wooten is a 61 year old woman with past medical history significant for alcoholic cirrhosis with esophageal varices, recurrent epistaxis , recurrent anemia, anxiety who presented to the [facility] emergency department and was initially admitted for severe anemia that required 7 units PRBCs to date. There is also evidence of possible DIC and hemolytic anemia based on her labs. In addition, patient is having severe signs and symptoms of alcohol withdrawal requiring large dose of benzodizepines and ICU care. Acute hepatic encephalopathy, present on Admission, Active and slowly improving. - Continue lactulose at every 6 hours and rifaximin. - Will d/c Fecal management system. - Patient's swallow is near baseline according to speech. - Will advance diet. Acute alcohol withdrawal, improving. - Continue CIWA protocol treatment with lorazepam, avoiding diazepam secondary to decreased hepatic clearance and presence of liver failure. Severe alcoholic hepatitis and alcoholic cirrhosis, present on admission, stable. - Maddrey's discriminant function score of 39, MELD 21 today, EGD showed Portal gastropathy,Small esophageal varices. CT abd showed mild pelvic fluid. - Pt received one dose prednisolone 40mg 03/21, switched to Pentoxifylline TID per GI 03/22. - Consulted GI , appreciate further input, no plan for GI intervention at the moment. - Follow clinically and consider abdominal U/S if bilirubin level is not improved in the next couple days. Acute blood loss anemia, POA, stable. - The patient has multiple hematomas that may contribute to her anemia. She also does have a chronic anemia. She did receive multiple units of blood. At this point we will be following her closely. - Pathology is really not hemolyzed this at this point and direct Cassius test is negative. Schistocytes negative on blood smear. - Patient also likely has a degree of chronic bone marrow suppression secondary to her alcohol dependence. Pancytopenia, multifactorial, active and stable. - Likely secondary to bone marrow suppression from chronic etoh abuse, cirrhosis , GI bleed given history of variceal bleed and low platelets with elevated INR, or intracorporeal loss evidenced by ecchymosis on arms and torso. - There might be a DIC component. Several units of Cryoprecipitate has been given for low fibrinogen. Last Fibrinogen level is 140 and thus no further indication for Cryoprecipitate transfusion. - A recent abdominal ultrasound from 3 months ago reveals a normal-sized spleen - Hgb6 on admission, pt received several units of pRBC. FOBT negative. - Monitor H&H q12h, target hgb>7, transfuse as needed - Appreciate input - Started iron sulfate 325mg tid on 03/20 Acute hypoxic respiratory failure, not present on admission, Resolved. - Respiratory depression secondary to narcotics, brain bleed, developing pneumonia, heart failure are on the differential - Scheduled 20 mg Lasix IV BID Electrolytes imbalance, including hypokalemia and hypomagnesemia today POA, active. - Secondary to etoh withdrawal, GI fluid loss from c.diff colitis - Replete potassium and magnesium. This will continue to be an issue while on lactulose. C.diff colitis, found 03/20, active and improving. - Continue vancomycin 125mg q6h via NG tube. - Enteric precaution. Lactic acidosis, present on admission, resolved. -Likely due to tissue hypoxia from severe anemia as well as poor hepatic clearance due to cirrhosis. Acetaminophen for mild pain when necessary. Bowel regimen Senna and MiraLAX scheduled and PRN. Zofran when necessary for nausea and vomiting. SubQ heparin for now. SCDs in place. High-risk medications:NONE CODE STATUS: Full code dispo: Patient likely needs more support upon d/c. currently not ready for d/c. Pain Evaluation: Adequate Pain Control GI Prophylaxis: Proton Pump Inhibitor VTE Prophylaxis: Sub-Q Heparin (Unfractionated) VTE Mechanical Devices: Intermittant Pneumatic CD Resuscitation Status: CPR: Attempt Resuscitation Attending Statement I interviewed and examined the patient on rounds today. Gradual improvement in hepatic encephalopathy. I agree with the assessment and plan as stated above. JUANITA HALL DO Mar 30, 2017 06:25 Davi Connor MD Apr 01, 2017 07:10
--- NOTE | 2017-03-30 18:45 | NUR ---
Ambulation/Tele Denies chest pain, SR/tach 80s to 130s with activity. Denies SOB, no cough, bilateral lungs clear to auscultation, O2 sats 92% on RA. Denies N/V or abdominal pain, stim diet tolerating fair -- eats small bites. FMS draining brown pure liquid stool, urinary catheter draining cristobal urine with a pink tinge to gravity. Pt. Drowsy, oriented to self, forgetful, frequently attempting to get out of bed, difficult to redirect, severe generalized weakness, becomes very shaky when standing.
[2017-03-31] VITALS (11 sets, daily range): BP systolic 104–109; BP diastolic 68–82; PULSE 84–94; RESP 14–18; O2SAT 93–96
[2017-03-31] MEDS: Lactulose 20 Gm/30 mL 30 mL Syrup PO SCH ×3 (02:52→16:57)
[2017-03-31] MEDS: Vancomycin 100 mg/mL Oral Solution PO SCH ×4 (02:52→19:42)
[2017-03-31 04:57] LABS: BASOPHILS % (AUTO) 1.2 % (0-3); EOSINOPHILS % (AUTO) 1.3 % (0-5); MONOCYTES % (AUTO) 14.1 % (4-12); Mean Corpuscular Hemoglobin 29.1 pg (27.0-35.0); Mean Corpuscular Volume 92.5 fL (81-100); Platelet Count 150 bil/L (150-400)
[2017-03-31 05:13] LABS: INR 1.3 ratio
--- NOTE | 2017-03-31 06:05 | NUR ---
Mentation/Activity Continues with intermittent confusion. Oriented to self and location, although unable to finish complete thoughts and delays responses. Takes oral medications and soft foods without difficulty, remains to be 1:1 assist. Fixated on being out of bed, frequent redirection required for pt. safety (sitter at bedside). Denies pain, tele SR in 90s, SPO2 95% on RA. FMS continuous drain of liquid brown stool, [place] to gravity cristobal urine with pink tinge. VSS. Report given to oncoming RN.
[2017-03-31] MEDS: FERROUS SULFATE 44 MG/ML PO SCH ×3 (11:38→19:42)
[2017-03-31] MEDS: Furosemide 10 mg/mL 2 mL Inj IVPUSH SCH ×2 (11:38→19:42)
[2017-03-31] MEDS: Heparin 5,000 Unit/mL Inj SUBQ SCH ×2 (11:38→19:42)
[2017-03-31] MEDS: Multivit-Miner-Folic Acid-Iron Tablet PO SCH (11:39)
[2017-03-31] MEDS: Pentoxifylline 400 mg ER12 Tablet PO SCH ×3 (11:39→19:43)
[2017-03-31] MEDS: Pantoprazole 4 mg/mL 10 mL Inj IVPUSH SCH ×2 (11:39→16:56)
--- NOTE | 2017-03-31 11:59 | PCM.PNMED ---
Subjective Date of Service Mar 31, 2017 Subjective Patient remains somnolent yet improved from yesterday, alert and oriented x3 up from x1 yesterday. She continues to make stools with scheduled lactulose every 6 hours. She remains without nausea and vomiting and is eating with less complications. She would like to walk around more. Otherwise review of systems and subjective are not obtainable. No overnight events. Exam Vital Signs Vital Sign - Last Date Time Temp Pulse Resp B/P Pulse Ox O2 Delivery O2 Flow Rate FiO2 03/31/17 11:35 Room Air 03/31/17 10:07 36.7 86 18 109/82 95 03/29/17 03:26 1.50 Intake and Output 03/30/17 03/30/17 03/31/17 Cumulative From/Thru 15:00 23:00 07:00 03/18/17 15:13 - 03/31/17 05:14 Intake Total 636 ml 540 ml 25562 ml Output Total 900 ml 800 ml 72063 ml Balance -264 ml -260 ml -2562 ml Intake Oral 636 ml 540 ml 5616 ml IV Total 37102 ml Tube Feeding 1343 ml Packed Cells 2100 ml Cryoprecipitate 215 ml Tube Irrigant 2100 ml Output Urine Total 700 ml 500 ml 48448 ml Stool Total 200 ml 300 ml 6300 ml Urine/Stool Mix 1700 ml Emesis 500 ml # Voids 17 # Bowel Movements 8 Exam General: Somnolent, improved interaction, no acute distress or agitation noted. Jaundice. HEENT: Normocephalic, atraumatic, EOMI grossly, no JVD, sclera icteric, mucous membranes dry, Neck: supple with no lymphadenopathy. No JVD noted. Lungs: Clear to auscultation bilaterally, no W/R/R. Cardiovascular: Regular Rate and Rhythm, holosystolic murmur noted best at left sternal border. Abdominal: Abdomen is round, soft, bowel sounds present 4. Nontender to palpation. No ascites noted. Extremities: No edema appreciated. No tenderness. Left thigh hematoma decreases in size. Skin: jaundice, multiple areas of ecchymosis with large ecchymosis over the left torso and thigh. Right arm ecchymoses on the medial elbow. Neuro: unable to assess due to altered mental status. MSK: Decreased muscle mass IVs and Medications Medications Reviewed: Medications were reviewed in detail Lab and Diagnostics Result Diagram: 03/31/17 04503/31/17 0450 X-Rays, CTs and MRIs CT abdomen pelvis with contrast performed 03/20/2017 IMPRESSION: 1. Mild edema of the pancreatic head/uncinate process as well as adjacent duodenal C-loop with scattered mild fluid. Findings could be related to pancreatitis with secondary duodenitis or vice versa. Recommend correlation to enzyme levels. 2. Cholelithiasis without imaging evidence of cholecystitis. 3. Cirrhotic appearing liver with splenomegaly and appearance of varices suggestive of portal venous hypertension. 4. Mild dependent pelvic fluid. Dictated by: Breonna Augustin M.D. on 03/20/2017 at 16:32 CT pelvis with contrast performed 03/22/2017 IMPRESSION: 1. No significant change in presumed intramuscular hematoma within the left gluteus natasha. No change in subcutaneous edema versus cellulitis versus soft tissue injury within the proximal left thigh. No fracture. 3. 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 This could be further assessed using MR angiography, as well as MRI with and without intravenous contrast. 3. Increased, small amount of low-density ascites. Dictated by: Sally Kapoor M.D. on 03/23/2017 at 15:57 Right upper extremity sonogram performed 03/22/2017 IMPRESSION: 1. Heterogeneous subcutaneous collection demonstrated in the area of palpable abnormality suggestive of a hematoma. The differential is a soft tissue mass. Recommend correlation with clinical history and clinical followup. If there is persistent clinical concern, further evaluation may be obtained with MRI. Dictated by: Kaden Wheeler M.D. on 03/22/2017 at 12:11 CT brain without contrast performed 03/23/2017 IMPRESSION: No acute intracranial abnormality. Dictated by: Sally Kapoor M.D. on 03/23/2017 at 15:54 Chest x-ray performed 03/23/2017 IMPRESSION: 1. Left basilar density is suspicious for pneumonia versus atelectasis. Superimposed small pleural effusion cannot be excluded. 2. Probable cardiomegaly without overt heart failure. Dictated by: Toi Multani M.D. on 03/23/2017 at 12:41 Chest x-ray performed 03/24/2017 IMPRESSION: 1. Interval progression of pleural effusions with associated atelectasis or infiltrate left greater than right. 2. Recommend PA and lateral chest radiograph when the patient is able. Dictated by: Eduar Corbett M.D. on 03/24/2017 at 10:22 Additional Diagnostics US shows hematoma or soft tissue mass on right medial elbow Assessment & Plan Jorge A Wooten is a 61 year old woman with past medical history significant for alcoholic cirrhosis with esophageal varices, recurrent epistaxis , recurrent anemia, anxiety who presented to the [facility] emergency department and was initially admitted for severe anemia that required 7 units PRBCs to date. There is also evidence of possible DIC and hemolytic anemia based on her labs. In addition, patient is having severe signs and symptoms of alcohol withdrawal requiring large dose of benzodizepines and ICU care. Acute hepatic encephalopathy, present on Admission, Active and slowly improving. - Continue lactulose at every 6 hours and rifaximin. - Patient's swallow is near baseline according to speech. - Will advance diet. - Will consider d/c'ing FMS tube when stool/lactulose titration is around TID Acute alcohol withdrawal, improving. - Continue CIWA protocol treatment with lorazepam, avoiding diazepam secondary to decreased hepatic clearance and presence of liver failure. Severe alcoholic hepatitis and alcoholic cirrhosis, present on admission, stable. - Maddrey's discriminant function score of 39, MELD 21 today, EGD showed Portal gastropathy,Small esophageal varices. CT abd showed mild pelvic fluid. - Pt received one dose prednisolone 40mg 03/21, switched to Pentoxifylline TID per GI 03/22. - Consulted GI , appreciate further input, no plan for GI intervention at the moment. - Follow clinically and consider abdominal U/S if bilirubin level is not improved in the next couple days. Acute blood loss anemia, POA, stable. - The patient has multiple hematomas that may contribute to her anemia. She also does have a chronic anemia. She did receive multiple units of blood. At this point we will be following her closely. - Pathology is really not hemolyzed this at this point and direct Cassius test is negative. Schistocytes negative on blood smear. - Patient also likely has a degree of chronic bone marrow suppression secondary to her alcohol dependence. Pancytopenia, multifactorial, active and stable. - Likely secondary to bone marrow suppression from chronic etoh abuse, cirrhosis , GI bleed given history of variceal bleed and low platelets with elevated INR, or intracorporeal loss evidenced by ecchymosis on arms and torso. - There might be a DIC component. Several units of Cryoprecipitate has been given for low fibrinogen. Last Fibrinogen level is 140 and thus no further indication for Cryoprecipitate transfusion. - A recent abdominal ultrasound from 3 months ago reveals a normal-sized spleen - Hgb6 on admission, pt received several units of pRBC. FOBT negative. - Monitor H&H q12h, target hgb>7, transfuse as needed - Appreciate input - Started iron sulfate 325mg tid on 03/20 Acute hypoxic respiratory failure, not present on admission, Resolved. - Respiratory depression secondary to narcotics, brain bleed, developing pneumonia, heart failure are on the differential - Scheduled 20 mg Lasix IV BID Electrolytes imbalance, including hypokalemia and hypomagnesemia today POA, active. - Secondary to etoh withdrawal, GI fluid loss from c.diff colitis - Replete potassium and magnesium. This will continue to be an issue while on lactulose. C.diff colitis, found 03/20, active and improving. - Continue vancomycin 125mg q6h via NG tube. - Enteric precaution. Lactic acidosis, present on admission, resolved. -Likely due to tissue hypoxia from severe anemia as well as poor hepatic clearance due to cirrhosis. Acetaminophen for mild pain when necessary. Bowel regimen Senna and MiraLAX scheduled and PRN. Zofran when necessary for nausea and vomiting. SubQ heparin for now. SCDs in place. High-risk medications:NONE CODE STATUS: Full code dispo: Patient likely needs more support upon d/c. currently not ready for d/c. GI Prophylaxis: Proton Pump Inhibitor VTE Prophylaxis: Sub-Q Heparin (Unfractionated) VTE Mechanical Devices: Intermittant Pneumatic CD Resuscitation Status: CPR: Attempt Resuscitation Attending Statement I interviewed and examined the patient on rounds today. Significantly more alert today. Family states that she manages most ADLs some shopping and some chores at baseline. I agree with the assessment and plan as stated above. JUANITA HALL DO Mar 31, 2017 11:58 Davi Connor MD Apr 01, 2017 07:14
--- NOTE | 2017-03-31 18:20 | NUR ---
GI//Mentation Denies chest pain, bilateral pedal pulses palpated, no edema -- SR/tach 80s to 120s with activity. Denies SOB, no cough, O2 sats 93% on RA. No reports of n/v or abdominal pain. Patient reports gluteal pain, non specific in area, states "my bottom". No open areas. FMS draining pure liquid brown/yellow stool to gravity. [place] patent, draining cristobal/pink tinged urine to gravity. Small bites of food, improving. Advanced to soft diet.Pt. Drowsy, oriented to self, forgetful, frequently attempting to get out of bed, difficult to redirect, weakness in bilateral lower extremities, sitter at bedside. Increasing moments of clarity and increased strength, improved from Tuesday (03/28). Working with PT. Encouraging mobility with FWW (marching in place at bedside, patient becomes weaker as shift progresses).
--- NOTE | 2017-04-01 00:54 | NUR ---
Pt transported to [facility] at 2330, report given to MATY Nelson.
[2017-04-01] MEDS: Vancomycin 100 mg/mL Oral Solution PO SCH ×2 (02:36→09:28)
[2017-04-01 02:48] VITALS: BP 107/63; PULSE 84; RESP 16; O2SAT 92
--- NOTE | 2017-04-01 05:22 | NUR ---
Mentation Pt received from [facility] at approx. 2330 with report from Poli Zhang RN. All belongings transferred with patient at time of transfer. Pt AOx3 to assessment, though drowsy. Denies pain beyond generalized malaise and buttock discomfort from FMS being in place. Able to rest throughout shift; CIWA scores of 3. VSS. Sitter at bedside. Bandera alarm in place.
[2017-04-01 05:43] LABS: BASOPHILS % (AUTO) 0.7 % (0-3); EOSINOPHILS % (AUTO) 1.8 % (0-5); MONOCYTES % (AUTO) 11.1 % (4-12); Mean Corpuscular Hemoglobin 29.2 pg (27.0-35.0); Mean Corpuscular Volume 93.2 fL (81-100); NEUTROPHILS % (AUTO) 73.9 % (40-74); Platelet Count 142 bil/L (150-400)
[2017-04-01 05:54] LABS: INR 1.3 ratio
[2017-04-01] MEDS ORDERED: Potassium Chloride 20 mEq SR Tab (K < 3 & Creat <2) PO ONE (06:55)
[2017-04-01] MEDS: Pantoprazole 4 mg/mL 10 mL Inj IVPUSH SCH (07:30)
[2017-04-01 08:00] VITALS: PULSE 76
--- NOTE | 2017-04-01 08:26 | PROG NOTE ---
[address] [address] PROGRESS NOTE PATIENT: AIRAM HUGHES : 1955 MR#: [id number] ADMIT: 03/18/2017 JOB ID: [id number] DATE: 04/01/2017 SUBJECTIVE: The patient continues to have suboptimal cognitive capacity but is speaking more forcefully, much more conversational with family today. No GI bleeding. She is eating by mouth. Still having considerable stool output per FMS and still has a [place] catheter in situ. OBJECTIVE: Vital signs demonstrate stability. Blood pressure this afternoon 108/68, pulse 86, breathing 18, temperature 37, 93% on room air. The patient was indeed much more conversational and was alert and oriented to location, time, person. She recognizes the need to eat and is concerned about having the rectal tube attached and [place] catheter in situ. LABORATORIES: White count 11.4, hemoglobin 10.1, platelets of 150. INR 1.30. Bilirubin is down to 9.6. Creatinine 0.3, sodium 135. ASSESSMENT AND RECOMMENDATIONS: This is a 61-year-old female with alcohol abuse and liver disease. She has demonstrated high discriminant function and the need for a pentoxifylline. DIC has resolved. She still has evidence of some moderate hepatic encephalopathy. Recommend continuing the rifaximin, but I think that the lactulose could arguably be tapered back slightly so that she is having three bowel movements per day and perhaps the FMS can be removed. Ideally the [place] catheter could be removed and she could be introduced to more intensive physical therapy. Challenging situation in that she was at the outset diagnosed with C difficile infection and, therefore, at present the therapy for this needs to continue. If the patient does not continue to improve and/or conversely deteriorates clinically, then I would recommend a diagnostic paracentesis to exclude the development of SBP.
[2017-04-01] MEDS: Multivit-Miner-Folic Acid-Iron Tablet PO SCH (09:28)
[2017-04-01] MEDS: FERROUS SULFATE 44 MG/ML PO SCH (09:28)
[2017-04-01] MEDS: Pentoxifylline 400 mg ER12 Tablet PO SCH ×3 (09:28→21:24)
[2017-04-01] MEDS: Furosemide 10 mg/mL 2 mL Inj IVPUSH SCH ×2 (09:28→21:24)
[2017-04-01] MEDS: Lactulose 20 Gm/30 mL 30 mL Syrup PO SCH ×2 (09:28→21:24)
[2017-04-01] MEDS: Heparin 5,000 Unit/mL Inj SUBQ SCH ×2 (09:29→21:24)
[2017-04-01 09:35] VITALS: BP 120/75; PULSE 71; RESP 16; O2SAT 96
[2017-04-01] MEDS ORDERED: LORazepam 1 mg Tablet PO PRN (12:50)
--- NOTE | 2017-04-01 13:11 | NUR ---
Agitation Pt up with PT to sit in chair for lunch. After PT left pt wanted to go to the bathroom. Explained that she had a FMS and a jerome and how they worked. Pt upset and wants them removed and wants to walk into bathroom. MD aware and said the FMS could be taken out to help with agitation. FMS removed, jerome left in place, brief placed, and pt sat on BSC due to unsteadiness and weakness unable to walk into bathroom. 1mg IV Ativan push given. When rechecked in on pt she was resting in bed comfortably.
--- NOTE | 2017-04-01 14:05 | NUR ---
NUTRITION FOLLOW-UP: ASSESS: 61 YO F admitted with severe anemia, weakness and ETOH withdrawal, MD notes moderate hepatic encephalopathy. Pt has history of alcoholism and likely had poor PO intake prior to admit. She is currently on CIWA protocol. Mentation slowly improving, RN notes indicate pt A&O x 3, though drowsy. Pt diet advanced to soft with improvement in po intake, although taking in only bites. Continues to receive supplement. MD alerted to moderate malnutrition. PMHX: Alcoholic cirrhosis, portal gastropathy, esophageal varices, HTN, anemia. LABS: Reviewed. Glu 112, Bili 8.8, Alb 3.2 MEDS: Reviewed. Thiamine, MVI, Lactulose, Lasix. GI: FMS, 450ml output 03/29--- FMS removed per RN notes d/t pt agitation; n/v improved SKIN: visible fat loss in face, arms and legs. WT: 60 kg, BMI 20.7 kg/m2, Admit wt 62.5 kg. DIET: Soft. PO: Bites ESTIMATED NEEDS: liver disease Calories: 3837-1085 kcal/day (25-30 kcal/kg BW) Protein: 80-105 g/day (1.2-1.5 g/kg BW) Fluids: ~1800 ml/day (25 ml/kg) NUTRITION DIAGNOSIS: 1) Inadequate oral intake related to chronic alcohol abuse as evidenced by NPO status, ---IMPROVING. Diet now advanced to soft. 2) Moderate pro/kcal malnutrition in the context of chronic illness related to alcoholism as evidence by mild fat loss, altered electrolytes, PO intake of <75% estimated energy requirements for >1month due to chronic alcohol use - PERSISTS. NUTRITION INTERVENTION: 1) Continue Magic cup supplements, diet per ST. MONITOR/EVALUATE: diet advance, wt, labs, POC, GI/nutrition status. Follow per high nutrition risk guidelines.
--- NOTE | 2017-04-01 14:20 | NUR ---
Social Work: Attempted CD assessment PERSONAL [employer]ES INSURANCE AGENT met with pt at bedside, pt unable to participate in conversation due to falling alseep during conversation. Pt did state before falling back asleep that she did not know which hospital she was at. PERSONAL LINES INSURANCE AGENT will attempt to complete CD assessment when appropriate. ROSA Carcamo
--- NOTE | 2017-04-01 14:27 | PCM.PNMED ---
Subjective Date of Service Apr 01, 2017 Subjective pt was awake, conversive, remarkable oriented X3, but intermittent confused, I was in camp, they didn't let me go to the bathroom looked more wasted since last week. noticed pt refused s/s eval 2days ago, reordered rectal tube in place, noted black loose stools. Exam Vital Signs Vital Sign - Last Date Time Temp Pulse Resp B/P Pulse Ox O2 Delivery O2 Flow Rate FiO2 04/01/17 02:48 37.2 84 16 107/63 92 Room Air 03/29/17 03:26 1.50 Intake and Output 03/31/17 03/31/17 04/01/17 Cumulative From/Thru 14:59 22:59 06:59 03/18/17 15:13 - 04/01/17 05:04 Intake Total 1200 ml 500 ml 89487 ml Output Total 1250 ml 700 ml 72067 ml Balance -50 ml -200 ml -2812 ml Intake Oral 1200 ml 500 ml 7316 ml IV Total 26735 ml Tube Feeding 1343 ml Packed Cells 2100 ml Cryoprecipitate 215 ml Tube Irrigant 2100 ml Output Urine Total 650 ml 700 ml 27181 ml Stool Total 600 ml 6900 ml Urine/Stool Mix 1700 ml Emesis 500 ml # Voids 17 # Bowel Movements 8 Exam looked wasted, weak, comfortably laying down on the bed no resting tremors, no tongue fasciculation mild tremors on extended arms, no flapping tremors no JVD, MMM, no LAD RRR, nl s1, s2 no mrg CTAB, no w,c S,ND,distended,BS+ warm, no edema, pulses 2/2 IVs and Medications Medications Reviewed: Medications were reviewed in detail Lab and Diagnostics Result Diagram: 04/01/17 0510 04/01/17 0510 X-Rays, CTs and MRIs CT abdomen pelvis with contrast performed 03/20/2017 IMPRESSION: 1. Mild edema of the pancreatic head/uncinate process as well as adjacent duodenal C-loop with scattered mild fluid. Findings could be related to pancreatitis with secondary duodenitis or vice versa. Recommend correlation to enzyme levels. 2. Cholelithiasis without imaging evidence of cholecystitis. 3. Cirrhotic appearing liver with splenomegaly and appearance of varices suggestive of portal venous hypertension. 4. Mild dependent pelvic fluid. Dictated by: Breonna Augustin M.D. on 03/20/2017 at 16:32 CT pelvis with contrast performed 03/22/2017 IMPRESSION: 1. No significant change in presumed intramuscular hematoma within the left gluteus natasha. No change in subcutaneous edema versus cellulitis versus soft tissue injury within the proximal left thigh. No fracture. 3. 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 This could be further assessed using MR angiography, as well as MRI with and without intravenous contrast. 3. Increased, small amount of low-density ascites. Dictated by: Sally Kapoor M.D. on 03/23/2017 at 15:57 Right upper extremity sonogram performed 03/22/2017 IMPRESSION: 1. Heterogeneous subcutaneous collection demonstrated in the area of palpable abnormality suggestive of a hematoma. The differential is a soft tissue mass. Recommend correlation with clinical history and clinical followup. If there is persistent clinical concern, further evaluation may be obtained with MRI. Dictated by: Kaden Wheeler M.D. on 03/22/2017 at 12:11 CT brain without contrast performed 03/23/2017 IMPRESSION: No acute intracranial abnormality. Dictated by: Sally Kapoor M.D. on 03/23/2017 at 15:54 Chest x-ray performed 03/23/2017 IMPRESSION: 1. Left basilar density is suspicious for pneumonia versus atelectasis. Superimposed small pleural effusion cannot be excluded. 2. Probable cardiomegaly without overt heart failure. Dictated by: Toi Multani M.D. on 03/23/2017 at 12:41 Chest x-ray performed 03/24/2017 IMPRESSION: 1. Interval progression of pleural effusions with associated atelectasis or infiltrate left greater than right. 2. Recommend PA and lateral chest radiograph when the patient is able. Dictated by: Eduar Corbett M.D. on 03/24/2017 at 10:22 Additional Diagnostics US shows hematoma or soft tissue mass on right medial elbow Assessment & Plan Jorge A HoytQuintenSagrario is a 61 year old woman with past medical history significant for alcoholic cirrhosis with esophageal varices, recurrent epistaxis , recurrent anemia, anxiety who presented to the [facility] emergency department and was initially admitted for severe anemia that required 7 units PRBCs to date. There is also evidence of possible DIC and hemolytic anemia based on her labs. In addition, patient is having severe signs and symptoms of alcohol withdrawal requiring large dose of benzodizepines and ICU care. pt was transferred from ICU to [facility] given stable condition 03/31. acute, active Acute encephalopathy, present on Admission, alcohol induced and hepatic - Currently, pt is hospital stay day 14, persistent confusion likely more driven from HE even considering hepatic function, rather than alcohol WD - stop CIWA protocol, will try ativan 1mg tid prn for agitation. - Continue lactulose at every 6 hours and rifaximin. - s/s eval again to advance diet, should meet nutritional target - rectal tube d/cheri as pt c/o uncomfortableness, Severe alcoholic hepatitis and alcoholic cirrhosis, present on admission, high DF/MELD, EGD showed Portal gastropathy,Small esophageal varices. CT abd showed mild pelvic fluid. Bilirubin peaked at 12.8 at 03/28 then trending down. -overall pt is improving. - Pt received one dose prednisolone 40mg 03/21, switched to Pentoxifylline TID per GI 03/22. - appreciate follow up, recommended abd US guided paracetensis if amount is enough to rule out SBP Acute hypoxic respiratory failure, not present on admission, likely hypervolemic with cirrhosis, iatrogenic with multiple transfusion, IVF. -respiratory status remains stable, good SpO2 on RA -switch 20 mg Lasix IV BID to 40mg po bid today moderate protein malnutrition in the setting of hypercatabolic state with cirrhosis, POA, BMI20.7, appreciate nutrition consult input. advance diet as much as possible chronic, stable, resolved Acute blood loss anemia, POA, stable. The patient has multiple hematomas that may contribute to her anemia. She also does have a chronic anemia. She did receive multiple units of blood. Pathology is really not hemolyzed this at this point and direct Cassius test is negative. Schistocytes negative on blood smear. Patient also likely has a degree of chronic bone marrow suppression secondary to her alcohol dependence, monitor h/h daily for now Pancytopenia, multifactorial, active and stable. - Likely secondary to bone marrow suppression from chronic etoh abuse, cirrhosis , GI bleed given history of variceal bleed and low platelets with elevated INR, or intracorporeal loss evidenced by ecchymosis on arms and torso. - There might be a DIC component. Several units of Cryoprecipitate has been given for low fibrinogen. Last Fibrinogen level is 140 and thus no further indication for Cryoprecipitate transfusion. - A recent abdominal ultrasound from 3 months ago reveals a normal-sized spleen - Hgb6 on admission, pt received several units of pRBC. FOBT negative. - Monitor H&H q12h, target hgb>7, transfuse as needed - Appreciate input - Started iron sulfate 325mg tid on 03/20 Acute alcohol withdrawal, pt was on CIWA protocol treatment with lorazepam, avoiding diazepam secondary to decreased hepatic clearance and presence of liver failure. It seemed resolved Electrolytes imbalance, including hypokalemia and hypomagnesemia today POA, active. - Secondary to etoh withdrawal, GI fluid loss from c.diff colitis - Replete potassium and magnesium. This will continue to be an issue while on lactulose. C.diff colitis, found 03/20, active and improving. - Continue vancomycin 125mg q6h via NG tube. - Enteric precaution. Lactic acidosis, present on admission, resolved. -Likely due to tissue hypoxia from severe anemia as well as poor hepatic clearance due to cirrhosis. Acetaminophen for mild pain when necessary. Bowel regimen Senna and MiraLAX scheduled and PRN. Zofran when necessary for nausea and vomiting. SubQ heparin for now. SCDs in place. High-risk medications:NONE CODE STATUS: Full code dispo: pending 2-3more days, home with EVARISTO, RN, PT/OT, refusing SNF GI Prophylaxis: Proton Pump Inhibitor VTE Prophylaxis: Sub-Q Heparin (Unfractionated) VTE Mechanical Devices: Intermittant Pneumatic CD Resuscitation Status: CPR: Attempt Resuscitation Time spent 35min Krista Newby MD Apr 01, 2017 08:47
[2017-04-01] MEDS: Vancomycin 125 mg Oral Capsule PO SCH ×2 (15:07→21:24)
--- NOTE | 2017-04-01 16:25 | NUR ---
Social Work: Continued d/c planning Data: Pt is on day 14 of hospitalization. EMR reviewed, pt discussed in multidisciplinary rounds. MD states pt not ready for d/c at this time. ordered SNF/HH for [employer]. [employer] spoke with pt at bedside, not capable of conversation at this time. [employer] spoke with pt's spouse regarding SNF choice, he accepted SNF choice list and [employer] will follow up regarding choice at a later time. Pt's spouse really wants pt to get into a treatment program for alcohol use. [employer] explained CD assessment process and that when pt is clear, this option will be made available. Assessment: Pt who is independent at baseline, currently not capable of self care. Plan: [employer] will follow up with pt's spouse regarding SNF choice. [employer] will continue to attempt CD assessment with pt. ROSA Carcamo
--- NOTE | 2017-04-01 16:45 | PROG NOTE ---
[address] [address] PROGRESS NOTE PATIENT: AIRAM HUGHES : 1955 MR#: [id number] ADMIT: 03/18/2017 JOB ID: [id number] DATE: 04/01/2017 SUBJECTIVE: Fecal management system has been removed. Stooling has been a little bit more manageable. She still is rather somnolent in spite of no sedatives. Mild leukocytosis. [place] catheter remains in-situ. She is afebrile. OBJECTIVE: Vital signs are quite stable. The patient is in no distress. She is resting and follows commands. She is oriented x3. LABORATORY DATA: Labs reviewed. Mild leukocytosis. RECOMMENDATIONS: Alcohol-induced cirrhosis complicated by high discriminate function withdrawal (treated). C. difficile infection, on vanco, and hepatic encephalopathy. She is extremely slow to come around. CT of the head has been negative. I agree with continued lactulose with the caveat of titrating it to three bowel movements per day. Continue rifaximin. The patient had a small amount of ascites at presentation and I suspect this has increased. Her abdomen remains soft, but I would recommend she be considered for a diagnostic tap to exclude the development of SBP. Dr. Alberto will be on-call for Gastroenterology through the weekend.
[2017-04-01] MEDS: Pantoprazole 40 mg ER24 Tablet PO SCH (17:06)
[2017-04-01 21:18] VITALS: BP 101/59; PULSE 82; RESP 16; O2SAT 94
[2017-04-02 00:27] VITALS: BP 128/77; PULSE 90; RESP 18; O2SAT 96
[2017-04-02] MEDS: Vancomycin 125 mg Oral Capsule PO SCH ×4 (02:54→20:39)
[2017-04-02 04:31] VITALS: BP 103/65; PULSE 89; RESP 16; O2SAT 93
[2017-04-02 06:04] LABS: BASOPHILS % (AUTO) 0.6 % (0-3); EOSINOPHILS % (AUTO) 1.3 % (0-5); MONOCYTES % (AUTO) 10.1 % (4-12); Mean Corpuscular Hemoglobin 29.6 pg (27.0-35.0); NEUTROPHILS % (AUTO) 77.1 % (40-74); Platelet Count 177 bil/L (150-400)
[2017-04-02 06:09] LABS: INR 1.3 ratio
--- NOTE | 2017-04-02 06:21 | NUR ---
Activity 2PA BSC with unsteady gait and generalized weakness. No attempts to get OOB indep this shift. Using call light for needs. Currently resting without any complaints.
[2017-04-02 09:25] VITALS: BP 111/68; PULSE 82; RESP 16; O2SAT 97
[2017-04-02] MEDS: Pantoprazole 40 mg ER24 Tablet PO SCH ×2 (09:48→15:48)
[2017-04-02] MEDS: Multivit-Miner-Folic Acid-Iron Tablet PO SCH (09:48)
[2017-04-02] MEDS: Furosemide 10 mg/mL 2 mL Inj IVPUSH SCH (09:49)
[2017-04-02] MEDS: Pentoxifylline 400 mg ER12 Tablet PO SCH ×3 (09:49→20:39)
[2017-04-02] MEDS: Lactulose 20 Gm/30 mL 30 mL Syrup PO SCH ×2 (09:49→20:39)
[2017-04-02] MEDS: Heparin 5,000 Unit/mL Inj SUBQ SCH ×2 (09:49→20:40)
--- NOTE | 2017-04-02 12:05 | PCM.PNMED ---
Subjective Date of Service Apr 02, 2017 Subjective pt looked still confused, weak but tolerating general diet with assistance denied abd pain, n, v, having appetite awaits abd US for paracentesis, INR1.3 unchanged today Exam Vital Signs Vital Sign - Last Date Time Temp Pulse Resp B/P Pulse Ox O2 Delivery O2 Flow Rate FiO2 04/02/17 04:31 37.3 89 16 103/65 93 Nasal Cannula 2.00 Intake and Output 04/01/17 04/01/17 04/02/17 Cumulative From/Thru 15:00 23:00 07:00 03/18/17 15:13 - 04/02/17 06:37 Intake Total 517 ml 100 ml 49510 ml Output Total 450 ml 475 ml 14347 ml Balance 67 ml -375 ml -3120 ml Intake Oral 517 ml 100 ml 7933 ml IV Total 54650 ml Tube Feeding 1343 ml Packed Cells 2100 ml Cryoprecipitate 215 ml Tube Irrigant 2100 ml Output Urine Total 450 ml 475 ml 56934 ml Stool Total 6900 ml Urine/Stool Mix 1700 ml Emesis 500 ml # Voids 17 # Bowel Movements 1 1 10 Exam looked wasted, weak, more lively than yesterday, comfortably laying down on the bed no resting tremors, no tongue fasciculation mild tremors on extended arms, no flapping tremors no JVD, MMM, no LAD RRR, nl s1, s2 no mrg CTAB, no w,c S,ND,distended,BS+ warm, no edema, pulses 2/2 IVs and Medications Medications Reviewed: Medications were reviewed in detail Lab and Diagnostics Result Diagram: 04/02/17 0500 04/02/17 0500 X-Rays, CTs and MRIs CT abdomen pelvis with contrast performed 03/20/2017 IMPRESSION: 1. Mild edema of the pancreatic head/uncinate process as well as adjacent duodenal C-loop with scattered mild fluid. Findings could be related to pancreatitis with secondary duodenitis or vice versa. Recommend correlation to enzyme levels. 2. Cholelithiasis without imaging evidence of cholecystitis. 3. Cirrhotic appearing liver with splenomegaly and appearance of varices suggestive of portal venous hypertension. 4. Mild dependent pelvic fluid. Dictated by: Breonna Augustin M.D. on 03/20/2017 at 16:32 CT pelvis with contrast performed 03/22/2017 IMPRESSION: 1. No significant change in presumed intramuscular hematoma within the left gluteus natasha. No change in subcutaneous edema versus cellulitis versus soft tissue injury within the proximal left thigh. No fracture. 3. 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 This could be further assessed using MR angiography, as well as MRI with and without intravenous contrast. 3. Increased, small amount of low-density ascites. Dictated by: Sally Kapoor M.D. on 03/23/2017 at 15:57 Right upper extremity sonogram performed 03/22/2017 IMPRESSION: 1. Heterogeneous subcutaneous collection demonstrated in the area of palpable abnormality suggestive of a hematoma. The differential is a soft tissue mass. Recommend correlation with clinical history and clinical followup. If there is persistent clinical concern, further evaluation may be obtained with MRI. Dictated by: Kaden Wheeler M.D. on 03/22/2017 at 12:11 CT brain without contrast performed 03/23/2017 IMPRESSION: No acute intracranial abnormality. Dictated by: Sally Kapoor M.D. on 03/23/2017 at 15:54 Chest x-ray performed 03/23/2017 IMPRESSION: 1. Left basilar density is suspicious for pneumonia versus atelectasis. Superimposed small pleural effusion cannot be excluded. 2. Probable cardiomegaly without overt heart failure. Dictated by: Toi Multani M.D. on 03/23/2017 at 12:41 Chest x-ray performed 03/24/2017 IMPRESSION: 1. Interval progression of pleural effusions with associated atelectasis or infiltrate left greater than right. 2. Recommend PA and lateral chest radiograph when the patient is able. Dictated by: Eduar Corbett M.D. on 03/24/2017 at 10:22 Additional Diagnostics US shows hematoma or soft tissue mass on right medial elbow Assessment & Plan Jorge A Wooten is a 61 year old woman with past medical history significant for alcoholic cirrhosis with esophageal varices, recurrent epistaxis , recurrent anemia, anxiety who presented to the [facility] emergency department and was initially admitted for severe anemia that required 7 units PRBCs to date. There is also evidence of possible DIC and hemolytic anemia based on her labs. In addition, patient is having severe signs and symptoms of alcohol withdrawal requiring large dose of benzodizepines and ICU care. pt was transferred from ICU to [facility] given stable condition 03/31. acute, active Acute encephalopathy, present on Admission, alcohol induced and hepatic - Currently, pt is hospital stay day 15, persistent confusion likely more driven from HE even considering hepatic function, rather than alcohol WD - stopped CIWA protocol 04/01, continue ativan 1mg tid prn for agitation. - Continue lactulose at every 6 hours and rifaximin, target BM>3/d - advanced diet, pt tolerated well - rectal tube d/cheri 04/01 as pt c/o uncomfortableness, Severe alcoholic hepatitis and alcoholic cirrhosis, present on admission, high DF/MELD, EGD showed Portal gastropathy,Small esophageal varices. CT abd showed mild pelvic fluid. Bilirubin peaked at 12.8 at 03/28 then trending down. -overall pt is stable clinically - Pt received one dose prednisolone 40mg 03/21, switched to Pentoxifylline TID per GI 03/22. - appreciate follow up, recommended abd US guided paracetensis if amount is enough to rule out SBP - will attempt parecentesis in 1-2days based on availability of staffs Acute hypoxic respiratory failure, not present on admission, likely hypervolemic with cirrhosis, iatrogenic with multiple transfusion, IVF. -respiratory status remains stable, good SpO2 on RA -switch 20 mg Lasix IV BID to 40mg po daily today moderate protein malnutrition in the setting of hypercatabolic state with cirrhosis, POA, BMI20.7, appreciate nutrition consult input. advance diet as much as possible chronic, stable, resolved Acute blood loss anemia, POA, stable. The patient has multiple hematomas that may contribute to her anemia. She also does have a chronic anemia. She did receive multiple units of blood. Pathology is really not hemolyzed this at this point and direct Cassius test is negative. Schistocytes negative on blood smear. Patient also likely has a degree of chronic bone marrow suppression secondary to her alcohol dependence, monitor h/h daily for now Pancytopenia, multifactorial, active and stable. - Likely secondary to bone marrow suppression from chronic etoh abuse, cirrhosis , GI bleed given history of variceal bleed and low platelets with elevated INR, or intracorporeal loss evidenced by ecchymosis on arms and torso. - There might be a DIC component. Several units of Cryoprecipitate has been given for low fibrinogen. Last Fibrinogen level is 140 and thus no further indication for Cryoprecipitate transfusion. - A recent abdominal ultrasound from 3 months ago reveals a normal-sized spleen - Hgb6 on admission, pt received several units of pRBC. FOBT negative. - Monitor H&H q12h, target hgb>7, transfuse as needed - Appreciate input - Started iron sulfate 325mg tid on 03/20 Acute alcohol withdrawal, pt was on CIWA protocol treatment with lorazepam, avoiding diazepam secondary to decreased hepatic clearance and presence of liver failure. It seemed resolved Electrolytes imbalance, including hypokalemia and hypomagnesemia today POA, active. - Secondary to etoh withdrawal, GI fluid loss from c.diff colitis - Replete potassium and magnesium. This will continue to be an issue while on lactulose. C.diff colitis, found 03/20, active and improving. - Continue vancomycin 125mg q6h oral - Enteric precaution. Lactic acidosis, present on admission, resolved. -Likely due to tissue hypoxia from severe anemia as well as poor hepatic clearance due to cirrhosis. Acetaminophen for mild pain when necessary. Bowel regimen Senna and MiraLAX scheduled and PRN. Zofran when necessary for nausea and vomiting. SubQ heparin for now. SCDs in place. High-risk medications:NONE CODE STATUS: Full code dispo: pending 2-3more days, SNF appropriate GI Prophylaxis: Proton Pump Inhibitor VTE Prophylaxis: Sub-Q Heparin (Unfractionated) VTE Mechanical Devices: Intermittant Pneumatic CD Resuscitation Status: CPR: Attempt Resuscitation Time spent 35min Krista Newby MD Apr 02, 2017 09:13
--- NOTE | 2017-04-02 13:55 | PCM.PNSURG ---
Subjective Date of Service: Apr 02, 2017 Date of Service: Apr 02, 2017 Visit Information: Subjective: no acute events overnight. bm x2 overnight. await u/s guided diagnostic paracentesis. No complaints. on lactulose/xifaxan for HE. Vanco for c.diff, pentoxyfilline for acute etoh hepatitis. Postop General: No Complaints Objective Vital Sign- Last 8 Hours Date Time Temp Pulse Resp B/P Pulse Ox O2 Delivery O2 Flow Rate FiO2 04/02/17 11:21 Room Air 04/02/17 09:45 Supplement Oxygen 04/02/17 09:25 36.8 82 16 111/68 97 Nasal Cannula 2.00 Intake and Output- Last 8 Hour 04/02/17 Cumulative From/Thru 07:00 03/18/17 15:13 - 04/02/17 06:37 Intake Total 100 ml 18040 ml Output Total 475 ml 61164 ml Balance -375 ml -3120 ml Intake Oral 100 ml 7933 ml IV Total 24289 ml Tube Feeding 1343 ml Packed Cells 2100 ml Cryoprecipitate 215 ml Tube Irrigant 2100 ml Output Urine Total 475 ml 23644 ml Stool Total 6900 ml Urine/Stool Mix 1700 ml Emesis 500 ml # Voids 17 # Bowel Movements 1 10 General: Oriented X3 Neck: Supple Lungs: Clear to Auscultation Heart: Exam Unremarkable Abdomen: Benign, Soft, Non-tender, Non-distended, Normoactive bowel tones Extremities: Distal Pulses Palpable Result Diagram: 04/02/17 0500 04/02/17 0500 Assessment & Plan Impression 61-year-old female with alcoholic cirrhosis MELD 14 on labs 03/18/2017, now MELD 17 on labs 04/02/2017, portal gastropathy, small esophageal varices, and anemia admitted 03/18/2017 for severe anemia. Pt MDR 33.2 on labs 03/21. She had a hemoglobin of 6.7 on March 02. s/p egd 01/21/2017- small esoph varices, portal htn gastropathy. Pt received one dose prednisolone 40mg 03/21 for acute etoh hepatitis, switched to Pentoxifylline TID 03/[address] infection. [address] abdomen pelvis contrast 03/20/2017- 1. Mild edema of the pancreatic head/uncinate process as well as adjacent duodenal C-loop with scattered mild fluid. Findings could be related to pancreatitis with secondary duodenitis or vice versa. Recommend correlation to enzyme levels. 2. Cholelithiasis without imaging evidence of cholecystitis. 3. Cirrhotic appearing liver with splenomegaly and appearance of varices suggestive of portal venous hypertension. 4. Mild dependent pelvic fluid Labs 04/02- pt 14, inr 1.3, tbili 8.1, ast 71, alt 39 alk phosph 86, creat 0.3, albumin 3.4 Recs: - await u/s guided diagnostic paracentesis - cont lactulose, xifaxan- titrate 3bm/day - cont vancomycin for c.diff - cont Pentoxifylline 400mg po tid for etoh hepatitis- Maddrey score 33.2 on labs 03/21. Pt currently with c.diff - cont lasix 40mg po qday - cont mvi, thiamine - etoh cessation will continue to follow Problems: VTE Prophylaxis: Sub-Q Heparin (Unfractionated) Resuscitation Status: CPR: Attempt Resuscitation Thomas Alberto MD Apr 02, 2017 13:55
[2017-04-02 15:44] VITALS: BP 99/57; PULSE 85; RESP 16; O2SAT 93
--- NOTE | 2017-04-02 18:33 | NUR ---
Ambulation/Mentation Pt. got up with PT and used FWW to ambulate around the room, per PT Pt. ambulated about 60ft. See PT notes for more. Pt. sat in the chair for about an hour before requesting to go back in bed. Pt. used BSC for BM and was a 1pa using FWW. Pt. still appears to be confused at times but can be alert and orientated to self and place as well as day. Will continue to monitor.
[2017-04-02 21:08] VITALS: BP 133/78; PULSE 97; RESP 16; O2SAT 97
[2017-04-03] MEDS: Vancomycin 125 mg Oral Capsule PO SCH ×4 (01:52→20:18)
[2017-04-03 05:40] VITALS: BP 101/46; PULSE 85; RESP 16; O2SAT 91
[2017-04-03 05:42] LABS: BASOPHILS % (AUTO) 0.6 % (0-3); EOSINOPHILS % (AUTO) 1.4 % (0-5); MONOCYTES % (AUTO) 10.3 % (4-12); Mean Corpuscular Hemoglobin 29.8 pg (27.0-35.0); Mean Corpuscular Volume 94.3 fL (81-100); NEUTROPHILS % (AUTO) 77.2 % (40-74); Platelet Count 175 bil/L (150-400)
[2017-04-03 05:57] LABS: INR 1.27 ratio
[2017-04-03] MEDS: Heparin 5,000 Unit/mL Inj SUBQ SCH ×2 (08:22→20:32)
[2017-04-03] MEDS: Pentoxifylline 400 mg ER12 Tablet PO SCH ×3 (08:22→20:17)
[2017-04-03] MEDS: Pantoprazole 40 mg ER24 Tablet PO SCH ×2 (08:22→17:22)
[2017-04-03] MEDS: Multivit-Miner-Folic Acid-Iron Tablet PO SCH (08:22)
[2017-04-03] MEDS: Lactulose 20 Gm/30 mL 30 mL Syrup PO SCH ×2 (08:23→20:14)
--- NOTE | 2017-04-03 09:26 | PCM.PNSURG ---
Subjective Date of Service: Apr 03, 2017 Date of Service: Apr 03, 2017 Visit Information: Subjective: no acute events overnight. bm x3 overnight. await u/s guided diagnostic paracentesis. No complaints. on lactulose/xifaxan for HE. Vanco for c.diff, pentoxyfilline for acute etoh hepatitis. Postop General: No Complaints Objective Vital Sign- Last 8 Hours Date Time Temp Pulse Resp B/P Pulse Ox O2 Delivery O2 Flow Rate FiO2 04/03/17 05:40 36.9 85 16 101/46 91 Room Air Intake and Output- Last 8 Hour 04/03/17 Cumulative From/Thru 07:00 03/18/17 15:13 - 04/03/17 05:40 Intake Total 0 ml 58323 ml Output Total 325 ml 17847 ml Balance -325 ml -3209 ml Intake Oral 0 ml 8669 ml IV Total 24794 ml Tube Feeding 1343 ml Packed Cells 2100 ml Cryoprecipitate 215 ml Tube Irrigant 2100 ml Output Urine Total 325 ml 04831 ml Stool Total 6900 ml Urine/Stool Mix 1700 ml Emesis 500 ml # Voids 17 # Bowel Movements 1 12 General: Oriented X3 Neck: Supple Lungs: Clear to Auscultation Heart: Exam Unremarkable Abdomen: Benign, Soft, Non-tender, Non-distended, Normoactive bowel tones Extremities: Distal Pulses Palpable Result Diagram: 04/03/17 0500 04/03/17 0500 Assessment & Plan Impression 61-year-old female with alcoholic cirrhosis MELD 14 on labs 03/18/2017, now MELD 17 on labs 04/02/2017, portal gastropathy, small esophageal varices, and anemia admitted 03/18/2017 for severe anemia. Pt MDR 33.2 on labs 03/21. She had a hemoglobin of 6.7 on March 02. s/p egd 01/21/2017- small esoph varices, portal htn gastropathy. Pt received one dose prednisolone 40mg 03/21 for acute etoh hepatitis, switched to Pentoxifylline TID 03/[address] due to c[address]diff infection. Ct abdomen pelvis contrast 03/20/2017- 1. Mild edema of the pancreatic head/uncinate process as well as adjacent duodenal C-loop with scattered mild fluid. Findings could be related to pancreatitis with secondary duodenitis or vice versa. Recommend correlation to enzyme levels. 2. Cholelithiasis without imaging evidence of cholecystitis. 3. Cirrhotic appearing liver with splenomegaly and appearance of varices suggestive of portal venous hypertension. 4. Mild dependent pelvic fluid Labs 04/02- pt 14, inr 1.3, tbili 8.1, ast 71, alt 39 alk phosph 86, creat 0.3, albumin 3.4 Recs: - await u/s guided diagnostic paracentesis - cont lactulose, xifaxan- titrate 3bm/day - cont vancomycin for c.diff - cont Pentoxifylline 400mg po tid for etoh hepatitis- Maddrey score 33.2 on labs 03/21. Pt currently with c.diff - cont lasix 40mg po qday - cont mvi, thiamine - etoh cessation Dr. Toño Stevens returns on Wednesday 04/04. Problems: VTE Prophylaxis: Sub-Q Heparin (Unfractionated) Resuscitation Status: CPR: Attempt Resuscitation Thomas Alberto MD Apr 03, 2017 09:26
--- NOTE | 2017-04-03 10:29 | PCM.PNMED ---
Subjective Date of Service Apr 03, 2017 Subjective pt looked more lucid, admitted that she was hospitalized with etoh drinking AAOx3, but intermittent confused, eating well with good appetite Exam Vital Signs Vital Sign - Last Date Time Temp Pulse Resp B/P Pulse Ox O2 Delivery O2 Flow Rate FiO2 04/03/17 05:40 36.9 85 16 101/46 91 Room Air 04/02/17 21:08 2.00 Intake and Output 04/02/17 04/02/17 04/03/17 Cumulative From/Thru 15:00 23:00 07:00 03/18/17 15:13 - 04/03/17 05:40 Intake Total 736 ml 0 ml 28063 ml Output Total 500 ml 325 ml 95901 ml Balance 236 ml -325 ml -3209 ml Intake Oral 736 ml 0 ml 8669 ml IV Total 50628 ml Tube Feeding 1343 ml Packed Cells 2100 ml Cryoprecipitate 215 ml Tube Irrigant 2100 ml Output Urine Total 500 ml 325 ml 21317 ml Stool Total 6900 ml Urine/Stool Mix 1700 ml Emesis 500 ml # Voids 17 # Bowel Movements 1 1 12 Exam comfortably laying down on the bed mild resting tremors, no tongue fasciculation mild tremors on extended arms, no flapping tremors no JVD, MMM, no LAD, icteric sclerae RRR, nl s1, s2 no mrg CTAB, no w,c S,ND,distended,BS+ warm, no edema, pulses 2/2 IVs and Medications Medications Reviewed: Medications were reviewed in detail Lab and Diagnostics Result Diagram: 04/03/17 0500 04/03/17 0500 X-Rays, CTs and MRIs CT abdomen pelvis with contrast performed 03/20/2017 IMPRESSION: 1. Mild edema of the pancreatic head/uncinate process as well as adjacent duodenal C-loop with scattered mild fluid. Findings could be related to pancreatitis with secondary duodenitis or vice versa. Recommend correlation to enzyme levels. 2. Cholelithiasis without imaging evidence of cholecystitis. 3. Cirrhotic appearing liver with splenomegaly and appearance of varices suggestive of portal venous hypertension. 4. Mild dependent pelvic fluid. Dictated by: Breonna Augustin M.D. on 03/20/2017 at 16:32 CT pelvis with contrast performed 03/22/2017 IMPRESSION: 1. No significant change in presumed intramuscular hematoma within the left gluteus natasha. No change in subcutaneous edema versus cellulitis versus soft tissue injury within the proximal left thigh. No fracture. 3. 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 This could be further assessed using MR angiography, as well as MRI with and without intravenous contrast. 3. Increased, small amount of low-density ascites. Dictated by: Sally Kapoor M.D. on 03/23/2017 at 15:57 Right upper extremity sonogram performed 03/22/2017 IMPRESSION: 1. Heterogeneous subcutaneous collection demonstrated in the area of palpable abnormality suggestive of a hematoma. The differential is a soft tissue mass. Recommend correlation with clinical history and clinical followup. If there is persistent clinical concern, further evaluation may be obtained with MRI. Dictated by: Kaden Wheeler M.D. on 03/22/2017 at 12:11 CT brain without contrast performed 03/23/2017 IMPRESSION: No acute intracranial abnormality. Dictated by: Sally Kapoor M.D. on 03/23/2017 at 15:54 Chest x-ray performed 03/23/2017 IMPRESSION: 1. Left basilar density is suspicious for pneumonia versus atelectasis. Superimposed small pleural effusion cannot be excluded. 2. Probable cardiomegaly without overt heart failure. Dictated by: Toi Multani M.D. on 03/23/2017 at 12:41 Chest x-ray performed 03/24/2017 IMPRESSION: 1. Interval progression of pleural effusions with associated atelectasis or infiltrate left greater than right. 2. Recommend PA and lateral chest radiograph when the patient is able. Dictated by: Eduar Corbett M.D. on 03/24/2017 at 10:22 Additional Diagnostics US shows hematoma or soft tissue mass on right medial elbow Assessment & Plan Jorge A Wooten is a 61 year old woman with past medical history significant for alcoholic cirrhosis with esophageal varices, recurrent epistaxis , recurrent anemia, anxiety who presented to the [facility] emergency department and was initially admitted for severe anemia that required 7 units PRBCs to date. There is also evidence of possible DIC and hemolytic anemia based on her labs. In addition, patient is having severe signs and symptoms of alcohol withdrawal requiring large dose of benzodizepines and ICU care. pt was transferred from ICU to [facility] [place] given stable condition 03/31. acute, active Acute encephalopathy, present on Admission, alcohol induced and hepatic. pt underwent alchol WD, on CIWA, stopped CIWA protocol 04/01 as withdrawals seemed resolved. ptwas stated on lactulose for HE, required NGT and Rectal tube which d/cheri 04/01 as pt c/o uncomfortableness, - Currently, pt is hospital stay day 16, persistent confusion likely more driven from HE even considering hepatic function, rather than alcohol WD - continue ativan 1mg tid prn for agitation. - Continue lactulose at every 6 hours and rifaximin, target BM>3/d - continue advanced diet, pt tolerated well Severe alcoholic hepatitis and alcoholic cirrhosis, present on admission, high DF/MELD, EGD showed Portal gastropathy,Small esophageal varices. CT abd showed mild pelvic fluid. Bilirubin peaked at 12.8 at 03/28 then trending down. Pt received one dose prednisolone 40mg 03/21, switched to Pentoxifylline TID per GI 03/22. -overall pt is stable clinically - continue Pentoxifylline TID - appreciate follow up, recommended abd US guided paracetensis if amount is enough to rule out SBP - will attempt parecentesis likely tomorrow based on availability of staffs Acute hypoxic respiratory failure, not present on admission, likely hypervolemic with cirrhosis, iatrogenic with multiple transfusion, IVF. -respiratory status remains stable, good SpO2 on RA -switch 20 mg Lasix IV BID to 40mg po daily 04/03 moderate protein malnutrition in the setting of hypercatabolic state with cirrhosis, POA, BMI20.7, appreciate nutrition consult input. advance diet as much as possible chronic, stable, resolved Acute blood loss anemia, POA, stable. The patient has multiple hematomas that may contribute to her anemia. She also does have a chronic anemia. She did receive multiple units of blood. Pathology is really not hemolyzed this at this point and direct Cassius test is negative. Schistocytes negative on blood smear. Patient also likely has a degree of chronic bone marrow suppression secondary to her alcohol dependence, monitor h/h daily for now Pancytopenia, multifactorial, active and stable. - Likely secondary to bone marrow suppression from chronic etoh abuse, cirrhosis , GI bleed given history of variceal bleed and low platelets with elevated INR, or intracorporeal loss evidenced by ecchymosis on arms and torso. - There might be a DIC component. Several units of Cryoprecipitate has been given for low fibrinogen. Last Fibrinogen level is 140 and thus no further indication for Cryoprecipitate transfusion. - A recent abdominal ultrasound from 3 months ago reveals a normal-sized spleen - Hgb6 on admission, pt received several units of pRBC. FOBT negative. - Monitor H&H q12h, target hgb>7, transfuse as needed - Appreciate input - Started iron sulfate 325mg tid on 03/20 Acute alcohol withdrawal, pt was on CIWA protocol treatment with lorazepam, avoiding diazepam secondary to decreased hepatic clearance and presence of liver failure. It seemed resolved Electrolytes imbalance, including hypokalemia and hypomagnesemia today POA, active. - Secondary to etoh withdrawal, GI fluid loss from c.diff colitis - Replete potassium and magnesium. This will continue to be an issue while on lactulose. C.diff colitis, found 03/20, active and improving. - Continue vancomycin 125mg q6h oral - Enteric precaution. Lactic acidosis, present on admission, resolved. -Likely due to tissue hypoxia from severe anemia as well as poor hepatic clearance due to cirrhosis. Acetaminophen for mild pain when necessary. Bowel regimen Senna and MiraLAX scheduled and PRN. Zofran when necessary for nausea and vomiting. SubQ heparin for now. SCDs in place. High-risk medications:NONE CODE STATUS: Full code dispo: pending 2-3more days, SNF appropriate GI Prophylaxis: Proton Pump Inhibitor VTE Prophylaxis: Sub-Q Heparin (Unfractionated) VTE Mechanical Devices: Intermittant Pneumatic CD Resuscitation Status: CPR: Attempt Resuscitation Time spent 35min Krista Newby MD Apr 03, 2017 10:14
--- NOTE | 2017-04-03 12:00 | DRSVH ---
PROCEDURE: US ABDOMEN, LIMITED ([id number]) INDICATIONS: 61 year-old female with possible ascites. TECHNIQUE: Real-time focused scanning was performed of the abdomen, with image documentation. COMPARISON: [facility], CT, CT PELVIS W CON, 03/23/2017, 15:24. FINDINGS: No free fluid identified within the right and left upper and lower quadrants of the abdomen . Visualized portions of the liver demonstrate normal background echotexture. IMPRESSION: No abdominal ascites identified. Dictated by: Zohaib Rendon M.D. on 04/03/2017 at 11:57 Approved by: Zohaib Rendon M.D. on 04/03/2017 at 11:58
[2017-04-03 14:02] VITALS: BP 104/61; PULSE 83; RESP 16; O2SAT 93
--- NOTE | 2017-04-03 17:36 | NUR ---
Paracentesis cancelled US showing no fluid collections and recommending paracentesis be cancelled. Provider notified.
[2017-04-03 20:37] VITALS: BP 131/64; PULSE 82; RESP 18; O2SAT 96
[2017-04-04] MEDS: Vancomycin 125 mg Oral Capsule PO SCH ×2 (02:18→08:50)
[2017-04-04 04:05] VITALS: BP 110/68; PULSE 83; RESP 18; O2SAT 93
--- NOTE | 2017-04-04 06:20 | NUR ---
activity Pt alert but confused, cooperative with medication pass and cares. Pt up to bedside commode with FWW x 4 this shift, unsteady on feet, weakness. Some noted anxiety to meet with dr throughout shift, not able to remember time of day.
[2017-04-04 06:59] LABS: BASOPHILS % (AUTO) 0.8 % (0-3); EOSINOPHILS % (AUTO) 1.3 % (0-5); MONOCYTES % (AUTO) 8.1 % (4-12); Mean Corpuscular Hemoglobin 31.2 pg (27.0-35.0); Mean Corpuscular Volume 94.2 fL (81-100); NEUTROPHILS % (AUTO) 82.8 % (40-74); Platelet Count 181 bil/L (150-400)
[2017-04-04 07:31] LABS: INR 1.32 ratio
--- NOTE | 2017-04-04 08:39 | PCM.PNMED ---
Subjective Date of Service Apr 04, 2017 Subjective pt still looked very frail, having loose stools on lactulose twice yesterday denied any pain, intermittently confused abd US showed no ascites, paracentesis canceled Exam Vital Signs Vital Sign - Last Date Time Temp Pulse Resp B/P Pulse Ox O2 Delivery O2 Flow Rate FiO2 04/04/17 04:50 Supplement Oxygen 04/04/17 04:05 36.9 83 18 110/68 93 04/02/17 21:08 2.00 Intake and Output 04/03/17 04/03/17 04/04/17 Cumulative From/Thru 15:00 23:00 07:00 03/18/17 15:13 - 04/04/17 06:50 Intake Total 475 ml 350 ml 24524 ml Output Total 750 ml 400 ml 24636 ml Balance -275 ml -50 ml -3534 ml Intake Oral 475 ml 350 ml 9494 ml IV Total 13201 ml Tube Feeding 1343 ml Packed Cells 2100 ml Cryoprecipitate 215 ml Tube Irrigant 2100 ml Output Urine Total 750 ml 400 ml 69606 ml Stool Total 6900 ml Urine/Stool Mix 1700 ml Emesis 500 ml # Voids 17 # Bowel Movements 3 2 17 Exam comfortably laying down on the bed mild resting tremors, no tongue fasciculation mild tremors on extended arms, no flapping tremors no JVD, MMM, no LAD, icteric sclerae RRR, nl s1, s2 no mrg CTAB, no w,c S,ND,NT,BS+ warm, no edema, pulses 2/2 IVs and Medications Medications Reviewed: Medications were reviewed in detail Lab and Diagnostics Result Diagram: 04/04/17 0635 04/04/17 0635 X-Rays, CTs and MRIs CT abdomen pelvis with contrast performed 03/20/2017 IMPRESSION: 1. Mild edema of the pancreatic head/uncinate process as well as adjacent duodenal C-loop with scattered mild fluid. Findings could be related to pancreatitis with secondary duodenitis or vice versa. Recommend correlation to enzyme levels. 2. Cholelithiasis without imaging evidence of cholecystitis. 3. Cirrhotic appearing liver with splenomegaly and appearance of varices suggestive of portal venous hypertension. 4. Mild dependent pelvic fluid. Dictated by: Breonna Augustin M.D. on 03/20/2017 at 16:32 CT pelvis with contrast performed 03/22/2017 IMPRESSION: 1. No significant change in presumed intramuscular hematoma within the left gluteus natasha. No change in subcutaneous edema versus cellulitis versus soft tissue injury within the proximal left thigh. No fracture. 3. 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 This could be further assessed using MR angiography, as well as MRI with and without intravenous contrast. 3. Increased, small amount of low-density ascites. Dictated by: Sally Kapoor M.D. on 03/23/2017 at 15:57 Right upper extremity sonogram performed 03/22/2017 IMPRESSION: 1. Heterogeneous subcutaneous collection demonstrated in the area of palpable abnormality suggestive of a hematoma. The differential is a soft tissue mass. Recommend correlation with clinical history and clinical followup. If there is persistent clinical concern, further evaluation may be obtained with MRI. Dictated by: Kaden Wheeler M.D. on 03/22/2017 at 12:11 CT brain without contrast performed 03/23/2017 IMPRESSION: No acute intracranial abnormality. Dictated by: Sally Kapoor M.D. on 03/23/2017 at 15:54 Chest x-ray performed 03/23/2017 IMPRESSION: 1. Left basilar density is suspicious for pneumonia versus atelectasis. Superimposed small pleural effusion cannot be excluded. 2. Probable cardiomegaly without overt heart failure. Dictated by: Toi Multani M.D. on 03/23/2017 at 12:41 Chest x-ray performed 03/24/2017 IMPRESSION: 1. Interval progression of pleural effusions with associated atelectasis or infiltrate left greater than right. 2. Recommend PA and lateral chest radiograph when the patient is able. Dictated by: Eduar Corbett M.D. on 03/24/2017 at 10:22 Additional Diagnostics US shows hematoma or soft tissue mass on right medial elbow Assessment & Plan Jorge A Wooten is a 61 year old woman with past medical history significant for alcoholic cirrhosis with esophageal varices, recurrent epistaxis , recurrent anemia, anxiety who presented to the [facility] emergency department and was initially admitted for severe anemia that required 7 units PRBCs to date. There is also evidence of possible DIC and hemolytic anemia based on her labs. In addition, patient is having severe signs and symptoms of alcohol withdrawal requiring large dose of benzodizepines and ICU care. pt was transferred [place] [facility] [place] condition 03/31. acute, active Acute encephalopathy, present on Admission, alcohol induced and hepatic. pt underwent alchol WD, on CIWA, stopped CIWA protocol 04/01 as withdrawals seemed resolved. ptwas stated on lactulose for HE, required NGT and Rectal tube which d/cheri 04/01 as pt c/o uncomfortableness, - pt is intermittently confused, likely reached to her baseline - continue ativan 1mg tid prn for agitation. - Continue lactulose at every 6 hours and rifaximin, target BM>3/d - continue advanced diet, pt tolerated well Severe alcoholic hepatitis and alcoholic cirrhosis, present on admission, high DF/MELD, EGD showed Portal gastropathy,Small esophageal varices. CT abd showed mild pelvic fluid. Bilirubin peaked at 12.8 at 03/28 then trending down. Pt received one dose prednisolone 40mg 03/21, switched to Pentoxifylline TID per GI 03/22. recommended abd US guided paracetensis if amount is enough to rule out SBP, however, abd US showed no ascities on 04/03. - Overall pt is stable clinically, bilirubin/LFTs still unchanged. - continue Pentoxifylline TID - appreciate follow up, Acute hypoxic respiratory failure, not present on admission, likely hypervolemic with cirrhosis, iatrogenic with multiple transfusion, IVF. pt was started on 20 mg Lasix IV BID, switched to 40mg po daily 04/03 -respiratory status remains stable, good SpO2 on RA -continue lasix 40mg po daily moderate protein malnutrition in the setting of hypercatabolic state with cirrhosis, POA, BMI20.7, appreciate nutrition consult input. advance diet as much as possible chronic, stable, resolved Acute blood loss anemia, POA, stable. The patient has multiple hematomas that may contribute to her anemia. She also does have a chronic anemia. She did receive multiple units of blood. Pathology is really not hemolyzed this at this point and direct Cassius test is negative. Schistocytes negative on blood smear. Patient also likely has a degree of chronic bone marrow suppression secondary to her alcohol dependence, monitor h/h daily for now Pancytopenia, multifactorial, active and stable. - Likely secondary to bone marrow suppression from chronic etoh abuse, cirrhosis , GI bleed given history of variceal bleed and low platelets with elevated INR, or intracorporeal loss evidenced by ecchymosis on arms and torso. - There might be a DIC component. Several units of Cryoprecipitate has been given for low fibrinogen. Last Fibrinogen level is 140 and thus no further indication for Cryoprecipitate transfusion. - A recent abdominal ultrasound from 3 months ago reveals a normal-sized spleen - Hgb6 on admission, pt received several units of pRBC. FOBT negative. - Monitor H&H q12h, target hgb>7, transfuse as needed - Appreciate input - Started iron sulfate 325mg tid on 03/20 Acute alcohol withdrawal, pt was on CIWA protocol treatment with lorazepam, avoiding diazepam secondary to decreased hepatic clearance and presence of liver failure. It seemed resolved Electrolytes imbalance, including hypokalemia and hypomagnesemia today POA, active. - Secondary to etoh withdrawal, GI fluid loss from c.diff colitis - Replete potassium and magnesium. This will continue to be an issue while on lactulose. C.diff colitis, found 03/20, active and improving. - Continue vancomycin 125mg q6h oral - Enteric precaution. Lactic acidosis, present on admission, resolved. -Likely due to tissue hypoxia from severe anemia as well as poor hepatic clearance due to cirrhosis. Acetaminophen for mild pain when necessary. Bowel regimen Senna and MiraLAX scheduled and PRN. Zofran when necessary for nausea and vomiting. SubQ heparin for now. SCDs in place. High-risk medications:NONE CODE STATUS: Full code dispo: pending 1-2more days, SNF appropriate GI Prophylaxis: Proton Pump Inhibitor VTE Prophylaxis: Sub-Q Heparin (Unfractionated) VTE Mechanical Devices: Intermittant Pneumatic CD Resuscitation Status: CPR: Attempt Resuscitation Time spent 35min Krista Newby MD Apr 04, 2017 08:39
[2017-04-04] MEDS: Multivit-Miner-Folic Acid-Iron Tablet PO SCH (08:49)
[2017-04-04] MEDS: Pantoprazole 40 mg ER24 Tablet PO SCH ×2 (08:50→16:26)
[2017-04-04] MEDS: Pentoxifylline 400 mg ER12 Tablet PO SCH ×2 (08:50→14:37)
[2017-04-04] MEDS: Lactulose 20 Gm/30 mL 30 mL Syrup PO SCH ×2 (08:51→14:37)
[2017-04-04] MEDS: Heparin 5,000 Unit/mL Inj SUBQ SCH (08:51)
[2017-04-04 12:38] VITALS: BP 108/62; PULSE 83; RESP 18; O2SAT 95
--- NOTE | 2017-04-04 14:40 | NUR ---
NUTRITION FOLLOW-UP: ASSESS: 61 YO F admitted with severe anemia, weakness and ETOH withdrawal, MD notes moderate hepatic encephalopathy. Pt has history of alcoholism and likely had poor PO intake prior to admit. Pt remains alert but confused per RN notes. Pt po intake has improved with diet advancement as pt is eating 25-100% of meals x 3 days. PMHX: Alcoholic cirrhosis, portal gastropathy, esophageal varices, HTN, anemia. LABS: Reviewed. Na 133, Glu 170, AST 107, ALT 51, ALB 3.5. MEDS: Reviewed. GI: BM x 2 (04/04) SKIN: visible fat loss in face, arms and legs. WT: 60 kg, BMI 20.7 kg/m2, Admit wt 62.5 kg. DIET: Soft. PO: 25-100% of meals. ESTIMATED NEEDS: liver disease Calories: 2399-6228 kcal/day (30-35 kcal/kg BW) Protein: 75-95 g/day (1.2-1.5 g/kg BW) NUTRITION DIAGNOSIS: 1) Inadequate oral intake related to chronic alcohol abuse as evidenced by NPO status, ---IMPROVING. 2) Moderate pro/kcal malnutrition in the context of chronic illness related to alcoholism as evidence by mild fat loss, altered electrolytes, PO intake of <75% estimated energy requirements for >1month due to chronic alcohol use - PERSISTS. NUTRITION INTERVENTION: 1) Recommend ensure or magic cup TID with meals. MONITOR/EVALUATE: PO intake, labs, weights, nutritional status. Follow per moderate nutrition risk guidelines.
--- NOTE | 2017-04-04 16:13 | NUR ---
Social Work-continued d/c planning: Data:EMR Reviewed. Pt is on day 17 of hospitalization for severe anemia per H&P. Pt is not medically stable for discharge.PT continues to recommend SNF placement. SW placed a call to at home and not home, message left. SW to follow up with again tomorrow. SW will continue to follow. Assessment:Pt who would benefit from SNF. Plan:SW to follow up with again tomorrow regarding SNF. SW will continue to follow. ROSA Kelsey
--- NOTE | 2017-04-04 17:50 | PCM.PNSURG ---
Subjective Date of Service: Apr 04, 2017 Date of Service: Apr 04, 2017 Visit Information: Reason for Visit Severe Anemia, Weakness, Increase Lactic Acid Surgery/Surgery Date Post-Op Day # Date of Admission: Mar 18, 2017 at 22:02 Hospital Day # Subjective: GASTROENTEROLOGY PROGRESS NOTE No acute events overnight. Patient continues to have 3-4 bowel movements per day. Abdominal ultrasound over the weekend showed no ascites and therefore paracentesis was canceled. Patient has no specific complaints. She continues to remain somewhat confused and has some degree of cognitive impairment although it is difficult to assess her baseline. Postop General: No Complaints Objective Vital Sign- Last 8 Hours Date Time Temp Pulse Resp B/P Pulse Ox O2 Delivery O2 Flow Rate FiO2 04/04/17 12:38 36.9 83 18 108/62 95 Room Air 04/04/17 10:45 Room Air Intake and Output- Last 8 Hour 04/04/17 Cumulative From/Thru 07:00 03/18/17 15:13 - 04/04/17 06:50 Intake Total 350 ml 32713 ml Output Total 400 ml 36082 ml Balance -50 ml -3534 ml Intake Oral 350 ml 9494 ml IV Total 68894 ml Tube Feeding 1343 ml Packed Cells 2100 ml Cryoprecipitate 215 ml Tube Irrigant 2100 ml Output Urine Total 400 ml 73334 ml Stool Total 6900 ml Urine/Stool Mix 1700 ml Emesis 500 ml # Voids 17 # Bowel Movements 2 17 General: Alert, Other (scleral icterus, oriented to person and place but not year) Neck: Supple Lungs: Clear to Auscultation Heart: Exam Unremarkable Abdomen: Soft, Non-tender, Normoactive bowel tones Extremities: Warm Neuro: Grossly Neurologically Intact Catheters: None Result Diagram: 04/04/17 0635 04/04/17 0635 Assessment & Plan Impression 61-year-old female with alcoholic cirrhosis MELD 14 on labs 03/18/2017, now MELD 17 on labs 04/02/2017, portal gastropathy, small esophageal varices, and anemia admitted 03/18/2017 for severe anemia. Pt MDR 33.2 on labs 03/21. She had a hemoglobin of 6.7 on March 02. s/p egd 01/21/2017- small esoph varices, portal htn gastropathy. Pt received one dose prednisolone 40mg 03/21 for acute etoh hepatitis, switched to Pentoxifylline TID 03/[address] c[address]diff infection. CT abdomen pelvis contrast 03/20/2017 1. Mild edema of the pancreatic head/uncinate process as well as adjacent duodenal C-loop with scattered mild fluid. Findings could be related to pancreatitis with secondary duodenitis or vice versa. Recommend correlation to enzyme levels. 2. Cholelithiasis without imaging evidence of cholecystitis. 3. Cirrhotic appearing liver with splenomegaly and appearance of varices suggestive of portal venous hypertension. 4. Mild dependent pelvic fluid Labs 04/02- pt 14, inr 1.3, tbili 8.1, ast 71, alt 39 alk phosph 86, creat 0.3, albumin 3.4 GI recommendations: - Continue lactulose, xifaxan - titrate 3bm/day - Vancomycin course completed today for Clostridium difficile. - We will discontinue Pentoxifylline 400 mg po tid despite Maddrey score 33.2 on labs 03/21. This is due to concern for patient's confusion. Although rare pentoxifylline can cause increased confusion. - Continue lasix 40 mg po QD. - Continue multivitamin and thiamine. - Continue to encourage alcohol cessation. - Encourage oral intake. Thank you for involving us in this patient's care. We will continue to follow. Problems: VTE Prophylaxis: Sub-Q Heparin (Unfractionated) Resuscitation Status: CPR: Attempt Resuscitation Attending Statement: Patient seen and examined. Agree with assessment and plan as described by Dr Fall. To my examined there has been some improvement when compared to my last evaluation on Tuesday. However, very slow to come around after completing the treatment for her etoh w/d. There was no sign of significant ascites and therefore nothing to tap. Her bili has been slowly coming down. I'd like to see if there is any noticeable improvement in cognition after the pentoxifylline in held. SAEED FALL DO Apr 04, 2017 17:50 Toño Stevens MD Apr 04, 2017 21:31
[2017-04-04 19:40] VITALS: BP 104/47; PULSE 84; RESP 16; O2SAT 95
[2017-04-05 05:13] VITALS: BP 110/70; PULSE 78; RESP 16; O2SAT 92
[2017-04-05 06:03] LABS: Mean Corpuscular Hemoglobin 30.4 pg (27.0-35.0)
[2017-04-05 06:12] LABS: INR 1.34 ratio
[2017-04-05 06:24] LABS: BASOPHILS % (AUTO) 0.8 % (0-3); EOSINOPHILS % (AUTO) 2.1 % (0-5); MONOCYTES % (AUTO) 9.1 % (4-12); Mean Corpuscular Volume 95.2 fL (81-100); NEUTROPHILS % (AUTO) 77.9 % (40-74)
[2017-04-05 08:14] LABS: Platelet Count 190 bil/L (150-400)
--- NOTE | 2017-04-05 09:01 | PCM.PNMED ---
Subjective Date of Service Apr 05, 2017 Subjective pt feels good, seemed more lucid and responsive, pentoxifylline stopped yesterday given concern for confusion per GI pt denied abd pain, n, v Exam Vital Signs Vital Sign - Last Date Time Temp Pulse Resp B/P Pulse Ox O2 Delivery O2 Flow Rate FiO2 04/05/17 05:13 37.4 78 16 110/70 92 Room Air 04/02/17 21:08 2.00 Intake and Output 04/04/17 04/04/17 04/05/17 Cumulative From/Thru 15:00 23:00 07:00 03/18/17 15:13 - 04/05/17 06:14 Intake Total 625 ml 336 ml 89499 ml Output Total 250 ml 600 ml 26698 ml Balance 375 ml -264 ml -3423 ml Intake Oral 625 ml 336 ml 54627 ml IV Total 47838 ml Tube Feeding 1343 ml Packed Cells 2100 ml Cryoprecipitate 215 ml Tube Irrigant 2100 ml Output Urine Total 250 ml 250 ml 84658 ml Stool Total 350 ml 7250 ml Urine/Stool Mix 1700 ml Emesis 500 ml # Voids 17 # Bowel Movements 2 19 Exam comfortably laying down on the bed mild resting tremors, no tongue fasciculation mild tremors on extended arms, no flapping tremors no JVD, MMM, no LAD, icteric sclerae RRR, nl s1, s2 no mrg CTAB, no w,c S,ND,NT,BS+ warm, no edema, pulses 2/2 IVs and Medications Medications Reviewed: Medications were reviewed in detail Lab and Diagnostics Result Diagram: 04/05/17 0525 04/05/17 0525 X-Rays, CTs and MRIs CT abdomen pelvis with contrast performed 03/20/2017 IMPRESSION: 1. Mild edema of the pancreatic head/uncinate process as well as adjacent duodenal C-loop with scattered mild fluid. Findings could be related to pancreatitis with secondary duodenitis or vice versa. Recommend correlation to enzyme levels. 2. Cholelithiasis without imaging evidence of cholecystitis. 3. Cirrhotic appearing liver with splenomegaly and appearance of varices suggestive of portal venous hypertension. 4. Mild dependent pelvic fluid. Dictated by: Breonna Augustin M.D. on 03/20/2017 at 16:32 CT pelvis with contrast performed 03/22/2017 IMPRESSION: 1. No significant change in presumed intramuscular hematoma within the left gluteus natasha. No change in subcutaneous edema versus cellulitis versus soft tissue injury within the proximal left thigh. No fracture. 3. 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 This could be further assessed using MR angiography, as well as MRI with and without intravenous contrast. 3. Increased, small amount of low-density ascites. Dictated by: Sally Kapoor M.D. on 03/23/2017 at 15:57 Right upper extremity sonogram performed 03/22/2017 IMPRESSION: 1. Heterogeneous subcutaneous collection demonstrated in the area of palpable abnormality suggestive of a hematoma. The differential is a soft tissue mass. Recommend correlation with clinical history and clinical followup. If there is persistent clinical concern, further evaluation may be obtained with MRI. Dictated by: Kaden Wheeler M.D. on 03/22/2017 at 12:11 CT brain without contrast performed 03/23/2017 IMPRESSION: No acute intracranial abnormality. Dictated by: Sally Kapoor M.D. on 03/23/2017 at 15:54 Chest x-ray performed 03/23/2017 IMPRESSION: 1. Left basilar density is suspicious for pneumonia versus atelectasis. Superimposed small pleural effusion cannot be excluded. 2. Probable cardiomegaly without overt heart failure. Dictated by: Toi Multani M.D. on 03/23/2017 at 12:41 Chest x-ray performed 03/24/2017 IMPRESSION: 1. Interval progression of pleural effusions with associated atelectasis or infiltrate left greater than right. 2. Recommend PA and lateral chest radiograph when the patient is able. Dictated by: Eduar Corbett M.D. on 03/24/2017 at 10:22 Additional Diagnostics US shows hematoma or soft tissue mass on right medial elbow Assessment & Plan Jorge A Wooten is a 61 year old woman with past medical history significant for alcoholic cirrhosis with esophageal varices, recurrent epistaxis , recurrent anemia, anxiety who presented to the [facility] emergency department and was initially admitted for severe anemia that required 7 units PRBCs to date. There is also evidence of possible DIC and hemolytic anemia based on her labs. In addition, patient is having severe signs and symptoms of alcohol withdrawal requiring large dose of benzodizepines and ICU care. pt was transferred from ICU to [facility] given stable condition 03/31. acute, active Acute encephalopathy, present on Admission, alcohol induced and hepatic. pt underwent alchol WD, on CIWA, stopped CIWA protocol 04/01 as withdrawals seemed resolved. ptwas stated on lactulose for HE, required NGT and Rectal tube which d/cheri 04/01 as pt c/o uncomfortableness, - pt is intermittently confused, further improved after pentoxifylline stopped on 04/04 - continue ativan 1mg tid prn for agitation. - Continue lactulose at every 6 hours and rifaximin, target BM>3/d - continue advanced diet, pt tolerated well Severe alcoholic hepatitis and alcoholic cirrhosis, present on admission, high DF/MELD, EGD showed Portal gastropathy,Small esophageal varices. CT abd showed mild pelvic fluid. Bilirubin peaked at 12.8 at 03/28 then trending down. Pt received one dose prednisolone 40mg 03/21, switched to Pentoxifylline TID per GI 03/22-04/04, which was stopped due to concern for causing more confusion. recommended abd US guided paracetensis if amount is enough to rule out SBP, however, abd US showed no ascities on 04/03. - Overall pt is stable clinically, bilirubin/LFTs mildly improving - appreciate follow up, Acute hypoxic respiratory failure, not present on admission, likely hypervolemic with cirrhosis, iatrogenic with multiple transfusion, IVF. pt was started on 20 mg Lasix IV BID, switched to 40mg po daily 04/03 -respiratory status remains stable, good SpO2 on RA -continue lasix 40mg po daily moderate protein malnutrition in the setting of hypercatabolic state with cirrhosis, POA, BMI20.7, appreciate nutrition consult input. advance diet as much as possible chronic, stable, resolved Acute blood loss anemia, POA, stable. The patient has multiple hematomas that may contribute to her anemia. She also does have a chronic anemia. She did receive multiple units of blood. Pathology is really not hemolyzed this at this point and direct Cassius test is negative. Schistocytes negative on blood smear. Patient also likely has a degree of chronic bone marrow suppression secondary to her alcohol dependence, monitor h/h daily for now Pancytopenia, multifactorial, active and stable. - Likely secondary to bone marrow suppression from chronic etoh abuse, cirrhosis , GI bleed given history of variceal bleed and low platelets with elevated INR, or intracorporeal loss evidenced by ecchymosis on arms and torso. - There might be a DIC component. Several units of Cryoprecipitate has been given for low fibrinogen. Last Fibrinogen level is 140 and thus no further indication for Cryoprecipitate transfusion. - A recent abdominal ultrasound from 3 months ago reveals a normal-sized spleen - Hgb6 on admission, pt received several units of pRBC. FOBT negative. - Monitor H&H q12h, target hgb>7, transfuse as needed - Appreciate input - Started iron sulfate 325mg tid on 03/20 Acute alcohol withdrawal, pt was on CIWA protocol treatment with lorazepam, avoiding diazepam secondary to decreased hepatic clearance and presence of liver failure. It seemed resolved Electrolytes imbalance, including hypokalemia and hypomagnesemia today POA, active. - Secondary to etoh withdrawal, GI fluid loss from c.diff colitis - Replete potassium and magnesium. This will continue to be an issue while on lactulose. C.diff colitis, found 03/20, active and improving. - Continue vancomycin 125mg q6h oral - Enteric precaution. Lactic acidosis, present on admission, resolved. -Likely due to tissue hypoxia from severe anemia as well as poor hepatic clearance due to cirrhosis. Acetaminophen for mild pain when necessary. Bowel regimen Senna and MiraLAX scheduled and PRN. Zofran when necessary for nausea and vomiting. SubQ heparin for now. SCDs in place. High-risk medications:NONE CODE STATUS: Full code dispo:pt is close to discharge, SNF appropriate, coordinate with GI for timing of d/c GI Prophylaxis: Proton Pump Inhibitor VTE Prophylaxis: Sub-Q Heparin (Unfractionated) VTE Mechanical Devices: Intermittant Pneumatic CD Resuscitation Status: CPR: Attempt Resuscitation Time spent 35min Krista Newby MD Apr 05, 2017 09:01
--- NOTE | 2017-04-05 09:04 | NUR ---
Social Work-continued d/c planning: Data:EMR reviewed. Pt is on day 18 of hospitalization for severe anemia per H&P. Pt is not medically stable anticipate 1-2 more days. ALEX placed a call to pt's [place], ALEX spoke with son Kaden who states he cannot local father, took SW phone number and will have him call SW back. SW to discuss SNF options, list has been provided. SW will continue to follow. Assessment:Pt who would benefit from SNF. Plan:SW has left message for to discuss SNF, awaiting a return call. SW will continue to follow. ROSA Kelsey
[2017-04-05] MEDS: Pantoprazole 40 mg ER24 Tablet PO SCH ×2 (09:20→15:47)
[2017-04-05] MEDS: Multivit-Miner-Folic Acid-Iron Tablet PO SCH (09:20)
[2017-04-05] MEDS: Lactulose 20 Gm/30 mL 30 mL Syrup PO SCH ×4 (09:22→20:08)
[2017-04-05] MEDS: Heparin 5,000 Unit/mL Inj SUBQ SCH ×2 (09:22→20:08)
--- NOTE | 2017-04-05 10:29 | PCM.PNSURG ---
Subjective Date of Service: Apr 05, 2017 Date of Service: Apr 05, 2017 Visit Information: Reason for Visit Severe Anemia, Weakness, Increase Lactic Acid Surgery/Surgery Date Post-Op Day # Date of Admission: Mar 18, 2017 at 22:02 Hospital Day # Subjective: Gastroenterology Progress Note No acute events overnight. Patient states she was unable to sleep and requests to go home. She had 4 bowel movements over the last 24 hours. No other complaints. Objective Vital Sign- Last 8 Hours Date Time Temp Pulse Resp B/P Pulse Ox O2 Delivery O2 Flow Rate FiO2 04/05/17 05:13 37.4 78 16 110/70 92 Room Air Intake and Output- Last 8 Hour 04/05/17 Cumulative From/Thru 07:00 03/18/17 15:13 - 04/05/17 06:14 Intake Total 336 ml 03775 ml Output Total 600 ml 36903 ml Balance -264 ml -3423 ml Intake Oral 336 ml 90102 ml IV Total 03577 ml Tube Feeding 1343 ml Packed Cells 2100 ml Cryoprecipitate 215 ml Tube Irrigant 2100 ml Output Urine Total 250 ml 72905 ml Stool Total 350 ml 7250 ml Urine/Stool Mix 1700 ml Emesis 500 ml # Voids 17 # Bowel Movements 19 General: Alert, Other (Oriented to year and person but not place. ) Neck: Supple Lungs: Clear to Auscultation Heart: Regular Rate/Rhythm Abdomen: Benign, Soft, Non-tender Extremities: Distal Pulses Palpable, Warm Neuro: Grossly Neurologically Intact Catheters: None Result Diagram: 04/05/17 0525 04/05/17 0525 Assessment & Plan Impression 61-year-old female with alcoholic cirrhosis MELD 14 on labs 03/18/2017, now MELD 17 on labs 04/02/2017, portal gastropathy, small esophageal varices, and anemia admitted 03/18/2017 for severe anemia. Pt MDR 33.2 on labs 03/21. She had a hemoglobin of 6.7 on March 02. s/p egd 01/21/2017- small esoph varices, portal htn gastropathy. Pt received one dose prednisolone 40mg 03/21 for acute etoh hepatitis, switched to Pentoxifylline TID 03/22 due to c.diff infection. Pnetoxifylline stopped 04/04/17 due to concern that this may be contributing to confusion. This morning the patient shows possibly slight improvement in mentation but difficult to determine. CT abdomen pelvis contrast 03/20/2017 1. Mild edema of the pancreatic head/uncinate process as well as adjacent duodenal C-loop with scattered mild fluid. Findings could be related to pancreatitis with secondary duodenitis or vice versa. Recommend correlation to enzyme levels. 2. Cholelithiasis without imaging evidence of cholecystitis. 3. Cirrhotic appearing liver with splenomegaly and appearance of varices suggestive of portal venous hypertension. 4. Mild dependent pelvic fluid Labs 04/02- pt 14, inr 1.3, tbili 8.1, ast 71, alt 39 alk phosph 86, creat 0.3, albumin 3.4 GI recommendations: - Continue lactulose, xifaxan - titrate 3bm/day - Vancomycin course completed 04/04/17 for Clostridium difficile. - Patient's mentation may be slightly improved today after discontinuing Pentoxifylline. Will continue to monitor. - Continue lasix 40 mg po QD. - Continue multivitamin and thiamine. - Continue to encourage alcohol cessation. - Encourage oral intake. Thank you for involving us in this patient's care. We will continue to follow. Problems: VTE Prophylaxis: Sub-Q Heparin (Unfractionated) Resuscitation Status: CPR: Attempt Resuscitation Attending Statement: Patient seen and examined. Agree with assessment and plan as described by Dr Fall. Bili continues to fall. Overall, mental status seems improved. Will continue to monitor. I'd like to see if stool remains positive for C diff. If PCR neg, can definitely remove isolation status. SAEED FALL DO Apr 05, 2017 10:29 Toño Stevens MD Apr 05, 2017 21:29
--- NOTE | 2017-04-05 12:07 | NUR ---
Social Work-continued d/c planning: Data:EMR reviewed. Pt is on day 18 of hospitalization for severe anemia per H&P. Pt is not medically stable anticipate 1-2 more days. PT continues to recommend SNF. SW spoke with pt's regarding discharge planning, SW role explained. SW explained recommendation of SNF placement, declines. SW went over risk and benefits of this and continues to decline. states he and his son Kaden are home 24/7 with pt and can provide assistance. would like HH, SW to await MD orders. Pt will likely need FWW as well. SW to complete CD assessment with pt when appropriate. SW will continue to follow. Assessment:Pt who will likely return home with HH. Plan:Pt to discharge home when medically stable.Pt and refusing SNF. SW to follow up regarding HH once MD order received. SW will continue to follow. ROSA Kelsey
[2017-04-05 12:49] VITALS: BP 120/74; PULSE 77; RESP 18; O2SAT 96
--- NOTE | 2017-04-05 18:02 | NUR ---
Diet order Pt's called and informed RN that pt "is a vegetarian" but "does not eat red meat or shellfish, but will eat turkey or chicken or salmon". States that pt has called him "complaining that she is getting meat on her tray". Diet order updated to make pt host assist, and allow some decision making with trays, and to exclude these certain types of food. Will continue to monitor trays and encourage nutritious PO intake.
[2017-04-05 23:18] VITALS: BP 104/58; PULSE 90; RESP 16; O2SAT 95
[2017-04-06 04:21] VITALS: BP 115/62; PULSE 81; RESP 16; O2SAT 94
--- NOTE | 2017-04-06 04:45 | NUR ---
Uneventful Night Pt rested intermittently during the night. Pleasantly confused at times. Denies cardiac pain or discomfort. No complaints of SOB or n/v. Bed alarm, SBA and nonslip socks for safety. Bed locked, lowest level. Call light within reach, using appropriately. Frequent rounding in place. Pleasant and cooperative with care.
[2017-04-06 05:28] LABS: BASOPHILS % (AUTO) 0.9 % (0-3); EOSINOPHILS % (AUTO) 2.2 % (0-5); MONOCYTES % (AUTO) 10.8 % (4-12); Mean Corpuscular Hemoglobin 30.6 pg (27.0-35.0); Mean Corpuscular Volume 96.4 fL (81-100); NEUTROPHILS % (AUTO) 74.6 % (40-74); Platelet Count 192 bil/L (150-400)
[2017-04-06 06:15] LABS: INR 1.36 ratio
--- NOTE | 2017-04-06 07:08 | PCM.PNMED ---
Subjective Date of Service Apr 06, 2017 Subjective Patient is still slightly lethargic but does answer some questions quite appropriately. Other times she is not able to answer certain questions for example how many bowel movements she had yesterday. Exam Vital Signs Vital Sign - Last Date Time Temp Pulse Resp B/P Pulse Ox O2 Delivery O2 Flow Rate FiO2 04/06/17 04:21 36.8 81 16 115/62 94 Room Air 04/02/17 21:08 2.00 Intake and Output 04/05/17 04/05/17 04/06/17 Cumulative From/Thru 15:00 23:00 07:00 03/18/17 15:13 - 04/06/17 04:22 Intake Total 354 ml 436 ml 15437 ml Output Total 400 ml 650 ml 06971 ml Balance -46 ml -214 ml -3683 ml Intake Oral 354 ml 436 ml 35833 ml IV Total 37456 ml Tube Feeding 1343 ml Packed Cells 2100 ml Cryoprecipitate 215 ml Tube Irrigant 2100 ml Output Urine Total 400 ml 650 ml 81080 ml Stool Total 7250 ml Urine/Stool Mix 1700 ml Emesis 500 ml # Voids 17 # Bowel Movements 1 2 22 Exam Constitutional: Middle-aged female who is slightly lethargic but answers questions Head: Normocephalic atraumatic Chest: Clear to auscultation Cor: Regular rate and rhythm S1-S2 Abdomen: Soft nontender bowel sounds present Extremities: No pedal edema Skin: Icteric no rashes Psych: Blunted affect Neuro: She is alert and oriented 3, motor strength is intact bilaterally Lab and Diagnostics Laboratory Tests 72 Hours Test 04/04/17 06:35 04/05/17 05:25 04/06/17 05:15 White Blood Count 10.9th/mm3 (3.8-10.1) 10.1th/mm3 (3.8-10.1) 9.9th/mm3 (3.8-10.1) Red Blood Count 3.11mil/mm3 (3.90-5.20) 3.12mil/mm3 (3.90-5.20) 3.07mil/mm3 (3.90-5.20) Hemoglobin 9.7g/dL (12.0-15.6) 9.5g/dL (12.0-15.6) 9.4g/dL (12.0-15.6) Hematocrit 29.3% (35.0-46.0) 29.7% (35.0-46.0) 29.6% (35.0-46.0) Mean Corpuscular Volume 94.2fL (81-100) 95.2fL (81-100) 96.4fL (81-100) Mean Corpuscular Hemoglobin 31.2pg (27.0-35.0) 30.4pg (27.0-35.0) 30.6pg (27.0-35.0) Mean Corpuscular Hemoglobin Concent 33.1% (32.0-37.0) 32.0% (32.0-37.0) 31.8% (32.0-37.0) Red Cell Distribution Width 27.2% (12.3-15.4) % (12.3-15.4) % (12.3-15.4) Platelet Count 181bil/L (150-400) 190bil/L (150-400) 192bil/L (150-400) Neutrophils (%) (Auto) 82.8% (40-74) 77.9% (40-74) 74.6% (40-74) Lymphocytes (%) (Auto) 6.4% (14-46) 9.9% (14-46) 11.3% (14-46) Monocytes (%) (Auto) 8.1% (4-12) 9.1% (4-12) 10.8% (4-12) Eosinophils (%) (Auto) 1.3% (0-5) 2.1% (0-5) 2.2% (0-5) Basophils (%) (Auto) 0.8% (0-3) 0.8% (0-3) 0.9% (0-3) Prothrombin Time 14.2sec (8.1-12.5) 14.4sec (8.1-12.5) 14.6sec (8.1-12.5) Prothromb Time International Ratio 1.32ratio 1.34ratio 1.36ratio Sodium Level 133mEq/L (134-144) 134mEq/L (134-144) 134mEq/L (134-144) Potassium Level 3.7mEq/L (3.5-5.2) 3.7mEq/L (3.5-5.2) 4.0mEq/L (3.5-5.2) Chloride Level 94mEq/L (97-108) 95mEq/L (97-108) 97mEq/L (97-108) Carbon Dioxide Level 21mmol/L (18-29) 22mmol/L (18-29) 23mmol/L (18-29) Blood Urea Nitrogen 13mg/dL (8-27) 12mg/dL (8-27) 14mg/dL (8-27) Creatinine 0.30mg/dL (0.57-1.00) < 0.30mg/dL (0.57-1.00) < 0.30mg/dL (0.57-1.00) Estimat Glomerular Filtration Rate 325mL/min (>59) 325mL/min (>59) mL/min (>59) Glucose Level 170mg/dL (60-99) 98mg/dL (60-99) 106mg/dL (60-99) Calcium Level 8.9mg/dL (8.5-10.1) 8.7mg/dL (8.5-10.1) 8.8mg/dL (8.5-10.1) Total Bilirubin 7.8mg/dL (0.0-1.2) 7.1mg/dL (0.0-1.2) 6.5mg/dL (0.0-1.2) Aspartate Amino Transf (AST/SGOT) 107U/L (0-50) 97U/L (0-50) 101U/L (0-50) Alanine Aminotransferase (ALT/SGPT) 51U/L (0-32) 55U/L (0-32) 58U/L (0-32) Alkaline Phosphatase 83U/L (25-165) 80U/L (25-165) 89U/L (25-165) Total Protein 6.7g/dL (6.4-8.4) 6.4g/dL (6.4-8.4) 6.1g/dL (6.4-8.4) Albumin 3.5g/dL (3.4-5.0) 3.1g/dL (3.4-5.0) 3.0g/dL (3.4-5.0) Procalcitonin 0.19ng/mL (0.00-0.08) Result Diagram: 04/06/17 0515 04/06/17 0515 X-Rays, CTs and MRIs CT abdomen pelvis with contrast performed 03/20/2017 IMPRESSION: 1. Mild edema of the pancreatic head/uncinate process as well as adjacent duodenal C-loop with scattered mild fluid. Findings could be related to pancreatitis with secondary duodenitis or vice versa. Recommend correlation to enzyme levels. 2. Cholelithiasis without imaging evidence of cholecystitis. 3. Cirrhotic appearing liver with splenomegaly and appearance of varices suggestive of portal venous hypertension. 4. Mild dependent pelvic fluid. Dictated by: Breonna Augustin M.D. on 03/20/2017 at 16:32 CT pelvis with contrast performed 03/22/2017 IMPRESSION: 1. No significant change in presumed intramuscular hematoma within the left gluteus natasha. No change in subcutaneous edema versus cellulitis versus soft tissue injury within the proximal left thigh. No fracture. 3. 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 This could be further assessed using MR angiography, as well as MRI with and without intravenous contrast. 3. Increased, small amount of low-density ascites. Dictated by: Sally Kapoor M.D. on 03/23/2017 at 15:57 Right upper extremity sonogram performed 03/22/2017 IMPRESSION: 1. Heterogeneous subcutaneous collection demonstrated in the area of palpable abnormality suggestive of a hematoma. The differential is a soft tissue mass. Recommend correlation with clinical history and clinical followup. If there is persistent clinical concern, further evaluation may be obtained with MRI. Dictated by: Kaden Wheeler M.D. on 03/22/2017 at 12:11 CT brain without contrast performed 03/23/2017 IMPRESSION: No acute intracranial abnormality. Dictated by: Sally Kapoor M.D. on 03/23/2017 at 15:54 Chest x-ray performed 03/23/2017 IMPRESSION: 1. Left basilar density is suspicious for pneumonia versus atelectasis. Superimposed small pleural effusion cannot be excluded. 2. Probable cardiomegaly without overt heart failure. Dictated by: Toi Multani M.D. on 03/23/2017 at 12:41 Chest x-ray performed 03/24/2017 IMPRESSION: 1. Interval progression of pleural effusions with associated atelectasis or infiltrate left greater than right. 2. Recommend PA and lateral chest radiograph when the patient is able. Dictated by: Eduar Corbett M.D. on 03/24/2017 at 10:22 Date of Service: 04/02/17 1115 PROCEDURE: US ABDOMEN, LIMITED ([id number]) INDICATIONS: 61 year-old female with possible ascites. TECHNIQUE: Real-time focused scanning was performed of the abdomen, with image documentation. COMPARISON: [facility], CT, CT PELVIS W CON, 03/23/2017, 15:24. FINDINGS: No free fluid identified within the right and left upper and lower quadrants of the abdomen. Visualized portions of the liver demonstrate normal background echotexture. IMPRESSION: No abdominal ascites identified. Dictated by: Zohaib Rendon M.D. on 04/03/2017 at 11:57 Approved by: Zohaib Rendon M.D. on 04/03/2017 at 11:58 Additional Diagnostics US shows hematoma or soft tissue mass on right medial elbow Assessment & Plan Jorge A Wooten is a 61 year old woman with past medical history significant for alcoholic cirrhosis with esophageal varices, recurrent epistaxis , recurrent anemia, anxiety who presented to the [facility] emergency department and was initially admitted for severe anemia that required 7 units PRBCs to date. There is also evidence of possible DIC and hemolytic anemia based on her labs. In addition, patient is having severe signs and symptoms of alcohol withdrawal requiring large dose of benzodizepines and ICU care. pt was transferred from ICU to [facility] [place] given stable condition 03/31. acute, active Acute encephalopathy, present on Admission, alcohol induced and hepatic. pt underwent alchol WD, on CIWA, stopped CIWA protocol 04/01 as withdrawals seemed resolved. ptwas stated on lactulose for HE, required NGT and Rectal tube which d/cheri 04/01 as pt c/o uncomfortableness, - pt is intermittently confused, further improved after pentoxifylline stopped on 04/04 - continue ativan 1mg tid prn for agitation. - Continue lactulose at every 6 hours and rifaximin, target BM>3/d - continue advanced diet, pt tolerated well - Check ammonia level today Severe alcoholic hepatitis and alcoholic cirrhosis, present on admission, high DF/MELD, EGD showed Portal gastropathy,Small esophageal varices. CT abd showed mild pelvic fluid. Bilirubin peaked at 12.8 at 03/28 then trending down. Pt received one dose prednisolone 40mg 03/21, switched to Pentoxifylline TID per GI 03/22-04/04, which was stopped due to concern for causing more confusion. recommended abd US guided paracetensis if amount is enough to rule out SBP, however, abd US showed no ascities on 04/03. - Overall pt is stable clinically, bilirubin/LFTs mildly improving - appreciate follow up, Acute hypoxic respiratory failure, not present on admission, likely hypervolemic with cirrhosis, iatrogenic with multiple transfusion, IVF. pt was started on 20 mg Lasix IV BID, switched to 40mg po daily 04/03 -respiratory status remains stable, good SpO2 on RA -continue lasix 40mg po daily moderate protein malnutrition in the setting of hypercatabolic state with cirrhosis, POA, BMI20.7, appreciate nutrition consult input. advance diet as much as possible chronic, stable, resolved Acute blood loss anemia, POA, stable. The patient has multiple hematomas that may contribute to her anemia. She also does have a chronic anemia. She did receive multiple units of blood. Pathology is really not hemolyzed this at this point and direct Cassius test is negative. Schistocytes negative on blood smear. Patient also likely has a degree of chronic bone marrow suppression secondary to her alcohol dependence, monitor h/h daily for now Pancytopenia, multifactorial, active and stable. - Likely secondary to bone marrow suppression from chronic etoh abuse, cirrhosis , GI bleed given history of variceal bleed and low platelets with elevated INR, or intracorporeal loss evidenced by ecchymosis on arms and torso. - There might be a DIC component. Several units of Cryoprecipitate has been given for low fibrinogen. Last Fibrinogen level is 140 and thus no further indication for Cryoprecipitate transfusion. - A recent abdominal ultrasound from 3 months ago reveals a normal-sized spleen - Hgb6 on admission, pt received several units of pRBC. FOBT negative. - Monitor H&H q12h, target hgb>7, transfuse as needed - Appreciate input - Started iron sulfate 325mg tid on 03/20 Acute alcohol withdrawal, pt was on CIWA protocol treatment with lorazepam, avoiding diazepam secondary to decreased hepatic clearance and presence of liver failure. It seemed resolved Electrolytes imbalance, including hypokalemia and hypomagnesemia today POA, active. - Secondary to etoh withdrawal, GI fluid loss from c.diff colitis - Replete potassium and magnesium. This will continue to be an issue while on lactulose. C.diff colitis, found 03/20, active and improving. - Continue vancomycin 125mg q6h oral - Enteric precaution. -Patient has completed a course of by mouth vancomycin for C differential colitis Lactic acidosis, present on admission, resolved. -Likely due to tissue hypoxia from severe anemia as well as poor hepatic clearance due to cirrhosis. Acetaminophen for mild pain when necessary. Bowel regimen Senna and MiraLAX scheduled and PRN. Zofran when necessary for nausea and vomiting. SubQ heparin for now. SCDs in place. High-risk medications:NONE CODE STATUS: Full code dispo:pt is close to discharge, SNF appropriate, coordinate with GI for timing of d/c GI Prophylaxis: Proton Pump Inhibitor VTE Prophylaxis: Sub-Q Heparin (Unfractionated) VTE Mechanical Devices: Intermittant Pneumatic CD Resuscitation Status: CPR: Attempt Resuscitation Time spent 30 minutes Petrona Salinas MD Apr 06, 2017 07:08
[2017-04-06] MEDS: Multivit-Miner-Folic Acid-Iron Tablet PO SCH (08:13)
[2017-04-06] MEDS: Lactulose 20 Gm/30 mL 30 mL Syrup PO SCH ×3 (08:14→19:51)
[2017-04-06] MEDS: Pantoprazole 40 mg ER24 Tablet PO SCH ×2 (08:14→16:15)
[2017-04-06] MEDS: Heparin 5,000 Unit/mL Inj SUBQ SCH ×2 (08:14→19:52)
--- NOTE | 2017-04-06 13:19 | PCM.PNSURG ---
Subjective Date of Service: Apr 06, 2017 Date of Service: Apr 06, 2017 Visit Information: Reason for Visit Severe Anemia, Weakness, Increase Lactic Acid Surgery/Surgery Date Post-Op Day # Date of Admission: Mar 18, 2017 at 22:02 Hospital Day # Subjective: Gastroenterology Progress Note No acute events overnight. Patient complaining that she is not getting food she ordered and that diet has been changed on her although she was previously cleared for solids. No other complaints. Mentation seems somewhat improved yesterday although she continues to have somewhat tangential thought process. She has had 2 bowel movements over the last 24 hours. Objective Intake and Output- Last 8 Hour 04/06/17 Cumulative From/Thru 07:00 03/18/17 15:13 - 04/06/17 04:22 Intake Total 436 ml 23889 ml Output Total 650 ml 55514 ml Balance -214 ml -3683 ml Intake Oral 436 ml 88520 ml IV Total 51284 ml Tube Feeding 1343 ml Packed Cells 2100 ml Cryoprecipitate 215 ml Tube Irrigant 2100 ml Output Urine Total 650 ml 11644 ml Stool Total 7250 ml Urine/Stool Mix 1700 ml Emesis 500 ml # Voids 17 # Bowel Movements 2 22 General: Alert, Oriented X3, Cooperative, Icteric Neck: Supple Lungs: Clear to Auscultation Heart: Regular Rate/Rhythm, No Murmurs/Rubs/Gallops Abdomen: Benign, Soft, Non-tender, Normoactive bowel tones Extremities: Distal Pulses Palpable, Warm Neuro: Cranial Nerves 2-12 nl, Grossly Neurologically Intact Catheters: None Result Diagram: 04/06/17 0515 04/06/17 0515 Assessment & Plan Impression 61-year-old female with alcoholic cirrhosis MELD 14 on labs 03/18/2017, now MELD 17 on labs 04/02/2017, portal gastropathy, small esophageal varices, and anemia admitted 03/18/2017 for severe anemia. Pt MDR 33.2 on labs 03/21. She had a hemoglobin of 6.7 on March 02. s/p egd 01/21/2017- small esoph varices, portal htn gastropathy. Pt received one dose prednisolone 40mg 03/21 for acute etoh hepatitis, switched to Pentoxifylline TID 03/22 due to c.diff infection. Pnetoxifylline stopped 04/04/17 due to concern that this may be contributing to confusion. Patient clinically appears to making slow progress specifically in regards to her cognitive abilities. Labs are trending down slowly as well, most notably her bilirubin. CT abdomen pelvis contrast 03/20/2017 1. Mild edema of the pancreatic head/uncinate process as well as adjacent duodenal C-loop with scattered mild fluid. Findings could be related to pancreatitis with secondary duodenitis or vice versa. Recommend correlation to enzyme levels. 2. Cholelithiasis without imaging evidence of cholecystitis. 3. Cirrhotic appearing liver with splenomegaly and appearance of varices suggestive of portal venous hypertension. 4. Mild dependent pelvic fluid GI recommendations: - Continue lactulose, xifaxan - titrate 3bm/day - Vancomycin course completed 04/04/17 for Clostridium difficile. - Patient's mentation slowly improving. Will continue to monitor. - Continue lasix 40 mg po QD. - Continue multivitamin and thiamine. - Continue to encourage alcohol cessation. - Encourage oral intake. Patient to be placed on a Heart Healthy Diet. - Repeat CDiff PCR pending. Thank you for involving us in this patient's care. We will continue to follow. Problems: VTE Prophylaxis: Sub-Q Heparin (Unfractionated) Resuscitation Status: CPR: Attempt Resuscitation Attending Statement: Patient seen and examined. Agree with assessment and plan as described by Dr Fall. Overall, slowly improving. From patient's 's perspective, she is almost at her baseline. Needs to have outpatient substance abuse counselling set up prior to discharge. SAEED FALL DO Apr 06, 2017 13:19 Toño Stevens MD Apr 06, 2017 22:41
--- NOTE | 2017-04-06 14:37 | NUR ---
C-Diff sample Patient has had C-diff earlier in hospital stay and was treated and on Enteric precautions. MD ordered another C-Diff stool. Results were negative and enteric precautions removed.
[2017-04-06 14:56] VITALS: BP 120/74; PULSE 78; RESP 18; O2SAT 92
--- NOTE | 2017-04-06 15:43 | NUR ---
Fall Patient was assisted to bedside chair for lunch by MICA MINER. MICA MINER forgot to connect Thor alarm and turn on alarm. Patient finished lunch and tried to transfer to her bed independently without placing call light on. Patient was found lying on her left side with head near foot of bed. Patient denied hitting her head and stated she made it to the end of her bed and couldn't hold on any longer and slid to the floor. Patient denied pain and was able to move all extremities. Patient had no visible injuries observed. Patient was assisted to bed by primary RN and another RN with tiny and bed alarm placed on. Patient vital signs stable BP 120/74, P 78, R 18, O2 92%, and temp 36.6. MD notified, charge nurse notified, manager installation notified, and spouse notified.
--- NOTE | 2017-04-06 17:12 | NUR ---
Social Work-continued d/c planning: Data:EMR Reviewed. Pt is on day 19 of hospitalization for severe anemia per H&P. Pt is not medically stable anticipate several more days. Pt still presenting confused and not appropriate for a CD assessment at this time. Pt's requesting to speak with SW. SW spoke with at bedside, SW role explained. is wondering about status of HH services. SW explained that MD order has not yet been received and SW cannot set up services until this has been placed. states an understanding. SW to follow up with post MD order for HH and FWW. SW will continue to follow. Assessment:Likely home with HH services. Plan:Pt to likely discharge home with when medically stable. Pt and declining SNF. SW awaiting MD orders for HH and FWW. SW will continue to follow. ROSA Kelsey
[2017-04-06 19:55] VITALS: BP 109/65; PULSE 79; RESP 16; O2SAT 92
[2017-04-07 06:18] LABS: BASOPHILS % (AUTO) 0.7 % (0-3); EOSINOPHILS % (AUTO) 2.5 % (0-5); INR 1.38 ratio; MONOCYTES % (AUTO) 11.3 % (4-12); Mean Corpuscular Volume 97.7 fL (81-100); Platelet Count 196 bil/L (150-400)
[2017-04-07] MEDS: Multivit-Miner-Folic Acid-Iron Tablet PO SCH (07:57)
[2017-04-07] MEDS: Heparin 5,000 Unit/mL Inj SUBQ SCH ×2 (07:57→20:26)
[2017-04-07] MEDS: Pantoprazole 40 mg ER24 Tablet PO SCH ×2 (07:57→16:09)
[2017-04-07] MEDS: Lactulose 20 Gm/30 mL 30 mL Syrup PO SCH ×4 (07:57→20:27)
--- NOTE | 2017-04-07 09:00 | PCM.PNMED ---
Subjective Date of Service Apr 07, 2017 Subjective Patient is in bed eating breakfast currently. She is alert but still has some mild confusion. Exam Vital Signs Vital Sign - Last Date Time Temp Pulse Resp B/P Pulse Ox O2 Delivery O2 Flow Rate FiO2 04/06/17 19:55 37.3 79 16 109/65 92 Room Air 04/02/17 21:08 2.00 Intake and Output 04/06/17 04/06/17 04/07/17 Cumulative From/Thru 15:00 23:00 07:00 03/18/17 15:13 - 04/07/17 06:32 Intake Total 646 ml 1340 ml 64238 ml Output Total 750 ml 900 ml 58774 ml Balance -104 ml 440 ml -3347 ml Intake Oral 636 ml 150 ml 48370 ml IV Total 10 ml 1190 ml 82662 ml Tube Feeding 1343 ml Packed Cells 2100 ml Cryoprecipitate 215 ml Tube Irrigant 2100 ml Output Urine Total 750 ml 900 ml 55414 ml Stool Total 7250 ml Urine/Stool Mix 1700 ml Emesis 500 ml # Voids 17 # Bowel Movements 3 4 29 Exam Constitutional: Middle-aged female who looks older than her stated age Head: Normocephalic atraumatic Chest: Decreased breath sounds over bases Cor: Regular rate and rhythm S1-S2 Abdomen: Soft nontender bowel sounds present Extremities: No pedal edema Skin: Icteric Psych: Somewhat blunted affect although today seems to have more than yesterday Neuro: Alert and oriented 3 with some confusion in answering some questions. She does say she is anxious to get home. Motor strength is intact bilaterally on exam. motor strength is intact bilaterally Lab and Diagnostics Laboratory Tests 72 Hours Test 04/05/17 05:25 04/06/17 05:15 04/06/17 08:03 04/07/17 05:15 White Blood Count 10.1th/mm3 (3.8-10.1) 9.9th/mm3 (3.8-10.1) 9.8th/mm3 (3.8-10.1) Red Blood Count 3.12mil/mm3 (3.90-5.20) 3.07mil/mm3 (3.90-5.20) 3.00mil/mm3 (3.90-5.20) Hemoglobin 9.5g/dL (12.0-15.6) 9.4g/dL (12.0-15.6) 9.3g/dL (12.0-15.6) Hematocrit 29.7% (35.0-46.0) 29.6% (35.0-46.0) 29.3% (35.0-46.0) Mean Corpuscular Volume 95.2fL (81-100) 96.4fL (81-100) 97.7fL (81-100) Mean Corpuscular Hemoglobin 30.4pg (27.0-35.0) 30.6pg (27.0-35.0) 31.0pg (27.0-35.0) Mean Corpuscular Hemoglobin Concent 32.0% (32.0-37.0) 31.8% (32.0-37.0) 31.7% (32.0-37.0) Red Cell Distribution Width % (12.3-15.4) % (12.3-15.4) % (12.3-15.4) Platelet Count 190bil/L (150-400) 192bil/L (150-400) 196bil/L (150-400) Neutrophils (%) (Auto) 77.9% (40-74) 74.6% (40-74) 75.0% (40-74) Lymphocytes (%) (Auto) 9.9% (14-46) 11.3% (14-46) 10.2% (14-46) Monocytes (%) (Auto) 9.1% (4-12) 10.8% (4-12) 11.3% (4-12) Eosinophils (%) (Auto) 2.1% (0-5) 2.2% (0-5) 2.5% (0-5) Basophils (%) (Auto) 0.8% (0-3) 0.9% (0-3) 0.7% (0-3) Prothrombin Time 14.4sec (8.1-12.5) 14.6sec (8.1-12.5) 14.9sec (8.1-12.5) Prothromb Time International Ratio 1.34ratio 1.36ratio 1.38ratio Sodium Level 134mEq/L (134-144) 134mEq/L (134-144) 134mEq/L (134-144) Potassium Level 3.7mEq/L (3.5-5.2) 4.0mEq/L (3.5-5.2) 4.0mEq/L (3.5-5.2) Chloride Level 95mEq/L (97-108) 97mEq/L (97-108) 98mEq/L (97-108) Carbon Dioxide Level 22mmol/L (18-29) 23mmol/L (18-29) 22mmol/L (18-29) Blood Urea Nitrogen 12mg/dL (8-27) 14mg/dL (8-27) 13mg/dL (8-27) Creatinine < 0.30mg/dL (0.57-1.00) < 0.30mg/dL (0.57-1.00) < 0.30mg/dL (0.57-1.00) Estimat Glomerular Filtration Rate 325mL/min (>59) mL/min (>59) 325mL/min (>59) Glucose Level 98mg/dL (60-99) 106mg/dL (60-99) 103mg/dL (60-99) Calcium Level 8.7mg/dL (8.5-10.1) 8.8mg/dL (8.5-10.1) 8.7mg/dL (8.5-10.1) Total Bilirubin 7.1mg/dL (0.0-1.2) 6.5mg/dL (0.0-1.2) 6.7mg/dL (0.0-1.2) Aspartate Amino Transf (AST/SGOT) 97U/L (0-50) 101U/L (0-50) 96U/L (0-50) Alanine Aminotransferase (ALT/SGPT) 55U/L (0-32) 58U/L (0-32) 56U/L (0-32) Alkaline Phosphatase 80U/L (25-165) 89U/L (25-165) 97U/L (25-165) Total Protein 6.4g/dL (6.4-8.4) 6.1g/dL (6.4-8.4) 6.2g/dL (6.4-8.4) Albumin 3.1g/dL (3.4-5.0) 3.0g/dL (3.4-5.0) 3.1g/dL (3.4-5.0) Ammonia 90ug/dL (18-53) Result Diagram: 04/07/17 0515 04/07/17 0515 X-Rays, CTs and MRIs CT abdomen pelvis with contrast performed 03/20/2017 IMPRESSION: 1. Mild edema of the pancreatic head/uncinate process as well as adjacent duodenal C-loop with scattered mild fluid. Findings could be related to pancreatitis with secondary duodenitis or vice versa. Recommend correlation to enzyme levels. 2. Cholelithiasis without imaging evidence of cholecystitis. 3. Cirrhotic appearing liver with splenomegaly and appearance of varices suggestive of portal venous hypertension. 4. Mild dependent pelvic fluid. Dictated by: Breonna Augustin M.D. on 03/20/2017 at 16:32 CT pelvis with contrast performed 03/22/2017 IMPRESSION: 1. No significant change in presumed intramuscular hematoma within the left gluteus natasha. No change in subcutaneous edema versus cellulitis versus soft tissue injury within the proximal left thigh. No fracture. 3. 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 This could be further assessed using MR angiography, as well as MRI with and without intravenous contrast. 3. Increased, small amount of low-density ascites. Dictated by: Sally Kapoor M.D. on 03/23/2017 at 15:57 Right upper extremity sonogram performed 03/22/2017 IMPRESSION: 1. Heterogeneous subcutaneous collection demonstrated in the area of palpable abnormality suggestive of a hematoma. The differential is a soft tissue mass. Recommend correlation with clinical history and clinical followup. If there is persistent clinical concern, further evaluation may be obtained with MRI. Dictated by: Kaden Wheeler M.D. on 03/22/2017 at 12:11 CT brain without contrast performed 03/23/2017 IMPRESSION: No acute intracranial abnormality. Dictated by: Sally Kapoor M.D. on 03/23/2017 at 15:54 Chest x-ray performed 03/23/2017 IMPRESSION: 1. Left basilar density is suspicious for pneumonia versus atelectasis. Superimposed small pleural effusion cannot be excluded. 2. Probable cardiomegaly without overt heart failure. Dictated by: Toi Multani M.D. on 03/23/2017 at 12:41 Chest x-ray performed 03/24/2017 IMPRESSION: 1. Interval progression of pleural effusions with associated atelectasis or infiltrate left greater than right. 2. Recommend PA and lateral chest radiograph when the patient is able. Dictated by: Eduar Corbett M.D. on 03/24/2017 at 10:22 Date of Service: 04/02/17 1115 PROCEDURE: US ABDOMEN, LIMITED ([id number]) INDICATIONS: 61 year-old female with possible ascites. TECHNIQUE: Real-time focused scanning was performed of the abdomen, with image documentation. COMPARISON: [facility], CT, CT PELVIS W CON, 03/23/2017, 15:24. FINDINGS: No free fluid identified within the right and left upper and lower quadrants of the abdomen. Visualized portions of the liver demonstrate normal background echotexture. IMPRESSION: No abdominal ascites identified. Dictated by: Zohaib Rendon M.D. on 04/03/2017 at 11:57 Approved by: Zohaib Rendon M.D. on 04/03/2017 at 11:58 Additional Diagnostics US shows hematoma or soft tissue mass on right medial elbow Assessment & Plan Jorge A Wooten is a 61 year old woman with past medical history significant for alcoholic cirrhosis with esophageal varices, recurrent epistaxis , recurrent anemia, anxiety [facility] and was initially admitted for severe anemia that required 7 units PRBCs to date. There is also evidence of possible DIC and hemolytic anemia based on her labs. In addition, patient is having severe signs and symptoms of alcohol withdrawal requiring large dose of benzodizepines and ICU care. pt was transferred from ICU to [facility] given stable condition 03/31. acute, active Acute encephalopathy, present on Admission, alcohol induced and hepatic. pt underwent alchol WD, on CIWA, stopped CIWA protocol 04/01 as withdrawals seemed resolved. ptwas stated on lactulose for HE, required NGT and Rectal tube which d/cheri 04/01 as pt c/o uncomfortableness, - pt is intermittently confused, further improved after pentoxifylline stopped on 04/04 - continue ativan 1mg tid prn for agitation. - Continue lactulose at every 6 hours and rifaximin, target BM>3/d - continue advanced diet, pt tolerated well - Check ammonia level yesterday which was 90 -We will go ahead and increase her lactulose to 4 times a day and consider possible discharge tomorrow Severe alcoholic hepatitis and alcoholic cirrhosis, present on admission, high DF/MELD, EGD showed Portal gastropathy,Small esophageal varices. CT abd showed mild pelvic fluid. Bilirubin peaked at 12.8 at 03/28 then trending down. Pt received one dose prednisolone 40mg 03/21, switched to Pentoxifylline TID per GI 03/22-04/04, which was stopped due to concern for causing more confusion. recommended abd US guided paracetensis if amount is enough to rule out SBP, however, abd US showed no ascities on 04/03. - Overall pt is stable clinically, bilirubin/LFTs mildly improving - appreciate follow up, Acute hypoxic respiratory failure, not present on admission, likely hypervolemic with cirrhosis, iatrogenic with multiple transfusion, IVF. pt was started on 20 mg Lasix IV BID, switched to 40mg po daily 04/03 -respiratory status remains stable, good SpO2 on RA -continue lasix 40mg po daily moderate protein malnutrition in the setting of hypercatabolic state with cirrhosis, POA, BMI20.7, appreciate nutrition consult input. advance diet as much as possible chronic, stable, resolved Acute blood loss anemia, POA, stable. The patient has multiple hematomas that may contribute to her anemia. She also does have a chronic anemia. She did receive multiple units of blood. Pathology is really not hemolyzed this at this point and direct Cassius test is negative. Schistocytes negative on blood smear. Patient also likely has a degree of chronic bone marrow suppression secondary to her alcohol dependence, monitor h/h daily for now Pancytopenia, multifactorial, active and stable. - Likely secondary to bone marrow suppression from chronic etoh abuse, cirrhosis , GI bleed given history of variceal bleed and low platelets with elevated INR, or intracorporeal loss evidenced by ecchymosis on arms and torso. - There might be a DIC component. Several units of Cryoprecipitate has been given for low fibrinogen. Last Fibrinogen level is 140 and thus no further indication for Cryoprecipitate transfusion. - A recent abdominal ultrasound from 3 months ago reveals a normal-sized spleen - Hgb6 on admission, pt received several units of pRBC. FOBT negative. - Monitor H&H q12h, target hgb>7, transfuse as needed - Appreciate input - Started iron sulfate 325mg tid on 03/20 Acute alcohol withdrawal, pt was on CIWA protocol treatment with lorazepam, avoiding diazepam secondary to decreased hepatic clearance and presence of liver failure. It seemed resolved Electrolytes imbalance, including hypokalemia and hypomagnesemia today POA, active. - Secondary to etoh withdrawal, GI fluid loss from c.diff colitis - Replete potassium and magnesium. This will continue to be an issue while on lactulose. C.diff colitis, found 03/20, active and improving. - Continue vancomycin 125mg q6h oral - Enteric precaution. -Patient has completed a course of by mouth vancomycin for C differential colitis Lactic acidosis, present on admission, resolved. -Likely due to tissue hypoxia from severe anemia as well as poor hepatic clearance due to cirrhosis. Acetaminophen for mild pain when necessary. Bowel regimen Senna and MiraLAX scheduled and PRN. Zofran when necessary for nausea and vomiting. SubQ heparin for now. SCDs in place. High-risk medications:NONE CODE STATUS: Full code dispo:pt is close to discharge, SNF appropriate, coordinate with GI for timing of d/c GI Prophylaxis: Proton Pump Inhibitor VTE Prophylaxis: Sub-Q Heparin (Unfractionated) VTE Mechanical Devices: Intermittant Pneumatic CD Resuscitation Status: CPR: Attempt Resuscitation Time spent 30 minutes Petrona Salinas MD Apr 07, 2017 09:00
--- NOTE | 2017-04-07 10:36 | PCM.PNSURG ---
Subjective Date of Service: Apr 07, 2017 Date of Service: Apr 07, 2017 Visit Information: Reason for Visit Severe Anemia, Weakness, Increase Lactic Acid Surgery/Surgery Date Post-Op Day # Date of Admission: Mar 18, 2017 at 22:02 Hospital Day # Subjective: Gastroenterology Progress Note No acute events overnight. Patient continues to be cooperative with physical therapy. She is able to walk with walker although has difficulty with turns. In discussion with her he believes she is close to her baseline cognitive function. Patient continues to have 3-4 bowel movements per day. No other complaints. Postop General: No Complaints Objective Intake and Output- Last 8 Hour 04/07/17 Cumulative From/Thru 07:00 03/18/17 15:13 - 04/07/17 06:32 Intake Total 1340 ml 27295 ml Output Total 900 ml 51368 ml Balance 440 ml -3347 ml Intake Oral 150 ml 67161 ml IV Total 1190 ml 49482 ml Tube Feeding 1343 ml Packed Cells 2100 ml Cryoprecipitate 215 ml Tube Irrigant 2100 ml Output Urine Total 900 ml 79877 ml Stool Total 7250 ml Urine/Stool Mix 1700 ml Emesis 500 ml # Voids 17 # Bowel Movements 4 29 General: Alert, Oriented X3 Neck: Supple Lungs: Clear to Auscultation Heart: Regular Rate/Rhythm, No Murmurs/Rubs/Gallops Abdomen: Benign, Soft, Non-tender, Normoactive bowel tones Extremities: Distal Pulses Palpable, Warm Neuro: Cranial Nerves 2-12 nl, Grossly Neurologically Intact Catheters: None Result Diagram: 04/07/17 0515 04/07/17 0515 Assessment & Plan Impression 61-year-old female with alcoholic cirrhosis MELD 14 on labs 03/18/2017, now MELD 17 on labs 04/02/2017, portal gastropathy, small esophageal varices, and anemia admitted 03/18/2017 for severe anemia. Pt MDR 33.2 on labs 03/21. She had a hemoglobin of 6.7 on March 02. s/p egd 01/21/2017- small esoph varices, portal htn gastropathy. Pt received one dose prednisolone 40mg 03/21 for acute etoh hepatitis, switched to Pentoxifylline TID 03/22 due to c.diff infection. Pnetoxifylline stopped 04/04/17 due to concern that this may be contributing to confusion. Patient clinically appears to be making slow progress specifically in regards to her cognitive abilities. Labs are trending down slowly as well, most notably her bilirubin. GI recommendations: - Continue lactulose, xifaxan - titrate 3bm/day - Vancomycin course completed 04/04/17 for Clostridium difficile. - Patient's mentation is close to baseline per her . - Continue lasix 40 mg po QD. - Continue multivitamin and thiamine. - Continue to encourage alcohol cessation. - Encourage oral intake. Patient to be placed on a Heart Healthy Diet. - Continue aggressive physical therapy. GI will sign off at this time. Patient should follow-up in GI clinic in 10-14 days. Problems: VTE Prophylaxis: Sub-Q Heparin (Unfractionated) Resuscitation Status: CPR: Attempt Resuscitation Attending Statement: Patient seen and examined. Agree with assessment and plan as described by SAEED Penaloza DO Apr 07, 2017 10:36 Toño Stevens MD Apr 07, 2017 23:07
--- NOTE | 2017-04-07 12:07 | NUR ---
Daily update Patient remains alert and confused. Patient will start to talk and have random thoughts periodically come out. Patient is difficult to redirect. Patient requires 1 person assist with FWW. Patient remains unstable on feet and impulsive. No complaints of pain. Continues to take Lactulose and other medications as directed.
[2017-04-07 12:59] VITALS: BP 99/53; PULSE 76; RESP 16; O2SAT 90
--- NOTE | 2017-04-07 16:15 | NUR ---
Social Work-readiness for discharge: Data:EMR reviewed. Pt is on day 20 of hospitalization for severe anemia per H&P. Pt is likely medically stable tomorrow. Pt still has some baseline confusion and is not able to participate in CD consult. SW met with pt and to discuss discharge planning, SW role explained. PT continues to recommend SNF. Pt and decline, risk and benefits have been discussed and they continue to decline. order received for HH-RN and PT 3 times a week and Fww. SW faxed RX, chart notes, and demographics faxed to [facility] [phone]. SW spoke with [employer] [phone] and they confirm they can deliver FWW to pt's room tomorrow prior to Noon. SW explained that fww will be delivered to pt's room tomorrow, agreeable. SW discussed HH, HH choice list has been provided, no agency preference. SW referred to rotating calendar and made referral to [facility] for RN and Pt, access given. [facility] confirms availability within 72 hours. Pt's and son will provide 24/7 care for pt at home. Pt and updated and agreeable to plan. F2F to be completed by . SW will continue to follow. Assessment:Pt to return home with HH and Fww. Plan:Pt to discharge home when medically stable with 24/7 care via POV. Referral made to [facility] for RN and PT, access given. Information faxed into [facility], they will deliver Fww to pt's room tomorrow morning prior to noon. Pt and updated and agreeable to plan. F2F to be completed by . SW will continue to follow. ROSA Kelsey
[2017-04-07 19:57] VITALS: BP 119/70; PULSE 83; RESP 16; O2SAT 93
--- NOTE | 2017-04-08 02:41 | NUR ---
Uneventful night Patient's vital signs stable, denied pain. Patient used call light appropriately for needs, cooperative and pleasant with staff. Administered scheduled Lactulose, one large BM around 0030. [place] bed alarm on for safety, intentional rounding in place.
[2017-04-08 04:50] VITALS: BP 115/67; PULSE 82; RESP 16; O2SAT 92
[2017-04-08 05:26] LABS: BASOPHILS % (AUTO) 0.9 % (0-3); EOSINOPHILS % (AUTO) 2.3 % (0-5); MONOCYTES % (AUTO) 11.2 % (4-12); Mean Corpuscular Volume 97.3 fL (81-100); NEUTROPHILS % (AUTO) 73.2 % (40-74); Platelet Count 188 bil/L (150-400)
[2017-04-08 05:40] LABS: INR 1.37 ratio
--- NOTE | 2017-04-08 07:29 | PCM.DIMED ---
Discharge Instructions Date of Service Apr 08, 2017 Dates of Hospitalization Mar 18, 2017 at 22:02 Discharge Diagnosis Discharge Diagnosis alcoholic cirrhosis with encephalopathy,ETOH abuse,C Diff colitis Test Results Test Results Laboratory Tests 72 Hours Test 04/06/17 05:15 04/06/17 08:03 04/07/17 05:15 04/08/17 05:15 White Blood Count 9.9th/mm3 (3.8-10.1) 9.8th/mm3 (3.8-10.1) 10.0th/mm3 (3.8-10.1) Red Blood Count 3.07mil/mm3 (3.90-5.20) 3.00mil/mm3 (3.90-5.20) 2.97mil/mm3 (3.90-5.20) Hemoglobin 9.4g/dL (12.0-15.6) 9.3g/dL (12.0-15.6) 9.2g/dL (12.0-15.6) Hematocrit 29.6% (35.0-46.0) 29.3% (35.0-46.0) 28.9% (35.0-46.0) Mean Corpuscular Volume 96.4fL (81-100) 97.7fL (81-100) 97.3fL (81-100) Mean Corpuscular Hemoglobin 30.6pg (27.0-35.0) 31.0pg (27.0-35.0) 31.0pg (27.0-35.0) Mean Corpuscular Hemoglobin Concent 31.8% (32.0-37.0) 31.7% (32.0-37.0) 31.8% (32.0-37.0) Red Cell Distribution Width % (12.3-15.4) % (12.3-15.4) % (12.3-15.4) Platelet Count 192bil/L (150-400) 196bil/L (150-400) 188bil/L (150-400) Neutrophils (%) (Auto) 74.6% (40-74) 75.0% (40-74) 73.2% (40-74) Lymphocytes (%) (Auto) 11.3% (14-46) 10.2% (14-46) 12.1% (14-46) Monocytes (%) (Auto) 10.8% (4-12) 11.3% (4-12) 11.2% (4-12) Eosinophils (%) (Auto) 2.2% (0-5) 2.5% (0-5) 2.3% (0-5) Basophils (%) (Auto) 0.9% (0-3) 0.7% (0-3) 0.9% (0-3) Prothrombin Time 14.6sec (8.1-12.5) 14.9sec (8.1-12.5) 14.7sec (8.1-12.5) Prothromb Time International Ratio 1.36ratio 1.38ratio 1.37ratio Sodium Level 134mEq/L (134-144) 134mEq/L (134-144) 137mEq/L (134-144) Potassium Level 4.0mEq/L (3.5-5.2) 4.0mEq/L (3.5-5.2) 4.0mEq/L (3.5-5.2) Chloride Level 97mEq/L (97-108) 98mEq/L (97-108) 100mEq/L (97-108) Carbon Dioxide Level 23mmol/L (18-29) 22mmol/L (18-29) 22mmol/L (18-29) Blood Urea Nitrogen 14mg/dL (8-27) 13mg/dL (8-27) 14mg/dL (8-27) Creatinine < 0.30mg/dL (0.57-1.00) < 0.30mg/dL (0.57-1.00) < 0.30mg/dL (0.57-1.00) Estimat Glomerular Filtration Rate mL/min (>59) 325mL/min (>59) 325mL/min (>59) Glucose Level 106mg/dL (60-99) 103mg/dL (60-99) 102mg/dL (60-99) Calcium Level 8.8mg/dL (8.5-10.1) 8.7mg/dL (8.5-10.1) 8.6mg/dL (8.5-10.1) Total Bilirubin 6.5mg/dL (0.0-1.2) 6.7mg/dL (0.0-1.2) 6.1mg/dL (0.0-1.2) Aspartate Amino Transf (AST/SGOT) 101U/L (0-50) 96U/L (0-50) 89U/L (0-50) Alanine Aminotransferase (ALT/SGPT) 58U/L (0-32) 56U/L (0-32) 53U/L (0-32) Alkaline Phosphatase 89U/L (25-165) 97U/L (25-165) 92U/L (25-165) Total Protein 6.1g/dL (6.4-8.4) 6.2g/dL (6.4-8.4) 6.1g/dL (6.4-8.4) Albumin 3.0g/dL (3.4-5.0) 3.1g/dL (3.4-5.0) 2.9g/dL (3.4-5.0) Ammonia 90ug/dL (18-53) 109ug/dL (18-53) Diet Discharge Diet: Heart Healthy, Other (NO ALCOHOL) Activity Discharge Activity: Home Health Phyical Therapy Call your provider Call your provider for: Fever or Chills, Shortness of breath, Bleeding, Chest pain, Vomitting, Excessive diarrhea, Weakness (unilateral) Patient Instructions Follow-up Provider: Rick Heredia DO Follow-up with PCP in: Other (5-7 days,sooner if problems) Petrona Salinas MD Apr 08, 2017 07:29
[2017-04-08] MEDS ORDERED: PREN1TAB25 PO (07:33)
[2017-04-08] MEDS ORDERED: LACT10SO60 PO (07:33)
[2017-04-08] MEDS ORDERED: PANT40TA3 PO (07:33)
[2017-04-08] MEDS ORDERED: RIFA550T3 PO (07:33)
[2017-04-08] MEDS ORDERED: FURO40TA4 PO (07:33)
[2017-04-08] MEDS ORDERED: Thiamine PO (07:33)
[2017-04-08] MEDS ORDERED: FERR-74 PO (07:33)
--- NOTE | 2017-04-08 07:42 | PCM.DC.MED ---
Discharge Summary Date of Service Apr 08, 2017 Dates of Hospitalization Date of Hospital Admission Mar 18, 2017 at 22:02 Date of Discharge: Apr 08, 2017 Providers: Admitting Physician: Petrona Salinas MD Primary Care Physician: Rick Heredia DO Attending Physician: Petrona Salinas MD Diagnosis at Time of Discharge Diagnosis at Time of Discharge alcoholic cirrhosis with encephalopathy,ETOH abuse,C Diff colitis Consultations Gastroenterology Procedures XRay, CTs & MRIs CT abdomen pelvis with contrast performed 03/20/2017 IMPRESSION: 1. Mild edema of the pancreatic head/uncinate process as well as adjacent duodenal C-loop with scattered mild fluid. Findings could be related to pancreatitis with secondary duodenitis or vice versa. Recommend correlation to enzyme levels. 2. Cholelithiasis without imaging evidence of cholecystitis. 3. Cirrhotic appearing liver with splenomegaly and appearance of varices suggestive of portal venous hypertension. 4. Mild dependent pelvic fluid. Dictated by: Breonna Augustin M.D. on 03/20/2017 at 16:32 CT pelvis with contrast performed 03/22/2017 IMPRESSION: 1. No significant change in presumed intramuscular hematoma within the left gluteus natasha. No change in subcutaneous edema versus cellulitis versus soft tissue injury within the proximal left thigh. No fracture. 3. 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 This could be further assessed using MR angiography, as well as MRI with and without intravenous contrast. 3. Increased, small amount of low-density ascites. Dictated by: Sally Kapoor M.D. on 03/23/2017 at 15:57 Right upper extremity sonogram performed 03/22/2017 IMPRESSION: 1. Heterogeneous subcutaneous collection demonstrated in the area of palpable abnormality suggestive of a hematoma. The differential is a soft tissue mass. Recommend correlation with clinical history and clinical followup. If there is persistent clinical concern, further evaluation may be obtained with MRI. Dictated by: Kaden Wheeler M.D. on 03/22/2017 at 12:11 CT brain without contrast performed 03/23/2017 IMPRESSION: No acute intracranial abnormality. Dictated by: Sally Kapoor M.D. on 03/23/2017 at 15:54 Chest x-ray performed 03/23/2017 IMPRESSION: 1. Left basilar density is suspicious for pneumonia versus atelectasis. Superimposed small pleural effusion cannot be excluded. 2. Probable cardiomegaly without overt heart failure. Dictated by: Toi Multani M.D. on 03/23/2017 at 12:41 Chest x-ray performed 03/24/2017 IMPRESSION: 1. Interval progression of pleural effusions with associated atelectasis or infiltrate left greater than right. 2. Recommend PA and lateral chest radiograph when the patient is able. Dictated by: Eduar Corbett M.D. on 03/24/2017 at 10:22 Date of Service: 04/02/17 1115 PROCEDURE: US ABDOMEN, LIMITED ([id number]) INDICATIONS: 61 year-old female with possible ascites. TECHNIQUE: Real-time focused scanning was performed of the abdomen, with image documentation. COMPARISON: [facility], CT, CT PELVIS W CON, 03/23/2017, 15:24. FINDINGS: No free fluid identified within the right and left upper and lower quadrants of the abdomen. Visualized portions of the liver demonstrate normal background echotexture. IMPRESSION: No abdominal ascites identified. Dictated by: Zohaib Rendon M.D. on 04/03/2017 at 11:57 Approved by: Zohaib Rendon M.D. on 04/03/2017 at 11:58 Other Diagnostics US shows hematoma or soft tissue mass on right medial elbow Brief History 61-year-old woman with alcoholic cirrhosis, esophageal varices, portal gastropathy, chronic anemia and recurrent epistaxis, presented to [facility] emergency department on 03/18/2017 under the instruction of her primary care doctor for "low blood level." She was found to have a hemoglobin of 6.0, and blood alcohol level of 374, she was admitted for severe anemia and alcohol withdrawal, she received thiamine, multivitamins, and to date 7 units of packed red blood cells. Her hemoglobin was only transiently responsive to first several transfusions, consistently dropping back to the low 7.0. Source of bleeding ultimately has not been identified, there is concern that there is a GI bleed given the history of varices, she has also developed ecchymosis over her thorax/torso, which is also suspected for blood loss. Concern for hemolytic process prompted further evaluation showing a haptoglobin 18, fibrinogen of 58. She additionally has a pancytopenia with platelets ranging from 23-59 during this hospitalization. As such, hematology consult was placed and she was seen by Dr. Luna on 03/22/17. Yesterday afternoon CIWA scores became substantially elevated and was requiring large doses of Valium and was transferred to the ICU. Her hemoglobin remained stable overnight with a.m. labs reflecting a hemoglobin of 8.6. She was complaining of a headache yesterday and received hydromorphone for pain relief, in conjunction with her Valium. This morning she states she is not in any pain, but she is hungry, mentation is decreased and aside from person place time and pain she is somnolent and is unable to answer. Hospital Course Jorge A Wooten is a 61 year old woman with past medical history significant for alcoholic cirrhosis with esophageal varices, recurrent epistaxis , recurrent anemia, anxiety who presented to the [facility] emergency department and was initially admitted for severe anemia that required 7 units PRBCs to date. There is also evidence of possible DIC and hemolytic anemia based on her labs. In addition, patient is having severe signs and symptoms of alcohol withdrawal requiring large dose of benzodizepines and ICU care. pt was transferred from ICU to [facility] given stable condition 03/31. acute, active Acute encephalopathy, present on Admission, alcohol induced and hepatic. pt underwent alchol WD, on CIWA, stopped CIWA protocol 04/01 as withdrawals seemed resolved. ptwas stated on lactulose for HE, required NGT and Rectal tube which d/cheri 04/01 as pt c/o uncomfortableness, - pt is intermittently confused, further improved after pentoxifylline stopped on 04/04 - continue ativan 1mg tid prn for agitation. - Continue lactulose at every 6 hours and rifaximin, target BM>3/d - continue advanced diet, pt tolerated well - Check ammonia level yesterday which was 90 -We will go ahead and increase her lactulose to 4 times a day and consider possible discharge tomorrow Severe alcoholic hepatitis and alcoholic cirrhosis, present on admission, high DF/MELD, EGD showed Portal gastropathy,Small esophageal varices. CT abd showed mild pelvic fluid. Bilirubin peaked at 12.8 at 03/28 then trending down. Pt received one dose prednisolone 40mg 03/21, switched to Pentoxifylline TID per GI 03/22-04/04, which was stopped due to concern for causing more confusion. recommended abd US guided paracetensis if amount is enough to rule out SBP, however, abd US showed no ascities on 04/03. - Overall pt is stable clinically, bilirubin/LFTs mildly improving - appreciate follow up, Acute hypoxic respiratory failure, not present on admission, likely hypervolemic with cirrhosis, iatrogenic with multiple transfusion, IVF. pt was started on 20 mg Lasix IV BID, switched to 40mg po daily 04/03 -respiratory status remains stable, good SpO2 on RA -continue lasix 40mg po daily moderate protein malnutrition in the setting of hypercatabolic state with cirrhosis, POA, BMI20.7, appreciate nutrition consult input. advance diet as much as possible chronic, stable, resolved Acute blood loss anemia, POA, stable. The patient has multiple hematomas that may contribute to her anemia. She also does have a chronic anemia. She did receive multiple units of blood. Pathology is really not hemolyzed this at this point and direct Cassius test is negative. Schistocytes negative on blood smear. Patient also likely has a degree of chronic bone marrow suppression secondary to her alcohol dependence, monitor h/h daily for now Pancytopenia, multifactorial, active and stable. - Likely secondary to bone marrow suppression from chronic etoh abuse, cirrhosis , GI bleed given history of variceal bleed and low platelets with elevated INR, or intracorporeal loss evidenced by ecchymosis on arms and torso. - There might be a DIC component. Several units of Cryoprecipitate has been given for low fibrinogen. Last Fibrinogen level is 140 and thus no further indication for Cryoprecipitate transfusion. - A recent abdominal ultrasound from 3 months ago reveals a normal-sized spleen - Hgb6 on admission, pt received several units of pRBC. FOBT negative. - Monitor H&H q12h, target hgb>7, transfuse as needed - Appreciate input - Started iron sulfate 325mg tid on 03/20 Acute alcohol withdrawal, pt was on CIWA protocol treatment with lorazepam, avoiding diazepam secondary to decreased hepatic clearance and presence of liver failure. It seemed resolved Electrolytes imbalance, including hypokalemia and hypomagnesemia today POA, active. - Secondary to etoh withdrawal, GI fluid loss from c.diff colitis - Replete potassium and magnesium. This will continue to be an issue while on lactulose. C.diff colitis, found 03/20, active and improving. - Continue vancomycin 125mg q6h oral - Enteric precaution. -Patient has completed a course of by mouth vancomycin for C differential colitis Lactic acidosis, present on admission, resolved. -Likely due to tissue hypoxia from severe anemia as well as poor hepatic clearance due to cirrhosis. Acetaminophen for mild pain when necessary. Bowel regimen Senna and MiraLAX scheduled and PRN. Zofran when necessary for nausea and vomiting. SubQ heparin for now. SCDs in place. High-risk medications:NONE CODE STATUS: Full code dispo:pt is close to discharge, SNF appropriate, coordinate with GI for timing of d/c Exam Vital Signs (Last) Date Time Temp Pulse Resp B/P Pulse Ox O2 Delivery O2 Flow Rate FiO2 04/08/17 04:50 36.8 82 16 115/67 92 Room Air 04/02/17 21:08 2.00 Exam Constitutional: Middle-aged female who looks older than her stated age resting in bed but talkative Head: Normocephalic atraumatic Eyes: PERRLA DC Mouth: No lesions Neck: No adenopathy Chest: Clear to auscultation Cor: Regular rate and rhythm S1-S2 without murmur Abdomen: Soft nontender bowel sounds present Shortness: No pedal edema Skin: No rashes but slightly icteric Psych: Mood and affect slightly blunted Neuro: Alert and oriented 3, motor strength is bilaterally symmetric Laboratory Tests 72 Hours Test 04/06/17 05:15 04/06/17 08:03 04/07/17 05:15 04/08/17 05:15 White Blood Count 9.9th/mm3 (3.8-10.1) 9.8th/mm3 (3.8-10.1) 10.0th/mm3 (3.8-10.1) Red Blood Count 3.07mil/mm3 (3.90-5.20) 3.00mil/mm3 (3.90-5.20) 2.97mil/mm3 (3.90-5.20) Hemoglobin 9.4g/dL (12.0-15.6) 9.3g/dL (12.0-15.6) 9.2g/dL (12.0-15.6) Hematocrit 29.6% (35.0-46.0) 29.3% (35.0-46.0) 28.9% (35.0-46.0) Mean Corpuscular Volume 96.4fL (81-100) 97.7fL (81-100) 97.3fL (81-100) Mean Corpuscular Hemoglobin 30.6pg (27.0-35.0) 31.0pg (27.0-35.0) 31.0pg (27.0-35.0) Mean Corpuscular Hemoglobin Concent 31.8% (32.0-37.0) 31.7% (32.0-37.0) 31.8% (32.0-37.0) Red Cell Distribution Width % (12.3-15.4) % (12.3-15.4) % (12.3-15.4) Platelet Count 192bil/L (150-400) 196bil/L (150-400) 188bil/L (150-400) Neutrophils (%) (Auto) 74.6% (40-74) 75.0% (40-74) 73.2% (40-74) Lymphocytes (%) (Auto) 11.3% (14-46) 10.2% (14-46) 12.1% (14-46) Monocytes (%) (Auto) 10.8% (4-12) 11.3% (4-12) 11.2% (4-12) Eosinophils (%) (Auto) 2.2% (0-5) 2.5% (0-5) 2.3% (0-5) Basophils (%) (Auto) 0.9% (0-3) 0.7% (0-3) 0.9% (0-3) Prothrombin Time 14.6sec (8.1-12.5) 14.9sec (8.1-12.5) 14.7sec (8.1-12.5) Prothromb Time International Ratio 1.36ratio 1.38ratio 1.37ratio Sodium Level 134mEq/L (134-144) 134mEq/L (134-144) 137mEq/L (134-144) Potassium Level 4.0mEq/L (3.5-5.2) 4.0mEq/L (3.5-5.2) 4.0mEq/L (3.5-5.2) Chloride Level 97mEq/L (97-108) 98mEq/L (97-108) 100mEq/L (97-108) Carbon Dioxide Level 23mmol/L (18-29) 22mmol/L (18-29) 22mmol/L (18-29) Blood Urea Nitrogen 14mg/dL (8-27) 13mg/dL (8-27) 14mg/dL (8-27) Creatinine < 0.30mg/dL (0.57-1.00) < 0.30mg/dL (0.57-1.00) < 0.30mg/dL (0.57-1.00) Estimat Glomerular Filtration Rate mL/min (>59) 325mL/min (>59) 325mL/min (>59) Glucose Level 106mg/dL (60-99) 103mg/dL (60-99) 102mg/dL (60-99) Calcium Level 8.8mg/dL (8.5-10.1) 8.7mg/dL (8.5-10.1) 8.6mg/dL (8.5-10.1) Total Bilirubin 6.5mg/dL (0.0-1.2) 6.7mg/dL (0.0-1.2) 6.1mg/dL (0.0-1.2) Aspartate Amino Transf (AST/SGOT) 101U/L (0-50) 96U/L (0-50) 89U/L (0-50) Alanine Aminotransferase (ALT/SGPT) 58U/L (0-32) 56U/L (0-32) 53U/L (0-32) Alkaline Phosphatase 89U/L (25-165) 97U/L (25-165) 92U/L (25-165) Total Protein 6.1g/dL (6.4-8.4) 6.2g/dL (6.4-8.4) 6.1g/dL (6.4-8.4) Albumin 3.0g/dL (3.4-5.0) 3.1g/dL (3.4-5.0) 2.9g/dL (3.4-5.0) Ammonia 90ug/dL (18-53) 109ug/dL (18-53) Test 03/18/17 16:00 03/18/17 20:15 03/20/17 02:25 03/20/17 02:45 Haptoglobin 18mg/dL (34-200) Hold Purple Top Tube Received (Received) Hold Blue Top Tube Received (Received) Troponin T < 0.010ug/L (0.0-0.011) Hold [place] Top Tube Received (Received) Hold Muhammad Top Tube Received (Received) Alcohols 374mg/dL (0-10) Lactic Acid Level 2.8mmol/L (0.4-2.0) Direct Bilirubin 2.7mg/dL (0.0-0.3) Lactate Dehydrogenase 237U/L (100-190) Lipase 42U/L (13-60) Test 03/22/17 21:38 03/23/17 04:45 03/25/17 02:45 03/30/17 13:49 Activated Partial Thromboplast Time 27.4sec (22.8-33.0) Phosphorus Level 3.5mg/dL (2.5-4.9) Total Creatine Kinase 164U/L (21-215) Hematology Comments Rbc Fibrinogen 141mg/dL (157-380) Urine Color Dark yellow (YELLOW) Urine Appearance Clear (CLEAR,HAZY) Urine pH 5.5 (5.0-8.0) Urine Specific [place] 1.015 (1.003-1.035) Urine Protein Negativemg/dL (NEG,TRACE) Urine Glucose (UA) Negativemg/dL (NEGATIVE) Urine Ketones Negativemg/dL (NEGATIVE) Urine Occult Blood Negative (NEGATIVE) Urine Nitrite Positive (NEGATIVE) Urine Bilirubin Moderate (NEGATIVE) Urine Ictotest Positive (Negative) Urine Urobilinogen Normalmg/dL (NORMAL) Urine Leukocyte Esterase Negative (NEGATIVE) Urine RBC 0-2/hpf (0-2) Urine WBC 0-5/hpf (0-5) Urine Epithelial Cells Occasional/hpf (NONE-MOD) Urine Crystals None seen (NONE SEEN) Urine Bacteria Moderate/hpf (NONE-FEW) Urine Hyaline Casts None/lpf (NONE) Urine Granular Casts None seen (NONE SEEN) Urine Waxy Casts None seen (NONE SEEN) Urine Red Blood Cell Casts None seen (NONE SEEN) Urine White Blood Cell Casts None seen (NONE SEEN) Urine Mucus Present (None Seen) Urine Trichomonas None seen (NONE SEEN) Urine Yeast None (NONE SEEN) Urinalysis Comment None Urine Culture Reflexed Indicated Test 04/01/17 05:10 04/04/17 06:35 04/08/17 05:15 Magnesium Level 1.7mg/dL (1.6-2.6) Procalcitonin 0.19ng/mL (0.00-0.08) White Blood Count 10.0th/mm3 (3.8-10.1) Red Blood Count 2.97mil/mm3 (3.90-5.20) Hemoglobin 9.2g/dL (12.0-15.6) Hematocrit 28.9% (35.0-46.0) Mean Corpuscular Volume 97.3fL (81-100) Mean Corpuscular Hemoglobin 31.0pg (27.0-35.0) Mean Corpuscular Hemoglobin Concent 31.8% (32.0-37.0) Red Cell Distribution Width % (12.3-15.4) Platelet Count 188bil/L (150-400) Neutrophils (%) (Auto) 73.2% (40-74) Lymphocytes (%) (Auto) 12.1% (14-46) Monocytes (%) (Auto) 11.2% (4-12) Eosinophils (%) (Auto) 2.3% (0-5) Basophils (%) (Auto) 0.9% (0-3) Prothrombin Time 14.7sec (8.1-12.5) Prothromb Time International Ratio 1.37ratio Sodium Level 137mEq/L (134-144) Potassium Level 4.0mEq/L (3.5-5.2) Chloride Level 100mEq/L (97-108) Carbon Dioxide Level 22mmol/L (18-29) Blood Urea Nitrogen 14mg/dL (8-27) Creatinine < 0.30mg/dL (0.57-1.00) Estimat Glomerular Filtration Rate 325mL/min (>59) Glucose Level 102mg/dL (60-99) Calcium Level 8.6mg/dL (8.5-10.1) Total Bilirubin 6.1mg/dL (0.0-1.2) Aspartate Amino Transf (AST/SGOT) 89U/L (0-50) Alanine Aminotransferase (ALT/SGPT) 53U/L (0-32) Alkaline Phosphatase 92U/L (25-165) Ammonia 109ug/dL (18-53) Total Protein 6.1g/dL (6.4-8.4) Albumin 2.9g/dL (3.4-5.0) Discharge Medications Discharge Medications ([Thiamine]) 100 MG TABLET 100 MG PO DAILY Prescribed by: PETRONA SALINAS MD Ferrous Sulfate (Feosol) 325 Mg Tablet 325 MG PO TID Prescribed by: PETRONA SALINAS MD Furosemide (Furosemide) 40 Mg Tablet 40 MG PO DAILY Prescribed by: PETRONA SALINAS MD Lactulose (Lactulose) 20 Gm/30 Ml Solution 20 GM PO QID Prescribed by: PETRONA SALINAS MD Pantoprazole DR (Pantoprazole DR) 40 Mg Tablet.dr 40 MG PO BIDAC Prescribed by: PETRONA SALINAS MD Vit#96/Ferrous Fum/FA ( Tablet) 1 Each Tablet 1 TABLET PO DAILY Prescribed by: PETRONA SALINAS MD Rifaximin (Xifaxan) 550 Mg Tablet 550 MG PO BID Prescribed by: PETRONA SALINAS MD Spironolactone (Spironolactone) 25 Mg Tablet 25 MG PO DAILY (Reported) Followup Plan Discharge Diet: Heart Healthy, Other (NO ALCOHOL) Discharge Activity: Home Health Phyical Therapy Follow-up Provider: Rick Heredia DO Follow-up with PCP in: Other (5-7 days,sooner if problems) Time spent Greater than 30 minutes was spent in preparation of discharge with greater than 50% of that time dedicated to patient counseling and coordination of care. copies to: Rick Heredia Cheryl A MD Apr 08, 2017 07:42
[2017-04-08] MEDS: Lactulose 20 Gm/30 mL 30 mL Syrup PO SCH (07:56)
[2017-04-08] MEDS: Pantoprazole 40 mg ER24 Tablet PO SCH (07:56)
[2017-04-08] MEDS: Multivit-Miner-Folic Acid-Iron Tablet PO SCH (07:56)
[2017-04-08] MEDS: Heparin 5,000 Unit/mL Inj SUBQ SCH (07:57)
--- NOTE | 2017-04-08 11:39 | NUR ---
Social Work: Discharge Data: Pt is on day 21 of hospitalization. EMR reviewed. D/C orders are in. Pt discussed in multidisciplinary rounds, MD states pt ready for d/c today, F2F completed by for RN and PT. [employer] notified [facility] of discharge, they will garbage pick up worker F2F today. COLOR MATCHER called [employer] who states front wheeled walker was delivered yesterday. No further d/c planning needs at this time. COLOR M[employer]ER will continue to follow if needs arise. Assessment: Pt who is independent at baseline, currently not capable of self care. Plan: Pt will d/c home via POV with spouse with HH for RN PT with [facility]. Pt has FWW provided by [employer]. Pt's spouse will provide 24/ caregiving for pt as needed. No further d/c planning needs at this time. COLOR M[employer]ER will continue to follow if needs arise. ROSA Carcamo
--- NOTE | 2017-04-08 12:34 | NUR ---
Discharge D/C to home with and son. D/C packet discussed with whole family. Packet, RXs, care notes and f/u info provided. Reporting new FWW in room was personally delivered to them. Belongings returned from safe. No further questions on plan at this time. Escorted off floor via w/c and [employer] with all belongings.
--- NOTE | 2017-04-08 14:25 | NUR ---
Social Work: Late Note Pt's spouse called [employer] inquiring about a beside commode and where to buy one privately. [employer] suggested [facility] and if they don't then to try [employer]. Pt's spouse thankful. ROSA Carcamo
== END 2017-04-08 12:15 | disposition home health service (06) | DRG 811 ==
LOC: SED 14:45 → OBSVTOIN 22:02 → PCC 22:02 → CCU 03-22 15:53 → PCC 03-26 09:47 → MPC 03-31 23:47
PROVIDERS: ADMIT Specialist; ATTEND Specialist
PROC: 30233N1 Transfusion of Nonautologous Red Blood Cells into Peripheral Vein, Percutaneous Approach (ICD-10-PCS; principal; 2017-03-18)
PROC: 30233N1 Transfusion of Nonautologous Red Blood Cells into Peripheral Vein, Percutaneous Approach (ICD-10-PCS; 2017-03-19)
PROC: 30233N1 Transfusion of Nonautologous Red Blood Cells into Peripheral Vein, Percutaneous Approach (ICD-10-PCS; 2017-03-20)
PROC: 30233N1 Transfusion of Nonautologous Red Blood Cells into Peripheral Vein, Percutaneous Approach (ICD-10-PCS; 2017-03-21)
PROC: 30233M1 Transfusion of Nonautologous Plasma Cryoprecipitate into Peripheral Vein, Percutaneous Approach (ICD-10-PCS; 2017-03-22)
PROC: 30233N1 Transfusion of Nonautologous Red Blood Cells into Peripheral Vein, Percutaneous Approach (ICD-10-PCS; 2017-03-22)
PROC: 4A033R1 Measurement of Arterial Saturation, Peripheral, Percutaneous Approach (ICD-10-PCS; 2017-03-23)
PROC: 30233M1 Transfusion of Nonautologous Plasma Cryoprecipitate into Peripheral Vein, Percutaneous Approach (ICD-10-PCS; 2017-03-23)
DX: D62 Acute posthemorrhagic anemia (principal); G93.49 Other encephalopathy; J96.01 Acute respiratory failure with hypoxia; D65 Disseminated intravascular coagulation [defibrination syndrome]; E87.2 Acidosis; I85.10 Secondary esophageal varices without bleeding; A04.7 Enterocolitis due to Clostridium difficile; F10.231 Alcohol dependence with withdrawal delirium; E44.0 Moderate protein-calorie malnutrition; D61.818 Other pancytopenia; I10 Essential (primary) hypertension; K70.10 Alcoholic hepatitis without ascites; K70.30 Alcoholic cirrhosis of liver without ascites; F10.229 Alcohol dependence with intoxication, unspecified; Y90.8 Blood alcohol level of 240 mg/100 ml or more; K70.40 Alcoholic hepatic failure without coma; E87.6 Hypokalemia; E83.42 Hypomagnesemia; Z87.891 Personal history of nicotine dependence; Z68.20 Body mass index [BMI] 20.0-20.9, adult